=== PATIENT | female | born 1975 | race Caucasian/White ===

== ENCOUNTER 2017-07-17 22:32 | Emergency (ER) | payer OTHER ==
[~2017-07-17] VITALS: Ht 170.2 cm; Wt 127.0 kg
[~2017-07-17 22:32] MED LIST: ADVIL200 M1 PO; TYLENOL EXTRA500 MG PO
[2017-07-17] MEDS ORDERED: CYCLOBENZAPRINE10 MG PO (23:31)
[2017-07-17] MEDS ORDERED: DICLOFENAC SODI75 MG PO (23:31)
== END 2017-07-17 23:52 | disposition home or self-care (01) ==
LOC: ED 22:32
DX: S46.011A Strain of muscle(s) and tendon(s) of the rotator cuff of right shoulder, initial encounter (principal); F17.200 Nicotine dependence, unspecified, uncomplicated; Z91.041 Radiographic dye allergy status; Z88.0 Allergy status to penicillin; Z88.1 Allergy status to other antibiotic agents; Z88.6 Allergy status to analgesic agent; Z91.018 Allergy to other foods; X50.9XXA Other and unspecified overexertion or strenuous movements or postures, initial encounter
CPT/HCPCS: 73030; 99283

== ENCOUNTER 2017-08-10 18:05 | Inpatient (IN) | payer OTHER ==
[~2017-08-10] VITALS: Ht 170.2 cm; Wt 153.8 kg
--- OUTSIDE RECORDS SUMMARY | ~2017-08-10 | XMS | Clinical Summary ---
Demographics + + + | Address | [address] | | | [place] [address] | + + + | Home Phone | | + + + | Preferred Language | Unknown | + + + | Marital Status | Single | + + + | Adventism Affiliation | Unknown | + + + | Race | White | + + + | Ethnic Group | Not or | + + + Author + + + | Author | [facility] | + + + | Organization | [facility] | + + + | Address | Unknown | + + + | Phone | Unavailable | + + + Support + + +---------+ + | Name | Relationship | Address | Phone | + + +---------+ + | JAYDEN PULIDO | ECON | Unknown | | + + +---------+ + Care Team Providers + +------+ + | Care Environmental Test Technician Name | Role | Phone | + +------+ + PP | Unavailable | + +------+ + Source Comments KEHINDE is fully live on both [facility] Ambulatory and [facility] InPatient.[facility] Allergies Not on File Current Medications Not on file Active Problems Not on file Social History + +-------+ +--------+------+ | Tobacco [...] on file | | + + + Plan of Treatment + + + + + | Health Maintenance | Due Date | Last Done | Comments | + + + + + | INFLUENZA VACCINE | | | | | (FLU SHOT) | 7 | | | + + + + + Results Not on filefrom Last 3 Months"
--- OUTSIDE RECORDS SUMMARY | ~2017-08-10 | XMS | Clinical Summary ---
Demographics + + + | Address | [address] | | | [place] [address] | + + + | Home Phone | | + + + | Preferred Language | Unknown | + + + | Marital Status | Single | + + + | Zoroastrian Affiliation | Unknown | + + + | Race | White | + + + | Ethnic Group | Not or | + + + Author + + + | Author | [facility] | + + + | Organization | [facility] | + + + | Address | Unknown | + + + | Phone | Unavailable | + + + Support + + +---------+ + | Name | Relationship | Address | Phone | + + +---------+ + | JAYDEN PULIDO | ECON | Unknown | | + + +---------+ + Care Team Providers + +------+ + | Care Repairer Kiln Car Name | Role | Phone | + +------+ + PP | Unavailable | + +------+ + Source Comments KEHINDE is fully live on both [facility] Amb[facility] and [facility] InPatient.[facility] Allergies Not on File Current Medications [...]
--- OUTSIDE RECORDS SUMMARY | ~2017-08-10 | XMS | Clinical Summary ---
Demographics + + + | Address | [address] | | | [place] [address] | + + + | Home Phone | | + + + | Preferred Language | Unknown | + + + | Marital Status | Single | + + + | Voodoo Affiliation | Unknown | + + + | Race | White | + + + | Ethnic Group | Not or | + + + Author + + + | Author | [facility] | + + + | Organization | [facility] | + + + | Address | Unknown | + + + | Phone | Unavailable | + + + Support + + +---------+ + | Name | Relationship | Address | Phone | + + +---------+ + | JAYDEN PULIDO | ECON | Unknown | | + + +---------+ + Care Team Providers + +------+ + | Care Hotel Custodian Name | Role | Phone | + +------+ + PP | Unavailable | + +------+ + Source Comments KEHINDE is fully live on both [facility] Amb[facility] and [facility] InPatient.[facility] Allergies Not on File Current Medications [...]
[~2017-08-10 18:05] MED LIST changes: +CYCLOBENZAPRINE10 MG PO; +DICLOFENAC SODI75 MG PO
[2017-08-15] MEDS ORDERED: DOXYCYCLINE HY100 MG PO (10:10)
[2017-08-15] MEDS ORDERED: NICORETTE4 M2 BUCCAL (10:14)
[2017-08-15] MEDS ORDERED: METFORMIN HCL500 MG PO (10:15)
[2017-08-15] MEDS ORDERED: CALCIUM CARBON600 MG PO (10:15)
[2017-08-15] MEDS ORDERED: VITAMIN D1000 UNI1 PO (10:16)
[2017-08-15] MEDS ORDERED: GLUCOTROL XL5 MG PO (10:16)
[2017-08-15] MEDS ORDERED: CEFPODOXIME PR200 MG PO (10:20)
[2017-08-15] MEDS ORDERED: PROMETHAZINE12.5 M1 PO (14:23)
== END 2017-08-15 12:05 | disposition home or self-care (01) | DRG 872 ==
LOC: ED 18:05 → CCU 21:48 → MS 08-12 15:10
PROVIDERS: ADMIT Internal Medicine
DX: A40.0 Sepsis due to streptococcus, group A (principal); L03.115 Cellulitis of right lower limb; Z68.41 Body mass index [BMI] 40.0-44.9, adult; E66.2 Morbid (severe) obesity with alveolar hypoventilation; R65.20 Severe sepsis without septic shock; E11.65 Type 2 diabetes mellitus with hyperglycemia; G89.4 Chronic pain syndrome; M06.9 Rheumatoid arthritis, unspecified; L30.9 Dermatitis, unspecified; Z79.84 Long term (current) use of oral hypoglycemic drugs; L93.0 Discoid lupus erythematosus; B19.20 Unspecified viral hepatitis C without hepatic coma; E55.9 Vitamin D deficiency, unspecified; F17.200 Nicotine dependence, unspecified, uncomplicated; Z88.0 Allergy status to penicillin
CPT/HCPCS: 36415; 51702; 80048; 80053; 81001; 82306; 83036; 83605; 85025; 86060; 87040; 96374; 96375; 97162; 99285; 99407; J0696; J1170; J1650; J2405; J3243; J3490; J7030; J7120; Q0177

== ENCOUNTER 2020-03-20 22:16 | Emergency (ER) | payer OTHER ==
[~2020-03-20] VITALS: Ht 170.2 cm; Wt 136.1 kg
--- OUTSIDE RECORDS SUMMARY | ~2020-03-20 | XMS | Encounter Summary ---
Demographics + + + | Address | [address] | | | [place] [address] | + + + | Home Phone | | + + + | Preferred Language | Unknown | + + + | Marital Status | Single | + + + | Moravian Affiliation | Unknown | + + + | Race | White | + + + | Ethnic Group | Not or | + + + Author + + + | Author | [facility] | + + + | Organization | [facility] | + + + | Address | Unknown | + + + | Phone | Unavailable | + + + Support + + +---------+ + | Name | Relationship | Address | Phone | + + +---------+ + | Daron Bhatt | ECON | Unknown | | + + +---------+ + Care Team Providers + +------+ + | Care Air Plant Engineer Name | Role | Phone | + +------+ + | Kyree Mcintyre MD | PCP | Unavailable | + +------+ + Encounter Details +--------+ + + + + | Date | Type | Department | Care Team | Description | +--------+ + + + + | 05/18/ | Results | [facility] | Fawad Fox | | | 2008 | Only | Department | MD [facility] | | | | | | [facility] [address] | | | | | | [address] [facility], | | | | | | [place] [address] | | | | | | [phone] | | | | | | | | +--------+ + + + + Social History + +-------+ +--------+------+ | Tobacco Use | Types | Packs/Day | Years | Date | | | | | Used | | + +-------+ +--------+------+ | Never Assessed | | | | | + +-------+ +--------+------+ + + + | Sex Assigned at | Date Recorded | | | | + + + | Not on file | | + + + documented as of this encounter Plan of Treatment Not on filedocumented as of this encounter Procedures + +--------+ + + + | Procedure Name | Priori | Date/Time | Associated Diagnosis | Comments | | | ty | | | | + +--------+ + + + | DERMATOPATHOLOGY(CON | Routin | 05/18/2009 | | Results for this | | SULT) | e | | | procedure are in the | | | | | | results section. | + +--------+ + + + documented in this encounter Results DERMATOPATHOLOGY(CONSULT) (05/18/2009) + + + + + + | Component | Value | Ref Range | Performed | Pathologist | | | | | At | Signature | + + + + + + | DERMATOPATH | SOURCE OF SPECIMEN:A | | [facility] | | | (CONSULT) | FIRST TISSUE LEVEL IV | | DERMATOPATH | | | | [address] CLINICAL | | OLOGY | | | | DESCRIPTION:4mm punch, | | | | | | Lt. leg; vasculitis vs | | | | | | other.1 outside slide | | | | | | ([id number]) received. | | | | | | Ashley Celestin: | | | | | | In Makenzie Stack | | | | | | Baudilio's left leg | | | | | | biopsy, as you | | | | | | indicated, there is | | | | | | adense, superficial and | | | | | | mid, perivascular and | | | | | | interstitial mixed | | | | | | infiltrateconsisting | | | | | | predominantly of | | | | | | neutrophils, many of | | | | | | them with | | | | | | fragmentednuclei. | | | | | | there are numerous | | | | | | extravasated red cells | | | | | | as well as collectionsof | | | | | | neutrophils within | | | | | | dermal papillae. | | | | | | DIAGNOSIS:LEUKOCYTOCLAST | | | | | | IC VASCULITIS. 1 | | | | | | slide ([id number]) | | | | | | returned to | | | | | | Ruddy. | | | | | | CRW:mm05/29/09 My | | | | | | electronic signature | | | | | | indicates that I have | | | | | | personally reviewed | | | | | | alldiagnostic slides, | | | | | | the gross and/or | | | | | | microscopic portion of | | | | | | thisreport and | | | | | | formulated the final | | | | | | diagnosis. | | | | | | Rendering Diagnostician: | | | | | | Bossman Sims Jr., | | | | | | | | | | | | SengPathologistMarioi | | | | | | rodrigue Signed 05/29/2009 | | | | + + + + + + + + | Specimen | + + | Other | + + + + + + + | Performing | Address | City/State/Zipcode | Phone Number | | Organization | | | | + + + + + | [facility] | [address] | [place] [address] | | | DERMATOPATHOLOGY | [address] | | | + + + + + | [facility] | [address] | [place] [address] | | | DERMATOPATHOLOGY | [address] | | | + + + + + documented in this encounter Visit Diagnoses Not on filedocumented in this encounter"
--- OUTSIDE RECORDS SUMMARY | ~2020-03-20 | XMS | Encounter Summary ---
Demographics + + + | Address | [address] | | | [place] [address] | + + + | Home Phone | | + + + | Preferred Language | Unknown | + + + | Marital Status | Legally | + + + | Protestant Affiliation | 1077 | + + + | Race | White | + + + | Ethnic Group | Not or | + + + Author + + + | Author | [facility] | | | and [place] | + + + | Organization | [facility] | | | and [place] | + + + | Address | Unknown | + + + | Phone | Unavailable | + + + Support + + +---------+ + | Name | Relationship | Address | Phone | + + +---------+ + | Daron Bhatt | ECON | Unknown | | + + +---------+ + Care Team Providers + +------+ + | Care Smoking Pipe Repairer Name | Role | Phone | + +------+ + | No, Physician | PCP | Unavailable | + +------+ + Encounter Details +--------+ + + + + | Date | Type | Department | Care Team | Description | +--------+ + + + + | 08/21/ | Orders Only | [facility] | Omega Bello MD | | | 2018 | | [facility] [address] | [address] | | | | | [address] | [place] [address] | | | | | [place], [place] | [phone] | | | | | [address] | | | | | | [phone] | | | +--------+ + + + + Social History + +-------+ +--------+------+ | Tobacco Use | Types | Packs/Day | Years | Date | | | | | Used | | + +-------+ +--------+------+ | Current Every Day | | | | | | Smoker | | | | | + +-------+ +--------+------+ + + + | Sex Assigned at | Date Recorded | | | | + + + | Not on file | | + + + documented as of this encounter Plan of Treatment +--------+---------+ + + + | Date | Type | Specialty | Care Team | Description | +--------+---------+ + + + | 04/10/ | Office | Rheumatology | Nir Mcmahon | | 2019 | Visit | | MD Shanna [address] | | | | | [address] | | | | | | [place] [address] | | | | | | [phone] | | | | | | | | +--------+---------+ + + + documented as of this encounter Visit Diagnoses Not on filedocumented in this encounter Additional Health Concerns + + + + + | Infection | Onset Date | Last Indicated | Resolved Time | + + + + + | Rule out COVID-19 | 12/24/2019 | 12/24/2019 | 12/24/2019 12:54 PM | | | | | PDT | + + + + + documented as of this encounter"
--- OUTSIDE RECORDS SUMMARY | ~2020-03-20 | XMS | Encounter Summary ---
Demographics + + + | Address | [address] | | | [place] [address] | + + + | Home Phone | | + + + | Preferred Language | Unknown | + + + | Marital Status | Legally | + + + | Oriental Orthodox Affiliation | 1077 | + + + | Race | White | + + + | Ethnic Group | Not or | + + + Author + + + | Author | [facility] | | | and [place] | + + + | Organization | [facility] | | | and [...] Team Providers + +------+ + | Care Creel Operator Name | Role | Phone | + +------+ + | No, Physician | PCP | Unavailable | + +------+ + Reason for Visit + + + | Reason | Comments | + + + | Cellulitis | bilateral leg | + + + | Nausea | | + + + | Emesis | | + + + | Fever (9 Weeks To 74 | | | Years) | | + + + Auth/Cert +--------+--------+ + + + + | Status | Reason | Specialty | Diagnoses / | Referred By | Referred To | | | | | Procedures | Contact | Contact | +--------+--------+ + + + + | | | | Diagnoses | | | | | | | Cellulitis | | | | | | | of right | | | | | | | lower | | | | | | | extremity | | | | | | | Septic shock | | | | | | | ([facility]) | | | | | | | Fever, | | | | | | | unspecified | | | | | | | fever cause | | | | | | | | | | +--------+--------+ + + + + Encounter Details +--------+ + + + + | Date | Type | Department | Care Team | Description | +--------+ + + + + | 12/23/ | Hospital | [facility] | Ramone Partida, | Cellulitis of right | | 2019 - | Encounter | [facility] | MD [address] | lower extremity | | | | CARE FLOOR [address] | [place] [address] | (Primary Dx); Septic | | 12/28/ | | [address] | [phone] | shock (HCC); Fever, | | 2019 | | [place], [place] | | unspecified fever | | | | [phone] | Bryant Matthew MD | cause; | | | | [phone] | [address] | Non-intractable | | | | | [place] [address] | vomiting with | | | | | [phone] | nausea, unspecified | | | | | | vomiting type | | | | | Lisa Gutierrez MD | | | | | | [address] | | | | | | [address] [place], | | | | | | [place] [address] | | | | | | [phone] | | | | | | | | | | | | Chelle Fernandez S, | | | | | | [address] | | | | | | [place] [address] | | | | | | [phone] | | | | | | | [...] + + documented as of this encounter Last Filed Vital Signs + + + + + | Vital Sign | Reading | Time Taken | Comments | + + + + + | Blood Pressure | 126/68 | 12/29/2019 11:10 AM | | | | | PDT | | + + + + + | Pulse | 84 | 12/29/2019 11:10 AM | | | | | PDT | | + + + + + | Temperature | 36.8 C (98.3 F) | 12/29/2019 11:10 AM | | | | | PDT | | + + + + + | Respiratory Rate | 20 | 12/29/2019 11:10 AM | | | | | PDT | | + + + + + | Oxygen Saturation | 94% | 12/29/2019 11:10 AM | | | | | PDT | | + + + + + | Inhaled Oxygen | - | - | | | Concentration | | | | + + + + + | Weight | 151.4 kg (333 lb | 12/29/2019 4:20 AM | | | | 12.4 oz) | PDT | | + + + + + | Height | 170.2 cm (5' 7") | 12/24/2019 5:01 PM | | | | | PDT | | + + + + + | Body Mass Index | 52.28 | 12/24/2019 5:01 PM | | | | | PDT | | + + + + + documented in this encounter Discharge Summaries Chelle Fernandez MD - 12/29/2019 10:43 AM PDT Patient: Abhishek Astudillo : 1975 Date of Admission: 12/24/2019 Date of Discharge: 12/29/2019 Treatment Team: Chance Valentin DO Discharging Provider: Chelle Fernandez MD Discharge Diagnoses: Principal Problem: Severe sepsis Active Problems: Cellulitis of right lower extremity Type 2 diabetes mellitus RA (rheumatoid arthritis) Morbidly obese Epigastric pain Nausea & vomiting Resolved Problems: * No resolved hospital problems. * Procedures Performed: Chief Complaint: Cellulitis (bilateral leg); Nausea; Emesis; and Fever (9 Weeks To 74 Years) Hospital Course: The patient is a 44 y.o. female with significant past medical history of rheumatoid arthrit is, lupus, diabetes mellitus type 2, history of ulcerative colitis not on any medication exc ept ibuprofen and Tylenol, morbidly obese who came to the emergency department complaining o f high-grade fever, chills, right leg erythema as well as right leg pain and epigastric pain , she also complained of generalized body. Patient found to have Fever of 38.7, tachycardic with heart rate of 124, white count of 28, 000, sodium 132, glucose 456, procalcitonin 16, CPK 118, lactic acid 4.1. She was treated for evere sepsis due to Cellulitis of right lower extremity, improving, she received IV hydrtion and hypotension improved, she received Clindamycin and Ancef, that was changed to oral for 9 more days after discharge per ID recommendations Dr. Valentin, she will f ollow in 1 week. Left side abdominal pain, CT abdomen showed hepatomegaly and hepatic cirrhosis, inguinal ad enopathy, likely reactive due to cellulitis, possible abdominal pain due to gastritis on PPI . Gastroparesis is also in differential, continue Reglan. Type 2 diabetes mellitus, she received Insulin sliding scale while in the hospital. She use s Metformin at home, intermittently uses Glimiperide as she said she had hypoglycemia at [facility], diabetic education, patient will follow her blood sugar closely she said it goes high whe n she has infection, she doesn't have PCP at this time, she lives in [place] and will search to make appointment with one, she has glucometer and advised low calorie diet. She was prescribed Glimeperide and Metformin, she checks her blood sugar regularly at home. Morbidly obese, counseling for life style modifications. Outstanding Issues: Discharge Exam and Data: Vital Signs: BP 122/68 | Pulse 78 | Temp 36.9 C (98.4 F) (Oral) | Resp 20 | Ht 1.702 m (5' 7") | Wt (!) 151.4 kg (333 lb 12.4 oz) | SpO2 94% | No | BMI 52.28 kg/m Physical Exam Constitutional: Alert and awake, no acute distress HEENT: Neck supple, no JVD, non icteric sclera. Cardiovascular: Normal rate normal heart sounds with S1 and S2, Pulmonary/Chest: Effort normal and breath sounds normal. No stridor. No respiratory distres s. no wheezes. no rales. Abdominal: Soft. Bowel sounds are normal. There is no tenderness. There is no rebound and n o guarding. Extremeties/Musculoskeletal: Normal range of motion.exhibits bilateral lymphedema. Recent Labs Recent Labs Lab 12/29/19 0631 WBC 8.31 HGB 10.7* HCT 32.8* PLT 270 Recent Labs Lab 12/29/19 0631 NA 139 K 3.5 CL 105 CO2 26 BUN 10 CALCIUM 8.2* No results for input(s): INR in the last 168 hours. Recent Radiology Results No results found. Discharge Information: Follow up: Current active diet order is: Diet Diet consistent carb; Effective Now Chance Homero, DO [address] [facility] [id number] Schedule an appointment as soon as possible for a visit in 1 week Discharge Medications New Medications Details cephalexin 500 mg capsule Take 1 capsule by mouth 4 times daily for 9 days. Indications: Non-Purulent Skin and Soft Tissue Infection aka: KEFLEX clindamycin 300 MG capsule Take 1 capsule by mouth every 6 hours for 9 days. Indications: Non-Purulent Skin and Soft Tissue Infection aka: CLEOCIN glimepiride 2 MG tablet Take 1 tablet by mouth Daily. aka: AMARYL Changed Medications Details HYDROcodone-acetaminophen 5-325 mg per tablet Take 1-2 tablets by mouth every 6 hours as needed for Pain. What changed: What Changed: Instructions aka: NORCO Unchanged Medications Details metFORMIN 1000 MG tablet Take 1 tablet by mouth 2 (two) times daily with meals. aka: GLUCOPHAGE . Disposition: home Condition: Stable Code Status: Full Code Discharge took 35 minutes, to include final examination, discussion of admission, and prepa ration of prescriptions, instructions for on-going care, follow-up and documentation of disc harge summary. Chelle Fernandez MD 10:43 AM PDT 12/29/2019 documented in thi s encounter Discharge Instructions Instructions Mario Padgett RN - 12/29/2019What is Coronavirus? The Novel Coronavirus 2019 (COVID-19) is a new virus strain that is spread mainly from pers lt-fi-ldpfyx through respiratory droplets when an infected person coughs or sneezes. Symptom s may appear 2-14 days after exposure. Reported illnesses have ranged from mild symptoms to severe illness and for confirmed cases. Some people testing positive for COVID-19 have no symptoms at all (asymptomatic). The most common symptoms include: ? Cough ? Shortness of breath or difficulty breathing ? Fever ? Chills ? Muscle pain ? Sore throat ? New loss of taste or smell COVID-19 is most commonly spread from an infected person to others through: ? Between people who are in close contact with one another (within about 6 feet). ? Respiratory droplets produced by coughing and sneezing. These droplets can land in the mo uths or nose of people who are nearby or possibly be inhaled into the lungs. ? Touching a surface with the virus on it and then touching your mouth, nose, or eyes befor e washing your hands. How to protect yourself ? Avoid touching your eyes, nose and mouth with unwashed hands. ? Wash your hands often with soap and water for at least 20 seconds. This is especially imp ortant after blowing your nose, coughing, or sneezing; going to the bathroom; and before eat ing or preparing food. ? If soap and water are not available, use an alcohol-based hand vibrating screed operator with at least 60 % alcohol covering all surfaces of your hands and rubbing them together until they feel dry. ? Cover your cough or sneeze with a tissue, then throw the tissue in the trash. (Putting a tissue on a table contaminates the surface of the table with germs.) ? Routinely disinfect frequently touched objects and surfaces, using a cleaning spray or wi pe. ? Avoid travel to high-risk countries. Non-essential travel to or through any of the countr ies for which the CDC has issued a level 2 or 3 travel health notice is discouraged. https://www.cdc.gov/coronavirus/2019-ncov/travelers/index.html ? Stay at least 6 feet away from others when in public places, do not gather in groups, sta y out of crowded places, and avoid mass gatherings to slow the spread of the virus. ? Use of a simple cloth face covering to slow the spread of the virus in public settings wh ere it's hard to stay away from others, such as in grocery stores, pharmacies, and other are as where the virus might easily spread. Cloth masks do not protect the wearer but instead h old in droplets from sneezing or coughing to prevent spreading to other people and surfaces. Cloth face coverings fashioned from household items or made at home from common materials a t low cost can be used. It is not recommended to use surgical masks or N-95 respirators. A few definitions that you should be familiar with regarding COVID-19: Quarantine is used to keep someone who might have been exposed to COVID-19 away from others . Isolation is used to separate people infected with the virus (those who are sick from COVID -19 and those with no symptoms) from people who are not infected. Both quarantine and isolation are similar that they: ? involve separation of people to protect the public ? help limit further spread of COVID-19 ? can be done voluntarily or be required by health authorities What to do if you are sick? ? If you have a fever and cough, you may have COVID-19. Notify your medical provider. ? Stay home except to get medical care (see for Home Isolation) ? Monitor your symptoms When you should seek medical evaluation and advice? ? Call 911 if you have a medical emergency such as trouble breathing, persistent pain or pr essure in the chest, and/or bluish lips or face. If you have a medical emergency and need to call 911, notify the moulder operator that you have or think you might have, COVID-19. If possible, put on a facemask before medical help arrives. ? If you are 65 and older, or have underlying conditions such as , heart disease, diabetes, lung disease and weakened immune system, work with your doctor to develop a plan t o determine your health risks to COVID-19 and how to manage symptoms. If you do have symptom s, contact your doctor immediately. ? For worsening symptoms or difficulty breathing, please contact your primary care provider or consider a virtual visit. ? If you do not have a high-risk condition and your symptoms are mild, you do not need to b e evaluated in person and do not need to be tested for COVID-19. (Please see Home Quarantin e and Isolation Instructions below) ? We ask that you please avoid coming to the emergency department, unless you have a health emergency and/or you have been advised by a provider to do so. This helps prevent the risk of spreading this disease and further exposure in our community and allows us to dedicate cr itical and limited emergency resources to those who are very sick. Who should be tested? A common question right now is, Why can't I get tested? The answer: Not everyone need s to be tested. Given the short supply of testing supplies and protective equipment for our health care workers, the CDC recommends that people who are hospitalized, healthcare worker who have COVID-19 symptoms, residents in nursing facilities or half-way communities or home health, or those who are high risk (older adults, chronic diseases, immunosuppressed) s hould be prioritized for testing. These recommendations may evolve to include more people ov er time, as this situation is evolving rapidly. It is not recommended to test individuals wh o do not have COVID-19 symptoms. What to do if you think you have been exposed to COVID-19? If you feel healthy but recently had close contact with a person known to have COVID-19, yo u need to self-quarantine. Follow the self-quarantine instructions listed below: ? Check your temperature twice a day ? Stay home for 14 days from the time of exposure and self-monitor for fever, cough, and sh ortness of breath. ? Contact your medical provider if your temperature is greater than 100.4 and you develop c ough or shortness of breath. ? If possible, stay away from people who are high-risk for getting very sick from COVID-19. Does this mean my family or other people I live with need to self-quarantine? Other members of the household are not required to self-quarantine, unless they have been t old by a medical professional to do so. If you develop symptoms and are suspected to have CO VID-19, members of the household will be classified as close contacts and will then need to be in self-quarantine. Please speak to your health care provider and/or health department fo r further instructions. What are the guidelines for home quarantine and home isolation? ? Restrict activities outside your home, except for seeking medical care. ? Do not go to work, another person's home, school or public areas. ? Do not use public transportation. ? Cover coughs and sneezes. ? Avoid close contact with household members. When this is not possible, stay at least 6 fe et from other people and wear a cloth face covering. During the COVD-19 pandemic, medical-gr tacos masks are reserved for healthcare workers. ? Use separate sleeping and bathroom/bathing facilities, if feasible. ? Wash your hands often with soap and water for at least 20 seconds. This is especially imp ortant after blowing your nose, coughing, or sneezing; going to the bathroom; and before eat ing or preparing your food. ? Use hand vibrating screed operator if soap and water are not available. Use an alcohol-based hand sanitiz er with at least 60% alcohol, covering all surfaces of your hands and rubbing them together until they feel dry ? Cover your mouth and nose with a tissue when you cough or sneeze. Throw away used tissues in a lined trash can. Wash your hands afterwards. ? Clean and disinfect high-touch surfaces in your sick room and bathroom with a house hold disinfectant. High-touch surfaces include phones, remote controls, counters, doorknobs, tabletops, bathroom fixtures, toilets, keyboards, and bedside tables. Let someone else tracey n and disinfect surfaces in common areas, but not your bedroom and bathroom. ? Avoid sharing personal household items (dishes, drinking glasses, cups, eating utensils, towels, or bedding) with other people or pets in your home. After using these items, they sh ould be washed thoroughly with soap and water or in the sheriff's sergeant/washer. ? Call ahead before visiting your doctor. This will help the healthcare provider's office t heaven steps to keep other people from getting infected or exposed. ? If you have been tested for COVID-19, stay home until your healthcare provider contacts y ou about your test results. When should I discontinue self-quarantine? If you have tested positive for COVID-19, you can leave home after these three things have happened: ? At least 3 days (72 hours) have passed since resolution of fever (temperature less than 1 00.0F or 37.8C) without the use of fever-reducing medications (e.g. Tylenol, Ibuprofen) AND ? At least 3 days of improvement in respiratory symptoms (e.g. cough, shortness of breath) AND ? At least 10 days have passed since symptoms first appeared If you have tested positive for COVID-19 and are retested, you can leave home after these t hree things have happened: ? Resolution of fever (temperature less than 100.0F or 37.8C) without the use of fever-redu cing medications (e.g. Tylenol, Ibuprofen) AND ? Improvement in respiratory symptoms (e.g. cough, shortness of breath) AND ? Negative test results of COVID-19 from at least two consecutive samples collected 24 hrs or more apart If you are waiting for COVID-19 test results or you are symptomatic but did not require kathy ting, you can leave home after the following things have happened: ? At least 3 days (72 hours) have passed since resolution of fever (temperature less than 1 00.0F or 37.8C) without the use of fever-reducing medications (e.g. Tylenol, Ibuprofen) and at least 3 days of improvement in respiratory symptoms (e.g., cough, shortness of breath), a nd at least 10 days have passed since symptoms first appeared. OR ? Two negative test results received and at least 24 hours have passed since resolution of fever (temperature less than 100.0F or 37.8C) without the use of fever-reducing medications (e.g. Tylenol, Ibuprofen). How is COVID-19 treated? Most people with COVID-19 will recover on their own. There is no specific antiviral treatm ent recommended for COVID-19 at this time. People with COVID-19 should receive supportive ca re to help relieve symptoms. For severe cases, treatment should include care to support heavenly l organ functions. Additional Information For up-to-date information about coronavirus and the community public health response, visi t your local public health website. CDC: COVID-19: https://www.cdc.gov/coronavirus/2019-ncov/index.html [place] Coronavirus Advisory: https://www.[place].org/jdknacxd-tfa-bzxiambj/coron tamekarus-advisory Virtual Visits Available [email or web address]/ AttachmentsThe following attachments cannot be sent through Care Everywhere.Sepsis, Underst anding ([place]ian)Sepsis ([place]ian)Cephalexin tablets or capsules ([place]ian)Clindamycin capsules ([place]ian)documented in this encounter Medications at Time of Discharge + + + +---------+ + + | Medication | Sig | Dispensed | Refills | Start | End Date | | | | | | Date | | + + + +---------+ + + | glimepiride | Take 1 tablet by | 30 | 0 | /30/20 | | | (AMARYL) 2 MG tablet | mouth Daily. | tablet | | 20 | | + + + +---------+ + + | | Take 1-2 tablets by | 30 | 0 | 07/30/20 | | | HYDROcodone-acetamin | mouth every 6 hours | tablet | | 20 | | | ophen (NORCO) 5-325 | as needed for Pain. | | | | | | mg per tablet | | | | | | + + + +---------+ + + | metFORMIN | Take 1 tablet by | 60 | 5 | 08/22/19 | | | (GLUCOPHAGE) 1000 MG | mouth 2 (two) times | tablet | | 18 | | | tablet | daily with meals. | | | | | + + + +---------+ + + | cephalexin | Take 1 capsule by | 36 | 0 | 12/29/19 | | | (KEFLEX) 500 mg | mouth 4 times daily | capsule | | 20 | 0 | | capsuleIndications: | for 9 days. | | | | | | NON-PURULENT SKIN | Indications: | | | | | | AND SOFT TISSUE | Non-Purulent Skin | | | | | | INFECTION | and Soft Tissue | | | | | | | Infection | | | | | + + + +---------+ + + | clindamycin | Take 1 capsule by | 36 | 0 | 12/29/19 | | | (CLEOCIN) 300 MG | mouth every 6 hours | capsule | | 20 | 0 | | capsuleIndications: | for 9 days. | | | | | | NON-PURULENT SKIN | Indications: | | | | | | AND SOFT TISSUE | Non-Purulent Skin | | | | | | INFECTION | and Soft Tissue | | | | | | | Infection | | | | | + + + +---------+ + + documented as of this encounter Progress Notes Chance Valentin DO - 12/29/2019 10:08 AM PDTFormatting of this note might be different from ajith rizo. [facility] Service: Infectious Diseases Progress note Hospital Day: LOS 5 Post-op Day: * No surgery found * Subjective Patient Summary: 44 y.o. female with significant past medical history of type 2 diabetes m ellitus, lupus, rheumatoid arthritis, ulcerative colitis, hepatitis C, endometrial cancer wh o presented on 12/24/2019 with severe pain in the right leg associated with fever and hypoten vikram. Exam was consistent with cellulitis, and the patient was given Rocephin in the emerge ncy department. The patient was ordered for cefepime, Zyvox and clindamycin at the time of admission for management of right leg cellulitis and severe sepsis, although the patient did not require admission to the ICU. I have been asked to consult regarding further antibioti c recommendations. Presenting symptoms were typical of group A strep cellulitis, and she jarquin d a prior history of group A strep exposure in the workplace, therefore antibiotics were sim plified to Ancef and clindamycin. CC: Right leg cellulitis Chart reviewed: No new events. Subjective The patient reports that her sweats and chills have resolved. She has still been having zurdo e headaches. These have been well controlled with [place], no longer needing Dilaudid. She s till has pain in the right leg especially when she first starts standing or walking. The sk in remains very sensitive. No nausea, vomiting or diarrhea. ROS No vomiting or diarrhea. No rashes or pruritis. No oral pain. cephalexin 500 mg Oral 4x Daily clindamycin 300 mg Oral Q6H enoxaparin 40 mg Subcutaneous Q12H famotidine 20 mg Oral BID insulin glargine 20 Units Subcutaneous QAM insulin lispro 0-12 Units Subcutaneous 4x Daily WC and HS PRN Medications: acetaminophen, calcium carbonate, Hypoglycemia Management AND POCT Glucose AND dext mayito AND dextrose 10%, diphenhydrAMINE, HYDROcodone-acetaminophen, metoclopramide, ondan setron Current Facilty-Administered PRN Medications Ordered in Epic Medication Dose Route Frequency Provider Last Rate Last Dose acetaminophen (TYLENOL) tablet 650 mg 650 mg Oral Q4H PRN Bryant Matthew MD 650 mg a t 12/28/19 2208 calcium carbonate (TUMS) chewable tablet 1,000 mg 1,000 mg Oral Q4H PRN Bryant Matthew MD dextrose 50% injection 12.5-25 g 12.5-25 g Intravenous PRN Bryant Matthew MD And dextrose 10% (D10W) infusion Intravenous Continuous PRN Bryant Matthew MD diphenhydrAMINE (BENADRYL) capsule 25 mg 25 mg Oral Q8H PRN Kathia Gutierrez MD 25 mg at 12/28/19 1321 HYDROcodone-acetaminophen (NORCO) 5-325 mg per tablet 1-2 tablet 1-2 tablet Oral Q6H P RN Bryant Matthew MD 1 tablet at 12/29/19 0410 metoclopramide (REGLAN) 5 mg/mL injection 10 mg 10 mg Intravenous Q6H PRN Bryant Casarez i, MD ondansetron (ZOFRAN) injection 4 mg 4 mg Intravenous Q6H PRN Bryant Matthew MD 4 mg at 12/28/19 0705 Objective: Vital Signs: BP 122/68 | Pulse 78 | Temp 36.9 C (98.4 F) (Oral) | Resp 20 | Ht 1.702 m (5' 7") | Wt (!) 151.4 kg (333 lb 12.4 oz) | SpO2 94% | No | BMI 52.28 kg/m Temp: [36.6 C (97.8 F)-36.9 C (98.4 F)] 36.9 C (98.4 F) Pulse: [69-79] 78 Resp: [17-20] 20 BP: (105-169)/(57-79) 122/68 Exam: Const: Vitals reviewed. No acute distress Skin: No rashes, no edema ENT: No thrush. Lungs: CTAB, no rales or wheezes Heart: RRR, no murmur Abd: soft, NT, + bowel sounds Right lower extremity erythema has faded and receded from marked borders, there is still bl anching hyperemia but no induration, much less tensely swollen. The hyperemic area does rem ain tender to palpation Data: Recent Results (from the past 24 hour(s)) POC Glucose Result Value Ref Range Glucose, POC 135 (H) 65 - 99 mg/dL Hemoglobin A1C Result Value Ref Range Hemoglobin A1c 10.8 (H) 4.8 - 5.6 % POC Glucose Result Value Ref Range Glucose, POC 169 (H) 65 - 99 mg/dL POC Glucose Result Value Ref Range Glucose, POC 153 (H) 65 - 99 mg/dL CK Total Result Value Ref Range CK TOTAL 32 30 - 240 U/L CBC with Differential Result Value Ref Range WBC 8.31 3.80 - 11.00 K/uL Red Blood Cells 3.72 3.70 - 5.10 M/uL Hemoglobin 10.7 (L) 11.3 - 15.5 g/dL Hematocrit 32.8 (L) 34.0 - 46.0 % MCV 88.2 80.0 - 100.0 fl MCH 28.8 27.0 - 34.0 pg MCHC 32.6 32.0 - 35.5 g/dL RDW-SD 40.6 37 - 53 fl Platelet Count 270 150 - 400 K/uL MPV 9.7 fl Diff Type AUTOMATED % nRBC 0.0 0 /100WBC % Neutrophils 71.10 % IMMATURE GRANULOCYTE 1.30 % % Lymphocytes 14.70 % Monocyte % 10.50 % Eosinophils % 2.00 % Basophils % 0.40 % Neutrophils, Absolute 5.91 1.90 - 7.40 K/uL IMMATURE GRANS AB 0.11 (H) 0.00 - 0.07 K/uL Absolute Lymphocytes 1.22 1.00 - 3.90 K/uL Absolute Monocytes 0.87 (H) 0.00 - 0.80 K/uL Eosinophils, Absolute 0.17 0.00 - 0.50 K/uL Basophils, Absolute 0.03 0.00 - 0.10 K/uL Magnesium Result Value Ref Range Magnesium 1.8 1.7 - 2.4 mg/dL Phosphorus Result Value Ref Range Phosphorus 2.5 2.3 - 4.8 mg/dL Basic Metabolic Panel Result Value Ref Range Na 139 135 - 145 mmol/L K 3.5 3.5 - 4.9 mmol/L Cl 105 99 - 109 mmol/L CO2 26 23 - 32 mmol/L Anion Gap 12 5 - 20 mmol/L Glucose 178 (H) 65 - 99 mg/dL BUN 10 8 - 25 mg/dL Creatinine 0.49 (L) 0.50 - 1.00 mg/dL BUN/Creatinine Ratio 20 Calcium 8.2 (L) 8.5 - 10.5 mg/dL Estimated GFR >60 >60 mL/min/1.73m2 POC Glucose Result Value Ref Range Glucose, POC 188 (H) 65 - 99 mg/dL Problem List: Principal Problem: Severe sepsis Active Problems: Cellulitis of right lower extremity Type 2 diabetes mellitus RA (rheumatoid arthritis) Morbidly obese Epigastric pain Nausea & vomiting Assessment / Recommendations: Severe sepsis This is most likely toxic shock syndrome secondary to a streptococcal infection, especially in light of negative blood cultures. Further discussed below. Cellulitis of right lower extremity Presentation strongly suggestive of streptococcal cellulitis with toxin production. She jarquin s had rapid improvement in fever and leukocytosis, with exam findings also improving at this point. She has tolerated oral clindamycin and cephalexin. Overall treatment day #6. Incl uding today she needs 9 more days of treatment. Left lower quadrant abdominal pain Resolved spontaneously, no explanation seen on CT scan. Will monitor. Headaches Likely still due to toxins from streptococcal infection, but should be rapidly improving at this point. Disposition: Ready for discharge from infectious diseases standpoint. She will need a pres cription for 9 more days of cephalexin and clindamycin. Follow-up in the ID clinic [facility] Code Status: Full Code Chance Valentin DO 12/29/19 Chelle Wheat MD - 12/28/2019 2:26 PM PDT [facility] Service: Hospitalist Progress Note Pt: Abhishek Astudillo AGE/SEX: 44 y.o. female ROOM: 7112/7112-01 : 1975 PCP: No Physician on file ADMIT DATE: 12/24/2019 TODAY'S DATE: 12/28/2019 Hospital Day/Hospital Course: LOS: 4 days SUBJECTIVE: Patient seen and examine. Complaint of right leg redness and swelling, continue to improve but patient still complains of pain. Scheduled Medications: cephalexin 500 mg Oral 4x Daily clindamycin 300 mg Oral Q6H enoxaparin 40 mg Subcutaneous Q12H famotidine 20 mg Oral BID insulin glargine 20 Units Subcutaneous QAM insulin lispro 0-12 Units Subcutaneous 4x Daily WC and HS Continuous Infusions dextrose 10% PRN Medications acetaminophen, calcium carbonate, Hypoglycemia Management AND POCT Glucose AND dext mayito AND dextrose 10%, diphenhydrAMINE, HYDROcodone-acetaminophen, metoclopramide, ondan setron Allergy: Allergies Allergen Reactions Iodine Contrast Dye [Iodinated Diagnostic Agents] Anaphylaxis Daptomycin Other (See Comments) vasculitis Naproxen Other (See Comments) From Anaprox, "really sick" Penicillins Rash Rash, Tolerates cephalosporins Vancomycin Other (See Comments) vasculitis Iodine Solution [Povidone Iodine] Itching "Pt states feeling light head and itching" Latex Itching OBJECTIVE: Vitals: Temp: [36.7 C (98 F)-37.1 C (98.8 F)] 36.7 C (98 F) Pulse: [70-83] 79 Resp: [16-20] 17 BP: (118-137)/(57-84) 122/57 I&O Detailed Table: No intake or output data in the 24 hours ending 12/28/19 1426 Patient Vitals for the past 96 hrs: Weight 12/28/19 0437 (!) 156.3 kg (344 lb 9.3 oz) 12/24/19 1701 (!) 145.6 kg (320 lb 14.4 oz) Physical Examination: Constitutional: Alert and oriented to person, place, and time. Morbidly obese HEENT: Neck supple, no JVD, non icteric sclera. Cardiovascular: Normal rate, regular rhythm, normal heart sounds with S1 and S2, and intact distal pulses. Exam reveals no gallop and no friction rub. No murmur heard. Pulmonary/Chest: Effort normal and breath sounds normal. No stridor. No respiratory distres s. no wheezes. no rales. exhibits no tenderness. Abdominal: Soft. Bowel sounds are normal. exhibits no distension and no mass. There is no t enderness. There is no rebound and no guarding. Extremeties/Musculoskeletal: Normal range of motion.exhibits no tenderness. exhibits bilat eral lymphedema. Right leg redness improving. Neurological: Alert and oriented to person, place, and time. No cranial nerve deficit. E xhibits normal muscle tone. No gross motor deficits. Skin: Skin is warm. No pallor. Patient has normal capillary refill, no mottling. Psychiatric: Has a normal mood and affect. Behavior is normal. Judgment normal. LABS: Recent Labs 12/28/19 0504 12/27/19 0456 WBC 7.62 7.00 HGB 11.1* 11.2* HCT 33.9* 34.0 PLT 228 179 MCV 87.4 87.9 Recent Labs Lab 12/28/19 0504 12/27/19 0456 12/26/19 0510 12/25/19 0554 12/24/19 1125 NA 138 138 136 -- 134* 132* K 3.8 3.5 3.4* -- 4.0 4.3 CL 104 106 106 -- 103 99 CO2 26 24 21* -- 24 20* ANIONGAP 12 12 12 -- 11 17 BUN 8 11 11 -- 16 12 CREA 0.50 0.60 0.60 -- 0.90 0.85 CALCIUM 7.4* 6.9* 7.0* -- 7.7* 8.8 ALBUMIN -- -- -- -- 2.6* 3.7 ALKPHOS -- -- -- -- 66 83 ALT -- -- -- -- 24 19 AST -- -- -- -- 27 19 MG 1.7 1.8 1.4* < > -- -- PHOS 2.0* 2.1* 1.9* -- -- -- < > = values in this interval not displayed. Recent Labs 12/28/19 0504 12/27/19 0456 12/26/19 0510 GLU 127* 153* 129* No results for input(s): TROPONIN, BNP in the last 72 hours. No results for input(s): PROTIME, INR, PTT in the last 168 hours. No results for input(s): IRON, TIBC, PCTSAT, FERRITIN, TSH, SOILYHPB08, FOLATE in the last 168 hours. Recent Labs Lab 12/28/19 0504 12/27/19 0456 12/26/19 0510 12/25/19 2056 12/25/19 0554 12/24/19 1717 12/24/19 1125 LACTATE -- -- -- 0.8 1.5 2.3* < > -- PROCALCITONI -- -- -- -- -- -- -- 16.68* CRP 12.8* 16.7* 24.0* -- -- -- -- -- < > = values in this interval not displayed. No results for input(s): AMYLASE, LIPASE in the last 168 hours. No results for input(s): TRIG, CHOL, HDL, LDL in the last 168 hours. No results for input(s): AMMONIA in the last [address] Abdomen Pelvis Wo Contrast Result Date: 12/26/2019 CT ABDOMEN AND PELVIS WITHOUT CONTRAST CLINICAL INFORMATION: Left lower quadrant pain and n ausea. COMPARISON: CT ABDOMEN PELVIS WO CONTRAST (12/24/2019); PROCEDURE: Axial images throug h the abdomen and pelvis. Multiplanar reconstructions. At least one of the following CT dose optimization techniques were used: Automated exposure control; Adjustment of mA and/or kV a ccording to patient size; Use of iterative reconstruction technique. FINDINGS: LUNG BASES: N o significant pulmonary abnormality. Symmetric bibasilar compressive atelectasis. No pneum othorax or significant pleural effusion. No pleural effusion or pneumothorax. ABDOMEN Solid organ evaluation suboptimal without contrast. Liver and Biliary: No calcified gallstones or dilated bile ducts. The liver appears enlarged. Cirrhotic liver morphology with enlargeme nt of the caudate lobe and left lobe. No focal liver lesions seen on noncontrast exam. Panc reas, Spleen and Adrenals: The noncontrast appearance of the pancreas, spleen, and adrenal g lands is normal. Kidneys: No hydronephrosis, calculi or contour deforming renal lesion. ABDO MEN AND PELVIS Bowel: No focal gastric abnormality. No small bowel or colonic dilation or a djacent inflammation. No appendiceal dilation or inflammation. Vessels: The abdominal aorta and inferior vena cava are normal caliber. Retroaortic left renal vein, a normal variant. Ly mph Nodes: Multiple enlarged nodes seen in the inguinal regions, right worse than left. The largest node in the right inguinal region is incompletely imaged, with length of at least 6 .7 cm, and short axis diameter of 2.2 cm (coronal image 51 and axial image 185 series 3). Mu ltiple enlarged lymph nodes are seen in the external iliac and common iliac chain, with larg est node in the right external iliac chain measuring 3.8 cm long axis by 2.2 cm short axis. 1.5 cm short axis nodes seen in the right common femoral chain. Small subcentimeter short axis nodes are seen in the aortocaval and upper abdominal periaortic region. Portacaval nod e measures 1.8 cm short axis. A 13 mm short axis node is seen in the peripancreatic/subacut e hepatic space. There are multiple enlarged lymph nodes seen in the retrocrural space, adj acent to the descending thoracic aorta, several with long axis of 2.3 cm, and short axis of 9-10 mm. Peritoneum and Retroperitoneum: No free intraperitoneal air. No ascites fluid. PEL VIS Genitourinary: Urinary bladder moderately distended without focal abnormality. Vaginal cuff intact. The uterus appears surgically absent. No pelvic mass. BODY WALL Soft Tissues: No bowel or inflamed fat containing hernia, mass or hemorrhage. Bones: No acute fracture or vertebral end plate destruction. No lytic or blastic lesion. 1. Hepatomegaly. Relative enlargement of the caudate lobe and left lobe suggests hepatic c irrhosis. 2. Adenopathy. Bulky adenopathy is seen in both inguinal regions, right worse del n left. The largest right inguinal node is incompletely imaged, with long axis of at least 6.7 cm, and short axis of 2.2 cm. Enlarged nodes are also seen along the right external and common iliac chain regions, largest right external iliac node with long axis of 3.8 cm and s hort axis of 2.2 cm. Multiple enlarged nodes are seen in the retrocrural and adjacent to th e descending thoracic aorta and esophagus. Mildly enlarged nodes seen in the peripancreatic /periportal and portacaval regions. 3. No evidence of acute diverticulitis. Normal retrocec al appendix. No evidence of urinary tract stone or hydronephrosis. Final Report Signed by: Silvino link M.D., Brian Sign Date/Time: 12/26/2019 6:[address] Abdomen Pelvis Wo Contrast Result Date: 12/24/2019 CT ABDOMEN AND PELVIS WITHOUT CONTRAST CLINICAL INFORMATION: Abdominal pain, acute, nonloca lized. COMPARISON: None PROCEDURE: Axial images through the abdomen and pelvis. Multiplanar reconstructions. At least one of the following CT dose optimization techniques were used: Au tomated exposure control; Adjustment of mA and/or kV according to patient size; Use of itera tive reconstruction technique. FINDINGS: LUNG BASES: Mild posterior dependent atelectasis of the lung bases. ABDOMEN Solid organ evaluation suboptimal without contrast. Liver and Bilia ry: No visible abnormality in the liver or gallbladder. Pancreas, Spleen and Adrenals: Vera l pancreas morphology. No splenomegaly. No significant adrenal abnormality. Kidneys: No hydr onephrosis, calculi or contour deforming renal lesion. ABDOMEN AND PELVIS Bowel: No small edvin wel or colonic dilation or adjacent inflammation. No appendiceal dilation or inflammation. V essels: No abdominal aortic aneurysm. Lymph Nodes: Right inguinal adenopathy. Right inguina l large node (3/163) measuring 2 cm x 1.8 cm. Right inguinal node (3/159) measuring 1.3 cm in short axis dimension. Large right external iliac lymph node measuring 2 cm x 3.4 cm (3/1 25). Large right common iliac node (3/106) measuring 1.3 cm. There are prominent nodes of t he left inguinal region, the largest measuring 1 cm by 3.2 cm (3/161). Nonspecific large por mehul caval node (3/56) measuring 1.6 x 2.9 cm. Peritoneum and Retroperitoneum: No ascites or free air. No significant retroperitoneal abnormality. PELVIS Genitourinary: Distal ureters a nd bladder appear normal. No pelvic masses. Hysterectomy BODY WALL Soft Tissues: No bowel or inflamed fat containing hernia, mass or hemorrhage. Bones: Mild degeneration of the sacro iliac joints. Mild degeneration at the L5-S1 level with vacuum disc phenomenon. Mild degen eration at the T11-T12 disc space. 1. Right inguinal, right external iliac and right common iliac lymphadenopathy. Given the history, likely reactive from lower extremity infection. Alternative considerations include metastasis or lymphoma. 2. Appendix is normal. Gallbladder is normal. Pancreas is normal. 3. No hydronephrosis or hydroureter. No nephroureterolithiasis. 4. No acute bowel abnormal ity. Final Report Signed by: Seng Graham, Darren Sign Date/Time: 12/24/2019 2:09 PM Xr Chest Ap Portable Result Date: 12/24/2019 CHEST PORTABLE ONE VIEW CLINICAL INFORMATION: Fever. COMPARISON: None FINDINGS: Heart, lung s and vessels normal. No pneumothorax, pleural effusion or adenopathy. No significant bone a bnormality. No acute cardiopulmonary abnormality. Final Report Signed by: Seng Graham, Darren Sign Date/ Time: 12/24/2019 1:07 PM <NWCOMORBIDITIES> PROBLEM LIST Principal Problem: Severe sepsis Active Problems: Cellulitis of right lower extremity Type 2 diabetes mellitus RA (rheumatoid arthritis) Morbidly obese Epigastric pain Nausea & vomiting ASSESSMENT & PLAN 1. Severe sepsis due to Cellulitis of right lower extremity, improving, she received IV h ydrtion and hypotension improved, she is now on Clindamycin and Ancef orally, if she continu e to improve she can be discharged tomorrow, per ID recommendations Dr. Valentin. 2. Left side abdominal pain, CT abdomen showed hepatomegaly and hepatic cirrhosis, inguinal adenopathy, likely reactive due to cellulitis, possible abdominal pain due to gastritis on PPI. Gastroparesis is also in differential, continue Reglan. 2. Type 2 diabetes mellitus, continue Insulin sliding scale. She uses Metformin at home, i ntermittently uses Glimiperide as she said she had hypoglycemia at home. 3. RA (rheumatoid arthritis), not on medications. 4. Morbidly obese, counseling for life style modifications. 5. DVT prophylaxis. Lovenox. Chelle Fernandez MD 12/28/2019 2:26 PM PDT Chance Gregory DO - 12/28/2019 10:07 AM PDT [facility] Service: Infectious Diseases Progress note Hospital Day: LOS 4 Post-op Day: * No surgery found * Subjective Patient Summary: 44 y.o. female with significant past medical history of type 2 diabetes m ellitus, lupus, rheumatoid arthritis, ulcerative colitis, hepatitis C, endometrial cancer wh o presented on 12/24/2019 with severe pain in the right leg associated with fever and hypoten vikram. Exam was consistent with cellulitis, and the patient was given Rocephin in the emerge ncy department. The patient was ordered for cefepime, Zyvox and clindamycin at the time of admission for management of right leg cellulitis and severe sepsis, although the patient did not require admission to the ICU. I have been asked to consult regarding further antibioti c recommendations. Presenting symptoms were typical of group A strep cellulitis, and she jarquin d a prior history of group A strep exposure in the workplace, therefore antibiotics were sim plified to Ancef and clindamycin. CC: Right leg cellulitis Chart reviewed: No new events. Subjective The patient reports that her sweats and chills have resolved but she continues to have epis odes of severe headaches, which are associated with nausea. She does not have nausea at any other times. Her right leg is still very sensitive to touch. ROS No vomiting or diarrhea. No rashes or pruritis. No oral pain. ceFAZolin 2 g Intravenous Q8H clindamycin 300 mg Oral Q6H enoxaparin 40 mg Subcutaneous Q12H famotidine 20 mg Oral BID insulin glargine 20 Units Subcutaneous QAM insulin lispro 0-12 Units Subcutaneous 4x Daily WC and HS PRN Medications: acetaminophen, calcium carbonate, Hypoglycemia Management AND POCT Glucose AND dext mayito AND dextrose 10%, diphenhydrAMINE, HYDROcodone-acetaminophen, HYDROmorphone, metocl opramide, ondansetron Current Facilty-Administered PRN Medications Ordered in [facility] Medication Dose Route Frequency Provider Last Rate Last Dose acetaminophen (TYLENOL) tablet 650 mg 650 mg Oral Q4H PRN Bryant Matthew MD 650 mg a t 12/27/19 0424 calcium carbonate (TUMS) chewable tablet 1,000 mg 1,000 mg Oral Q4H PRN Bryant Matthew MD dextrose 50% injection 12.5-25 g 12.5-25 g Intravenous PRN Bryant Matthew MD And dextrose 10% (D10W) infusion Intravenous Continuous PRN Bryant Matthew MD diphenhydrAMINE (BENADRYL) capsule 25 mg 25 mg Oral Q8H PRN Kathia Gutierrez MD 25 mg at 12/27/19 0003 HYDROcodone-acetaminophen (NORCO) 5-325 mg per tablet 1-2 tablet 1-2 tablet Oral Q6H P RN Bryant Matthew MD 1 tablet at 12/28/19 0706 HYDROmorphone (DILAUDID) injection 0.25-1 mg 0.25-1 mg Intravenous Q2H PRN Bryant cooper MD 1 mg at 12/28/19 0747 metoclopramide (REGLAN) 5 mg/mL injection 10 mg 10 mg Intravenous Q6H PRN Bryant Casarez i, MD ondansetron (ZOFRAN) injection 4 mg 4 mg Intravenous Q6H PRN Bryant Matthew MD 4 mg at 12/28/19 0705 Objective: Vital Signs: BP 124/64 | Pulse 83 | Temp 37.1 C (98.8 F) (Oral) | Resp 16 | Ht 1.702 m (5' 7") | Wt (!) 156.3 kg (344 lb 9.3 oz) | SpO2 92% | No | BMI 53.97 kg/m Temp: [36.7 C (98 F)-37.1 C (98.8 F)] 37.1 C (98.8 F) Pulse: [70-83] 83 Resp: [16-22] 16 BP: (118-137)/(64-84) 124/64 Exam: Const: Vitals reviewed. No acute distress Skin: No rashes, no edema ENT: No thrush. Lungs: CTAB, no rales or wheezes Heart: RRR, no murmur Abd: soft, NT, + bowel sounds Right lower extremity erythema has faded and receded from marked borders, there is still bl anching hyperemia but no induration, much less tensely swollen. The hyperemic area does rem ain tender to palpation Data: Recent Results (from the past 24 hour(s)) POC Glucose Result Value Ref Range Glucose, POC 195 (H) 65 - 99 mg/dL POC Glucose Result Value Ref Range Glucose, POC 136 (H) 65 - 99 mg/dL POC Glucose Result Value Ref Range Glucose, POC 127 (H) 65 - 99 mg/dL CK Total Result Value Ref Range CK TOTAL 44 30 - 240 U/L CBC with Differential Result Value Ref Range WBC 7.62 3.80 - 11.00 K/uL Red Blood Cells 3.88 3.70 - 5.10 M/uL Hemoglobin 11.1 (L) 11.3 - 15.5 g/dL Hematocrit 33.9 (L) 34.0 - 46.0 % MCV 87.4 80.0 - 100.0 fl MCH 28.6 27.0 - 34.0 pg MCHC 32.7 32.0 - 35.5 g/dL RDW-SD 40.9 37 - 53 fl Platelet Count 228 150 - 400 K/uL MPV 10.4 fl Diff Type AUTOMATED % nRBC 0.0 0 /100WBC % Neutrophils 68.50 % IMMATURE GRANULOCYTE 1.00 % % Lymphocytes 16.10 % Monocyte % 11.90 % Eosinophils % 2.20 % Basophils % 0.30 % Neutrophils, Absolute 5.21 1.90 - 7.40 K/uL IMMATURE GRANS AB 0.08 (H) 0.00 - 0.07 K/uL Absolute Lymphocytes 1.23 1.00 - 3.90 K/uL Absolute Monocytes 0.91 (H) 0.00 - 0.80 K/uL Eosinophils, Absolute 0.17 0.00 - 0.50 K/uL Basophils, Absolute 0.02 0.00 - 0.10 K/uL Magnesium Result Value Ref Range Magnesium 1.7 1.7 - 2.4 mg/dL Phosphorus Result Value Ref Range Phosphorus 2.0 (L) 2.3 - 4.8 mg/dL Basic Metabolic Panel Result Value Ref Range Na 138 135 - 145 mmol/L K 3.8 3.5 - 4.9 mmol/L Cl 104 99 - 109 mmol/L CO2 26 23 - 32 mmol/L Anion Gap 12 5 - 20 mmol/L Glucose 127 (H) 65 - 99 mg/dL BUN 8 8 - 25 mg/dL Creatinine 0.50 0.50 - 1.00 mg/dL BUN/Creatinine Ratio 16 Calcium 7.4 (L) 8.5 - 10.5 mg/dL Estimated GFR >60 >60 mL/min/1.73m2 C-Reactive Protein Result Value Ref Range CRP 12.8 (H) <0.5 mg/dL POC Glucose Result Value Ref Range Glucose, POC 186 (H) 65 - 99 mg/dL Problem List: Principal Problem: Severe sepsis Active Problems: Cellulitis of right lower extremity Type 2 diabetes mellitus RA (rheumatoid arthritis) Morbidly obese Epigastric pain Nausea & vomiting Assessment / Recommendations: Severe sepsis This is most likely toxic shock syndrome secondary to a streptococcal infection, especially in light of negative blood cultures. Further discussed below. Cellulitis of right lower extremity Presentation strongly suggestive of streptococcal cellulitis with toxin production. She jarquin s had rapid improvement in fever and leukocytosis, with exam findings also improving at this point. She has tolerated oral clindamycin for the past 24 hours. We can transition from A ncef to oral cephalexin today. Anticipate discharge tomorrow if she is doing well. Left lower quadrant abdominal pain Resolved spontaneously, no explanation seen on CT scan. Will monitor. Headaches Likely still due to toxins from streptococcal infection, but should be rapidly improving at this point. Disposition: Possible discharge tomorrow. Code Status: Full Code Chance Valentin DO 12/28/19 Uzma Goff RN - 12/27/2019 7:18 PM PDT12/27/2019 Sepsis team signing off at this time. Please contact us with any questions or concerns. [phone] Chance Gregory DO - 12/27/2019 10:58 AM PDT [facility] Service: Infectious Diseases Progress note Hospital Day: LOS 3 Post-op Day: * No surgery found * Subjective Patient Summary: 44 y.o. female with significant past medical history of type 2 diabetes m ellitus, lupus, rheumatoid arthritis, ulcerative colitis, hepatitis C, endometrial cancer wh o presented on 12/24/2019 with severe pain in the right leg associated with fever and hypoten vikram. Exam was consistent with cellulitis, and the patient was given Rocephin in the emerge ncy department. The patient was ordered for cefepime, Zyvox and clindamycin at the time of admission for management of right leg cellulitis and severe sepsis, although the patient did not require admission to the ICU. I have been asked to consult regarding further antibioti c recommendations. Presenting symptoms were typical of group A strep cellulitis, and she jarquin d a prior history of group A strep exposure in the workplace, therefore antibiotics were sim plified to Ancef and clindamycin. CC: Right leg cellulitis Chart reviewed: No new events. Subjective The patient reports that she continues to have episodes of sweats at night followed by chil ls, and is feeling very cold this morning. Right leg skin is still very sensitive. ROS No nausea, vomiting or diarrhea. No rashes or pruritis. No oral pain. ceFAZolin 2 g Intravenous Q8H clindamycin 900 mg Intravenous Q8H enoxaparin 40 mg Subcutaneous Q12H famotidine 20 mg Oral BID insulin glargine 20 Units Subcutaneous QAM insulin lispro 0-18 Units Subcutaneous 4x Daily WC and HS PRN Medications: acetaminophen, calcium carbonate, Hypoglycemia Management AND POCT Glucose AND dext mayito AND dextrose 10%, diphenhydrAMINE, HYDROcodone-acetaminophen, HYDROmorphone, metocl opramide, ondansetron Current Facilty-Administered PRN Medications Ordered in [facility] Medication Dose Route Frequency Provider Last Rate Last Dose acetaminophen (TYLENOL) tablet 650 mg 650 mg Oral Q4H PRN Bryant Matthew MD 650 mg a t 12/27/19 0427 calcium carbonate (TUMS) chewable tablet 1,000 mg 1,000 mg Oral Q4H PRN Bryant Matthew MD dextrose 50% injection 12.5-25 g 12.5-25 g Intravenous PRN Bryant Matthew MD And dextrose 10% (D10W) infusion Intravenous Continuous PRN Bryant Matthew MD diphenhydrAMINE (BENADRYL) capsule 25 mg 25 mg Oral Q8H PRN Kathia Gutierrez MD 25 mg at 12/27/19 0003 HYDROcodone-acetaminophen (NORCO) 5-325 mg per tablet 1-2 tablet 1-2 tablet Oral Q6H P RN Bryant Matthew MD 1 tablet at 12/26/192050 HYDROmorphone (DILAUDID) injection 0.25-1 mg 0.25-1 mg Intravenous Q2H PRN Bryant cooper MD 0.5 mg at 12/27/19 05 metoclopramide (REGLAN) 5 mg/mL injection 10 mg 10 mg Intravenous Q6H PRN Bryant Casarez i, MD ondansetron (ZOFRAN) injection 4 mg 4 mg Intravenous Q6H PRN Bryant Matthew MD 4 mg at 12/27/19 0530 Objective: Vital Signs: BP 111/63 | Pulse 66 | Temp 36.7 C (98.1 F) (Oral) | Resp 20 | Ht 1.702 m (5' 7") | Wt (!) 145.6 kg (320 lb 14.4 oz) | SpO2 97% | No | BMI 50.26 kg/m Temp: [36.7 C (98 F)-37.2 C (99 F)] 36.7 C (98.1 F) Pulse: [66-83] 66 Resp: [20] 20 BP: (109-133)/(57-71) 111/63 Exam: Const: Vitals reviewed. No acute distress Skin: No rashes, no edema ENT: No thrush. Lungs: CTAB, no rales or wheezes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 insulin sliding scale Epigastric pain likely secondary to gastritis from chronic NSAID use Plan start the patient on famotidine and minimize use of NSAIDs Nausea and vomiting which could be secondary to uncontrolled diabetes Plan start the patient on Reglan and Zofran PRN Tobacco abuse disorder patient counseled against smoking Morbidly obese patient was to lose weight by diet and exercise DVT prophylaxis on Lovenox Disposition: *floor Code Status: Full Code Primary Care Physician: No Physician on file Bryant Matthew MD 12/24/2019 *Portions of this report have been prepared using Intelligent Apps (mytaxi) voice recognition software. The re port was reviewed for accuracy, however, sound-alike word errors, additions and/or deletions may occur. Please use the clinical context for clarification. If there is any question abou t this report, please contact me. 6 :02 PM PDTdocumented in this encounter Consult Notes Sylvie Hammer, RD - 12/28/2019 12:55 PM PDTAssociated Order(s): IP CONSULT TO DIABETES SPECI ALISTReports she was diagnosed with hypoglycemia at age 16 and that she still suffers from h ypoglycemia. The only time her blood sugars are high is "when I'm sick". Reports she's bee n "sick a lot since 1993" because of cellulitis. States she has been prescribed metformin and glimepiride and has both those medications at home. She states after her last admit she was told to check her blood sugar in the morning and if it was >160 to take a glimepiride - however, her blood sugar has never been more t reina 160, so in 2 years she has not taken any glimepiride. Also reports that she can not afford to check her blood sugar more than 2x a week and usual ly her machine tells her to "call 911" because it's too low to register on her glucometer. She states she is "not stupid", that she counts grams of carbohydrates, she follows a diet and she has lost weight. She reports being very active at work. She does not have a pcp to follow up with as she cannot afford insurance. "I just moved in to a garage" because of the high cost of rent, stating she can't afford insurance on top of her other monthly expenses. HbA1c was 9.6 - 2 years ago on her admit here. HbA1c has been ordered today. Will await current HbA1c value. Blood sugars here fairly well controlled on current regime nNeelam Hammer, MPH, RD, CDE Diabetes Education 12/28/2019 1:16 PM PDT hance Valentin DO - 2019 1:01 PM PDT [facility] Service: Infectious Diseases Initial Consult Note Date of Admission: 12/24/2019 Reason for Consultation: Severe right leg cellulitis, sepsis Requesting Physician: Tawanda Gutierrez History Obtained From: Patient and Chart review CHIEF COMPLAINT: Right leg pain HISTORY OF PRESENT ILLNESS The patient is a 44 y.o. female with significant past medical history of type 2 diabetes me llitus, lupus, rheumatoid arthritis, ulcerative colitis, hepatitis C, endometrial cancer who presented on 12/24/2019 with severe pain in the right leg associated with fever and hypotens ion. Exam was consistent with cellulitis, and the patient was given Rocephin in the emergen cy department. The patient was ordered for cefepime, Zyvox and clindamycin at the time of a dmission for management of right leg cellulitis and severe sepsis, although the patient did not require admission to the ICU. I have been asked to consult this morning regarding [facility] antibiotic recommendations. The patient reports that she has had recurrent episodes of cellulitis in her right lower ex tremity in the past in the setting of lymphedema. She usually wears a compression stocking on the right leg 24 hours a day in order to limit the amount of lymphedema. The only injury the patient recalls is that she was struck on her left leg by a piece of broken glass when a bottle was dropped at work 2 days before she came to the hospital. There was a small cut that bled briefly, but otherwise never became a problem. She then started having fevers, ch ills and malaise, which was associated with pain in the right leg as well as in the right gr oin, but did not have any redness on the right leg until about 12 hours later. She continue s to have significant redness and pain in the right leg today. The patient reports that her boss who she sees on a regular basis when working recently told her that she was suffering from streptococcal pharyngitis. REVIEW OF SYSTEMS Complete review of the constitutional, ENT, cardiovascular, respiratory, gastrointestinal, genitourinary, integumentary, musculoskeletal, psychiatric, neurologic, heme/lymphatic syste ms is entirely negative except as described above in the history of the present illness. Past Medical History: Diagnosis Date Cellulitis Endometrial cancer (HCC) Hepatitis C Lupus Rheumatoid arteritis Type 2 diabetes mellitus (HCC) Ulcerative colitis (HCC) Vasculitis (HCC) Past Surgical History: Procedure Laterality Date DILATION AND CURETTAGE OF UTERUS HYSTERECTOMY Allergies Allergen Reactions Iodine Contrast Dye [Iodinated Diagnostic Agents] Anaphylaxis Daptomycin Other (See Comments) vasculitis Naproxen Other (See Comments) From Anaprox, "really sick" Penicillins Rash Rash, Tolerates cephalosporins Vancomycin Other (See Comments) vasculitis Iodine Other (See Comments) Pt states it makes her feel like "her head isn't attached to her body and she has no chan nce" Latex Itching Medications Prior to Admission Medication Sig Dispense Refill HYDROcodone-acetaminophen (NORCO) 5-325 mg per tablet TAKE 1 TO 2 TABLETS BY MOUTH 4 TI MES DAILY NEEDED FOR PAIN metFORMIN (GLUCOPHAGE) 1000 MG tablet Take 1 tablet by mouth 2 (two) times daily with alvino jackson. (Patient not taking: Reported on 12/24/2019.) 60 tablet 5 Scheduled Medications calcium carbonate 500 mg Oral TID cefepime 2 g Intravenous Q8H clindamycin 900 mg Intravenous Q8H enoxaparin 40 mg Subcutaneous Q12H famotidine 20 mg Oral BID insulin glargine 20 Units Subcutaneous QAM insulin lispro 0-18 Units Subcutaneous 4x Daily WC and HS linezolid 600 mg Intravenous Q12H Continuous Infusions dextrose 10% sodium chloride 0.9% sodium chloride 0.9% 200 mL/hr at 12/24/19 2243 PRN Medications acetaminophen, calcium carbonate, Hypoglycemia Management AND POCT Glucose AND dext mayito AND dextrose 10%, diphenhydrAMINE, HYDROcodone-acetaminophen, HYDROmorphone, metocl opramide, ondansetron Family History Adopted: Yes Social History Socioeconomic History Marital status: Legally Spouse name: Not on file Number of children: Not on file Years of education: Not on file Highest education level: Not on file Tobacco Use Smoking status: Current Every Day Smoker PHYSICAL EXAM Vital Signs: BP 96/52 | Pulse 90 | Temp 37.3 C (99.1 F) (Oral) | Resp 18 | Ht 1.702 m (5' 7") | Wt (!) 145.6 kg (320 lb 14.4 oz) | SpO2 96% | No | BMI 50.26 kg/m Temp: [37.3 C (99.1 F)-39.5 C (103.1 F)] 37.3 C (99.1 F) Pulse: [89-124] 90 Resp: [18-24] 18 BP: (93-131)/(52-80) 96/52 Constitutional: The patient is in no acute distress and appears stated age. Vital signs wer e reviewed as above Head: Normocephalic and atraumatic ENT: Mucous membranes are moist. There is no evidence of thrush. No pharyngeal exudates. Neck: Supple without thyromegaly or meningismus. Heart: Regular rate and rhythm without murmurs gallops or rubs Lungs: Clear to auscultation bilaterally without wheezes rales or rhonchi. Abdomen: Soft and nontender, bowel sounds are present, there is no organomegaly or mass Musculoskeletal: There is no gross deformity or active arthritis. Neuro: There are no gross deficits of motor or sensory function Skin: There are no rashes of clinical significance. Small punctate wound on the left leg f rom glass appears to be healing well and has no associated erythema or induration. Right le g has significant lymphedema with circumferential erythema from the knee to the ankle. Ther e is also tenderness on the medial aspect of the thigh and profound tenderness in the left g roin region. The patient has a large body habitus, which limited my examination such that I was unable to detect any overt lymphadenopathy. Extremities: There is no clubbing, cyanosis, or peripheral edema. Psychiatric: The patient attends the examiner without difficulty and affect is appropriate. DATA CBC: Lab Results Component Value Date WBC 18.38 (H) 12/25/2019 RBC 4.51 12/25/2019 HGB 13.1 12/25/2019 HCT 40.2 12/25/2019 MCV 89.1 12/25/2019 MCH 29.0 12/25/2019 MCHC 32.6 12/25/2019 PLT 236 12/25/2019 MPV 9.8 12/25/2019 DIFFTYPE MANUAL 12/24/2019 CMP: Lab Results Component Value Date NA 134 (L) 12/25/2019 K 4.0 12/25/2019 CL 103 12/25/2019 CO2 24 12/25/2019 ANIONGAP 11 12/25/2019 GLUF 150 (H) 08/20/2017 BUN 16 12/25/2019 GLOB 5.3 (H) 08/20/2017 AGRATIO 0.6 (L) 12/25/2019 BILITOT 0.3 08/20/2017 AST 27 12/25/2019 ALT 24 12/25/2019 EGFR >60 12/25/2019 Microbiology: MRSA screen is pending. Blood cultures negative x2 so far. Nucleic acid amplification kathy t negative for SARS-CoV-2. Imaging: Chest x-ray performed on admission was viewed in PACS and did not show any evidenc e of focal consolidation, infiltrates or pleural effusions. Radiology reports as follows: Ct Abdomen Pelvis Wo Contrast1. Right inguinal, right external iliac and right common iliac lymphadenopathy. Given the history, likely reactive from lower extremity infection. Alter [place] considerations include metastasis or lymphoma. 2. Appendix is normal. Gallbladder is normal. Pancreas is normal. 3. No hydronephrosis or hydroureter. No nephroureterolithiasi s. 4. No acute bowel abnormality. Final Report Signed by: Seng Graham, Darren Sign Date/Time: 12/24/2019 2:09 PM Xr Chest Ap Portable No acute cardiopulmonary abnormality. Final Report Signed by: Seng Graham, Darren Sign Date/ Time: 12/24/2019 1:07 PM Medical record review: I have reviewed the patient's admission history and physical as well as progress notes from the current hospital stay. Emergency department notes have also been reviewed. Much of this information is summarized above in history of present illness. PROBLEM LIST Principal Problem: Severe sepsis Active Problems: Cellulitis of right lower extremity Type 2 diabetes mellitus RA (rheumatoid arthritis) Morbidly obese Epigastric pain Nausea & vomiting Resolved Problems: * No resolved hospital problems. * ASSESSMENT & PLAN Principal Problem: Severe sepsis This is most likely toxic shock syndrome secondary to a streptococcal infection. Await blo od cultures. Further discussed below. Cellulitis of right lower extremity The patient describes the onset of fever and chills before the overt redness appeared on th e right lower extremity, which is strongly suggestive of toxigenic group A strep cellulitis. She also reports a recent known sick contact of a person with streptococcal pharyngitis. I am going to simplify her antibiotics to a combination of Ancef and clindamycin and will mo nitor for improvement. I do not see a need for continued gram-negative coverage. We may co nsider continuing MRSA coverage if MRSA screen is positive. Nausea & vomiting Likely secondary to above, improving, will monitor. Code Status: Full Code Primary Care Physician: No Physician on file Thank you for allowing me to participate in the care of this patient. I will continue to follow with you. Chance Valentin DO 12/25/2019 documented in th is encounter ED Notes Uziel Ma RN - 12/24/2019 4:44 PM PDTReport given to RN. Pt transported to 7th floor at this time. ohsen Partida MD - 12/24/2019 12:49 PM PDTFormatting of this note might be different from the [facility] Department of Emergency Medicine History of Present Illness Patient Identification Abhishek Astudillo is a 44 y.o. female. Patient presented to the Emergency Department by: Car Chief Complaint Chief Complaint Patient presents with Cellulitis bilateral leg Nausea Emesis Fever (9 Weeks To 74 Years) 44 y.o. female presenting with a chief complaint of Fever. Location: General Onset/Duration: this morning Quality: febrile Severity: moderate Associated Symptoms: vomiting Context: 44-year-old female presenting to the emergency department today with vomiting, abd ominal discomfort, and concern for cellulitis to her lower extremities. She has a history o f recurrent cellulitis. Yesterday she was struck by a piece of glass in her left leg. She thinks that is what caused the fever which started this morning. PCP: No Physician on file Past Medical History: Diagnosis Date Cellulitis Endometrial cancer (HCC) Hepatitis C Lupus Rheumatoid arteritis Type 2 diabetes mellitus (HCC) Ulcerative colitis (HCC) Vasculitis (HCC) Past Surgical History: Procedure Laterality Date DILATION AND CURETTAGE OF UTERUS HYSTERECTOMY Prior to Admission medications Medication Sig Start Date End Date Taking? Authorizing Provider metFORMIN (GLUCOPHAGE) 1000 MG tablet Take 1 tablet by mouth 2 (two) times daily with meals . 08/21/17 Omega Bello MD Allergies Allergen Reactions Iodine Contrast Dye [Iodinated Diagnostic Agents] Anaphylaxis Daptomycin Other (See Comments) vasculitis Naproxen Other (See Comments) From Anaprox, "really sick" Penicillins Rash Rash, Tolerates cephalosporins Vancomycin Other (See Comments) vasculitis Social History Socioeconomic History Marital status: Legally Spouse name: Not on file Number of children: Not on file Years of education: Not on file Highest education level: Not on file Occupational History Not on file Social Needs Financial resource strain: Not on file Food insecurity Worry: Not on file Inability: Not on file Transportation needs Medical: Not on file Non-medical: Not on file Tobacco Use Smoking status: Current Every Day Smoker Substance and Sexual Activity Alcohol use: Not on file Drug use: Not on file Comment: Drug use: No Sexual activity: Not on file Lifestyle Physical activity Days per week: Not on file Minutes per session: Not on file Stress: Not on file Relationships Social connections Talks on phone: Not on file Gets together: Not on file Attends oriental orthodox service: Not on file Active member of club or organization: Not on file Attends meetings of clubs or organizations: Not on file Relationship status: Not on file Intimate partner violence Fear of current or ex partner: Not on file Emotionally abused: Not on file Physically abused: Not on file Forced sexual activity: Not on file Other Topics Concern Not on file Social History Narrative Not on file Family History Adopted: Yes Review of Systems Constitutional: Positive for fever Eyes: Negative for vision changes ENT: Negative for earache CV Negative for chest pain, Resp: Negative for [id number], cough GI: Positive for abdominal pain, positive for vomiting : Negative for urinary problems Musculoskeletal: Negative for back pain, joint pain Skin: Negative for rash Neuro/Psych: Negative for headache Physical Exam Temp: 37.7 C (99.8 F) Pulse: 111 Resp: 25 BP: 132/59 SpO2: 100 % Vital signs interpretation: Tachycardic General: Alert, in no apparent distress Eyes: Normal inspection, pupils equal and round, non-icteric ENT: MMM, NCAT Neck: Normal inspection, Supple CV: Rate and rhythm normal, no murmurs Respiratory: Lungs clear to auscultation bilaterally, Normal WOB Abdomen: Soft, mild diffuse abdominal tenderness, non-distended, No rebound or guarding Ext: Swelling of bilateral lower extremities with dry skin noted bilaterally. Subtle eryt armida of RLE. No crepitance. Skin: Warm and dry, subtle erythema of RLE. Neuro: Normal facial symmetry, Moving extremities spontaneously Medical Decision Making and Emergency Department Course ED Department Course Patient presents to ED with complaints of Fever. The patient meet SIRS criteria. There is concern for underlying Sepsis of unclear etiology. Blood cultures were ordered and well and UA and other basic labs. A Chest x-ray will be performed to evaluate for pneumonia. Labs/EKG/Imaging: Lactic acid was 4.1. Procalcitonin significantly elevated. 30 cc/kg bolus of IV fluids given based off ideal body weight of 62kg. IV Rocephin ordered . WBC was 28. CT of the abdomen pelvis was performed as patient had mild tenderness on exam and complaini ng of abdominal discomfort with vomiting. CT was unremarkable. I do not feel the patient symptoms are indicative of a necrotizing infection. She does hav e some tenderness of lower extremities but not pain out of proportion. Glucose significantly elevated. 20 units of subcu insulin given. Glucose came down from 4 50s to 320s. We will continue to monitor. Lactic acid downtrending to 3.1. A 3rd liter of NS ordered. Dr. Matthew, hospitalist, agrees to admission. Critical Care Note Performed by: Ramone Partida MD Authorized by: Ramone Partida MD Critical care provider statement: Critical care time (minutes): 40 Critical care time was exclusive of: Separately billable procedures and treating other pat ients Critical care was necessary to treat or prevent imminent or life-threatening deterioration of the following conditions: Septic Shock Critical care was time spent personally by me on the following activities: Obtaining histo ry from patient or surrogate, examination of patient, evaluation of patient's response to tr eatment, discussions with consultants, development of treatment plan with patient or surroga te, review of old charts, re-evaluation of patient's condition, pulse oximetry, ordering and review of radiographic studies, ordering and review of laboratory studies and ordering and performing treatments and interventions I assumed direction of critical care for this patient from another provider in my specialty : no Vitals: 12/24/19 1300 12/24/19 1403 12/24/19 1430 12/24/19 1500 BP: 123/76 121/64 116/67 125/67 Pulse: 120 124 108 107 Resp: 20 Temp: (!) 38.7 C (101.6 F) TempSrc: Oral SpO2: 95% 96% 93% 91% Weight: Medications sodium chloride 0.9% (NS) infusion (has no administration in time range) clindamycin in dextrose (CLEOCIN) IVPB 900 mg (900 mg Intravenous New Bag 12/24/19 1512) sodium chloride 0.9% (NS) bolus 1,000 mL (has no administration in time range) ondansetron (ZOFRAN) injection 4 mg (4 mg Intravenous Given 12/24/19 1130) LORazepam (ATIVAN) injection 1 mg (1 mg Intravenous Given 12/24/19 1138) cefTRIAXone (ROCEPHIN) IVPB 1 g (0 g Intravenous Stopped 12/24/19 1345) sodium chloride 0.9% (NS) bolus 2,000 mL (2,000 mLs Intravenous New Bag 12/24/19 1309) acetaminophen (TYLENOL) tablet 650 mg (650 mg Oral Given 12/24/19 1323) insulin regular (humuLIN R, novoLIN R) injection (vial) 20 Units (20 Units Subcutaneous Giv en 12/24/19 1421) Records Reviewed Old Medical Records Laboratory Evaluation Results Procedure Component Value Ref Range Date/Time Lactic Acid [[id number]] (Abnormal) Collected: 12/24/19 1451 Order Status: Completed Specimen: Blood Updated: 12/24/19 1525 Lactate, Serum 3.1 0.4 - 2.0 mmol/L POC Glucose [[id number]] (Abnormal) Collected: 12/24/19 1514 Order Status: Completed Updated: 12/24/19 1518 Glucose, POC 325 65 - 99 mg/dL Culture, Blood [[id number]] Collected: 12/24/19 1451 Order Status: Sent Specimen: Peripheral Blood Updated: 12/24/19 1503 Culture, Blood [[id number]] Collected: 12/24/19 1446 Order Status: Sent Specimen: Peripheral Blood Updated: 12/24/19 1502 Urinalysis With Microscopic [[id number]] (Abnormal) Collected: 12/24/19 1327 Order Status: Completed Specimen: Urine, Clean Catch Updated: 12/24/19 1340 Color, UA YELLOW Clarity, Urine CLEAR Specific Treadwell, Urine 1.029 1.002 - 1.030 Leukocyte esterase, UA NEGATIVE NEG Nitrite, UA NEGATIVE NEG Urobilinogen, Ur NORMAL <1.6 mg/dL Protein, Urine (mg/dL) NEGATIVE NEG mg/dL pH, Urine 5.0 5.0 - 8.0 Blood, UA NEGATIVE NEG Ketones, UA NEGATIVE NEG mg/dL Bilirubin, UA NEGATIVE NEG Glucose, Ur >500 NEG mg/dL WBC UA 0-2 0 - 5 /hpf Red Blood Cells, Urine 3-5 0 - 5 /hpf Squamous Epithelial Cells, Urine 26-49 /lpf Bacteria, Urine 1+ NONE Mucus, Urine 1+ Coronavirus (COVID-19) NAAT [[id number]] Collected: 12/24/19 1124 Order Status: Completed Specimen: Tissue from Nasopharynx Updated: 12/24/19 1254 SARS-CoV-2, NAAT (COVID-19) NEGATIVE NEG Procalcitonin [[id number]] (Abnormal) Collected: 12/24/19 1125 Order Status: Completed Specimen: Blood Updated: 12/24/19 1243 PROCALCITONIN 16.68 <0.5 ng/mL Lactic Acid [[id number]] (Abnormal) Resulted: 12/24/19 1221 Order Status: Completed Specimen: Blood Updated: 12/24/19 1223 Lactate, Serum 4.1 0.4 - 2.0 mmol/L CBC with Differential [[id number]] (Abnormal) Collected: 12/24/191124 Order Status: Completed Specimen: Blood Updated: 12/24/19 1221 WBC 28.17 3.80 - 11.00 K/uL Red Blood Cells 4.90 3.70 - 5.10 M/uL Hemoglobin 14.4 11.3 - 15.5 g/dL Hematocrit 42.3 34.0 - 46.0 % MCV 86.3 80.0 - 100.0 fl MCH 29.4 27.0 - 34.0 pg MCHC 34.0 32.0 - 35.5 g/dL RDW-SD 38.9 37 - 53 fl Platelet Count 271 150 - 400 K/uL MPV 9.8 fl Diff Type MANUAL % Segmented Neutrophils 92 % % Bands 7 % % Lymphocytes 1 % Neutrophils, Absolute 25.92 1.90 - 7.40 K/uL Absolute Band Neutrophils 1.97 0.00 - 0.20 K/uL Absolute Lymphocytes 0.28 1.00 - 3.90 K/uL Platelet Estimate ADEQUATE RBC Morphology RBC AND PLT MORPHOLOGY APPEAR NORMAL Comprehensive Metabolic Panel [[id number]] (Abnormal) Collected: 12/24/191124 Order Status: Completed Specimen: Blood Updated: 12/24/19 1218 Na 132 135 - 145 mmol/L K 4.3 3.5 - 4.9 mmol/L Cl 99 99 - 109 mmol/L CO2 20 23 - 32 mmol/L Anion Gap 17 5 - 20 mmol/L Glucose 456 65 - 99 mg/dL BUN 12 8 - 25 mg/dL Creatinine 0.85 0.50 - 1.00 mg/dL BUN/Creatinine Ratio 14 Calcium 8.8 8.5 - 10.5 mg/dL Protein, Total 6.4 6.3 - 8.2 g/dL Albumin 3.7 3.6 - 5.0 g/dL Globulin 2.7 1.3 - 4.9 g/dL A/G Ratio 1.4 1.0 - 2.4 BILIRUBIN, TOTAL 0.7 0.1 - 1.5 mg/dL ALK PHOS 83 35 - 115 U/L AST 19 10 - 45 U/L ALT 19 10 - 65 U/L Estimated GFR >60 >60 mL/min/1.73m2 I personally reviewed the lab results and they have been posted to the chart. Pertinent po sitive and negative findings have been addressed appropriately. Radiology Evaluation Imaging Results CT Abdomen Pelvis wo Contrast (Final result) Result time 12/24/19 14:09:04 Final result by Darren Graham MD (12/24/19 14:09:04) Impression: 1. Right inguinal, right external iliac and right common iliac lymphadenopathy. Given the history, likely reactive from lower extremity infection. Alternative considerations include metastasis or lymphoma. 2. Appendix is normal. Gallbladder is normal. Pancreas is normal. 3. No hydronephrosis or hydroureter. No nephroureterolithiasis. 4. No acute bowel abnormality. Final Report Signed by: Seng Graham, Darren Sign Date/Time: 12/24/2019 2:09 PM Narrative: CT ABDOMEN AND PELVIS WITHOUT CONTRAST CLINICAL INFORMATION: Abdominal pain, acute, nonlocalized. COMPARISON: None PROCEDURE: Axial images through the abdomen and pelvis. Multiplanar reconstructions. At least one of the following CT dose optimization techniques were used: Automated exposure control; Adjustment of mA and/or kV according to patient size; Use of iterative reconstruction technique. FINDINGS: LUNG BASES: Mild posterior dependent atelectasis of the lung bases. ABDOMEN Solid organ evaluation suboptimal without contrast. Liver and Biliary: No visible abnormality in the liver or gallbladder. Pancreas, Spleen and Adrenals: Normal pancreas morphology. No splenomegaly. No significant adrenal abnormality. Kidneys: No hydronephrosis, calculi or contour deforming renal lesion. ABDOMEN AND PELVIS Bowel: No small bowel or colonic dilation or adjacent inflammation. No appendiceal dilation or inflammation. Vessels: No abdominal aortic aneurysm. Lymph Nodes: Right inguinal adenopathy. Right inguinal large node (3/163) measuring 2 cm x 1.8 cm. Right inguinal node (3/159) measuring 1.3 cm in short axis dimension. Large right external iliac lymph node measuring 2 cm x 3.4 cm (3/125). Large right common iliac node (3/106) measuring 1.3 cm. There are prominent nodes of the left inguinal region, the largest measuring 1 cm by 3.2 cm (3/161). Nonspecific large portal caval node (3/56) measuring 1.6 x 2.9 cm. Peritoneum and Retroperitoneum: No ascites or free air. No significant retroperitoneal abnormality. PELVIS Genitourinary: Distal ureters and bladder appear normal. No pelvic masses. Hysterectomy BODY WALL Soft Tissues: No bowel or inflamed fat containing hernia, mass or hemorrhage. Bones: Mild degeneration of the sacroiliac joints. Mild degeneration at the L5-S1 level with vacuum disc phenomenon. Mild degeneration at the T11-T12 disc space. XR Chest AP Portable (Final result) Result time 12/24/19 13:07:42 Final result by Darren Graham MD (12/24/19 13:07:42) Impression: No acute cardiopulmonary abnormality. Final Report Signed by: Seng Graham, Darren Sign Date/Time: 12/24/2019 1:07 PM Narrative: CHEST PORTABLE ONE VIEW CLINICAL INFORMATION: Fever. COMPARISON: None FINDINGS: Heart, lungs and vessels normal. No pneumothorax, pleural effusion or adenopathy. No significant bone abnormality. Discharge Diagnosis: 1. Cellulitis of right lower extremity 2. Septic shock (HCC) 3. Fever, unspecified fever cause Disposition: ED Disposition Admit Discharge Medications: Dictation software, Intelligent Apps (mytaxi), used which may contain error for similar sounding words even af ter review. Personal communication requested for any clarification. MD Ramone Davila MD 12/24/[address] Hilton RN - 0 12/24/2019 11:22 AM PDTx2 attempt at IV placement unsuccessful documented in this encounter Miscellaneous Notes Plan of Mario Silver RN - 12/29/2019 1:37 PM PDTPatient being discharged home. Brandee huynh instructions given to patient and patient verbalizes understanding of teaching. Medi cations delivered at bedside from Rx pharmacy. VSS at time of discharge. All questions and c oncerns addressed. IV removed. Patient transported by family via personal vehicle and juan ng the unit by wheelchair. MARIO PADGETT RN lan of Mario Silver RN - 12/29/2019 11:43 AM PDTDC orders acknowledged. Family has been contacted for tra nsport. Per pt they are to arrive around 1400. Medications to be delivered at bedside from R x pharmacy. Will continue to monitor. MARIO PADGETT RN lan of Mario Silver RN - 12/29/2019 11:43 AM PDT Problem: Adult Inpatient Plan of Care Goal: Plan of Care Review Outcome: Met Goal: Patient-Specific Goal Outcome: Met Goal: Absence of Hospital-Acquired Illness or Injury Outcome: Met Goal: Optimal Comfort and Wellbeing Outcome: Met Goal: Readiness for Transition of Care Outcome: Met Goal: Rounds/Family Conference Outcome: Met Problem: Infection Goal: Infection Symptom Resolution Outcome: Met Problem: Fall Injury Risk Goal: Absence of Fall and Fall-Related Injury Outcome: Met Problem: Skin Injury Risk Increased Goal: Skin Health and Integrity Outcome: Met MAIRO PADGETT RN lan of Fanny Huggins RN - 12/29/2019 1:57 AM PDTPt AOx4. VSS. Afebrile. Breathing non-labored. Currently on room air. Continuous to have Headaches and RLE pain, Chester given with good rel ief. Appears comfortable resting in bed. Warm blanket provided. Pt calls PRN. Will continue to monitor. No acute changes from initial shift assessment. Will pass all cares to day shift RN. Chart review complete. Fanny Houser RN Problem: Infection Goal: Infection Symptom Resolution Outcome: Ongoing, progressing Note: Afebrile. Contact precautions in place. Aseptic technique in place. Single pt room pr ovided. Problem: Fall Injury Risk Goal: Absence of Fall and Fall-Related Injury Outcome: Ongoing, progressing Note: Patient remains free from falls this shift. Fall prevention measures in place. Visu alized regularly. Problem: Skin Injury Risk Increased Goal: Skin Health and Integrity Outcome: Ongoing, progressing Note: Full skin assessment completed. Skin kept clean and dry. Pt repositions self. lan of Fanny Clemente RN - 12/28/2019 11:57 PM PDTReceived report from Shanika FLETCHER @23 15. This RN agrees with previous assessment. lan of Eulogio Beaulieu RN - 12/28/2019 4:24 PM PDT Problem: Adult Inpatient Plan of Care Goal: Absence of Hospital-Acquired Illness or Injury Outcome: Ongoing, progressing Abhishek continuously complaining of headaches and RLE pain. IV dilaudid given x2 and PO N orco x2. Benadryl given once for RLE itching. VSS, afebrile and resting in bed. Chart check reviewed and completed. Will continue to monitor. Eulogio Clark RN, 12/28/2019 lan of Dakotah Miranda RN - 12/28/2019 12:40 PM PDT12:40 PM PDT Rounded with Dr. Fernandez and the primary RN. Abhishek is not medically ready for disch arge. Plan is to return home. Patient is uninsured and will need indigent meds prior to DC . lan of Dione Elizabeth RN - 12/28/2019 12:08 AM PDT Problem: Adult Inpatient Plan of Care Goal: Plan of Care Review Outcome: Ongoing, progressing Problem: Adult Inpatient Plan of Care Goal: Patient-Specific Goal Outcome: Ongoing, progressing Problem: Infection Goal: Infection Symptom Resolution Outcome: Ongoing, progressing Problem: Fall Injury Risk Goal: Absence of Fall and Fall-Related Injury Outcome: Ongoing, progressing Problem: Skin Injury Risk Increased Goal: Skin Health and Integrity Outcome: Ongoing, progressing BLE elevated on 2 pillows. Patient reports 6-7/10 pain in legs/head, down from 10/10 pain ( per pt. Report). Zofran administered x1 for nausea. Chester x1 for pain. Patient requesting sh ower, towel and soaps provided. Dione June RN Plan of Eulogio Beaulieu RN - 12/27/2019 6:16 PM PDT Problem: Adult Inpatient Plan of Care Goal: Absence of Hospital-Acquired Illness or Injury Outcome: Ongoing, progressing Billiejo afebrile during this shift, complaining of headache and was given IV dilaudid and Chester. No other changes at this time. Pt calling appropriately. Will continue to monitor. C davis check reviewed and completed. Eulogio Clark RN, 12/27/2019 lan of Iraida pemberton, Zenaida Tovar RN - 12/27/2019 3:33 PM PDTDischarge Planning: pt resides in [place], pt lik james to d/c home with PO abx. Pt resides alone with friend able to assist pt as needed. Pt do es not have PCP, d/t no ins. 3: 35 PM PDTPlan of Naun Caba RN - 12/27/2019 6:24 AM PDT Problem: Adult Inpatient Plan of Care Goal: Optimal Comfort and Wellbeing Outcome: Ongoing, progressing Pt afebrile throughout night. Pt medicated for c/o headache. Pt visibly more comfortable t reina nights prior. Problem: Skin Injury Risk Increased Goal: Skin Health and Integrity Outcome: Ongoing, progressing Pt gown and bedding was changed. Pt VSS. Pt aox4. Pt verbalizes understanding of plan of care. Pt on contact precautions. Ho urly rounding performed to anticipate pt needs. Bed In lowest position. Patient's mother upd ated on pt status via phone call. Will continue to monitor. Naun Kim RN lan of Eulogio De León RN - 12/26/2019 4:39 PM PDT Problem: Adult Inpatient Plan of Care Goal: Optimal Comfort and Wellbeing Outcome: Ongoing, progressing No concerns or changes during this shift. Pts VSS and afebrile, pt complaining of headache s, Chester given x1. Pts chart check reviewed and completed. Will continue to monitor. Eulogio Clark RN, 12/26/2019 lan of Naun Caba RN - 12/26/2019 4:32 AM PDT Problem: Adult Inpatient Plan of Care Goal: Plan of Care Review Outcome: Ongoing, progressing Plan of care reviewed and discussed with patient. All questions and concerns adressed Problem: Infection Goal: Infection Symptom Resolution Outcome: Ongoing, progressing WBC count down to 18 from 28. Problem: Fall Injury Risk Goal: Absence of Fall and Fall-Related Injury Outcome: Ongoing, progressing Bed in lowest position. Call light in reach. Hourly rounding performed to anticipate needs . Non-slip footwear in place. Pt had TMAX of 102.2. ice packs, cooling cloth, tylenol given. Pt complain of LLQ, abd and pelvis CT without contrast Ordered per Dr. Ponce verbal orders, pending results. Pt blood p ressures varying, lowest is 109/68. Pt given dilaudid x1 for pain. Repeat lactic of 0.8. Hernan l continue to monitor. Naun Kim RN lan of Sangeetha Chance MD - 12/26/2019 4:28 AM PDTReported by RN patient complaining of acute pain i n the left side of the abdomen more in the left lower quadrant in the past 30 minutes. Evaluated patient at the bedside. Reports pain is more localized in the left lower quadrant. Could get up to 10 out of 10 in tensity. not passing flatus. Last bowel movement was 2 3 days ago. Admitted with sepsis an d cellulitis of the right leg. On exam Limited due to body habitus Left side abdominal tenderness present bowel sounds are hyperactive voluntary guarding. Assessment and plan Acute left-sided abdominal pain rule out acute diverticulitis perforation. Ordered CT scan of the abdomen and pelvis without contrast. lan of Zenaida Gottlieb RN - 12/25/2019 2:2 3 PM PDTCare Management Initial Assessment Readmission Risk: Medium Status Prior to Admission or Illness Arrival From: home or self-care Lives With: alone Living Arrangements: other (see comments)(pt states she resides in a remodeled garage) Caregiver For: no one Patient s Caregiver: No one Functional Status: Pt independent with ADL's and ambulation, emp FT Caregiving Concerns: Pt does not have health ins Home Accessibility: no concerns Transportation Available: none Able to return to prior living: TBD pending clinical course Care Management Concerns Readmission Within Last 30 Days: no previous admission in last 30 days PCP: No Physician on file pt does not have health ins, declines assist with health clinics near [place] as pt choose to come to [facility] for health needs Contact Information Family Contact Information: Name: pt mother Daron [place] Needs Assessment Current Outpt/Agency/Support Groups: none Anticipated Changes Related to Illness: none Concerns to be Addressed: no discharge needs identified Services Anticipated at Discharge: none Equipment Used at Home: none Pharmacy/Medication Needs: CM to follow for medication needs, abx rt Transportation Needs: Family or friend to provide Initial Plan Anticipated Discharge Disposition: home Expected DC Date: 2-3 days Steps Taken Toward Discharge: Initial assessment Next Steps: CM to cont to follow for d/c medication needs, pt does not have health ins Notes: CM spoke with patient, pt resides alone in a remodeled garage apt. Pt is independent with ADL's and ambulation, emp FT. Pt Mom Daron [phone] resides 40 miles from pt, is a ble to assist pt as needed. Pt employer is [employer] [phone] and pt friend is Brendan Wood [phone] both able to assist pt as needed. Pt declines work excuse. Pt does not use anticoagulation, no home 02, pt with bilateral cellulitis to LE. Pt is w/o health ins. CM to cont to follow for d/c planning and abx rt. Electronically signed: Zenaida Gastelum RN 12/25/2019 2:23 PM PDT lan of Care - Apolonia Arrington RN - 12/25/2019 7:53 AM PDTMother Daron, called and updated per pt request. MEWS 5 this morning. notified. Vitals checks completed per protocol. BP remained soft th is shift. Pt asymptomatic. TMAX 101.4- tylenol given and ice packs applied. Recheck temp trending down. ID consult placed per MD. No other acute changes for shift. End of shift chart check complete. Apolonia Khan RN Problem: Infection Goal: Infection Symptom Resolution Outcome: Ongoing, progressing Note: T max 101.4 Problem: Fall Injury Risk Goal: Absence of Fall and Fall-Related Injury Outcome: Ongoing, progressing Note: Call light in reach. Bed locked in lowest position. lan of Care - Naun Kim RN - 12/25/2019 6:30 AM PDT Problem: Adult Inpatient Plan of Care Goal: Plan of Care Review Outcome: Ongoing, progressing Problem: Fall Injury Risk Goal: Absence of Fall and Fall-Related Injury Outcome: Ongoing, progressing Problem: Skin Injury Risk Increased Goal: Skin Health and Integrity Outcome: Ongoing, progressing Pt aox4. Pt verbalizes understanding of plan of care. Pt calls appropriately. Hourly roundi ng performed to anticipate pt needs. Pt call light in reach. Fall precautions in place. Pt h ad a TMAX of 103.1 f. Pt given tylenol, ice packs provided, and bear hugger used with ice to cool down patient. Most recent temperature is 99.6 f. Pt expresses lots of pain from groin area where she states she always feels pain when she is septic. Pt given pain medication thr oughout night to keep comfortable. Will continue to monitor. Naun Kim RN lan of Iraida - Viridiana Valdze RN - 12/24/2019 6:38 PM PDT Problem: Adult Inpatient Plan of Care Goal: Plan of Care Review Outcome: Ongoing, progressing Goal: Optimal Comfort and Wellbeing Outcome: Ongoing, progressing Goal: Rounds/Family Conference Outcome: Ongoing, progressing Pt complaining of headache and chills, given PRN medications. HR low 100's, fever improved from ED. Sepsis RN following, will continue to monitor. END OF SHIFT AUDIT COMPLETE. Laureen Soler RN Electronically signed by Viridiana Soler RN at 6:40 PM PDTdocumented in this encounter Plan of Treatment +--------+---------+ + + + | Date | Type | Specialty | Care Team | Description | +--------+---------+ + + + | 04/10/ | Office | Rheumatology | Nir Mcmahon | | | 2019 | Visit | | MD Shanna [address] | | | | | | [place] | | | | | | [place] [id number] | | | | | | [phone] | | | | | | | | +--------+---------+ + + + + +------+--------+ + + | Name | Type | Priori | Associated Diagnoses | Date/Time | | | | ty | | | + +------+--------+ + + | ED INFORMATION | NIKUNJ | Routin | | 12/24/2019 11:36 AM | | EXCHANGE | | e | | PDT | + +------+--------+ + + documented as of this encounter Procedures + +--------+ + + + | Procedure Name | Priori | Date/Time | Associated Diagnosis | Comments | | | ty | | | | + +--------+ + + + | POC GLUCOSE (NON | Routin | 12/29/2019 | | Results for this | | ORD) | e | 11:12 AM | | procedure are in the | | | | PDT | | results section. | + +--------+ + + + | POC GLUCOSE (NON | Routin | 12/29/2019 | | Results for this | | ORD) | e | 7:28 AM | | procedure are in the | | | | PDT | | results section. | + +--------+ + + + | CBC WITH | Routin | 12/29/2019 | | Results for this | | DIFFERENTIAL | e | 6:31 AM | | procedure are in the | | | | PDT | | results section. | + +--------+ + + + | PHOSPHORUS | Routin | 12/29/2019 | | Results for this | | | e | 6:31 AM | | procedure are in the | | | | PDT | | results section. | + +--------+ + + + | MAGNESIUM | Routin | 12/29/2019 | | Results for this | | | e | 6:31 AM | | procedure are in the | | | | PDT | | results section. | + +--------+ + + + | CK TOTAL | Routin | 12/29/2019 | | Results for this | | | e | 6:31 AM | | procedure are in the | | | | PDT | | results section. | + +--------+ + + + | BASIC METABOLIC | Routin | 12/29/2019 | | Results for this | | PANEL | e | 6:31 AM | | procedure are in the | | | | PDT | | results section. | + +--------+ + + + | POC GLUCOSE (NON | Routin | 12/28/2019 | | Results for this | | ORD) | e | 8:18 PM | | procedure are in the | | | | PDT | | results section. | + +--------+ + + + | POC GLUCOSE (NON | Routin | 12/28/2019 | | Results for this | | ORD) | e | 4:35 PM | | procedure are in the | | | | PDT | | results section. | + +--------+ + + + | HEMOGLOBIN A1C | Timed | 12/28/2019 | | Results for this | | | | 11:43 AM | | procedure are in the | | | | PDT | | results section. | + +--------+ + + + | POC GLUCOSE (NON | Routin | 12/28/2019 | | Results for this | | ORD) | e | 11:27 AM | | procedure are in the | | | | PDT | | results section. | + +--------+ + + + | POC GLUCOSE (NON | Routin | 12/28/2019 | | Results for this | | ORD) | e | 7:35 AM | | procedure are in the | | | | PDT | | results section. | + +--------+ + + + | CBC WITH | Routin | 12/28/2019 | | Results for this | | DIFFERENTIAL | e | 5:04 AM | | procedure are in the | | | | PDT | | results section. | + +--------+ + + + | C-REACTIVE PROTEIN | Routin | 12/28/2019 | | Results for this | | | e | 5:04 AM | | procedure are in the | | | | PDT | | results section. | + +--------+ + + + | PHOSPHORUS | Routin | 12/28/2019 | | Results for this | | | e | 5:04 AM | | procedure are in the | | | | PDT | | results section. | + +--------+ + + + | MAGNESIUM | Routin | 12/28/2019 | | Results for this | | | e | 5:04 AM | | procedure are in the | | | | PDT | | results section. | + +--------+ + + + | CK TOTAL | Routin | 12/28/2019 | | Results for this | | | e | 5:04 AM | | procedure are in the | | | | PDT | | results section. | + +--------+ + + + | BASIC METABOLIC | Routin | 12/28/2019 | | Results for this | | PANEL | e | 5:04 AM | | procedure are in the | | | | PDT | | results section. | + +--------+ + + + | POC GLUCOSE (NON | Routin | 12/27/2019 | | Results for this | | ORD) | e | 8:10 PM | | procedure are in the | | | | PDT | | results section. | + +--------+ + + + | POC GLUCOSE (NON | Routin | 12/27/2019 | | Results for this | | ORD) | e | 4:52 PM | | procedure are in the | | | | PDT | | results section. | + +--------+ + + + | POC GLUCOSE (NON | Routin | 12/27/2019 | | Results for this | | ORD) | e | 11:52 AM | | procedure are in the | | | | PDT | | results section. | + +--------+ + + + | POC GLUCOSE (NON | Routin | 12/27/2019 | | Results for this | | ORD) | e | 7:50 AM | | procedure are in the | | | | PDT | | results section. | + +--------+ + + + | CBC WITH | Routin | 12/27/2019 | | Results for this | | DIFFERENTIAL | e | 4:56 AM | | procedure are in the | | | | PDT | | results section. | + +--------+ + + + | C-REACTIVE PROTEIN | Routin | 12/27/2019 | | Results for this | | | e | 4:56 AM | | procedure are in the | | | | PDT | | results section. | + +--------+ + + + | PHOSPHORUS | Routin | 12/27/2019 | | Results for this | | | e | 4:56 AM | | procedure are in the | | | | PDT | | results section. | + +--------+ + + + | MAGNESIUM | Routin | 12/27/2019 | | Results for this | | | e | 4:56 AM | | procedure are in the | | | | PDT | | results section. | + +--------+ + + + | CK TOTAL | Routin | 12/27/2019 | | Results for this | | | e | 4:56 AM | | procedure are in the | | | | PDT | | results section. | + +--------+ + + + | BASIC METABOLIC | Routin | 12/27/2019 | | Results for this | | PANEL | e | 4:56 AM | | procedure are in the | | | | PDT | | results section. | + +--------+ + + + | POC GLUCOSE (NON | Routin | 12/26/2019 | | Results for this | | ORD) | e | 8:43 PM | | procedure are in the | | | | PDT | | results section. | + +--------+ + + + | HEPATITIS PANEL, | Routin | 12/26/2019 | | Results for this | | ACUTE | e | 7:07 PM | | procedure are in the | | | | PDT | | results section. | + +--------+ + + + | POC GLUCOSE (NON | Routin | 12/26/2019 | | Results for this | | ORD) | e | 4:51 PM | | procedure are in the | | | | PDT | | results section. | + +--------+ + + + | POC GLUCOSE (NON | Routin | 12/26/2019 | | Results for this | | ORD) | e | 11:43 AM | | procedure are in the | | | | PDT | | results section. | + +--------+ + + + | POC GLUCOSE (NON | Routin | 12/26/2019 | | Results for this | | ORD) | e | 7:44 AM | | procedure are in the | | | | PDT | | results section. | + +--------+ + + + | CT ABDOMEN PELVIS WO | STAT | 12/26/2019 | | Results for this | | CONTRAST | | 6:13 AM | | procedure are in the | | | | PDT | | results section. | + +--------+ + + + | ANTISTREPTOLYSIN O, | Routin | 12/26/2019 | | Results for this | | QUANT | e | 5:10 AM | | procedure are in the | | | | PDT | | results section. | + +--------+ + + + | CBC WITH | Routin | 12/26/2019 | | Results for this | | DIFFERENTIAL | e | 5:10 AM | | procedure are in the | | | | PDT | | results section. | + +--------+ + + + | STREPTOCOCCAL AB | Routin | 12/26/2019 | | Results for this | | PROFILE | e | 5:10 AM | | procedure are in the | | | | PDT | | results section. | + +--------+ + + + | C-REACTIVE PROTEIN | Routin | 12/26/2019 | | Results for this | | | e | 5:10 AM | | procedure are in the | | | | PDT | | results section. | + +--------+ + + + | PHOSPHORUS | Routin | 12/26/2019 | | Results for this | | | e | 5:10 AM | | procedure are in the | | | | PDT | | results section. | + +--------+ + + + | MAGNESIUM | Routin | 12/26/2019 | | Results for this | | | e | 5:10 AM | | procedure are in the | | | | PDT | | results section. | + +--------+ + + + | CK TOTAL | Routin | 12/26/2019 | | Results for this | | | e | 5:10 AM | | procedure are in the | | | | PDT | | results section. | + +--------+ + + + | BASIC METABOLIC | Routin | 12/26/2019 | | Results for this | | PANEL | e | 5:10 AM | | procedure are in the | | | | PDT | | results section. | + +--------+ + + + | LACTIC ACID | Routin | 12/25/2019 | | Results for this | | | e | 8:56 PM | | procedure are in the | | | | PDT | | results section. | + +--------+ + + + | POC GLUCOSE (NON | Routin | 12/25/2019 | | Results for this | | ORD) | e | 8:44 PM | | procedure are in the | | | | PDT | | results section. | + +--------+ + + + | POC GLUCOSE (NON | Routin | 12/25/2019 | | Results for this | | ORD) | e | 4:12 PM | | procedure are in the | | | | PDT | | results section. | + +--------+ + + + | POC GLUCOSE (NON | Routin | 12/25/2019 | | Results for this | | ORD) | e | 11:31 AM | | procedure are in the | | | | PDT | | results section. | + +--------+ + + + | ECHO COMPLETE | Routin | 12/25/2019 | | Results for this | | | e | 11:30 AM | | procedure are in the | | | | PDT | | results section. | + +--------+ + + + | B TYPE NATRIURETIC | Routin | 12/25/2019 | | Results for this | | PEPTIDE | e | 8:49 AM | | procedure are in the | | | | PDT | | results section. | + +--------+ + + + | POC GLUCOSE (NON | Routin | 12/25/2019 | | Results for this | | ORD) | e | 7:32 AM | | procedure are in the | | | | PDT | | results section. | + +--------+ + + + | CBC NO DIFFERENTIAL | Routin | 12/25/2019 | | Results for this | | | e | 5:54 AM | | procedure are in the | | | | PDT | | results section. | + +--------+ + + + | LACTIC ACID | Routin | 12/25/2019 | | Results for this | | | e | 5:54 AM | | procedure are in the | | | | PDT | | results section. | + +--------+ + + + | CK TOTAL | Routin | 12/25/2019 | | Results for this | | | e | 5:54 AM | | procedure are in the | | | | PDT | | results section. | + +--------+ + + + | COMPREHENSIVE | Routin | 12/25/2019 | | Results for this | | METABOLIC PANEL | e | 5:54 AM | | procedure are in the | | | | PDT | | results section. | + +--------+ + + + | CULTURE, MRSA | Routin | 12/24/2019 | | Results for this | | | e | 8:39 PM | | procedure are in the | | | | PDT | | results section. | + +--------+ + + + | POC GLUCOSE (NON | Routin | 12/24/2019 | | Results for this | | ORD) | e | 8:03 PM | | procedure are in the | | | | PDT | | results section. | + +--------+ + + + | LACTIC ACID | Routin | 12/24/2019 | | Results for this | | | e | 5:17 PM | | procedure are in the | | | | PDT | | results section. | + +--------+ + + + | POC GLUCOSE (NON | Routin | 12/24/2019 | | Results for this | | ORD) | e | 5:03 PM | | procedure are in the | | | | PDT | | results section. | + +--------+ + + + | POC GLUCOSE (NON | Routin | 12/24/2019 | | Results for this | | ORD) | e | 3:14 PM | | procedure are in the | | | | PDT | | results section. | + +--------+ + + + | CULTURE, BLOOD | STAT | 12/24/2019 | | Results for this | | | | 2:51 PM | | procedure are in the | | | | PDT | | results section. | + +--------+ + + + | LACTIC ACID | Routin | 12/24/2019 | | Results for this | | | e | 2:51 PM | | procedure are in the | | | | PDT | | results section. | + +--------+ + + + | CULTURE, BLOOD | STAT | 12/24/2019 | | Results for this | | | | 2:46 PM | | procedure are in the | | | | PDT | | results section. | + +--------+ + + + | CT ABDOMEN PELVIS WO | [facility] | 12/24/2019 | | Results for this | | CONTRAST | | 1:38 PM | | procedure are in the | | | | PDT | | results section. | + +--------+ + + + | URINALYSIS WITH | STAT | 12/24/2019 | | Results for this | | MICROSCOPIC | | 1:27 PM | | procedure are in the | | | | PDT | | results section. | + +--------+ + + + | XR CHEST AP PORTABLE | [facility] | 12/24/2019 | | Results for this | | | | 12:44 PM | | procedure are in the | | | | PDT | | results section. | + +--------+ + + + | LACTIC ACID | STAT | 12/24/2019 | | Results for this | | | | 12:21 PM | | procedure are in the | | | | PDT | | results section. | + +--------+ + + + | ED INFORMATION | Routin | 12/24/2019 | | | | EXCHANGE | e | 11:36 AM | | | | | | PDT | | | + +--------+ + + + +---+--------+ | | | | | Proced | | | ure | | | Note - | | | Jeb, | | | Lab In | | | | | | Hlseve | | | n - | | | 12/23/ | | | 2019 | | | 11:37 | | | AM PDT | | | | | | Format | | | ting | | | of | | | this | | | note | | | might | | | be | | | differ | | | ent | | | from | | | the | | | origin | | | al.COL | | | LECTIV | | | E?NOTI | | | FICATI | | | ON?/ | | | | | | 0 | | | 10:39? | | | CAMPBE | | | LL, | | | NONI | | | CATE?MRN | | | : | | | [id number] | | | [id number] | | | riteri | | | a Met | | | | | | COVID- | | | 19 | | | Pendin | | | g Lab | | | Result | | | sSecur | | | ity | | | and | | | Safety | | | No | | | recent | | | | | | Securi | | | ty | | | Events | | | | | | curren | | | tly on | | | | | | fileED | | | Care | | | Guidel | | | inesTh | | | ere | | | are | | | curren | | | tly no | | | ED | | | Care | | | Guidel | | | bruce | | | for | | | this | | | patien | | | t. | | | Please | | | check | | | your | | | facili | | | ty's | | | medica | | | l | | | record | | | s | | | system | | | .Flags | | | | | | Pendin | | | g | | | COVID- | | | 19 Lab | | | | | | Result | | | - | | | Provid | | | ence - | | | A | | | specim | | | en was | | | | | | collec | | | mejia | | | from | | | this | | | patien | | | t for | | | COVID- | | | 19, | | | result | | | s | | | pendin | | | g / | | | Attrib | | | uted | | | By: | | | Provid | | | ence_ | | | / | | | Attrib | | | uted | | | On: | | | 07/25/ | | | 2020 | | | Prescr | | | iption | | | Drug | | | Report | | | (12 | | | Mo.)PD | | | MP | | | query | | | found | | | no | | | report | | | .E.D. | | | Visit | | | Count | | | (12 | | | mo.)Fa | | | cility | | | | | | Visits | | | Low | | | Acuity | | | | | | [facility] | | | | | | [facility] | | | al | | | Medica | | | l | | | Center | | | 1 0 | | | Total | | | 1 0 | | | Note: | | | Visits | | | | | | indica | | | te | | | total | | | known | | | visits | | | . | | | Medica | | | id Low | | | | | | Acuity | | | Dx | | | are | | | the | | | number | | | of | | | primar | | | y | | | diagno | | | ses on | | | the | | | Medica | | | id's | | | Low | | | Acuity | | | dx | | | list. | | | | | | Recent | | | | | | Emerge | | | ncy | | | Depart | | | ment | | | Visit | | | [facility] | | | yDate | | | Facili | | | ty | | | City | | | State | | | Type | | | Diagno | | | ses or | | | Chief | | | | | | Compla | | | int | | | [place]abe | | | 25, | | | 2020 | | | [facility] | | | | | | [facility] | | | al | | | [facility] | | | [place] | | | [place] | | | Emerge | | | ncy | | | | | | Emesis | | | | | | Nausea | | | | | | Cellul | | | itis | | | | | | Fever | | | (9 | | | Weeks | | | To 74 | | | Years) | | | | | | Recent | | | | | | Inpati | | | ent | | | Visit | | | [facility] | | | yNo | | | record | | | ed | | | inpati | | | ent | | | visits | | | . Care | | | | | | TeamTh | | | ere is | | | not a | | | care | | | team | | | on | | | record | | | at | | | this | | | time. | | | [facility] | | | tive | | | Portal | | | This | | | patien | | | t has | | | regist | | | ered | | | at the | | | | | | [facility] | | | | | | [facility] | | | al | | | Medica | | | l | | | Center | | | | | | Emerge | | | ncy | | | Depart | | | ment | | | For | | | more | | | inform | | | ation | | | visit: | | | | | | https: | | | //secu | | | re.col | | | lectiv | | | emedic | | | al.com | | | /notif | | | [id number] | | | [id number] | | | [id number] | | | [id number] | | | [id number] | | | [id number] | | | ab | | | PLEASE | | | NOTE: | | | 1. | | | Any | | | care | | | recomm | | | endati | | | ons | | | and | | | other | | | clinic | | | al | | | inform | | | ation | | | are | | | provid | | | ed as | | | guidel | | | bruce | | | or for | | | | | | histor | | | ical | | | purpos | | | es | | | only, | | | and | | | provid | | | ers | | | should | | | | | | exerci | | | se | | | their | | | own | | | clinic | | | al | | | judgme | | | nt | | | when | | | provid | | | ing | | | care. | | | 2. | | | You | | | may | | | only | | | use | | | this | | | inform | | | ation | | | for | | | purpos | | | es of | | | treatm | | | ent, | | | paymen | | | t or | | | health | | | care | | | operat | | | ions | | | activi | | | ties, | | | and | | | subjec | | | t to | | | the | | | limita | | | tions | | | of | | | applic | | | able | | | [facility] | | | tive | | | Polici | | | es. | | | 3. | | | You | | | should | | | | | | consul | | | t | | | direct | | | ly | | | with | | | the | | | organi | | | zation | | | that | | | provid | | | ed a | | | care | | | guidel | | | ine or | | | other | | | | | | clinic | | | al | | | histor | | | y with | | | any | | | questi | | | ons | | | about | | | additi | | | onal | | | inform | | | ation | | | or | | | accura | | | cy or | | | comple | | | teness | | | of | | | inform | | | ation | | | provid | | | ed.? | | | 2020 | | | [facility] | | | tive | | | Medica | | | l | | | [employer] | | | logies | | | , Inc[employer] | | | - | | | [email or web address] | | | llecti | | | vemedi | | | [email or web address] | | | m | +---+--------+ + +--------+ +---+ + | PROCALCITONIN, SERUM | STAT | 12/24/2019 | | Results for this | | | | 11:25 AM | | procedure are in the | | | | PDT | | results section. | + +--------+ +---+ + | CBC WITH | STAT | 12/24/2019 | | Results for this | | DIFFERENTIAL | | 11:25 AM | | procedure are in the | | | | PDT | | results section. | + +--------+ +---+ + | CK TOTAL | Add-On | 12/24/2019 | | Results for this | | | | 11:25 AM | | procedure are in the | | | | PDT | | results section. | + +--------+ +---+ + | COMPREHENSIVE | STAT | 12/24/2019 | | Results for this | | METABOLIC PANEL | | 11:25 AM | | procedure are in the | | | | PDT | | results section. | + +--------+ +---+ + | CORONAVIRUS | Routin | 12/24/2019 | | Results for this | | (COVID-19) NAAT | e | 11:24 AM | | procedure are in the | | | | PDT | | results section. | + +--------+ +---+ + documented in this encounter Results POC Glucose (12/29/2019 11:12 AM PDT) + + + + + + | Component | Value | Ref Range | Performed | Pathologist | | | | | At | Signature | + + + + + + | Glucose, | 190 (H)Comment: Testing | 65 - 99 mg/dL | [facility] | | | POC | performed at [facility] [place] | | LABORATORY | | | | [address];[place] | | | | | | [address] | | | | + + + + + + + + | Specimen | + + | | + + + + + + + | Performing | Address | City/State/Zipcode | Phone Number | | Organization | | | | + + + + + | [facility] | [address] | [place] [address] | [phone] | + + + + + POC Glucose (12/29/2019 7:28 AM PDT) + + + + + + | Component | Value | Ref Range | Performed | Pathologist | | | | | At | Signature | + + + + + + | Glucose, | 188 (H)Comment: Testing | 65 - 99 mg/dL | [facility] | | | POC | performed at [facility] [place] | | LABORATORY | | | | [address];[place] | | | | | | [address] | | | | + + + + + + + + | Specimen | + + | | + + + + + + + | Performing | Address | City/State/Zipcode | Phone Number | | Organization | | | | + + + + + | [facility] | [address] | [place] [address] | [phone] | + + + + + Basic Metabolic Panel (12/29/2019 6:31 AM PDT) + + + + + + | Component | Value | Ref Range | Performed | Pathologist | | | | | At | Signature | + + + + + + | Na | 139 | 135 - 145 | [facility] | | | | | mmol/L | LABORATORY | | + + + + + + | K | 3.5 | 3.5 - 4.9 | [facility] | | | | | mmol/L | LABORATORY | | + + + + + + | Cl | 105 | 99 - 109 mmol/L | [facility] | | | | | | LABORATORY | | + + + + + + | CO2 | 26 | 23 - 32 mmol/L | [facility] | | | | | | LABORATORY | | + + + + + + | Anion Gap | 12 | 5 - 20 mmol/L | [facility] | | | | | | LABORATORY | | + + + + + + | Glucose | 178 (H) | 65 - 99 mg/dL | [facility] | | | | | | LABORATORY | | + + + + + + | BUN | 10 | 8 - 25 mg/dL | [facility] | | | | | | LABORATORY | | + + + + + + | Creatinine | 0.49 (L) | 0.50 - 1.00 | [facility] | | | | | mg/dL | LABORATORY | | + + + + + + | BUN/Creatin | 20 | | [facility] | | | ine Ratio | | | LABORATORY | | + + + + + + | Calcium | 8.2 (L) | 8.5 - 10.5 | [facility] | | | | | mg/dL | LABORATORY | | + + + + + + | Estimated | >60Comment: GFR <60: | >60 | [facility] | | | GFR | CHRONIC KIDNEY DISEASE, | mL/min/1.73m2 | LABORATORY | | | | IF FOUND OVER A 3 MONTH | | | | | | PERIOD.GFR <15: KIDNEY | | | | | | FAILURE.FOR | | | | | | AMERICANS, MULTIPLY THE | | | | | | CALCULATED GFR BY | | | | | | 1.210.This eGFR is | | | | | | calculated using the | | | | | | MDRD IDDC traceable | | | | | | equation.Testing | | | | | | performed at [facility] [place] [place] | | | | | | [facility];[place], [place] | | | | | | [address] | | | | + + + + + + + + | Specimen | + + | Blood | + + + + + + + | Performing | Address | City/State/Zipcode | Phone Number | | Organization | | | | + + + + + | [facility] | [address] | [place] [address] | [phone] | + + + + + Phosphorus (12/29/2019 6:31 AM PDT) + + + + + + | Component | Value | Ref Range | Performed | Pathologist | | | | | At | Signature | + + + + + + | Phosphorus | 2.5Comment: Testing | 2.3 - 4.8 mg/dL | [facility] | | | | performed at [facility] [place] [place];[address] | | LABORATORY | | | | [address];[place], [place] | | | | | | [address] | | | | + + + + + + + + | Specimen | + + | Blood | + + + + + + + | Performing | Address | City/State/Zipcode | Phone Number | | Organization | | | | + + + + + | [facility] | [address] | [place] [address] | [phone] | + + + + + Magnesium (12/29/2019 6:31 AM PDT) + + + + + + | Component | Value | Ref Range | Performed | Pathologist | | | | | At | Signature | + + + + + + | Magnesium | 1.8Comment: Testing | 1.7 - 2.4 mg/dL | [facility] | | | | performed at [facility] [place] [place] | | LABORATORY | | | | [address];[place], [place] | | | | | | [address] | | | | + + + + + + + + | Specimen | + + | Blood | + + + + + + + | Performing | Address | City/State/Zipcode | Phone Number | | Organization | | | | + + + + + | [facility] | [address] | [place] [address] | [phone] | + + + + + CBC with Differential (12/29/2019 6:31 AM PDT) + + + + + + | Component | Value | Ref Range | Performed | Pathologist | | | | | At | Signature | + + + + + + | WBC | 8.31 | 3.80 - 11.00 | [facility] | | | | | K/uL | LABORATORY | | + + + + + + | Red Blood | 3.72 | 3.70 - 5.10 | [facility] | | | Cells | | M/uL | LABORATORY | | + + + + + + | Hemoglobin | 10.7 (L) | 11.3 - 15.5 | [facility] | | | | | g/dL | LABORATORY | | + + + + + + | Hematocrit | 32.8 (L) | 34.0 - 46.0 % | [facility] | | | | | | LABORATORY | | + + + + + + | MCV | 88.2 | 80.0 - 100.0 fl | [facility] | | | | | | LABORATORY | | + + + + + + | MCH | 28.8 | 27.0 - 34.0 pg | [facility] | | | | | | LABORATORY | | + + + + + + | MCHC | 32.6 | 32.0 - 35.5 | [facility] | | | | | g/dL | LABORATORY | | + + + + + + | RDW-SD | 40.6 | 37 - 53 fl | [facility] | | | | | | LABORATORY | | + + + + + + | Platelet | 270 | 150 - 400 K/uL | [facility] | | | Count | | | LABORATORY | | + + + + + + | MPV | 9.7Comment: NO NORMAL | fl | [facility] | | | | RANGE ESTABLISHED | | LABORATORY | | + + + + + + | Diff Type | AUTOMATED | | [facility] | | | | | | LABORATORY | | + + + + + + | % nRBC | 0.0 | 0 /100WBC | [facility] | | | | | | LABORATORY | | + + + + + + | % | 71.10 | % | [facility] | | | Neutrophils | | | LABORATORY | | + + + + + + | IMMATURE | 1.30 | % | [facility] | | | GRANULOCYTE | | | LABORATORY | | + + + + + + | % | 14.70 | % | [facility] | | | Lymphocytes | | | LABORATORY | | + + + + + + | Monocyte % | 10.50 | % | [facility] | | | | | | LABORATORY | | + + + + + + | Eosinophils | 2.00 | % | [facility] | | | % | | | LABORATORY | | + + + + + + | Basophils % | 0.40 | % | [facility] | | | | | | LABORATORY | | + + + + + + | Neutrophils | 5.91 | 1.90 - 7.40 | [facility] | | | , Absolute | | K/uL | LABORATORY | | + + + + + + | IMMATURE | 0.11 (H)Comment: NOTE | 0.00 - 0.07 | [facility] | | | GRANS AB | NEW REFERENCE RANGE | K/uL | LABORATORY | | + + + + + + | Absolute | 1.22 | 1.00 - 3.90 | [facility] | | | Lymphocytes | | K/uL | LABORATORY | | + + + + + + | Absolute | 0.87 (H) | 0.00 - 0.80 | [facility] | | | Monocytes | | K/uL | LABORATORY | | + + + + + + | Eosinophils | 0.17 | 0.00 - 0.50 | [facility] | | | , Absolute | | K/uL | LABORATORY | | + + + + + + | Basophils, | 0.03Comment: Testing | 0.00 - 0.10 | [facility] | | | Absolute | performed at [facility] [place] | K/uL | LABORATORY | | | | [address];[place], [place] | | | | | | [address] | | | | + + + + + + + + | Specimen | + + | Blood | + + + + + + + | Performing | Address | City/State/Zipcode | Phone Number | | Organization | | | | + + + + + | [facility] | [address] | [place] [address] | [phone] | + + + + + CK Total (12/29/2019 6:31 AM PDT) + + + + + + | Component | Value | Ref Range | Performed | Pathologist | | | | | At | Signature | + + + + + + | CK TOTAL | 32Comment: Testing | 30 - 240 U/L | [facility] | | | | performed at [facility] [place] [place] | | LABORATORY | | | | [address];[place] | | | | | | [address] | | | | + + + + + + + + | Specimen | + + | Blood | + + + + + + + | Performing | Address | City/State/Zipcode | Phone Number | | Organization | | | | + + + + + | [facility] | [address] | [place] [address] | [phone] | + + + + + POC Glucose (12/28/2019 8:18 PM PDT) + + + + + + | Component | Value | Ref Range | Performed | Pathologist | | | | | At | Signature | + + + + + + | Glucose, | 153 (H)Comment: Testing | 65 - 99 mg/dL | [facility] | | | POC | performed at [facility] [place] | | LABORATORY | | | | [address];[place] | | | | | | [address] | | | | + + + + + + + + | Specimen | + + | | + + + + + + + | Performing | Address | City/State/Zipcode | Phone Number | | Organization | | | | + + + + + | [facility] | [address] | [place] [address] | [phone] | + + + + + POC Glucose (12/28/2019 4:35 PM PDT) + + + + + + | Component | Value | Ref Range | Performed | Pathologist | | | | | At | Signature | + + + + + + | Glucose, | 169 (H)Comment: Testing | 65 - 99 mg/dL | [facility] | | | POC | performed at [facility] [place] | | LABORATORY | | | | [address];[place], [place] | | | | | | [address] | | | | + + + + + + + + | Specimen | + + | | + + + + + + + | Performing | Address | City/State/Zipcode | Phone Number | | Organization | | | | + + + + + | [facility] | [address] | [place] [address] | [phone] | + + + + + Hemoglobin A1C (12/28/2019 11:43 AM PDT) + + + + + + | Component | Value | Ref Range | Performed | Pathologist | | | | | At | Signature | + + + + + + | Hemoglobin | 10.8 (H)Comment: | 4.8 - 5.6 % | [facility] | | | A1c | Prediabetes: 5.7 - | | LABORATORY | | | | 6.4 Diabetes: | | | | | | >6.4 | | | | | | Glycemic control for | | | | | | adults with diabetes: | | | | | | <7.0Testing performed at | | | | | | [facility], [address], | | | | | | [place] [address], [facility] | | | | | | [address] | | | | + + + + + + + + | Specimen | + + | Blood | + + + + + + + | Performing | Address | City/State/Zipcode | Phone Number | | Organization | | | | + + + + + | [facility] | [address] | [place] [address] | [phone] | + + + + + POC Glucose (12/28/2019 11:27 AM PDT) + + + + + + | Component | Value | Ref Range | Performed | Pathologist | | | | | At | Signature | + + + + + + | Glucose, | 135 (H)Comment: Testing | 65 - 99 mg/dL | [facility] | | | POC | performed at [facility] [place] [place] | | LABORATORY | | | | [address];[place] | | | | | | [address] | | | | + + + + + + + + | Specimen | + + | | + + + + + + + | Performing | Address | City/State/Zipcode | Phone Number | | Organization | | | | + + + + + | [facility] | [address] | [place] [address] | [phone] | + + + + + POC Glucose (12/28/2019 7:35 AM PDT) + + + + + + | Component | Value | Ref Range | Performed | Pathologist | | | | | At | Signature | + + + + + + | Glucose, | 186 (H)Comment: Testing | 65 - 99 mg/dL | [facility] | | | POC | performed at [facility] [place] [place] | | LABORATORY | | | | [address];[place] | | | | | | [address] | | | | + + + + + + + + | Specimen | + + | | + + + + + + + | Performing | Address | City/State/Zipcode | Phone Number | | Organization | | | | + + + + + | [facility] | [address] | [place] [address] | [phone] | + + + + + Basic Metabolic Panel (12/28/2019 5:04 AM PDT) + + + + + + | Component | Value | Ref Range | Performed | Pathologist | | | | | At | Signature | + + + + + + | Na | 138 | 135 - 145 | [facility] | | | | | mmol/L | LABORATORY | | + + + + + + | K | 3.8 | 3.5 - 4.9 | [facility] | | | | | mmol/L | LABORATORY | | + + + + + + | Cl | 104 | 99 - 109 mmol/L | [facility] | | | | | | LABORATORY | | + + + + + + | CO2 | 26 | 23 - 32 mmol/L | [facility] | | | | | | LABORATORY | | + + + + + + | Anion Gap | 12 | 5 - 20 mmol/L | [facility] | | | | | | LABORATORY | | + + + + + + | Glucose | 127 (H) | 65 - 99 mg/dL | [facility] | | | | | | LABORATORY | | + + + + + + | BUN | 8 | 8 - 25 mg/dL | [facility] | | | | | | LABORATORY | | + + + + + + | Creatinine | 0.50 | 0.50 - 1.00 | [facility] | | | | | mg/dL | LABORATORY | | + + + + + + | BUN/Creatin | 16 | | [facility] | | | ine Ratio | | | LABORATORY | | + + + + + + | Calcium | 7.4 (L) | 8.5 - 10.5 | [facility] | | | | | mg/dL | LABORATORY | | + + + + + + | Estimated | >60Comment: GFR <60: | >60 | [facility] | | | GFR | CHRONIC KIDNEY DISEASE, | mL/min/1.73m2 | LABORATORY | | | | IF FOUND OVER A 3 MONTH | | | | | | PERIOD.GFR <15: KIDNEY | | | | | | FAILURE.FOR | | | | | | AMERICANS, MULTIPLY THE | | | | | | CALCULATED GFR BY | | | | | | 1.210.This eGFR is | | | | | | calculated using the | | | | | | MDRD IDMS traceable | | | | | | equation.Testing | | | | | | performed at [facility], [address] | | | | | [address], | | | | | | [place] [address] | | | | + + + + + + + + | Specimen | + + | Blood | + + + + + + + | Performing | Address | City/State/Zipcode | Phone Number | | Organization | | | | + + + + + | [facility] | [address] | [place] [address] | [phone] | + + + + + Phosphorus (12/28/2019 5:04 AM PDT) + + + + + + | Component | Value | Ref Range | Performed | Pathologist | | | | | At | Signature | + + + + + + | Phosphorus | 2.0 (L)Comment: Testing | 2.3 - 4.8 mg/dL | [facility] | | | | performed at [facility] [place] | | LABORATORY | | | | [address];[place], [place] | | | | | | [address] | | | | + + + + + + + + | Specimen | + + | Blood | + + + + + + + | Performing | Address | City/State/Zipcode | Phone Number | | Organization | | | | + + + + + | [facility] | [address] | [place] [address] | [phone] | + + + + + Magnesium (12/28/2019 5:04 AM PDT) + + + + + + | Component | Value | Ref Range | Performed | Pathologist | | | | | At | Signature | + + + + + + | Magnesium | 1.7Comment: Testing | 1.7 - 2.4 mg/dL | [facility] | | | | performed at [facility] [place];[address] | | LABORATORY | | | | [address];[place] | | | | | | [address] | | | | + + + + + + + + | Specimen | + + | Blood | + + + + + + + | Performing | Address | City/State/Zipcode | Phone Number | | Organization | | | | + + + + + | [facility] | [address] | [place] [address] | [phone] | + + + + + CBC with Differential (12/28/2019 5:04 AM PDT) + + + + + + | Component | Value | Ref Range | Performed | Pathologist | | | | | At | Signature | + + + + + + | WBC | 7.62 | 3.80 - 11.00 | [facility] | | | | | K/uL | LABORATORY | | + + + + + + | Red Blood | 3.88 | 3.70 - 5.10 | [facility] | | | Cells | | M/uL | LABORATORY | | + + + + + + | Hemoglobin | 11.1 (L) | 11.3 - 15.5 | [facility] | | | | | g/dL | LABORATORY | | + + + + + + | Hematocrit | 33.9 (L) | 34.0 - 46.0 % | [facility] | | | | | | LABORATORY | | + + + + + + | MCV | 87.4 | 80.0 - 100.0 fl | [facility] | | | | | | LABORATORY | | + + + + + + | MCH | 28.6 | 27.0 - 34.0 pg | [facility] | | | | | | LABORATORY | | + + + + + + | MCHC | 32.7 | 32.0 - 35.5 | [facility] | | | | | g/dL | LABORATORY | | + + + + + + | RDW-SD | 40.9 | 37 - 53 fl | [facility] | | | | | | LABORATORY | | + + + + + + | Platelet | 228 | 150 - 400 K/uL | [facility] | | | Count | | | LABORATORY | | + + + + + + | MPV | 10.4Comment: NO NORMAL | fl | [facility] | | | | RANGE ESTABLISHED | | LABORATORY | | + + + + + + | Diff Type | AUTOMATED | | [facility] | | | | | | LABORATORY | | + + + + + + | % nRBC | 0.0 | 0 /100WBC | [facility] | | | | | | LABORATORY | | + + + + + + | % | 68.50 | % | [facility] | | | Neutrophils | | | LABORATORY | | + + + + + + | IMMATURE | 1.00 | % | [facility] | | | GRANULOCYTE | | | LABORATORY | | + + + + + + | % | 16.10 | % | [facility] | | | Lymphocytes | | | LABORATORY | | + + + + + + | Monocyte % | 11.90 | % | [facility] | | | | | | LABORATORY | | + + + + + + | Eosinophils | 2.20 | % | [facility] | | | % | | | LABORATORY | | + + + + + + | Basophils % | 0.30 | % | [facility] | | | | | | LABORATORY | | + + + + + + | Neutrophils | 5.21 | 1.90 - 7.40 | [facility] | | | , Absolute | | K/uL | LABORATORY | | + + + + + + | IMMATURE | 0.08 (H)Comment: NOTE | 0.00 - 0.07 | [facility] | | | GRANS AB | NEW REFERENCE RANGE | K/uL | LABORATORY | | + + + + + + | Absolute | 1.23 | 1.00 - 3.90 | [facility] | | | Lymphocytes | | K/uL | LABORATORY | | + + + + + + | Absolute | 0.91 (H) | 0.00 - 0.80 | [facility] | | | Monocytes | | K/uL | LABORATORY | | + + + + + + | Eosinophils | 0.17 | 0.00 - 0.50 | [facility] | | | , Absolute | | K/uL | LABORATORY | | + + + + + + | Basophils, | 0.02Comment: Testing | 0.00 - 0.10 | [facility] | | | Absolute | performed at [facility], [address] | K/uL | LABORATORY | | | | [address], | | | | | | [place] [address] | | | | + + + + + + + + | Specimen | + + | Blood | + + + + + + + | Performing | Address | City/State/Zipcode | Phone Number | | Organization | | | | + + + + + | [facility] | [address] | [place] [address] | [phone] | + + + + + CK Total (12/28/2019 5:04 AM PDT) + + + + + + | Component | Value | Ref Range | Performed | Pathologist | | | | | At | Signature | + + + + + + | CK TOTAL | 44Comment: Testing | 30 - 240 U/L | [place] | | | | performed at [facility] [place] | LABORATORY | | | [address];[place] | | | | | | [id number] | | | | + + + + + + + + | Specimen | + + | Blood | + + + + + + + | Performing | Address | City/State/Zipcode | Phone Number | | Organization | | | | + + + + + | [facility] | [address] | [place] [address] | [phone] | + + + + + C-Reactive Protein (12/28/2019 5:04 AM PDT) + + + + + + | Component | Value | Ref Range | Performed | Pathologist | | | | | At | Signature | + + + + + + | CRP | 12.8 (H)Comment: Testing | <0.5 mg/dL | [facility] | | | | performed at [facility], [address] | | LABORATORY | | | | [address], | | | | | | [place] [address] | | | | + + + + + + + + | Specimen | + + | Blood | + + + + + + + | Performing | Address | City/State/Zipcode | Phone Number | | Organization | | | | + + + + + | [facility] | [address] | [place] [address] | [phone] | + + + + + POC Glucose (12/27/2019 8:10 PM PDT) + + + + + + | Component | Value | Ref Range | Performed | Pathologist | | | | | At | Signature | + + + + + + | Glucose, | 127 (H)Comment: Testing | 65 - 99 mg/dL | [facility] | | | POC | performed at [facility] [place] | | LABORATORY | | | | [address];[place], [place] | | | | | | [address] | | | | + + + + + + + + | Specimen | + + | | + + + + + + + | Performing | Address | City/State/Zipcode | Phone Number | | Organization | | | | + + + + + | [facility] | [address] | [place] [address] | [phone] | + + + + + POC Glucose (12/27/2019 4:52 PM PDT) + + + + + + | Component | Value | Ref Range | Performed | Pathologist | | | | | At | Signature | + + + + + + | Glucose, | 136 (H)Comment: Testing | 65 - 99 mg/dL | [facility] | | | POC | performed at [facility] [place] | | LABORATORY | | | | [address];[place], [place] | | | | | | [address] | | | | + + + + + + + + | Specimen | + + | | + + + + + + + | Performing | Address | City/State/Zipcode | Phone Number | | Organization | | | | + + + + + | [facility] | [address] | [place] [address] | [phone] | + + + + + POC Glucose (12/27/2019 11:52 AM PDT) + + + + + + | Component | Value | Ref Range | Performed | Pathologist | | | | | At | Signature | + + + + + + | Glucose, | 195 (H)Comment: Testing | 65 - 99 mg/dL | [facility] | | | POC | performed at [facility] [place] | | LABORATORY | | | | [address];[place], [place] | | | | | | [address] | | | | + + + + + + + + | Specimen | + + | | + + + + + + + | Performing | Address | City/State/Zipcode | Phone Number | | Organization | | | | + + + + + | [facility] | [address] | [place] [address] | [phone] | + + + + + POC Glucose (12/27/2019 7:50 AM PDT) + + + + + + | Component | Value | Ref Range | Performed | Pathologist | | | | | At | Signature | + + + + + + | Glucose, | 167 (H)Comment: Testing | 65 - 99 mg/dL | [facility] | | | POC | performed at [facility] [place];[address] | | LABORATORY | | | | [address];[place] | | | | | | [address] | | | | + + + + + + + + | Specimen | + + | | + + + + + + + | Performing | Address | City/State/Zipcode | Phone Number | | Organization | | | | + + + + + | [facility] | [address] | [place] [address] | [phone] | + + + + + Basic Metabolic Panel (12/27/2019 4:56 AM PDT) + + + + + + | Component | Value | Ref Range | Performed | Pathologist | | | | | At | Signature | + + + + + + | Na | 138 | 135 - 145 | [facility] | | | | | mmol/L | LABORATORY | | + + + + + + | K | 3.5 | 3.5 - 4.9 | [facility] | | | | | mmol/L | LABORATORY | | + + + + + + | Cl | 106 | 99 - 109 mmol/L | [facility] | | | | | | LABORATORY | | + + + + + + | CO2 | 24 | 23 - 32 mmol/L | [facility] | | | | | | LABORATORY | | + + + + + + | Anion Gap | 12 | 5 - 20 mmol/L | [facility] | | | | | | LABORATORY | | + + + + + + | Glucose | 153 (H) | 65 - 99 mg/dL | [facility] | | | | | | LABORATORY | | + + + + + + | BUN | 11 | 8 - 25 mg/dL | [facility] | | | | | | LABORATORY | | + + + + + + | Creatinine | 0.60 | 0.50 - 1.00 | [facility] | | | | | mg/dL | LABORATORY | | + + + + + + | BUN/Creatin | 18 | | [facility] | | | ine Ratio | | | LABORATORY | | + + + + + + | Calcium | 6.9 (L) | 8.5 - 10.5 | [facility] | | | | | mg/dL | LABORATORY | | + + + + + + | Estimated | >60Comment: GFR <60: | >60 | [facility] | | | GFR | CHRONIC KIDNEY DISEASE, | mL/min/1.73m2 | LABORATORY | | | | IF FOUND OVER A 3 MONTH | | | | | | PERIOD.GFR <15: KIDNEY | | | | | | FAILURE.FOR | | | | | | AMERICANS, MULTIPLY THE | | | | | | CALCULATED GFR BY | | | | | | 1.210.This eGFR is | | | | | | calculated using the | | | | | | MDRD IDDC traceable | | | | | | equation.Testing | | | | | | performed at [facility], [address] | | | | | | [facility], | | | | | | [place] [address] | | | | + + + + + + + + | Specimen | + + | Blood | + + + + + + + | Performing | Address | City/State/Zipcode | Phone Number | | Organization | | | | + + + + + | [facility] | [address] | [place] [address] | [phone] | + + + + + Phosphorus (12/27/2019 4:56 AM PDT) + + + + + + | Component | Value | Ref Range | Performed | Pathologist | | | | | At | Signature | + + + + + + | Phosphorus | 2.1 (L)Comment: Testing | 2.3 - 4.8 mg/dL | [facility] | | | | performed at [facility] [place] [place] | | LABORATORY | | | | [address];[place], [place] | | | | | | [address] | | | | + + + + + + + + | Specimen | + + | Blood | + + + + + + + | Performing | Address | City/State/Zipcode | Phone Number | | Organization | | | | + + + + + | [facility] | [address] | [place] [address] | [phone] | + + + + + Magnesium (12/27/2019 4:56 AM PDT) + + + + + + | Component | Value | Ref Range | Performed | Pathologist | | | | | At | Signature | + + + + + + | Magnesium | 1.8Comment: Testing | 1.7 - 2.4 mg/dL | [facility] | | | | performed at [facility] [place] | | LABORATORY | | | | [address];[place], [place] | | | | | | [address] | | | | + + + + + + + + | Specimen | + + | Blood | + + + + + + + | Performing | Address | City/State/Zipcode | Phone Number | | Organization | | | | + + + + + | [facility] | [address] | [place] [address] | [phone] | + + + + + CBC with Differential (12/27/2019 4:56 AM PDT) + + + + + + | Component | Value | Ref Range | Performed | Pathologist | | | | | At | Signature | + + + + + + | WBC | 7.00 | 3.80 - 11.00 | [facility] | | | | | K/uL | LABORATORY | | + + + + + + | Red Blood | 3.87 | 3.70 - 5.10 | [facility] | | | Cells | | M/uL | LABORATORY | | + + + + + + | Hemoglobin | 11.2 (L) | 11.3 - 15.5 | [facility] | | | | | g/dL | LABORATORY | | + + + + + + | Hematocrit | 34.0 | 34.0 - 46.0 % | [facility] | | | | | | LABORATORY | | + + + + + + | MCV | 87.9 | 80.0 - 100.0 fl | [facility] | | | | | | LABORATORY | | + + + + + + | MCH | 28.9 | 27.0 - 34.0 pg | [facility] | | | | | | LABORATORY | | + + + + + + | MCHC | 32.9 | 32.0 - 35.5 | [facility] | | | | | g/dL | LABORATORY | | + + + + + + | RDW-SD | 40.6 | 37 - 53 fl | [facility] | | | | | | LABORATORY | | + + + + + + | Platelet | 179 | 150 - 400 K/uL | [facility] | | | Count | | | LABORATORY | | + + + + + + | MPV | 10.1Comment: NO NORMAL | fl | [facility] | | | | RANGE ESTABLISHED | | LABORATORY | | + + + + + + | Diff Type | AUTOMATED | | [facility] | | | | | | LABORATORY | | + + + + + + | % nRBC | 0.0 | 0 /100WBC | [facility] | | | | | | LABORATORY | | + + + + + + | % | 70.60 | % | [facility] | | | Neutrophils | | | LABORATORY | | + + + + + + | IMMATURE | 1.00 | % | [facility] | | | GRANULOCYTE | | | LABORATORY | | + + + + + + | % | 16.00 | % | [facility] | | | Lymphocytes | | | LABORATORY | | + + + + + + | Monocyte % | 9.60 | % | [facility] | | | | | | LABORATORY | | + + + + + + | Eosinophils | 2.40 | % | [facility] | | | % | | | LABORATORY | | + + + + + + | Basophils % | 0.40 | % | [facility] | | | | | | LABORATORY | | + + + + + + | Neutrophils | 4.94 | 1.90 - 7.40 | [facility] | | | , Absolute | | K/uL | LABORATORY | | + + + + + + | IMMATURE | 0.07Comment: NOTE NEW | 0.00 - 0.07 | [facility] | | | GRANS AB | REFERENCE RANGE | K/uL | LABORATORY | | + + + + + + | Absolute | 1.12 | 1.00 - 3.90 | [facility] | | | Lymphocytes | | K/uL | LABORATORY | | + + + + + + | Absolute | 0.67 | 0.00 - 0.80 | [facility] | | | Monocytes | | K/uL | LABORATORY | | + + + + + + | Eosinophils | 0.17 | 0.00 - 0.50 | [facility] | | | , Absolute | | K/uL | LABORATORY | | + + + + + + | Basophils, | 0.03Comment: Testing | 0.00 - 0.10 | [facility] | | | Absolute | performed at [facility], [address] | K/uL | LABORATORY | | | | [address], | | | | | | [place] [address] | | | | + + + + + + + + | Specimen | + + | Blood | + + + + + + + | Performing | Address | City/State/Zipcode | Phone Number | | Organization | | | | + + + + + | [facility] | [address] [facility] | [place] [address] | [phone] | + + + + + CK Total (12/27/2019 4:56 AM PDT) + + + + + + | Component | Value | Ref Range | Performed | Pathologist | | | | | At | Signature | + + + + + + | CK TOTAL | 65Comment: Testing | 30 - 240 U/L | [facility] | | | | performed at [facility] [place] | | LABORATORY | | | | [address];[place] | | | | | | [address] | | | | + + + + + + + + | Specimen | + + | Blood | + + + + + + + | Performing | Address | City/State/Zipcode | Phone Number | | Organization | | | | + + + + + | [facility] | [address] | [place] [address] | [phone] | + + + + + C-Reactive Protein (12/27/2019 4:56 AM PDT) + + + + + + | Component | Value | Ref Range | Performed | Pathologist | | | | | At | Signature | + + + + + + | CRP | 16.7 (H)Comment: Testing | <0.5 mg/dL | [facility] | | | | performed at [facility], [address] | | LABORATORY | | | | [address], | | | | | | [place] [address] | | | | + + + + + + + + | Specimen | + + | Blood | + + + + + + + | Performing | Address | City/State/Zipcode | Phone Number | | Organization | | | | + + + + + | [facility] | [address] | [place] [address] | [phone] | + + + + + POC Glucose (12/26/2019 8:43 PM PDT) + + + + + + | Component | Value | Ref Range | Performed | Pathologist | | | | | At | Signature | + + + + + + | Glucose, | 156 (H)Comment: Testing | 65 - 99 mg/dL | [facility] | | | POC | performed at [facility] [place] | | LABORATORY | | | | [address];[place] | | | | | | [address] | | | | + + + + + + + + | Specimen | + + | | + + + + + + + | Performing | Address | City/State/Zipcode | Phone Number | | Organization | | | | + + + + + | [facility] | [address] | [place] [address] | [phone] | + + + + + Hepatitis Panel, Acute (12/26/2019 7:07 PM PDT) + + + + + + | Component | Value | Ref Range | Performed | Pathologist | | | | | At | Signature | + + + + + + | HAV AB IGM | Negative | Negative | [facility] | | | | | | LABORATORY | | + + + + + + | Hepatitis B | Negative | Negative | [facility] | | | Surface Ag | | | LABORATORY | | + + + + + + | HEP B CORE | Negative | Negative | [facility] | | | IgM | | | LABORATORY | | + + + + + + | HCV Ab | 0.5Comment: | 0.0 - 0.9 s/co | [facility] | | | | | ratio | LABORATORY | | | | Negative: | | | | | | < 0.8 | | | | | | | | | | | | Indeterminate: 0.8 | | | | | | - 0.9 | | | | | | | | | | | | Positive: > | | | | | | 0.9The [facility] recommends | | | | | | that a positive HCV | | | | | | antibody resultbe | | | | | | followed up with a HCV | | | | | | Nucleic Acid | | | | | | Amplificationtest | | | | | | ([id number]).Testing | | | | | | performed at [facility], | | | | | | [address], [facility] [address], | | | | | | [facility] [address] | | | | + + + + + + + + | Specimen | + + | Blood | + + + + + + + | Performing | Address | City/State/Zipcode | Phone Number | | Organization | | | | + + + + + | [facility] | [address] | [place] [address] | [phone] | + + + + + POC Glucose (12/26/2019 4:51 PM PDT) + + + + + + | Component | Value | Ref Range | Performed | Pathologist | | | | | At | Signature | + + + + + + | Glucose, | 195 (H)Comment: Testing | 65 - 99 mg/dL | [facility] | | | POC | performed at [facility] [place] [place] | | LABORATORY | | | | [address];[place] | | | | | | [address] | | | | + + + + + + + + | Specimen | + + | | + + + + + + + | Performing | Address | City/State/Zipcode | Phone Number | | Organization | | | | + + + + + | [facility] | [address] | [place] [address] | [phone] | + + + + + POC Glucose (12/26/2019 11:43 AM PDT) + + + + + + | Component | Value | Ref Range | Performed | Pathologist | | | | | At | Signature | + + + + + + | Glucose, | 150 (H)Comment: Testing | 65 - 99 mg/dL | [facility] | | | POC | performed at [facility] [place] | | LABORATORY | | | | [address];[place] | | | | | | [address] | | | | + + + + + + + + | Specimen | + + | | + + + + + + + | Performing | Address | City/State/Zipcode | Phone Number | | Organization | | | | + + + + + | [facility] | [address] | [place] [address] | [phone] | + + + + + POC Glucose (12/26/2019 7:44 AM PDT) + + + + + + | Component | Value | Ref Range | Performed | Pathologist | | | | | At | Signature | + + + + + + | Glucose, | 168 (H)Comment: Testing | 65 - 99 mg/dL | [facility] | | | POC | performed at [facility] [place];[address] | | LABORATORY | | | | [address];[place], [place] | | | | | | [address] | | | | + + + + + + + + | Specimen | + + | | + + + + + + + | Performing | Address | City/State/Zipcode | Phone Number | | Organization | | | | + + + + + | [facility] | [address] | [place] [address] | [phone] | + + + + + CT Abdomen Pelvis wo Contrast (12/26/2019 6:13 AM PDT) + + | Specimen | + + | | + + + + + | Impressions | Performed At | + + + | 1. Hepatomegaly. Relative enlargement of the caudate lobe and left | [facility] | | lobe suggests hepatic cirrhosis. 2. Adenopathy. Bulky adenopathy | | | is seen in both inguinal regions, right worse than left. The | | | largest right inguinal node is incompletely imaged, with long axis of | | | at least 6.7 cm, and short axis of 2.2 cm. Enlarged nodes are also | | | seen along the right external and common iliac chain regions, largest | | | right external iliac node with long axis of 3.8 cm and short axis of | | | 2.2 cm. Multiple enlarged nodes are seen in the retrocrural and | | | adjacent to the descending thoracic aorta and esophagus. Mildly | | | enlarged nodes seen in the peripancreatic/periportal and portacaval | | | regions. 3. No evidence of acute diverticulitis. Normal retrocecal | | | appendix. No evidence of urinary tract stone or hydronephrosis. | | | Final Report Signed by: Seng Gonzalez Brian Sign Date/Time: | | | 12/26/2019 6:56 AM | | + + + + + + | Narrative | Performed At | + + + | CT ABDOMEN AND PELVIS WITHOUT CONTRAST CLINICAL INFORMATION: | [facility] | | Left lower quadrant pain and nausea. COMPARISON: CT ABDOMEN | | | PELVIS WO CONTRAST (12/24/2019); PROCEDURE: Axial images through | | | the abdomen and pelvis. Multiplanar reconstructions. At least one | | | of the following CT dose optimization techniques were used: | | | Automated exposure control; Adjustment of mA and/or kV according to | | | patient size; Use of iterative reconstruction technique. FINDINGS: | | | LUNG BASES: No significant pulmonary abnormality. Symmetric | | | bibasilar compressive atelectasis. No pneumothorax or significant | | | pleural effusion. No pleural effusion or pneumothorax. ABDOMEN | | | Solid organ evaluation suboptimal without contrast. Liver and | | | Biliary: No calcified gallstones or dilated bile ducts. The liver | | | appears enlarged. Cirrhotic liver morphology with enlargement of | | | the caudate lobe and left lobe. No focal liver lesions seen on | | | noncontrast exam. Pancreas, Spleen and Adrenals: The noncontrast | | | appearance of the pancreas, spleen, and adrenal glands is normal. | | | Kidneys: No hydronephrosis, calculi or contour deforming renal lesion. | | | ABDOMEN AND PELVIS Bowel: No focal gastric abnormality. No | | | small bowel or colonic dilation or adjacent inflammation. No | | | appendiceal dilation or inflammation. Vessels: The abdominal aorta | | | and inferior vena cava are normal caliber. Retroaortic left renal | | | vein, a normal variant. Lymph Nodes: Multiple enlarged nodes seen in | | | the inguinal regions, right worse than left. The largest node in | | | the right inguinal region is incompletely imaged, with length of at | | | least 6.7 cm, and short axis diameter of 2.2 cm (coronal image 51 and | | | axial image 185 series 3). Multiple enlarged lymph nodes are seen in | | | the external iliac and common iliac chain, with largest node in the | | | right external iliac chain measuring 3.8 cm long axis by 2.2 cm short | | | axis. 1.5 cm short axis nodes seen in the right common femoral | | | chain. Small subcentimeter short axis nodes are seen in the | | | aortocaval and upper abdominal periaortic region. Portacaval node | | | measures 1.8 cm short axis. A 13 mm short axis node is seen in the | | | peripancreatic/subacute hepatic space. There are multiple enlarged | | | lymph nodes seen in the retrocrural space, adjacent to the descending | | | thoracic aorta, several with long axis of 2.3 cm, and short axis of | | | 9-10 mm. Peritoneum and Retroperitoneum: No free intraperitoneal air. | | | No ascites fluid. PELVIS Genitourinary: Urinary bladder | | | moderately distended without focal abnormality. Vaginal cuff | | | intact. The uterus appears surgically absent. No pelvic mass. | | | BODY WALL Soft Tissues: No bowel or inflamed fat containing hernia, | | | mass or hemorrhage. Bones: No acute fracture or vertebral end plate | | | destruction. No lytic or blastic lesion. | | + + + + + | Procedure Note | + + | Jeb, [id number] - 12/26/2019 7:00 AM PDT | | CT ABDOMEN AND PELVIS WITHOUT CONTRAST | | | | CLINICAL INFORMATION: | | Left lower quadrant pain and nausea. | | | | COMPARISON: | | CT ABDOMEN PELVIS WO CONTRAST (12/24/2019); | | | | PROCEDURE: | | Axial images through the abdomen and pelvis. Multiplanar | | reconstructions. | | | | At least one of the following CT dose optimization techniques were | | used: Automated exposure control; Adjustment of mA and/or kV according | | to patient size; Use of iterative reconstruction technique. | | | | FINDINGS: | | LUNG BASES: No significant pulmonary abnormality. Symmetric bibasilar | | compressive atelectasis. No pneumothorax or significant pleural | | effusion. No pleural effusion or pneumothorax. | | | | ABDOMEN | | Solid organ evaluation suboptimal without contrast. | | Liver and Biliary: No calcified gallstones or dilated bile ducts. The | | liver appears enlarged. Cirrhotic liver morphology with enlargement of | | the caudate lobe and left lobe. No focal liver lesions seen on | | noncontrast exam. | | Pancreas, Spleen and Adrenals: The noncontrast appearance of the | | pancreas, spleen, and adrenal glands is normal. | | Kidneys: No hydronephrosis, calculi or contour deforming renal lesion. | | | | ABDOMEN AND PELVIS | | Bowel: No focal gastric abnormality. No small bowel or colonic | | dilation or adjacent inflammation. No appendiceal dilation or | | inflammation. | | Vessels: The abdominal aorta and inferior vena cava are normal caliber. | | Retroaortic left renal vein, a normal variant. | | Lymph Nodes: Multiple enlarged nodes seen in the inguinal regions, | | right worse than left. The largest node in the right inguinal region | | is incompletely imaged, with length of at least 6.7 cm, and short axis | | diameter of 2.2 cm (coronal image 51 and axial image 185 series 3). | | Multiple enlarged lymph nodes are seen in the external iliac and common | | iliac chain, with largest node in the right external iliac chain | | measuring 3.8 cm long axis by 2.2 cm short axis. 1.5 cm short axis | | nodes seen in the right common femoral chain. Small subcentimeter | | short axis nodes are seen in the aortocaval and upper abdominal | | periaortic region. Portacaval node measures 1.8 cm short axis. A 13 | | mm short axis node is seen in the peripancreatic/subacute hepatic | | space. There are multiple enlarged lymph nodes seen in the retrocrural | | space, adjacent to the descending thoracic aorta, several with long | | axis of 2.3 cm, and short axis of 9-10 mm. | | Peritoneum and Retroperitoneum: No free intraperitoneal air. No | | ascites fluid. | | | | PELVIS | | Genitourinary: Urinary bladder moderately distended without focal | | abnormality. Vaginal cuff intact. The uterus appears surgically | | absent. No pelvic mass. | | | | BODY WALL | | Soft Tissues: No bowel or inflamed fat containing hernia, mass or | | hemorrhage. | | Bones: No acute fracture or vertebral end plate destruction. No lytic | | or blastic lesion. | | | | IMPRESSION: | | 1. Hepatomegaly. Relative enlargement of the caudate lobe and left | | lobe suggests hepatic cirrhosis. | | 2. Adenopathy. Bulky adenopathy is seen in both inguinal regions, | | right worse than left. The largest right inguinal node is incompletely | | imaged, with long axis of at least 6.7 cm, and short axis of 2.2 cm. | | Enlarged nodes are also seen along the right external and common iliac | | chain regions, largest right external iliac node with long axis of 3.8 | | cm and short axis of 2.2 cm. Multiple enlarged nodes are seen in the | | retrocrural and adjacent to the descending thoracic aorta and | | esophagus. Mildly enlarged nodes seen in the peripancreatic/periportal | | and portacaval regions. | | 3. No evidence of acute diverticulitis. Normal retrocecal appendix. | | No evidence of urinary tract stone or hydronephrosis. | | | | | | | | Final Report Signed by: Seng Gonzalez Brian | | Sign Date/Time: 12/26/2019 6:56 AM | + + + +---------+ + + | Performing | Address | City/State/Zipcode | Phone Number | | Organization | | | | + +---------+ + + | [facility] | | | | + +---------+ + + Basic Metabolic Panel (12/26/2019 5:10 AM PDT) + + + + + + | Component | Value | Ref Range | Performed | Pathologist | | | | | At | Signature | + + + + + + | Na | 136 | 135 - 145 | [facility] | | | | | mmol/L | LABORATORY | | + + + + + + | K | 3.4 (L) | 3.5 - 4.9 | [facility] | | | | | mmol/L | LABORATORY | | + + + + + + | Cl | 106 | 99 - 109 mmol/L | [facility] | | | | | | LABORATORY | | + + + + + + | CO2 | 21 (L) | 23 - 32 mmol/L | [facility] | | | | | | LABORATORY | | + + + + + + | Anion Gap | 12 | 5 - 20 mmol/L | [facility] | | | | | | LABORATORY | | + + + + + + | Glucose | 129 (H) | 65 - 99 mg/dL | [facility] | | | | | | LABORATORY | | + + + + + + | BUN | 11 | 8 - 25 mg/dL | [facility] | | | | | | LABORATORY | | + + + + + + | Creatinine | 0.60 | 0.50 - 1.00 | [facility] | | | | | mg/dL | LABORATORY | | + + + + + + | BUN/Creatin | 18 | | [facility] | | | ine Ratio | | | LABORATORY | | + + + + + + | Calcium | 7.0 (L) | 8.5 - 10.5 | [facility] | | | | | mg/dL | LABORATORY | | + + + + + + | Estimated | >60Comment: GFR <60: | >60 | [facility] | | | GFR | CHRONIC KIDNEY DISEASE, | mL/min/1.73m2 | LABORATORY | | | | IF FOUND OVER A 3 MONTH | | | | | | PERIOD.GFR <15: KIDNEY | | | | | | FAILURE.FOR | | | | | | AMERICANS, MULTIPLY THE | | | | | | CALCULATED GFR BY | | | | | | 1.210.This eGFR is | | | | | | calculated using the | | | | | | MDRD IDDC traceable | | | | | | equation.Testing | | | | | | performed at [facility], [address] | | | | | [facility], | | | | | | [place] [address] | | | | + + + + + + + + | Specimen | + + | Blood | + + + + + + + | Performing | Address | City/State/Zipcode | Phone Number | | Organization | | | | + + + + + | [facility] | [address] | [place] [address] | [phone] | + + + + + Phosphorus (12/26/2019 5:10 AM PDT) + + + + + + | Component | Value | Ref Range | Performed | Pathologist | | | | | At | Signature | + + + + + + | Phosphorus | 1.9 (L)Comment: Testing | 2.3 - 4.8 mg/dL | [facility] | | | | [place] [facility] [place] | | [place] | | | | [facility] [facility];[place], [place] | | | | | | [address] | | | | + + + + + + + + | Specimen | + + | Blood | + + + + + + + | Performing | Address | City/State/Zipcode | Phone Number | | Organization | | | | + + + + + | [facility] | [address] | [place] [address] | [phone] | + + + + + Magnesium (12/26/2019 5:10 AM PDT) + + + + + + | Component | Value | Ref Range | Performed | Pathologist | | | | | At | Signature | + + + + + + | Magnesium | 1.4 (L)Comment: Testing | 1.7 - 2.4 mg/dL | [facility] | | | | performed at [facility] [place] | | LABORATORY | | | | [address];[place] | | | | | | [address] | | | | + + + + + + + + | Specimen | + + | Blood | + + + + + + + | Performing | Address | City/State/Zipcode | Phone Number | | Organization | | | | + + + + + | [facility] | [address] | [place] [address] | [phone] | + + + + + CBC with Differential (12/26/2019 5:10 AM PDT) + + + + + + | Component | Value | Ref Range | Performed | Pathologist | | | | | At | Signature | + + + + + + | WBC | 11.91 (H) | 3.80 - 11.00 | [facility] | | | | | K/uL | LABORATORY | | + + + + + + | Red Blood | 3.85 | 3.70 - 5.10 | [facility] | | | Cells | | M/uL | LABORATORY | | + + + + + + | Hemoglobin | 11.2 (L) | 11.3 - 15.5 | [facility] | | | | | g/dL | LABORATORY | | + + + + + + | Hematocrit | 34.4 | 34.0 - 46.0 % | [facility] | | | | | | LABORATORY | | + + + + + + | MCV | 89.4 | 80.0 - 100.0 fl | [facility] | | | | | | LABORATORY | | + + + + + + | MCH | 29.1 | 27.0 - 34.0 pg | [facility] | | | | | | LABORATORY | | + + + + + + | MCHC | 32.6 | 32.0 - 35.5 | [facility] | | | | | g/dL | LABORATORY | | + + + + + + | RDW-SD | 41.9 | 37 - 53 fl | [facility] | | | | | | LABORATORY | | + + + + + + | Platelet | 200 | 150 - 400 K/uL | [facility] | | | Count | | | LABORATORY | | + + + + + + | MPV | 9.8Comment: NO NORMAL | fl | [facility] | | | | RANGE ESTABLISHED | | LABORATORY | | + + + + + + | Diff Type | AUTOMATED | | [facility] | | | | | | LABORATORY | | + + + + + + | % nRBC | 0.0 | 0 /100WBC | [facility] | | | | | | LABORATORY | | + + + + + + | % | 82.00 | % | [facility] | | | Neutrophils | | | LABORATORY | | + + + + + + | IMMATURE | 0.80 | % | [facility] | | | GRANULOCYTE | | | LABORATORY | | + + + + + + | % | 9.20 | % | [facility] | | | Lymphocytes | | | LABORATORY | | + + + + + + | Monocyte % | 7.30 | % | [facility] | | | | | | LABORATORY | | + + + + + + | Eosinophils | 0.50 | % | [facility] | | | % | | | LABORATORY | | + + + + + + | Basophils % | 0.20 | % | [facility] | | | | | | LABORATORY | | + + + + + + | Neutrophils | 9.77 (H) | 1.90 - 7.40 | [facility] | | | , Absolute | | K/uL | LABORATORY | | + + + + + + | IMMATURE | 0.09 (H)Comment: NOTE | 0.00 - 0.07 | [facility] | | | GRANS AB | NEW REFERENCE RANGE | K/uL | LABORATORY | | + + + + + + | Absolute | 1.10 | 1.00 - 3.90 | [facility] | | | Lymphocytes | | K/uL | LABORATORY | | + + + + + + | Absolute | 0.87 (H) | 0.00 - 0.80 | [facility] | | | Monocytes | | K/uL | LABORATORY | | + + + + + + | Eosinophils | 0.06 | 0.00 - 0.50 | [facility] | | | , Absolute | | K/uL | LABORATORY | | + + + + + + | Basophils, | 0.02Comment: Testing | 0.00 - 0.10 | [facility] | | | Absolute | performed at [facility], [address] | K/uL | LABORATORY | | | | [address], | | | | | | [place] [address] | | | | + + + + + + + + | Specimen | + + | Blood | + + + + + + + | Performing | Address | City/State/Zipcode | Phone Number | | Organization | | | | + + + + + | [facility] | [address] | [place] [address] | [phone] | + + + + + CK Total (12/26/2019 5:10 AM PDT) + + + + + + | Component | Value | Ref Range | Performed | Pathologist | | | | | At | Signature | + + + + + + | CK TOTAL | 84Comment: Testing | 30 - 240 U/L | [facility] | | | | performed at [facility] [place] | | LABORATORY | | | | [address];[place], [place] | | | | | | [address] | | | | + + + + + + + + | Specimen | + + | Blood | + + + + + + + | Performing | Address | City/State/Zipcode | Phone Number | | Organization | | | | + + + + + | [facility] | [address] | [place] [address] | [phone] | + + + + + Streptococcal Ab Profile (12/26/2019 5:10 AM PDT) + + + + + + | Component | Value | Ref Range | Performed | Pathologist | | | | | At | Signature | + + + + + + | Streptococc | <78Comment: Results | 0 - 120 U/mL | [facility] | | | al DNAse B | verified by repeat | | LABORATORY | | | | testingLimit of assay | | | | | | detection is <78Testing | | | | | | performed by [facility], | | | | | | [address] | | | | | | [place] [address] | | | | + + + + + + + + | Specimen | + + | Blood | + + + + + + + | Performing | Address | City/State/Zipcode | Phone Number | | Organization | | | | + + + + + | [facility] | [address] | [place] [address] | [phone] | + + + + + Antistreptolysin O, Quant (12/26/2019 5:10 AM PDT) + + + + + + | Component | Value | Ref Range | Performed | Pathologist | | | | | At | Signature | + + + + + + | Streptolysi | 702.0 (H)Comment: | 0.0 - 200.0 | [facility] | | | n O Ab | Testing performed at Lab | IU/mL | LABORATORY | | | | [facility], [address] | | | | | | [address], [facility] [address] | | | | + + + + + + + + | Specimen | + + | Blood | + + + + + + + | Performing | Address | City/State/Zipcode | Phone Number | | Organization | | | | + + + + + | [facility] | [address] | [place] [address] | [phone] | + + + + + C-Reactive Protein (12/26/2019 5:10 AM PDT) + + + + + + | Component | Value | Ref Range | Performed | Pathologist | | | | | At | Signature | + + + + + + | CRP | 24.0 (H)Comment: Testing | <0.5 mg/dL | [facility] | | | | performed at [facility], [address] | | LABORATORY | | | | [address], | | | | | | [place] [address] | | | | + + + + + + + + | Specimen | + + | Blood | + + + + + + + | Performing | Address | City/State/Zipcode | Phone Number | | Organization | | | | + + + + + | [facility] | [address] | [place] [address] | [phone] | + + + + + Lactic Acid (12/25/2019 8:56 PM PDT) + + + + + + | Component | Value | Ref Range | Performed | Pathologist | | | | | At | Signature | + + + + + + | Lactate, | 0.8Comment: Testing | 0.4 - 2.0 | [facility] | | | Serum | performed at [facility] [place] | mmol/L | LABORATORY | | | | [address];[place], [place] | | | | | | [address] | | | | + + + + + + + + | Specimen | + + | Blood | + + + + + + + | Performing | Address | City/State/Zipcode | Phone Number | | Organization | | | | + + + + + | [facility] | [address] | [place] [address] | [phone] | + + + + + POC Glucose (12/25/2019 8:44 PM PDT) + + + + + + | Component | Value | Ref Range | Performed | Pathologist | | | | | At | Signature | + + + + + + | Glucose, | 147 (H)Comment: Testing | 65 - 99 mg/dL | [facility] | | | POC | performed at [facility] [place] | | LABORATORY | | | | [address];[place] | | | | | | [address] | | | | + + + + + + + + | Specimen | + + | | + + + + + + + | Performing | Address | City/State/Zipcode | Phone Number | | Organization | | | | + + + + + | [facility] | [address] | [place] [address] | [phone] | + + + + + POC Glucose (12/25/2019 4:12 PM PDT) + + + + + + | Component | Value | Ref Range | Performed | Pathologist | | | | | At | Signature | + + + + + + | Glucose, | 171 (H)Comment: Testing | 65 - 99 mg/dL | [facility] | | | POC | performed at [facility] [place] | | LABORATORY | | | | [address];[place] | | | | | | [address] | | | | + + + + + + + + | Specimen | + + | | + + + + + + + | Performing | Address | City/State/Zipcode | Phone Number | | Organization | | | | + + + + + | [facility] | [address] | [place] [address] | [phone] | + + + + + POC Glucose (12/25/2019 11:31 AM PDT) + + + + + + | Component | Value | Ref Range | Performed | Pathologist | | | | | At | Signature | + + + + + + | Glucose, | 225 (H)Comment: Testing | 65 - 99 mg/dL | [facility] | | | POC | performed at [facility] [place] [place];[address] | | LABORATORY | | | | [address];[place], [place] | | | | | | [address] | | | | + + + + + + + + | Specimen | + + | | + + + + + + + | Performing | Address | City/State/Zipcode | Phone Number | | Organization | | | | + + + + + | [facility] | [address] | [place] [address] | [phone] | + + + + + ECHO Complete (12/25/2019 11:30 AM PDT) + +--------+ + + + | Component | Value | Ref Range | Performed | Pathologist | | | | | At | Signature | + +--------+ + + + | LVEF-TTE | 60 | % | [facility] | | | TRANSTHORAC | | | | | | IC ECHO | | | | | + +--------+ + + + | Inferior | 3.07 | cm | [facility] | | | Vena Cava | | | | | | Diameter at | | | | | | Expiration | | | | | + +--------+ + + + | RA PRESSURE | 15 | mmHg | [facility] | | + +--------+ + + + | LVIDd | 4.4 | cm | [facility] | | + +--------+ + + + | FS | 46 | % | [facility] | | + +--------+ + + + | LA volume | 48.01 | mL | [facility] | | + +--------+ + + + | Ascending | 2.95 | cm | [facility] | | | aorta | | | | | + +--------+ + + + | AV mean | 4.9 | mmHg | [facility] | | | gradient | | | | | + +--------+ + + + | Aortic | 3.34 | cm2 | [facility] | | | Valve Area | | | | | | by | | | | | | Continuity | | | | | | VTI | | | | | + +--------+ + + + | PV peak | 3.19 | mmHg | [facility] | | | gradient | | | | | + +--------+ + + + | LVOT | 2.15 | cm | [facility] | | | diameter | | | | | + +--------+ + + + | LVOT peak | 113.71 | cm/s | [facility] | | | yazmin | | | | | + +--------+ + + + | LVOT peak | 22.6 | cm | [facility] | | | VTI | | | | | + +--------+ + + + | AV peak yazmin | 149.3 | cm/s | [facility] | | + +--------+ + + + | AV VTI | 24.53 | cm | [facility] | | + +--------+ + + + | AV peak | 8.92 | mmHg | [facility] | | | gradient | | | | | + +--------+ + + + | PV mean | 2.09 | mmHg | [facility] | | | gradient | | | | | + +--------+ + + + | LA Volume | 19 | mL/m2 | [facility] | | | Index | | | | | + +--------+ + + + | AV LVOT | 5.17 | mmHg | [facility] | | | Peak | | | | | | Gradient | | | | | + +--------+ + + + | AV LVOT | 3.01 | mmHg | [facility] | | | Mean | | | | | | Gradient | | | | | + +--------+ + + + | PI Peak | 89.36 | cm/s | [facility] | | | Velocity | | | | | + +--------+ + + + | LV | 8.39 | cm | [facility] | | | Diastolic | | | | | | Length 4C | | | | | + +--------+ + + + | RV | 3.71 | cm | [facility] | | | Diastolic | | | | | | Basal | | | | | | Diameter | | | | | + +--------+ + + + | LV | 65 | % | [facility] | | | Hammond's | | | | | | Biplane EF | | | | | + +--------+ + + + | LV ED | 104.12 | ml | [facility] | | | Volume | | | | | | (Hammond's) | | | | | + +--------+ + + + | LV ED | 42 | ml/m2 | [facility] | | | Volume | | | | | | Index | | | | | + +--------+ + + + | LV ES | 36.8 | ml | [facility] | | | Volume | | | | | + +--------+ + + + | LVOT Mean | 82.48 | cm/s | [facility] | | | Velocity | | | | | + +--------+ + + + | MV | 200.51 | msec | [facility] | | | Deceleratio | | | | | | n Time | | | | | + +--------+ + + + | MV E/A | 1.81 | | [facility] | | | Ratio | | | | | + +--------+ + + + | MV Peak | 56.99 | cm/s | [facility] | | | A-Wave | | | | | + +--------+ + + + | MV Peak | 102.87 | cm/s | [facility] | | | E-Wave | | | | | + +--------+ + + + | PV Mean | 69.74 | cm/s | [facility] | | | Velocity | | | | | + +--------+ + + + | AV Mean | 104.81 | cm/s | [facility] | | | Velocity | | | | | + +--------+ + + + | LA Area | 21.35 | cm2 | [facility] | | + +--------+ + + + | LA Major | 0.2453 | cm | [facility] | | + +--------+ + + + | LV ES | 15 | ml/m2 | [facility] | | | Volume | | | | | | Index | | | | | + +--------+ + + + | Vitals | 88 | | [facility] | | | Heart Rate | | | | | | Rest | | | | | + +--------+ + + + | Vitals | 170.0 | | [facility] | | | Height | | | | | + +--------+ + + + | Vitals | 146.00 | | [facility] | | | Weight | | | | | + +--------+ + + + | IVS | 0.95 | cm | [facility] | | | Diastolic | | | | | | Thickness | | | | | | MM | | | | | + +--------+ + + + | LVPW | 1.04 | cm | [facility] | | | Diastolic | | | | | | Thickness | | | | | | MM | | | | | + +--------+ + + + | IVS | 1.38 | cm | [facility] | | | Systolic | | | | | | Thickness | | | | | | MM | | | | | + +--------+ + + + | LV Systolic | 2.38 | cm | [facility] | | | Diameter | | | | | | MM | | | | | + +--------+ + + + | LVPW | 1.97 | cm | [facility] | | | Systolic | | | | | | Thickness | | | | | | MM | | | | | + +--------+ + + + | TAPSE | 2.45 | cm | [facility] | | + +--------+ + + + + + | Specimen | + + | | + + + + + | Narrative | Performed At | + + + | Unremarkble | [facility] | | echo | | + + + + +---------+ + + | Performing | Address | City/State/Zipcode | Phone Number | | Organization | | | | + +---------+ + + | [facility] | | | | + +---------+ + + B Type Natriuretic Peptide (12/25/2019 8:49 AM PDT) + + + + + + | Component | Value | Ref Range | Performed | Pathologist | | | | | At | Signature | + + + + + + | BNP | 78.06Comment: Testing | 0 - 100 pg/mL | [facility] | | | | performed at [facility] [place] | | LABORATORY | | | | [address] [facility];[place], [place] | | | | | | [address] | | | | + + + + + + + + | Specimen | + + | Blood | + + + + + + + | Performing | Address | City/State/Zipcode | Phone Number | | Organization | | | | + + + + + | [facility] | [address] | [place] [address] | [phone] | + + + + + POC Glucose (12/25/2019 7:32 AM PDT) + + + + + + | Component | Value | Ref Range | Performed | Pathologist | | | | | At | Signature | + + + + + + | Glucose, | 201 (H)Comment: Testing | 65 - 99 mg/dL | [facility] | | | POC | performed at [facility] [place];[address] | | LABORATORY | | | | [address];[place] | | | | | | [address] | | | | + + + + + + + + | Specimen | + + | | + + + + + + + | Performing | Address | City/State/Zipcode | Phone Number | | Organization | | | | + + + + + | [facility] | [address] | [place] [address] | [phone] | + + + + + CK Total (12/25/2019 5:54 AM PDT) + + + + + + | Component | Value | Ref Range | Performed | Pathologist | | | | | At | Signature | + + + + + + | CK TOTAL | 107Comment: Testing | 30 - 240 U/L | [facility] | | | | performed at [facility] [place];[address] | | LABORATORY | | | | [address];[place] | | | | | | [address] | | | | + + + + + + + + | Specimen | + + | Blood | + + + + + + + | Performing | Address | City/State/Zipcode | Phone Number | | Organization | | | | + + + + + | [facility] | [address] | [place] [address] | [phone] | + + + + + Lactic Acid (12/25/2019 5:54 AM PDT) + + + + + + | Component | Value | Ref Range | Performed | Pathologist | | | | | At | Signature | + + + + + + | Lactate, | 1.5Comment: Testing | 0.4 - 2.0 | [facility] | | | Serum | performed at [facility] [place] | mmol/L | LABORATORY | | | | [address];[place], [place] | | | | | | [address] | | | | + + + + + + + + | Specimen | + + | Blood | + + + + + + + | Performing | Address | City/State/Zipcode | Phone Number | | Organization | | | | + + + + + | [facility] | [address] | [place] [address] | [phone] | + + + + + Comprehensive Metabolic Panel (12/25/2019 5:54 AM PDT) + + + + + + | Component | Value | Ref Range | Performed | Pathologist | | | | | At | Signature | + + + + + + | Na | 134 (L) | 135 - 145 | [facility] | | | | | mmol/L | LABORATORY | | + + + + + + | K | 4.0 | 3.5 - 4.9 | [facility] | | | | | mmol/L | LABORATORY | | + + + + + + | Cl | 103 | 99 - 109 mmol/L | [facility] | | | | | | LABORATORY | | + + + + + + | CO2 | 24 | 23 - 32 mmol/L | [facility] | | | | | | LABORATORY | | + + + + + + | Anion Gap | 11 | 5 - 20 mmol/L | [facility] | | | | | | LABORATORY | | + + + + + + | Glucose | 156 (H) | 65 - 99 mg/dL | [facility] | | | | | | LABORATORY | | + + + + + + | BUN | 16 | 8 - 25 mg/dL | [facility] | | | | | | LABORATORY | | + + + + + + | Creatinine | 0.90 | 0.50 - 1.00 | [facility] | | | | | mg/dL | LABORATORY | | + + + + + + | BUN/Creatin | 18 | | [facility] | | | ine Ratio | | | LABORATORY | | + + + + + + | Calcium | 7.7 (L) | 8.5 - 10.5 | [facility] | | | | | mg/dL | LABORATORY | | + + + + + + | Protein, | 6.9 | 6.3 - 8.2 g/dL | [facility] | | | Total | | | LABORATORY | | + + + + + + | Albumin | 2.6 (L) | 3.6 - 5.0 g/dL | [facility] | | | | | | LABORATORY | | + + + + + + | Globulin | 4.3 | 1.3 - 4.9 g/dL | [facility] | | | | | | LABORATORY | | + + + + + + | A/G Ratio | 0.6 (L) | 1.0 - 2.4 | [facility] | | | | | | LABORATORY | | + + + + + + | BILIRUBIN, | 0.5 | 0.1 - 1.5 mg/dL | [facility] | | | TOTAL | | | LABORATORY | | + + + + + + | ALK PHOS | 66 | 35 - 115 U/L | [facility] | | | | | | LABORATORY | | + + + + + + | AST | 27 | 10 - 45 U/L | [facility] | | | | | | LABORATORY | | + + + + + + | ALT | 24 | 10 - 65 U/L | [facility] | | | | | | LABORATORY | | + + + + + + | Estimated | >60Comment: GFR <60: | >60 | [facility] | | | GFR | CHRONIC KIDNEY DISEASE, | mL/min/1.73m2 | LABORATORY | | | | IF FOUND OVER A 3 MONTH | | | | | | PERIOD.GFR <15: KIDNEY | | | | | | FAILURE.FOR | | | | | | AMERICANS, MULTIPLY THE | | | | | | CALCULATED GFR BY | | | | | | 1.210.This eGFR is | | | | | | calculated using the | | | | | | MDRD IDMS traceable | | | | | | equation.Testing | | | | | | performed at [facility], [address] | | | | | [facility], | | | | | | [place] [address] | | | | + + + + + + + + | Specimen | + + | Blood | + + + + + + + | Performing | Address | City/State/Zipcode | Phone Number | | Organization | | | | + + + + + | [facility] | [address] | [place] [address] | [phone] | + + + + + CBC no Differential (12/25/2019 5:54 AM PDT) + + + + + + | Component | Value | Ref Range | Performed | Pathologist | | | | | At | Signature | + + + + + + | WBC | 18.38 (H) | 3.80 - 11.00 | [facility] | | | | | K/uL | LABORATORY | | + + + + + + | Red Blood | 4.51 | 3.70 - 5.10 | [facility] | | | Cells | | M/uL | LABORATORY | | + + + + + + | Hemoglobin | 13.1 | 11.3 - 15.5 | [facility] | | | | | g/dL | LABORATORY | | + + + + + + | Hematocrit | 40.2 | 34.0 - 46.0 % | [facility] | | | | | | LABORATORY | | + + + + + + | MCV | 89.1 | 80.0 - 100.0 fl | [facility] | | | | | | LABORATORY | | + + + + + + | MCH | 29.0 | 27.0 - 34.0 pg | [facility] | | | | | | LABORATORY | | + + + + + + | MCHC | 32.6 | 32.0 - 35.5 | [facility] | | | | | g/dL | LABORATORY | | + + + + + + | RDW-SD | 42.1 | 37 - 53 fl | [facility] | | | | | | LABORATORY | | + + + + + + | Platelet | 236 | 150 - 400 K/uL | [facility] | | | Count | | | LABORATORY | | + + + + + + | MPV | 9.8Comment: NO NORMAL | fl | [facility] | | | | RANGE ESTABLISHEDTesting | | LABORATORY | | | | performed at [facility], [address] | | | | | [address], | | | | | | [place] [address] | | | | + + + + + + + + | Specimen | + + | Blood | + + + + + + + | Performing | Address | City/State/Zipcode | Phone Number | | Organization | | | | + + + + + | [facility] | [address] | [place] [address] | [phone] | + + + + + Culture, MRSA (12/24/2019 8:39 PM PDT) + + + + + + | Component | Value | Ref Range | Performed | Pathologist | | | | | At | Signature | + + + + + + | RESULT | NO METHICILLIN RESISTANT | | [facility] | | | | STAPH AUREUS ISOLATED. | | LABORATORY | | + + + + + + | RESULT | Testing performed at | | [facility] | | | | [facility], [address] | | LABORATORY | | | | [address] [place] | | | | | | [id number]: Testing | | | | | | performed at [facility], [address] | | | | | | [facility] [address], | | | | | | [place] [address] | | | | + + + + + + + + | Specimen | + + | Tissue - Both | | anterior nares (body | | structure) | + + + + + + + | Performing | Address | City/State/Zipcode | Phone Number | | Organization | | | | + + + + + | [facility] | [address] | [place] [address] | [phone] | + + + + + POC Glucose (12/24/2019 8:03 PM PDT) + + + + + + | Component | Value | Ref Range | Performed | Pathologist | | | | | At | Signature | + + + + + + | Glucose, | 185 (H)Comment: Testing | 65 - 99 mg/dL | [facility] | | | POC | performed at [facility] [place] | | LABORATORY | | | | [address];[place] | | | | | | [address] | | | | + + + + + + + + | Specimen | + + | | + + + + + + + | Performing | Address | City/State/Zipcode | Phone Number | | Organization | | | | + + + + + | [facility] | [address] | [place] [address] | [phone] | + + + + + Lactic Acid (12/24/2019 5:17 PM PDT) + + + + + + | Component | Value | Ref Range | Performed | Pathologist | | | | | At | Signature | + + + + + + | Lactate, | 2.3 (H)Comment: RESULT | 0.4 - 2.0 | [facility] | | | Serum | READ BACK BY:CHANCE HERNANDEZ | mmol/L | LABORATORY | | | | ON AT 1801 BY | | | | | | JFTesting performed at | | | | | | [facility] [place] | | [address];[place] [address] | | | | + + + + + + + + | Specimen | + + | Blood | + + + + + + + | Performing | Address | City/State/Zipcode | Phone Number | | Organization | | | | + + + + + | [facility] | [address] | [place] [address] | [phone] | + + + + + POC Glucose (12/24/2019 5:03 PM PDT) + + + + + + | Component | Value | Ref Range | Performed | Pathologist | | | | | At | Signature | + + + + + + | Glucose, | 255 (H)Comment: Testing | 65 - 99 mg/dL | [facility] | | | POC | performed at [facility] [place] | | LABORATORY | | | | [address];[place] | | | | | | [address] | | | | + + + + + + + + | Specimen | + + | | + + + + + + + | Performing | Address | City/State/Zipcode | Phone Number | | Organization | | | | + + + + + | [facility] | [address] | [place] [address] | [phone] | + + + + + POC Glucose (12/24/2019 3:14 PM PDT) + + + + + + | Component | Value | Ref Range | Performed | Pathologist | | | | | At | Signature | + + + + + + | Glucose, | 325 (H)Comment: Testing | 65 - 99 mg/dL | [facility] | | | POC | performed at [facility] [place] | | LABORATORY | | | | [address];[place] | | | | | | [address] | | | | + + + + + + + + | Specimen | + + | | + + + + + + + | Performing | Address | City/State/Zipcode | Phone Number | | Organization | | | | + + + + + | [facility] | [address] | [place] [address] | [phone] | + + + + + Lactic Acid (12/24/2019 2:51 PM PDT) + + + + + + | Component | Value | Ref Range | Performed | Pathologist | | | | | At | Signature | + + + + + + | Lactate, | 3.1 (H)Comment: CALLED | 0.4 - 2.0 | [facility] | | | Serum | TO JERRY Brennan AT 1524 BY | mmol/L | LABORATORY | | | | TRREAD BACK RESULTS | | | | | | VERIFIEDTesting | | | | | | performed at [facility] [place] | | | | | | [address];[place], [place] | | | | | | [address] | | | | + + + + + + + + | Specimen | + + | Blood | + + + + + + + | Performing | Address | City/State/Zipcode | Phone Number | | Organization | | | | + + + + + | [facility] | [address] | [place] [address] | [phone] | + + + + + Culture, Blood (12/24/2019 2:51 PM PDT) + + + + + + | Component | Value | Ref Range | Performed | Pathologist | | | | | At | Signature | + + + + + + | Special | L HAND | | [facility] | | | Requests | | | LABORATORY | | + + + + + + | Special | Testing performed at | | [facility] | | | Requests | [address] | | LABORATORY | | | | [address];[place] [address] | | | | + + + + + + | RESULT | NO GROWTH 6 DAYS | | [facility] | | | | | | LABORATORY | | + + + + + + | RESULT | Testing performed at | | [facility] | | | | TCL, [address] [facility] | | LABORATORY | | | | [address], [place], [place] | | | | | | [id number]: Testing | | | | | | performed at [facility], [address] | [address] | [address], [place], [place] | | | | | | [address] | | | | + + + + + + + + | Specimen | + + | Blood - Peripheral | | blood specimen | | (specimen) | + + + + + + + | Performing | Address | City/State/Zipcode | Phone Number | | Organization | | | | + + + + + | [facility] | [address] | [place] [address] | [phone] | + + + + + Culture, Blood (12/24/2019 2:46 PM PDT) + + + + + + | Component | Value | Ref Range | Performed | Pathologist | | | | | At | Signature | + + + + + + | Special | LAC | | [facility] | | | Requests | | | LABORATORY | | + + + + + + | Special | Testing performed at | | [facility] | | | Requests | [facility] | | LABORATORY | | | | [place] [address] | | | | + + + + + + | RESULT | NO GROWTH 6 DAYS | | [facility] | | | | | | LABORATORY | | + + + + + + | RESULT | Testing performed at | | [facility] | | | | TCL, [address] [facility] | | LABORATORY | | | | [place] | | | | | | [id number]: Testing | | | | | | performed at [facility], [address] | | | | | | [address], [place] | | | | | | [address] | | | | + + + + + + + + | Specimen | + + | Blood - Peripheral | | blood specimen | | (specimen) | + + + + + + + | Performing | Address | City/State/Zipcode | Phone Number | | Organization | | | | + + + + + | [facility] | [address] | [place] [address] | [phone] | + + + + + CT Abdomen Pelvis wo Contrast (12/24/2019 1:38 PM PDT) + + | Specimen | + + | | + + + + + | Impressions | Performed At | + + + | 1. Right inguinal, right external iliac and right common iliac | [facility] | | lymphadenopathy. Given the history, likely reactive from lower | | | extremity infection. Alternative considerations include metastasis | | | or lymphoma. 2. Appendix is normal. Gallbladder is normal. | | | Pancreas is normal. 3. No hydronephrosis or hydroureter. No | | | nephroureterolithiasis. 4. No acute bowel abnormality. | | | Final Report Signed by: Seng Graham, Darren Sign Date/Time: 12/24/2019 | | | 2:09 PM | | + + + + + + | Narrative | Performed At | + + + | CT ABDOMEN AND PELVIS WITHOUT CONTRAST CLINICAL INFORMATION: | [facility] | | Abdominal pain, acute, nonlocalized. COMPARISON: None | | | PROCEDURE: Axial images through the abdomen and pelvis. Multiplanar | | | reconstructions. At least one of the following CT dose | | | optimization techniques were used: Automated exposure control; | | | Adjustment of mA and/or kV according to patient size; Use of | | | iterative reconstruction technique. FINDINGS: LUNG BASES: Mild | | | posterior dependent atelectasis of the lung bases. ABDOMEN Solid | | | organ evaluation suboptimal without contrast. Liver and Biliary: No | | | visible abnormality in the liver or gallbladder. Pancreas, Spleen and | | | Adrenals: Normal pancreas morphology. No splenomegaly. No | | | significant adrenal abnormality. Kidneys: No hydronephrosis, calculi | | | or contour deforming renal lesion. ABDOMEN AND PELVIS Bowel: No | | | small bowel or colonic dilation or adjacent inflammation. No | | | appendiceal dilation or inflammation. Vessels: No abdominal aortic | | | aneurysm. Lymph Nodes: Right inguinal adenopathy. Right inguinal | | | large node (3/163) measuring 2 cm x 1.8 cm. Right inguinal node | | | (3/159) measuring 1.3 cm in short axis dimension. Large right | | | external iliac lymph node measuring 2 cm x 3.4 cm (3/125). Large | | | right common iliac node (3/106) measuring 1.3 cm. There are | | | prominent nodes of the left inguinal region, the largest measuring 1 | | | cm by 3.2 cm (3/161). Nonspecific large portal caval node (3/56) | | | measuring 1.6 x 2.9 cm. Peritoneum and Retroperitoneum: No ascites | | | or free air. No significant retroperitoneal abnormality. PELVIS | | | Genitourinary: Distal ureters and bladder appear normal. No pelvic | | | masses. Hysterectomy BODY WALL Soft Tissues: No bowel or | | | inflamed fat containing hernia, mass or hemorrhage. Bones: Mild | | | degeneration of the sacroiliac joints. Mild degeneration at the | | | L5-S1 level with vacuum disc phenomenon. Mild degeneration at the | | | T11-T12 disc space. | | + + + + + | Procedure Note | + + | Jeb, [id number] - 12/24/2019 3:33 PM PDT | | CT ABDOMEN AND PELVIS WITHOUT CONTRAST | | | | CLINICAL INFORMATION: | | Abdominal pain, acute, nonlocalized. | | | | COMPARISON: | | None | | | | PROCEDURE: | | Axial images through the abdomen and pelvis. Multiplanar | | reconstructions. | | | | At least one of the following CT dose optimization techniques were | | used: Automated exposure control; Adjustment of mA and/or kV according | | to patient size; Use of iterative reconstruction technique. | | | | FINDINGS: | | LUNG BASES: Mild posterior dependent atelectasis of the lung bases. | | | | ABDOMEN | | Solid organ evaluation suboptimal without contrast. | | Liver and Biliary: No visible abnormality in the liver or gallbladder. | | Pancreas, Spleen and Adrenals: Normal pancreas morphology. No | | splenomegaly. No significant adrenal abnormality. | | Kidneys: No hydronephrosis, calculi or contour deforming renal lesion. | | | | ABDOMEN AND PELVIS | | Bowel: No small bowel or colonic dilation or adjacent inflammation. No | | appendiceal dilation or inflammation. | | Vessels: No abdominal aortic aneurysm. | | Lymph Nodes: Right inguinal adenopathy. Right inguinal large node | | (3/163) measuring 2 cm x 1.8 cm. Right inguinal node (3/159) measuring | | 1.3 cm in short axis dimension. Large right external iliac lymph node | | measuring 2 cm x 3.4 cm (3/125). Large right common iliac node (3/106) | | measuring 1.3 cm. | | | | There are prominent nodes of the left inguinal region, the largest | | measuring 1 cm by 3.2 cm (3/161). | | | | Nonspecific large portal caval node (3/56) measuring 1.6 x 2.9 cm. | | | | Peritoneum and Retroperitoneum: No ascites or free air. No significant | | retroperitoneal abnormality. | | | | PELVIS | | Genitourinary: Distal ureters and bladder appear normal. No pelvic | | masses. Hysterectomy | | | | BODY WALL | | Soft Tissues: No bowel or inflamed fat containing hernia, mass or | | hemorrhage. | | Bones: Mild degeneration of the sacroiliac joints. Mild degeneration | | at the L5-S1 level with vacuum disc phenomenon. Mild degeneration at | | the T11-T12 disc space. | | | | IMPRESSION: | | 1. Right inguinal, right external iliac and right common iliac | | lymphadenopathy. Given the history, likely reactive from lower | | extremity infection. Alternative considerations include metastasis or | | lymphoma. | | 2. Appendix is normal. Gallbladder is normal. Pancreas is normal. | | 3. No hydronephrosis or hydroureter. No nephroureterolithiasis. | | 4. No acute bowel abnormality. | | | | | | | | Final Report Signed by: Seng Graham, Darren | | Sign Date/Time: 12/24/2019 2:09 PM | + + + +---------+ + + | Performing | Address | City/State/Zipcode | Phone Number | | Organization | | | | + +---------+ + + | [facility] | | | | + +---------+ + + Urinalysis With Microscopic (12/24/2019 1:27 PM PDT) + + + + + + | Component | Value | Ref Range | Performed | Pathologist | | | | | At | Signature | + + + + + + | Color, UA | YELLOW | | [facility] | | | | | | LABORATORY | | + + + + + + | Clarity, | CLEAR | | [facility] | | | Urine | | | LABORATORY | | + + + + + + | Specific | 1.029 | 1.002 - 1.030 | [facility] | | | [place], | | | LABORATORY | | | Urine | | | | | + + + + + + | Leukocyte | NEGATIVE | NEG | [facility] | | | esterase, | | | LABORATORY | | | UA | | | | | + + + + + + | Nitrite, UA | NEGATIVE | NEG | [facility] | | | | | | LABORATORY | | + + + + + + | Urobilinoge | NORMAL | <1.6 mg/dL | [facility] | | | n, Ur | | | LABORATORY | | + + + + + + | Protein, | NEGATIVE | NEG mg/dL | [facility] | | | Urine | | | LABORATORY | | | (mg/dL) | | | | | + + + + + + | pH, Urine | 5.0 | 5.0 - 8.0 | [facility] | | | | | | LABORATORY | | + + + + + + | Blood, UA | NEGATIVE | NEG | [facility] | | | | | | LABORATORY | | + + + + + + | Ketones, UA | NEGATIVE | NEG mg/dL | [facility] | | | | | | LABORATORY | | + + + + + + | Bilirubin, | NEGATIVE | NEG | [facility] | | | UA | | | LABORATORY | | + + + + + + | Glucose, Ur | >500 (A) | NEG mg/dL | [facility] | | | | | | LABORATORY | | + + + + + + | WBC UA | 0-2 | 0 - 5 /hpf | [facility] | | | | | | LABORATORY | | + + + + + + | Red Blood | 3-5 | 0 - 5 /hpf | [facility] | | | Cells, | | | LABORATORY | | | Urine | | | | | + + + + + + | Squamous | 26-49 | /lpf | [facility] | | | Epithelial | | | LABORATORY | | | Cells, | | | | | | Urine | | | | | + + + + + + | Bacteria, | 1+ (A) | NONE | [facility] | | | Urine | | | LABORATORY | | + + + + + + | Mucus, | 1+Comment: Testing | | [facility] | | | Urine | performed at [facility] | | LABORATORY | | | | [address];[place] | | | | | | [address] | | | | + + + + + + + + | Specimen | + + | Urine - Urine | | specimen obtained by | | clean catch | | procedure (specimen) | + + + + + + + | Performing | Address | City/State/Zipcode | Phone Number | | Organization | | | | + + + + + | [facility] | [address] | [place] [address] | [phone] | + + + + + XR Chest AP Portable (12/24/2019 12:44 PM PDT) + + | Specimen | + + | | + + + + + | Impressions | Performed At | + + + | No acute cardiopulmonary abnormality. Final Report Signed | [facility] | | by: Seng Graham, Darren Sign Date/Time: 12/24/2019 1:07 PM | | + + + + + + | Narrative | Performed At | + + + | CHEST PORTABLE ONE VIEW CLINICAL INFORMATION: Fever. | [facility] | | COMPARISON: None FINDINGS: Heart, lungs and vessels normal. No | | | pneumothorax, pleural effusion or adenopathy. No significant bone | | | abnormality. | | + + + + + | Procedure Note | + + | Jeb, [id number] - 12/24/2019 1:11 PM PDT | | CHEST PORTABLE ONE VIEW | | | | CLINICAL INFORMATION: | | Fever. | | | | COMPARISON: | | None | | | | FINDINGS: | | Heart, lungs and vessels normal. No pneumothorax, pleural effusion or | | adenopathy. No significant bone abnormality. | | | | IMPRESSION: | | No acute cardiopulmonary abnormality. | | | | | | | | Final Report Signed by: Seng Graham Isaac | | Sign Date/Time: 12/24/2019 1:07 PM | + + + +---------+ + + | Performing | Address | City/State/Zipcode | Phone Number | | Organization | | | | + +---------+ + + | [facility] | | | | + +---------+ + + Lactic Acid (12/24/2019 12:21 PM PDT) + + + + + + | Component | Value | Ref Range | Performed | Pathologist | | | | | At | Signature | + + + + + + | Lactate, | 4.1 (H)Comment: CALLED | 0.4 - 2.0 | [facility] | | | Serum | TO JERRY Brennan AT 1223 BY | mmol/L | LABORATORY | | | | TRREAD BACK RESULTS | | | | | | VERIFIEDTesting | | | | | | performed at [facility] [place] | | | | | [address];[place] | | | | | | [address] | | | | + + + + + + + + | Specimen | + + | Blood | + + + + + + + | Performing | Address | City/State/Zipcode | Phone Number | | Organization | | | | + + + + + | [facility] | [address] | [place] [address] | [phone] | + + + + + CK Total (12/24/2019 11:25 AM PDT) + + + + + + | Component | Value | Ref Range | Performed | Pathologist | | | | | At | Signature | + + + + + + | CK TOTAL | 118Comment: Testing | 30 - 240 U/L | [facility] | | | | performed at [facility];[address] | | LABORATORY | | | | [address];[place] | | | | | | [address] | | | | + + + + + + + + | Specimen | + + | Blood | + + + + + + + | Performing | Address | City/State/Zipcode | Phone Number | | Organization | | | | + + + + + | [facility] | [address] | [place] [address] | [phone] | + + + + + Procalcitonin (12/24/2019 11:25 AM PDT) + + + + + + | Component | Value | Ref Range | Performed | Pathologist | | | | | At | Signature | + + + + + + | PROCALCITON | 16.68 (H)Comment: | <0.5 ng/mL | [facility] | | | IN | INTERPRETIVE | | LABORATORY | | | | INFORMATION: | | | | | | PROCALCITONIN PCT <= | | | | | | 0.5 ng/mL: Low risk | | | | | | for progression to | | | | | | severe systemic | | | | | | bacterial infection | | | | | | (severe sepsis/septic | | | | | | shock). Does not | | | | | | exclude an infection, | | | | | | because localized | | | | | | infections may be | | | | | | associated with such low | | | | | | levels. If PCT is | | | | | | measured very early | | | | | | after bacterial | | | | | | challenge (usually <6 | | | | | | hours), results may | | | | | | still be low and | | | | | | should re-assess PCT | | | | | | 6-24 hours later. PCT | | | | | | >0.5 and <= 2 ng/mL: | | | | | | Moderate risk for | | | | | | progression to severe | | | | | | systemic infection | | | | | | (severe sepsis/septic | | | | | | shock). Other | | | | | | conditions are known | | | | | | to elevate PCT, patient | | | | | | should be closely | | | | | | monitored both | | | | | | clinically and by | | | | | | re-assessing PCT | | | | | | within 6-24 hours. PCT > | | | | | | 2 ng/mL: High | | | | | | likelihood for | | | | | | progression to severe | | | | | | systemic bacterial | | | | | | infection (severe | | | | | | sepsis/septic shock). | | | | | | PCT >= 10 ng/mL: | | | | | | High likelihood of | | | | | | severe sepsis or septic | | | | | | shock.Testing performed | | | | | | at [facility];[address] [place] [address] | | | | | | Blvd;[place] [address] | | | | + + + + + + + + | Specimen | + + | Blood | + + + + + + + | Performing | Address | City/State/Zipcode | Phone Number | | Organization | | | | + + + + + | [facility] | [address] | [place] [address] | [phone] | + + + + + Comprehensive Metabolic Panel (12/24/2019 11:25 AM PDT) + + + + + + | Component | Value | Ref Range | Performed | Pathologist | | | | | At | Signature | + + + + + + | Na | 132 (L) | 135 - 145 | [facility] | | | | | mmol/L | LABORATORY | | + + + + + + | K | 4.3 | 3.5 - 4.9 | [facility] | | | | | mmol/L | LABORATORY | | + + + + + + | Cl | 99 | 99 - 109 mmol/L | [facility] | | | | | | LABORATORY | | + + + + + + | CO2 | 20 (L) | 23 - 32 mmol/L | [facility] | | | | | | LABORATORY | | + + + + + + | Anion Gap | 17 | 5 - 20 mmol/L | [facility] | | | | | | LABORATORY | | + + + + + + | Glucose | 456 (H) | 65 - 99 mg/dL | [facility] | | | | | | LABORATORY | | + + + + + + | BUN | 12 | 8 - 25 mg/dL | [facility] | | | | | | LABORATORY | | + + + + + + | Creatinine | 0.85 | 0.50 - 1.00 | [facility] | | | | | mg/dL | LABORATORY | | + + + + + + | BUN/Creatin | 14 | | [facility] | | | ine Ratio | | | LABORATORY | | + + + + + + | Calcium | 8.8 | 8.5 - 10.5 | [facility] | | | | | mg/dL | LABORATORY | | + + + + + + | Protein, | 6.4 | 6.3 - 8.2 g/dL | [facility] | | | Total | | | LABORATORY | | + + + + + + | Albumin | 3.7 | 3.6 - 5.0 g/dL | [facility] | | | | | | LABORATORY | | + + + + + + | Globulin | 2.7 | 1.3 - 4.9 g/dL | [facility] | | | | | | LABORATORY | | + + + + + + | A/G Ratio | 1.4 | 1.0 - 2.4 | [facility] | | | | | | LABORATORY | | + + + + + + | BILIRUBIN, | 0.7 | 0.1 - 1.5 mg/dL | [facility] | | | TOTAL | | | LABORATORY | | + + + + + + | ALK PHOS | 83 | 35 - 115 U/L | [facility] | | | | | | LABORATORY | | + + + + + + | AST | 19 | 10 - 45 U/L | [facility] | | | | | | LABORATORY | | + + + + + + | ALT | 19 | 10 - 65 U/L | [facility] | | | | | LABORATORY | | + + + + + + | Estimated | >60Comment: GFR <60: | >60 | [facility] | | | GFR | CHRONIC KIDNEY DISEASE, | mL/min/1.73m2 | LABORATORY | | | | IF FOUND OVER A 3 MONTH | | | | | | PERIOD.GFR <15: KIDNEY | | | | | | FAILURE.FOR | | | | | | AMERICANS, MULTIPLY THE | | | | | | CALCULATED GFR BY | | | | | | 1.210.This eGFR is | | | | | | calculated using the | | | | | | MDRD IDMS traceable | | | | | | equation.Testing | | | | | | performed at [facility] | | | | | | [facility];[place], [place] | | | | | | [address] | | | | + + + + + + + + | Specimen | + + | Blood | + + + + + + + | Performing | Address | City/State/Zipcode | Phone Number | | Organization | | | | + + + + + | [facility] | [address] | [place] [address] | [phone] | + + + + + CBC with Differential (12/24/2019 11:25 AM PDT) + + + + + + | Component | Value | Ref Range | Performed | Pathologist | | | | | At | Signature | + + + + + + | WBC | 28.17 (H) | 3.80 - 11.00 | [facility] | | | | | K/uL | LABORATORY | | + + + + + + | Red Blood | 4.90 | 3.70 - 5.10 | [facility] | | | Cells | | M/uL | LABORATORY | | + + + + + + | Hemoglobin | 14.4 | 11.3 - 15.5 | [facility] | | | | | g/dL | LABORATORY | | + + + + + + | Hematocrit | 42.3 | 34.0 - 46.0 % | [facility] | | | | | | LABORATORY | | + + + + + + | MCV | 86.3 | 80.0 - 100.0 fl | [facility] | | | | | | LABORATORY | | + + + + + + | MCH | 29.4 | 27.0 - 34.0 pg | [facility] | | | | | | LABORATORY | | + + + + + + | MCHC | 34.0 | 32.0 - 35.5 | [facility] | | | | | g/dL | LABORATORY | | + + + + + + | RDW-SD | 38.9 | 37 - 53 fl | [facility] | | | | | | LABORATORY | | + + + + + + | Platelet | 271 | 150 - 400 K/uL | [facility] | | | Count | | | LABORATORY | | + + + + + + | MPV | 9.8Comment: NO NORMAL | fl | [facility] | | | | RANGE ESTABLISHED | | LABORATORY | | + + + + + + | Diff Type | MANUAL | | [facility] | | | | | | LABORATORY | | + + + + + + | % Segmented | 92 | % | [facility] | | | | | | LABORATORY | | | Neutrophils | | | | | + + + + + + | % Bands | 7 | % | [facility] | | | | | | LABORATORY | | + + + + + + | % | 1 | % | [facility] | | | Lymphocytes | | | LABORATORY | | + + + + + + | Neutrophils | 25.92 (H) | 1.90 - 7.40 | [facility] | | | , Absolute | | K/uL | LABORATORY | | + + + + + + | Absolute | 1.97 (H) | 0.00 - 0.20 | [facility] | | | Band | | K/uL | LABORATORY | | | Neutrophils | | | | | + + + + + + | Absolute | 0.28 (L) | 1.00 - 3.90 | [facility] | | | Lymphocytes | | K/uL | LABORATORY | | + + + + + + | Platelet | ADEQUATE | | [facility] | | | Estimate | | | LABORATORY | | + + + + + + | RBC | RBC AND PLT MORPHOLOGY | | [facility] | | | Morphology | APPEAR NORMALComment: | | LABORATORY | | | | Testing performed at | | | | | | [facility];[address] | | | | | | [address];[place] [address] | | | | + + + + + + + + | Specimen | + + | Blood | + + + + + + + | Performing | Address | City/State/Zipcode | Phone Number | | Organization | | | | + + + + + | [facility] | [address] | [place] [address] | [phone] | + + + + + Coronavirus (COVID-19) NAAT (12/24/2019 11:24 AM PDT) + + + + + + | Component | Value | Ref Range | Performed | Pathologist | | | | | At | Signature | + + + + + + | SARS-CoV-2, | NEGATIVEComment: This | NEG | [facility] | | | NAAT | test was developed and | | LABORATORY | | | (COVID-19) | its performance | | | | | | characteristics | | | | | | determined by[employer]. It | | | | | | has not been cleared or | | | | | | approved by the [place] FDA. | | | | | | This test has | | | | | | beenauthorized by FDA | | | | | | under an Emergency Use | | | | | | Authorization (EUA). | | | | | | Clinicians shouldbe | | | | | | advised to consider a | | | | | | patients signs, | | | | | | symptoms, history, and | | | | | | results ofother | | | | | | diagnostic tests when | | | | | | interpreting | | | | | | results.Testing | | | | | | performed at [facility] | | | | | | [facility];[place], [place] | | | | | | [address] | | | | + + + + + + + + | Specimen | + + | Tissue - Entire | | nasopharynx (body | | structure) | + + + + + + + | Performing | Address | City/State/Zipcode | Phone Number | | Organization | | | | + + + + + | [facility] | [address] | [place] [address] | [phone] | + + + + + documented in this encounter Visit Diagnoses + + | Diagnosis | + + | Severe sepsis (HCC) - Primary | + + | Cellulitis of right lower extremity Cellulitis and abscess of leg, except foot | + + | Septic shock (HCC) | + + | Fever, unspecified fever cause | + + | Non-intractable vomiting with nausea, unspecified vomiting type | + + | Type 2 diabetes mellitus (HCC) Type II or unspecified type diabetes mellitus without | | mention of complication, not stated as uncontrolled | + + | RA (rheumatoid arthritis) ([facility]) Rheumatoid arthritis | + + | Morbidly obese ([facility]) Morbid obesity | + + | Epigastric pain Abdominal pain, epigastric | + + documented in this encounter Administered Medications + +--------+ +--------+------+------+ | Medication Order | MAR | Action | Dose | Rate | Site | | | Action | Date | | | | + +--------+ +--------+------+------+ | acetaminophen (TYLENOL) tablet | Given | 12/24/19 | 650 mg | | | | 650 mg 650 mg, Oral, ONCE, Sat | | 20 1:23 | | | | | 12/24/19 at 1310, For 1 dose | | PM PDT | | | | + +--------+ +--------+------+------+ +---+---+ | | | +---+---+ + +-------+ +--------+---+---+ | acetaminophen (TYLENOL) tablet | Given | 12/28/19 | 650 mg | | | | 650 mg 650 mg, Oral, EVERY 4 | | 20 10:08 | | | | | HOURS PRN, Pain, or fever >= 38.6 | | PM PDT | | | | | C (101.5 F), Starting Sat | | | | | | | 12/24/19 at 1700 | | | | | | + +-------+ +--------+---+---+ +-------+ +--------+---+---+ | Given | 12/28/19 | 650 mg | | | | | 20 1:21 | | | | | | PM PDT | | | | +-------+ +--------+---+---+ | Given | 12/27/19 | 650 mg | | | | | 20 4:27 | | | | | | AM PDT | | | | +-------+ +--------+---+---+ +---+---+ | | | +---+---+ + +-------+ +--------+---+---+ | calcium carbonate (TUMS) | Given | 12/26/19 | 500 mg | | | | chewable tablet 500 mg 500 mg, | | 20 2:07 | | | | | Oral, 3 TIMES DAILY, First dose | | PM PDT | | | | | on 12/24/19 at 2100, For 6 | | | | | | | doses | | | | | | + +-------+ +--------+---+---+ +-------+ +--------+---+---+ | Given | 12/26/19 | 500 mg | | | | | 20 8:58 | | | | | | AM PDT | | | | +-------+ +--------+---+---+ | Given | 12/25/19 | 500 mg | | | | | 20 7:34 | | | | | | PM PDT | | | | +-------+ +--------+---+---+ +---+---+ | | | +---+---+ + +---------+ +-----+-------+---+ | ceFAZolin in dextrose (ANCEF) | New Bag | 12/28/19 | 2 g | 200 | | | IVPB 2 g 2 g, Intravenous, | | 20 6:43 | | mL/hr | | | Administer over 30 Minutes, EVERY | | AM PDT | | | | | 8 HOURS INTERVAL, First dose on | | | | | | | 12/25/19 at 1500, Keep in | | | | | | | refrigerator., Indications: | | | | | | | NON-PURULENT SKIN AND SOFT TISSUE | | | | | | | INFECTION | | | | | | + +---------+ +-----+-------+---+ +---------+ +-----+-------+---+ | New Bag | 12/27/19 | 2 g | 200 | | | | 20 10:16 | | mL/hr | | | | PM PDT | | | | +---------+ +-----+-------+---+ | New Bag | 12/27/19 | 2 g | 200 | | | | 20 3:58 | | mL/hr | | | | PM PDT | | | | +---------+ +-----+-------+---+ +---+---+ | | | +---+---+ + +---------+ +-----+-------+---+ | cefepime (MAXIPIME) 2 g in | New Bag | 12/25/19 | 2 g | 100 | | | sodium chloride 0.9% 50 mL IVPB | | 20 9:35 | | mL/hr | | | 2 g, Intravenous, Administer over | | AM PDT | | | | | 30 Minutes, EVERY 8 HOURS | | | | | | | INTERVAL, First dose on Sat | | | | | | | 12/24/19 at 1800, Activate system | | | | | | | and mix before use., Indications: | | | | | | | NON-PURULENT SKIN AND SOFT | | | | | | | TISSUE INFECTION | | | | | | + +---------+ +-----+-------+---+ +---------+ +-----+-------+---+ | New Bag | 12/25/19 | 2 g | 100 | | | | 20 2:55 | | mL/hr | | | | AM PDT | | | | +---------+ +-----+-------+---+ | New Bag | 12/24/19 | 2 g | 100 | | | | 20 8:27 | | mL/hr | | | | PM PDT | | | | +---------+ +-----+-------+---+ +---+---+ | | | +---+---+ + +---------+ +-----+-------+---+ | cefTRIAXone (ROCEPHIN) IVPB 1 g | New Bag | 12/24/19 | 1 g | 100 | | | 1 g, Intravenous, Administer | | 20 1:10 | | mL/hr | | | over 30 Minutes, ONCE, Sat | | PM PDT | | | | | 12/24/19 at 1230, For 1 dose, Keep | | | | | | | in refrigerator., Indications: | | | | | | | SEPSIS OF UNKNOWN ETIOLOGY | | | | | | + +---------+ +-----+-------+---+ +---+---+ | | | +---+---+ + +-------+ +--------+---+---+ | cephalexin (KEFLEX) capsule 500 | Given | 12/29/19 | 500 mg | | | | mg 500 mg, Oral, 4 TIMES DAILY, | | 20 12:20 | | | | | First dose on Thu12/28/19 at | | PM PDT | | | | | 1300, Indications: NON-PURULENT | | | | | | | SKIN AND SOFT TISSUE INFECTION | | | | | | + +-------+ +--------+---+---+ +-------+ +--------+---+---+ | Given | 12/29/19 | 500 mg | | | | | 20 7:59 | | | | | | AM PDT | | | | +-------+ +--------+---+---+ | Given | 12/28/19 | 500 mg | | | | | 20 10:02 | | | | | | PM PDT | | | | +-------+ +--------+---+---+ +---+---+ | | | +---+---+ + +-------+ +--------+---+---+ | clindamycin (CLEOCIN) capsule | Given | 12/29/19 | 300 mg | | | | 300 mg 300 mg, Oral, EVERY 6 | | 20 11:36 | | | | | HOURS, First dose on Thu12/27/19 | | AM PDT | | | | | at 1200, Indications: | | | | | | | NON-PURULENT SKIN AND SOFT TISSUE | | | | | | | INFECTION | | | | | | + +-------+ +--------+---+---+ +-------+ +--------+---+---+ | Given | 12/29/19 | 300 mg | | | | | 20 5:22 | | | | | | AM PDT | | | | +-------+ +--------+---+---+ | Given | 12/28/19 | 300 mg | | | | | 20 11:22 | | | | | | PM PDT | | | | +-------+ +--------+---+---+ +---+---+ | | | +---+---+ + +---------+ +--------+-------+---+ | clindamycin in dextrose | New Bag | 12/24/19 | 900 mg | 100 | | | (CLEOCIN) IVPB 900 mg 900 mg, | | 20 3:12 | | mL/hr | | | Intravenous, Administer over 30 | | PM PDT | | | | | Minutes, ONCE, 12/24/19 at | | | | | | | 1500, For 1 dose, Indications: | | | | | | | NON-PURULENT SKIN AND SOFT TISSUE | | | | | | | INFECTION | | | | | | + +---------+ +--------+-------+---+ +---+---+ | | | +---+---+ + +---------+ +--------+-------+---+ | clindamycin in dextrose | New Bag | 12/27/19 | 900 mg | 100 | | | (CLEOCIN) IVPB 900 mg 900 mg, | | 20 6:26 | | mL/hr | | | Intravenous, Administer over 30 | | AM PDT | | | | | Minutes, EVERY 8 HOURS INTERVAL, | | | | | | | First dose on 12/24/19 at | | | | | | | 2300, Indications: NON-PURULENT | | | | | | | SKIN AND SOFT TISSUE INFECTION | | | | | | + +---------+ +--------+-------+---+ +---------+ +--------+-------+---+ | New Bag | 12/26/19 | 900 mg | 100 | | | | 20 11:28 | | mL/hr | | | | PM PDT | | | | +---------+ +--------+-------+---+ | New Bag | 12/26/19 | 900 mg | 100 | | | | 20 5:19 | | mL/hr | | | | PM PDT | | | | +---------+ +--------+-------+---+ + +---+ | | | + +---+ | dextrose 10% (D10W) infusion | | | at 50 mL/hr, Intravenous, | | | CONTINUOUS PRN, hypoglycemia, | | | Starting 12/24/19 at 1700, | | | Start infusion if unable to | | | maintain blood glucose greater | | | than 70 mg/dL after two rounds of | | | hypoglycemia treatment. Recheck | | | blood glucose 30 minutes after | | | starting D10W then at least | | | hourly and PRN until it is | | | discontinued. Call provider to | | | discuss parameters for D10W | | | discontinuation., | | + +---+ | | | + +---+ | dextrose 50% injection 12.5-25 | | | g 12.5-25 g, Intravenous, PRN, | | | Low Blood Sugar, Starting Sat | | | 12/24/19 at 1700, For blood | | | glucose 50-69 mg/dl - give 12.5 g | | | For blood glucose less than 50 | | | mg/dl - give 25 g, | | + +---+ | | | + +---+ + +-------+ +-------+---+---+ | diphenhydrAMINE (BENADRYL) | Given | 12/28/19 | 25 mg | | | | capsule 25 mg 25 mg, Oral, EVERY | | 20 1:21 | | | | | 8 HOURS PRN, Itching, Starting | | PM PDT | | | | | 12/25/19 at 1152 | | | | | | + +-------+ +-------+---+---+ +-------+ +-------+---+---+ | Given | 07/28/20 | 25 mg | | | | | 20 12:03 | | | | | | AM PDT | | | | +-------+ +-------+---+---+ | Given | 12/26/19 | 25 mg | | | | | 20 3:21 | | | | | | AM PDT | | | | +-------+ +-------+---+---+ +---+---+ | | | +---+---+ + +-------+ +-------+---+ + | enoxaparin (LOVENOX) 40 mg/0.4 | Given | 12/25/19 | 40 mg | | Abdomen- | | mL injection 40 mg 40 mg, | | 20 7:47 | | | LLQ | | Subcutaneous, EVERY 12 HOURS, | | AM PDT | | | | | First dose (after last reorder) | | | | | | | on 12/24/19 at 2100 | | | | | | + +-------+ +-------+---+ + +-------+ +-------+---+ + | Given | 12/24/19 | 40 mg | | Abdomen- | | | 20 8:26 | | | RLQ | | | PM PDT | | | | +-------+ +-------+---+ + +---+---+ | | | +---+---+ + +-------+ +-------+---+ + | enoxaparin (LOVENOX) 40 mg/0.4 | Given | 12/29/19 | 40 mg | | Abdomen- | | mL injection 40 mg 40 mg, | | 20 7:58 | | | RLQ | | Subcutaneous, EVERY 12 HOURS, | | AM PDT | | | | | First dose (after last | | | | | | | modification) on 12/25/19 at | | | | | | | 2100 | | | | | | + +-------+ +-------+---+ + +-------+ +-------+---+ + | Given | 12/28/19 | 40 mg | | Abdomen- | | | 20 8:21 | | | LLQ | | | PM PDT | | | | +-------+ +-------+---+ + | Given | 12/28/19 | 40 mg | | Abdomen- | | | 20 7:39 | | | RLQ | | | AM PDT | | | | +-------+ +-------+---+ + +---+---+ | | | +---+---+ + +-------+ +-------+---+---+ | famotidine (PEPCID) tablet 20 | Given | 12/29/19 | 20 mg | | | | mg 20 mg, Oral, 2 TIMES DAILY, | | 20 7:59 | | | | | First dose on 12/24/19 at 2100 | | AM PDT | | | | + +-------+ +-------+---+---+ +-------+ +-------+---+---+ | Given | 12/28/19 | 20 mg | | | | | 20 8:20 | | | | | | PM PDT | | | | +-------+ +-------+---+---+ | Given | 12/28/19 | 20 mg | | | | | 20 7:39 | | | | | | AM PDT | | | | +-------+ +-------+---+---+ +---+---+ | | | +---+---+ + +-------+ +---------+---+---+ | HYDROcodone-acetaminophen | Given | 12/29/19 | 2 | | | | (NORCO) 5-325 mg per tablet 1-2 | | 20 11:37 | tablets | | | | tablet 1-2 tablet, Oral, EVERY 6 | | AM PDT | | | | | HOURS PRN, Pain, Starting Sat | | | | | | | 12/24/19 at 1700 | | | | | | + +-------+ +---------+---+---+ +-------+ + +---+---+ | Given | 12/29/19 | 1 tablet | | | | | 20 4:10 | | | | | | AM PDT | | | | +-------+ + +---+---+ | Given | 12/29/19 | 1 tablet | | | | | 20 4:03 | | | | | | AM PDT | | | | +-------+ + +---+---+ +---+---+ | | | +---+---+ + +-------+ +------+---+---+ | HYDROmorphone (DILAUDID) | Given | 12/28/19 | 1 mg | | | | injection 0.25-1 mg 0.25-1 mg, | | 20 12:11 | | | | | Intravenous, EVERY 2 HOURS PRN, | | PM PDT | | | | | Pain, Starting 12/24/19 at | | | | | | | 1700, Use IV morphine first if | | | | | | | ordered. Slow IV push, not faster | | | | | | | than 0.25 mg/minute. If | | | | | | | ineffective or not tolerated and | | | | | | | unable to take oral opioid - | | | | | | | contact MD., | | | | | | + +-------+ +------+---+---+ +-------+ +------+---+---+ | Given | 12/28/19 | 1 mg | | | | | 20 7:47 | | | | | | AM PDT | | | | +-------+ +------+---+---+ | Given | 12/27/19 | 1 mg | | | | | 20 7:25 | | | | | | PM PDT | | | | +-------+ +------+---+---+ +---+---+ | | | +---+---+ + +-------+ + +---+ + | insulin glargine (LANTUS | Given | 12/29/19 | 20 Units | | Abdomen- | | SOLOSTAR) injection (pen) 20 | | 20 7:58 | | | RLQ | | Units 20 Units, Subcutaneous, | | AM PDT | | | | | EVERY MORNING, First dose (after | | | | | | | last reorder) on 12/24/19 at | | | | | | | 1800, For subcutaneous use only. | | | | | | | Basal (long acting) insulin., If | | | | | | | NPO: Decrease dose, by: 50% | | | | | | + +-------+ + +---+ + +-------+ + +---+ + | Given | 12/28/19 | 20 Units | | Arm-Righ | | | 20 7:45 | | | t Upper | | | AM PDT | | | | +-------+ + +---+ + | Given | 12/27/19 | 20 Units | | Arm-Righ | | | 20 8:44 | | | t Upper | | | AM PDT | | | | +-------+ + +---+ + +---+---+ | | | +---+---+ + +-------+ +---------+---+ + | insulin lispro (humaLOG) | Given | 12/29/19 | 2 Units | | Arm-Righ | | injection (vial) 0-12 Units 0-12 | | 20 11:36 | | | t Upper | | Units, Subcutaneous, 4 TIMES | | AM PDT | | | | | DAILY WITH MEALS & NIGHTLY, First | | | | | | | dose on Thu12/28/19 at 1200, | | | | | | | CORRECTION SCALE: Blood Glucose | | | | | | | (BG) < 150: None | | | | | | | BG 150-200: DAY: 2 units. | | | | | | | NIGHT: 0 units BG 201-250: DAY: | | | | | | | 4 units. NIGHT: 2 units BG | | | | | | | 251-300: DAY: 6 units. NIGHT: | | | | | | | 4 units BG 301-350: DAY: 8 | | | | | | | units. NIGHT: 6 units BG | | | | | | | 351-400: DAY: 10 units. NIGHT: 8 | | | | | | | units BG > 400 : DAY: 12 | | | | | | | units. NIGHT: 10 units | | | | | | | AND CALL PROVIDER | | | | | | | , Use DAY DOSE for doses | | | | | | | scheduled: AC, NPO, Daytime | | | | | | | [phone] Use NIGHT DOSE for | | | | | | | doses scheduled: HS, | | | | | | | Nighttime [phone] If the BG is | | | | | | | not checked before the patient | | | | | | | starts eating, do not give | | | | | | | correction insulin. Only for use | | | | | | | with U-100 insulin syringe., | | | | | | + +-------+ +---------+---+ + +-------+ +---------+---+ + | Given | 12/29/19 | 2 Units | | Arm-Righ | | | 20 7:57 | | | t Upper | | | AM PDT | | | | +-------+ +---------+---+ + | Given | 12/28/19 | 2 Units | | Abdomen- | | | 20 6:16 | | | LLQ | | | PM PDT | | | | +-------+ +---------+---+ + +---+---+ | | | +---+---+ + +-------+ +---------+---+ + | insulin lispro (humaLOG) | Given | 12/28/19 | 3 Units | | Arm-Righ | | injection (vial) 0-18 Units 0-18 | | 20 7:40 | | | t Upper | | Units, Subcutaneous, 4 TIMES | | AM PDT | | | | | DAILY WITH MEALS & NIGHTLY, First | | | | | | | dose on 12/24/19 at 1800, | | | | | | | CORRECTION SCALE: Blood Glucose | | | | | | | (BG) < 150: None | | | | | | | BG 150-200: DAY: 3 units. | | | | | | | NIGHT: 0 units BG 201-250: DAY: | | | | | | | 6 units. NIGHT: 3 units BG | | | | | | | 251-300: DAY: 9 units. NIGHT: | | | | | | | 6 units BG 301-350: DAY: 12 | | | | | | | units. NIGHT: 9 units BG | | | | | | | 351-400: DAY: 15 units. NIGHT: | | | | | | | 12 units BG > 400 : DAY: 18 | | | | | | | units. NIGHT: 15 units | | | | | | | AND CALL PROVIDER | | | | | | | Use DAY DOSE for doses | | | | | | | scheduled: AC, NPO, Daytime | | | | | | | [phone] Use NIGHT DOSE for | | | | | | | doses scheduled: HS, | | | | | | | Nighttime [phone] If the BG is | | | | | | | not checked before the patient | | | | | | | starts eating, do not give | | | | | | | correction insulin. Only for use | | | | | | | with U-100 insulin syringe., | | | | | | + +-------+ +---------+---+ + +-------+ +---------+---+ + | Given | 12/27/19 | 3 Units | | Abdomen- | | | 20 11:52 | | | LLQ | | | AM PDT | | | | +-------+ +---------+---+ + | Given | 12/27/19 | 3 Units | | Arm-Righ | | | 20 8:44 | | | t Upper | | | AM PDT | | | | +-------+ +---------+---+ + +---+---+ | | | +---+---+ + +-------+ + +---+ + | insulin regular (humuLIN R, | Given | 12/24/19 | 20 Units | | Arm-Righ | | novoLIN R) injection (vial) 20 | | 20 2:21 | | | t Upper | | Units 20 Units, Subcutaneous, | | PM PDT | | | | | ONCE, 12/24/19 at 1410, For 1 | | | | | | | dose, Only for use with U-100 | | | | | | | insulin syringe., | | | | | | + +-------+ + +---+ + +---+---+ | | | +---+---+ + +---------+ +--------+-------+---+ | linezolid (ZYVOX) IVPB 600 mg | New Bag | 12/25/19 | 600 mg | 300 | | | 600 mg, Intravenous, Administer | | 20 8:34 | | mL/hr | | | over 60 Minutes, EVERY 12 HOURS, | | AM PDT | | | | | First dose on 12/24/19 at | | | | | | | 2100, Indications: SEPSIS OF | | | | | | | UNKNOWN ETIOLOGY | | | | | | + +---------+ +--------+-------+---+ +---------+ +--------+-------+---+ | New Bag | 12/24/19 | 600 mg | 300 | | | | 20 9:13 | | mL/hr | | | | PM PDT | | | | +---------+ +--------+-------+---+ +---+---+ | | | +---+---+ + +-------+ +------+---+---+ | LORazepam (ATIVAN) injection 1 | Given | 12/24/19 | 1 mg | | | | mg 1 mg, Intravenous, ONCE, Sat | | 20 11:38 | | | | | 12/24/19 at 1135, For 1 dose | | AM PDT | | | | + +-------+ +------+---+---+ +---+---+ | | | +---+---+ + +---------+ +-----+ +---+ | magnesium sulfate 2 g/50 mL | New Bag | 12/26/19 | 2 g | 25 mL/hr | | | IVPB 2 g 2 g, Intravenous, | | 20 8:57 | | | | | Administer over 120 Minutes, | | AM PDT | | | | | ONCE, 12/26/19 at 0915, For 1 | | | | | | | dose, Maximum recommended | | | | | | | infusion rate = 1 gram/hour., | | | | | | + +---------+ +-----+ +---+ + +---+ | | | + +---+ | metoclopramide (REGLAN) 5 mg/mL | | | injection 10 mg 10 mg, | | | Intravenous, EVERY 6 HOURS PRN, | | | Nausea, Vomiting, Starting Sat | | | 12/24/19 at 1802, Second line | | | agent Protect from light., | | + +---+ | | | + +---+ + +-------+ +------+---+---+ | ondansetron (ZOFRAN ODT) | Given | 12/29/19 | 4 mg | | | | disintegrating tablet 4 mg 4 mg, | | 20 12:20 | | | | | Oral, ONCE, Karina 12/29/19 at 1230, | | PM PDT | | | | | For 1 dose | | | | | | + +-------+ +------+---+---+ +---+---+ | | | +---+---+ + +-------+ +------+---+---+ | ondansetron (ZOFRAN) injection | Given | 12/24/19 | 4 mg | | | | 4 mg 4 mg, Intravenous, ONCE, | | 20 11:30 | | | | | 12/24/19 at 1130, For 1 dose | | AM PDT | | | | + +-------+ +------+---+---+ +---+---+ | | | +---+---+ + +-------+ +------+---+---+ | ondansetron (ZOFRAN) injection | Given | 12/28/19 | 4 mg | | | | 4 mg 4 mg, Intravenous, EVERY 6 | | 20 7:05 | | | | | HOURS PRN, Nausea, Vomiting, | | AM PDT | | | | | Starting 12/24/19 at 1700, | | | | | | | First line agent, | | | | | | + +-------+ +------+---+---+ +-------+ +------+---+---+ | Given | 12/27/19 | 4 mg | | | | | 20 11:34 | | | | | | PM PDT | | | | +-------+ +------+---+---+ | Given | 12/27/19 | 4 mg | | | | | 20 5:30 | | | | | | AM PDT | | | | +-------+ +------+---+---+ +---+---+ | | | +---+---+ + +---------+ +---------+-------+---+ | potassium phosphate 30 mmol in | New Bag | 12/26/19 | 30 mmol | 63.8 | | | dextrose 5% 500 mL IVPB 30 mmol, | | 20 9:35 | | mL/hr | | | Intravenous, Administer over 8 | | AM PDT | | | | | Hours, ONCE, 12/26/19 at 0930, | | | | | | | For 1 dose, Peripheral Line | | | | | | | Concentration. Infusion rate 7 | | | | | | | mmol/hr (10mEq K+) each 10 mmol | | | | | | | contains approx 15 mEq of | | | | | | | Potassium, | | | | | | + +---------+ +---------+-------+---+ +---+---+ | | | +---+---+ + +---------+ +--------+-------+---+ | sodium chloride 0.9% (NS) bolus | New Bag | 12/24/19 | 1,000 | 2000 | | | 1,000 mL 1,000 mL, Intravenous, | | 20 4:04 | mLs | mL/hr | | | Administer over 30 Minutes, | | PM PDT | | | | | ONCE, 12/24/19 at 1530, For 1 | | | | | | | dose | | | | | | + +---------+ +--------+-------+---+ +---+---+ | | | +---+---+ + +---------+ +--------+-------+---+ | sodium chloride 0.9% (NS) bolus | New Bag | 12/24/19 | 2,000 | 4000 | | | 2,000 mL 2,000 mL, Intravenous, | | 20 1:09 | mLs | mL/hr | | | Administer over 30 Minutes, | | PM PDT | | | | | ONCE, 12/24/19 at 1255, For 1 | | | | | | | dose | | | | | | + +---------+ +--------+-------+---+ +---+---+ | | | +---+---+ + +---------+ +---+-------+---+ | sodium chloride 0.9% (NS) | New Bag | 12/27/19 | | 200 | | | infusion at 200 mL/hr, | | 20 11:48 | | mL/hr | | | Intravenous, CONTINUOUS, Starting | | AM PDT | | | | | 12/24/19 at 1705 | | | | | | + +---------+ +---+-------+---+ +---------+ +---+-------+---+ | New Bag | 12/27/19 | | 200 | | | | 20 4:27 | | mL/hr | | | | AM PDT | | | | +---------+ +---+-------+---+ | New Bag | 12/26/19 | | 200 | | | | 20 5:19 | | mL/hr | | | | PM PDT | | | | +---------+ +---+-------+---+ +---+---+ | | | +---+---+ documented in this encounter Additional Health Concerns + [...]
--- OUTSIDE RECORDS SUMMARY | ~2020-03-20 | XMS | Encounter Summary ---
Demographics + + + | Address | [address] | | | [place] [address] | + + + | Home Phone | | + + + | Preferred Language | Unknown | + + + | Marital Status | Legally | + + + | Advent Affiliation | 1077 | + + + | Race | White | + + + | Ethnic Group | Not or | + + + Author + + + | Author | [facility] | | | and [place] | + + + | Organization | [facility] | | | and [...] Team Providers + +------+ + | Care Coil Winder Hand Name | Role | Phone | + +------+ + PCP | Unavailable | + +------+ + Encounter Details +--------+ + + + + | Date | Type | Department | Care Team | Description | +--------+ + + + + | 08/17/ | Hospital | [facility] | Rah Soliman DO | | | 2018 - | Encounter | [facility] | [address] | | | | | CARE FLOOR [address] | [place] [address] | | | 08/21/ | | [address] | [phone] | | | 2018 | | [place], [place] | | | | | | [address] | | | | | | [phone] | | | +--------+ + + + [...] + + + | Blood Pressure | 147/66 | 08/21/2017 4:21 PM | | | | | PDT | | + + + + + | Pulse | 92 | 08/21/2017 4:21 PM | | | | | PDT | | + + + + + | Temperature | 37.4 C (99.3 F) | 08/21/2017 4:21 PM | | | | | PDT | | + + + + + | Respiratory Rate | 18 | 08/21/2017 4:21 PM | | | | | PDT | | + + + + + | Oxygen Saturation | - | - | | + + + + + | Inhaled Oxygen | - | - | | | Concentration | | | | + + + + + | Weight | 154.1 kg (339 lb | 08/21/2017 4:21 PM | | | | 12.8 oz) | PDT | | + + + + + | Height | 167.6 cm (5' 6") | 08/21/2017 4:21 PM | | | | | PDT | | + + + + + | Body Mass Index | 54.85 | 08/21/2017 4:21 PM | | | | | PDT | | + + + + + documented in this encounter Discharge Summaries Omega Bello MD - 08/21/2017 1:00 PM PDTFormatting of this note might be differ ent from the original. Discharge Summaries by Omega Bello MD at 08/21/17 1300 Author: Omega Bello MD Service: Hospitalist Author Type: Physician Filed: 08/21/17 193 Date of Service: 08/21/17 1300 Status: Addendum Screw Machine Set Up Operator Tool: Omega Bello MD (Physician) Related Notes: Original Note by Omega Bello MD (Physician) filed at 08/21/17 1528 [facility] Service: Hospitalist Discharge Summary Date of Admission: 08/17/2017 Date of Discharge: 08/21/2017 Discharge Provider: Omega Bello MD Treatment Team: Consulting Physician: Hardik Mejia DO Admitting Provider: Rah Soliman DO Discharge Diagnoses: Principal Problem: Cellulitis of right lower extremity Active Problems: Type 2 diabetes mellitus (HCC) RA (rheumatoid arthritis) (HCC) Vasculitis (HCC) Ulcerative colitis (HCC) Resolved Problems: * No resolved hospital problems. * BRIEF HISTORY OF PRESENTATION: Abhishek Astudillo is a 41 y.o. female who history of morbid obesity, recently diagnose d type 2 diabetes, RA, ulcerative colitis, presented to the ED with right lower extremity ce llulitis. The patient was started on Ancef and after 96 hours of IV antibiotics her cellulit is has improved. The patient was slow to respond to therapy. The patient's blood sugars have improved, and she will be discharged home on metformin and Amaryl. She will continue 2 week s of Keflex as outpatient. She will see Dr. Mejia as outpatient. She was found to have nocturnal hypoxia, most likely secondary to sleep apnea. Advised to g o to a sleep clinic. Regarding morbid obesity, encouraged weight loss. Elevate platelets are stress response Anticipate improvement after the antibiotics are comp leted No prescriptions prior to admission. DISCHARGE EXAM Vital Signs: BP 162/83 (BP Location: Left forearm) | Pulse 77 | Temp 99 F (37.2 C) (Oral) | Resp 18 | Ht 1.676 m (5' 6") | Wt 154.1 kg (339 lb 12.8 oz) | SpO2 93% | ? No | BMI 54.85 kg/m Physical Exam General Appearance: well developed, well nourished Eyes: No gross abnormalities. Neck: neck- supple, no mass, non-tender Abdomen: Soft, non-tender, normal bowel sounds. No bruits, organomegaly or masses. Extremities: Extremities warm to touch, pink, with no edema. DATA Recent Labs Lab 08/21/17 0519 08/20/17 0612 08/19/17 0558 08/18/17 0617 WBC 12.62* 12.00* 11.99* 12.49* HGB 11.7 10.6* 10.7* 10.8* HCT 33.7* 31.0* 32.2* 31.5* PLT 885* 476* 458* 400 NEUTOPHILPCT -- 68.56 70.31 68.44 MONOPCT -- 9.98 11.43 13.58 Recent Labs Lab 08/20/17 0612 08/19/17 0558 08/18/17 0617 NA 136 136 134* K 4.0 3.9 3.8 CL 99 98* 97* CO2 29 29 28 BUN 10 12 8 CREATININE 0.6 0.5 0.5 PROT 7.3 7.2 6.8 BILITOT 0.3 0.3 0.5 ALT 17 21 27 AST 13 13 15 Phosphorus: Lab Results Component Value Date PHOS 3.5 08/18/2017 Invalid input(s): LABALBU Recent Labs Lab 08/18/17 0617 MG 2.0 No results for input(s): AMYLASE in the last 168 hours. No results for input(s): PHART, PO2ART, IMN3PPG, B5GBCKNE, BEART in the last 168 hours. No results for input(s): APTT, INR, PTT in the last 168 hours. No results for input(s): TSH, T3FREE, FREET4 in the last 168 hours. No results for input(s): CKTOTAL, TROPONINI, TROPONINT, CKMBINDEX in the last 168 hours. Radiology Us Lower Extremity Venous Right Result Date: 08/20/2017 1. No evidence of lower extremity deep vein thrombosis. 2. Lobulated avascular structure in the right groin measuring 5.5 bilateral 1.9 cm. This is nonspecific may represent enlarge d or adjacent lymph nodes. Soft tissue mass, lipoma, or even fat-containing hernia could als o be considerations. Disposition: Home Condition: Fair Code Status: Full Code No discharge procedures on file. Follow up: [facility] [address] [facility] [address] In 1 week Hardik Mejia DO [address] [facility] [address] In 2 weeks Medication List START taking these medications cephALEXin 500 MG capsule QTY: 56 capsule Refills: 0 Commonly known as: KEFLEX Take 1 capsule by mouth 4 (four) times daily for 14 days. fluconazole 200 MG tablet QTY: 1 tablet Refills: 0 Commonly known as: DIFLUCAN Take 1 tablet by mouth daily for 1 day. Start taking on: 08/24/2017 glimepiride 2 MG tablet QTY: 30 tablet Refills: 0 Commonly known as: AMARYL Take 0.5 tablets by mouth every morning before breakfast. miconazole 2 % cream QTY: 28.35 g Refills: 1 Commonly known as: MICOTIN Apply to both feet, especially between toes, twice daily oxycodone 10 MG tablet QTY: 30 tablet Refills: 0 Take 1 tablet by mouth every 4 (four) hours as needed (6 to 7) for up to 10 days. CHANGE how you take these medications metFORMIN 1000 MG tablet QTY: 60 tablet Refills: 5 Commonly known as: GLUCOPHAGE Take 1 tablet by mouth 2 (two) times daily with meals. What changed: medication strength how much to take STOP taking these medications acetaminophen 325 MG tablet Commonly known as: TYLENOL Where to Get Your Medications You can get these medications from any pharmacy Bring a paper prescription for each of these medications cephALEXin 500 MG capsule fluconazole 200 MG tablet glimepiride 2 MG tablet metFORMIN 1000 MG tablet miconazole 2 % cream oxycodone 10 MG tablet Discharge took 35 minutes, to include final examination, discussion of admission, and prepa ration of prescriptions, instructions for on-going care, follow-up and documentation of disc harge summary. Omega Bello MD 08/21/2017 1:00 PM documented in this encounter Medications at Time of [...] +---------+ + + | glimepiride | Take 0.5 tablets by | 30 | 0 | 08/22/19 | | | (AMARYL) 2 MG tablet | mouth every morning | tablet | | 18 | 9 | | | before breakfast. | | | | | + + + +---------+ + + documented as of this encounter Progress Notes Conversion Transaction, Provider Unknown - 08/21/2017 12:15 PM PDTFormatting of this note m ight be different from the original. Case Management by Shaw Almaraz RN at 08/21/17 1215 Author: Shaw Almaraz RN Service: (none) Author Type: Registered Nurse Filed: 08/21/17 1434 Date of Service: 08/21/17 1215 Status: Addendum Screw Machine Set Up Operator Tool: Shaw Almaraz RN (Registered Nurse) Related Notes: Original Note by Shaw Almaraz RN (Registered Nurse) filed at 08/21/17 1220 08/21/17 1200 Discharge Planning Evaluation Admitting Diagnosis Cellulitus of right lower extremity Anticipated Disposition Facility Type Home Medicare Important Message (MATT) Not applicable Pt agrees with discharge home. Pt received indigent medications at bedside. Pt will leave v md private vehicle. Called Dr. Mejia's office to setup follow-up from discharge. Left message for office to call Pt to setup. 1430 - Pt having difficulty with increased pain and has refused to discharge because she wa s placed on oral ABX and feels she is not going to do well on orals. onver vikram Transaction, Provider Unknown - 08/21/2017 7:36 AM PDT Nurse Progress Note by Citlali Edwards RN at 08/21/17 07 Author: Citalli Edwards RN Service: (none) Author Type: Registered Nurse Filed: 08/21/1736 Date of Service: 08/21/17735 Status: Signed Screw Machine Set Up Operator Tool: Citlali Edwards RN (Registered Nurse) VSS and pt afebrile. Edema in RLE slightly decreased in AM. Reporting pain in RLE, medicate d per JUL. LE US completed, see results. No acute changes from previous assessment. Citlali Edwards RN Hardik Gregory DO - 08/21/2017 6:36 AM PDTFormatting of this note might be different from the hardeep mica. Progress Notes by Hardik Mejia DO at 08/21/17635 Author: Hardik Mejia DO Service: Infectious Disease Author Type: Physician Filed: 08/21/17804 Date of Service: 08/21/17635 Status: Addendum Screw Machine Set Up Operator Tool: Hardik Mejia DO (Physician) Related Notes: Original Note by Hardik Mejia DO (Physician) filed at 08/21/17802 [facility] Service: Infectious Disease Progress Note Hospital Day: LOS: 4 days Post-Op Day: * No surgery found * SUBJECTIVE Patient Summary: 41 y.o. female with significant past medical history of hepatitis C , rheumatoid arthritis, type II diabetes mellitus, endometrial cancer, vasculitis who presen ts with right leg cellulitis that has failed oral antibiotics. The patient reports that she developed a fever and chills about 8 days ago, and later that day noticed that her right leg was looking more red. It subsequently became increasingly painful. She has not noticed any pain and redness or increased swelling compared to her usual baseline in the right leg prior to the onset of fever. The patient was admitted at [facility] and was treated w ith IV antibiotics initially, and then transition to oral cefpodoxime and doxycycline prior to discharge. She continued taking those medications at home but had worsening redness and p ain in the right leg again. When she returned to the hospital, she insisted on transfer here . At the time of transfer she was placed on Zyvox due to her multiple antibiotic allergies. She was switched to Ancef at the time of ID consult due to her tolerance of cephalosporins a nd presentation strongly suggestive of streptococcal cellulitis. CC: Right leg cellulitis Chart reviewed: No new events. Subjective The patient reports that her right leg pain is improving. Nursing indicates that an attempt was made to place a compression stocking yesterday, but was stopped due to pain. The patien t notes that her original compression dressing was. She denies any fevers or chills. She has been eating well. ROS No fever, chills sweats. No nausea, vomiting or diarrhea. No rashes or pruritis. No oral pa in. Scheduled Medications ceFAZolin 2 g Intravenous Q8H enoxaparin 40 mg Subcutaneous Q12H fluconazole 200 mg Oral Daily glimepiride 2 mg Oral Daily with breakfast influenza vaccine quadrivalent 0.5 mL Intramuscular Once Immunization insulin lispro (human) 0-10 Units Subcutaneous TID AC insulin lispro (human) 0-5 Units Subcutaneous Nightly metFORMIN 500 mg Oral BID WC miconazole Topical BID oxyCODONE-acetaminophen 2 tablet Oral TID sodium chloride (PF) 10 mL Intravenous Q8H Continuous Infusions dextrose PRN Medications acetaminophen OR acetaminophen, dextrose, dextrose, dextrose, glucagon, glucagon, HYDRO morphone, magnesium sulfate OR magnesium sulfate OR magnesium sulfate, ondansetron * *OR ondansetron, [DISCONTINUED] oxyCODONE OR oxyCODONE OR oxyCODONE, polyethylene glycol, potassium OR potassium OR potassium OR potassium chloride OR potassi um chloride OR potassium chloride, zolpidem OBJECTIVE Vital Signs: BP 138/69 (BP Location: Left forearm) | Pulse 63 | Temp 97.8 F (36.6 C) (Oral) | Res p 18 | Ht 1.676 m (5' 6") | Wt 154.1 kg (339 lb 12.8 oz) | SpO2 94% | ? No | BMI 54.85 kg/m Temp (24hrs), Av.3 F (36.8 C), Min:97.8 F (36.6 C), Max:99.1 F (37.3 C) Exam: Const: Vitals reviewed. No acute distress Skin: No rashes. Trace left lower extremity edema. Right leg remains edematous. Erythema jarquin s faded to brown. Swelling has decreased. Tenderness gradually improving. ENT: No thrush. Lungs: CTAB, no rales or wheezes Heart: RRR, no murmur Abd: soft, NT, + bowel sounds DATA CBC: Lab Results Component Value Date WBC 12.62 (H) 08/21/2017 RBC 3.98 08/21/2017 HGB 11.7 08/21/2017 HCT 33.7 (L) 08/21/2017 MCV 84.6 08/21/2017 MCH 29.4 08/21/2017 MCHC 34.7 08/21/2017 RDW 40.3 08/21/2017 PLT 885 (HH) 08/21/2017 MPV 8.2 08/21/2017 DIFFTYPE MANUAL 08/21/2017 CMP: Lab Results Component Value Date NA 136 08/20/2017 K 4.0 08/20/2017 CL 99 08/20/2017 CO2 29 08/20/2017 ANIONGAP 12 08/20/2017 GLUF 150 (H) 08/20/2017 BUN 10 08/20/2017 CREATININE 0.6 08/20/2017 BCR 17 08/20/2017 CA 8.6 08/20/2017 PROT 7.3 08/20/2017 ALB 2.0 (L) 08/20/2017 GLOB 5.3 (H) 08/20/2017 BILITOT 0.3 08/20/2017 ALP 87 08/20/2017 AST 13 08/20/2017 ALT 17 08/20/2017 EGFR >60 08/20/2017 Microbiology: Blood cultures negative 2 so far. Medical imaging: Us Lower Extremity Venous Right Result Date: 08/20/2017 1. No evidence of lower extremity deep vein thrombosis. 2. Lobulated avascular structure in the right groin measuring 5.5 bilateral 1.9 cm. This is nonspecific may represent enlarge d or adjacent lymph nodes. Soft tissue mass, lipoma, or even fat-containing hernia could als o be considerations. LEM LIST Principal Problem: Cellulitis of right lower extremity Active Problems: Type 2 diabetes mellitus (HCC) RA (rheumatoid arthritis) ([facility]) Vasculitis (HCC) Ulcerative colitis ([facility]) ASSESSMENT & PLAN Cellulitis of right lower extremity (08/17/2017) Most likely streptococcal cellulitis. Ultrasound shows lymph node in the right groin, no evidence of deep vein thrombosis. I have asked nursing to placing compression stocking. We c an switch to oral cephalexin 500 mg 4 times daily. Athlete's foot I have ordered miconazole cream to be applied twice daily. RA (rheumatoid arthritis) / Ulcerative colitis (HCC) (08/17/2017) The patient is on chronic immunosuppressive therapy but does not have evidence of opportu nistic infection at this time. Antibiotics as discussed above. The patient can remain on her current antirheumatic regimen. Disposition: Ready for discharge from infectious diseases standpoint. I am hoping that a re placement compression stocking can be placed prior to discharge. She will need a prescriptio n for 14 more days of cephalexin, and topical miconazole cream for athlete's foot. Follow-up with me in 2 weeks. Code Status: Full Code HARDIK MEJIA DO 08/21/2017 Omega Graham MD - 08/20/2017 12:03 PM PDT Progress Notes by Omega Bello MD at 08/20/17 1203 Author: Omega Bello MD Service: Hospitalist Author Type: Physician Filed: 08/20/171932 Date of Service: 08/20/171202 Status: Addendum Screw Machine Set Up Operator Tool: Omega Bello MD (Physician) Related Notes: Original Note by Omega Bello MD (Physician) filed at 08/20/17 1205 [facility] Service: Hospitalist Progress Note Hospital Day: LOS: 3 days SUBJECTIVE Patient Summary: Events Overnight: Pain is slightly better No other complaints. No CP or SOA Scheduled Medications ceFAZolin 2 g Intravenous Q8H enoxaparin 40 mg Subcutaneous Q12H fluconazole 200 mg Oral Daily influenza vaccine quadrivalent 0.5 mL Intramuscular Once Immunization insulin detemir 15 Units Subcutaneous BID insulin lispro (human) 0-10 Units Subcutaneous TID AC insulin lispro (human) 0-5 Units Subcutaneous Nightly miconazole Topical BID sodium chloride (PF) 10 mL Intravenous Q8H Continuous Infusions dextrose OBJECTIVE Vital Signs: BP 144/82 (BP Location: Right forearm) | Pulse 86 | Temp 99.1 F (37.3 C) (Oral) | Re sp 18 | Ht 1.676 m (5' 6") | Wt 155.1 kg (342 lb) | SpO2 94% | BMI 55.20 kg/m Physical Exam General Appearance: awake, alert, oriented, in no acute distress Eyes: No gross abnormalities. Neck: neck- supple, no mass, non-tender Lungs: Normal expansion. Clear to auscultation. No rales, rhonchi, or wheezing. Abdomen: Soft, non-tender, normal bowel sounds. No bruits, organomegaly or masses. Extremities: RLE swelling and redness. DATA Recent Labs Lab 08/20/17 0608/19/17 0558 08/18/17 0617 WBC 12.00* 11.99* 12.49* HGB 10.6* 10.7* 10.8* HCT 31.0* 32.2* 31.5* PLT 476* 458* 400 NEUTOPHILPCT 68.56 70.31 68.44 MONOPCT 9.98 11.43 13.58 Recent Labs Lab 08/20/17 0612 08/19/17 0558 08/18/17 0617 NA 136 136 134* K 4.0 3.9 3.8 CL 99 98* 97* CO2 29 29 28 BUN 10 12 8 CREATININE 0.6 0.5 0.5 PROT 7.3 7.2 6.8 BILITOT 0.3 0.3 0.5 ALT 17 21 27 AST 13 13 15 Phosphorus: Lab Results Component Value Date PHOS 3.5 08/18/2017 Invalid input(s): LABALBU Recent Labs Lab 08/18/17 0617 MG 2.0 No results for input(s): AMYLASE in the last 168 hours. No results for input(s): PHART, PO2ART, XJE0HHG, O7TOKUGH, BEART in the last 168 hours. No results for input(s): APTT, INR, PTT in the last 168 hours. No results for input(s): TSH, T3FREE, FREET4 in the last 168 hours. No results for input(s): CKTOTAL, TROPONINI, TROPONINT, CKMBINDEX in the last 168 hours. Radiology No results found. PROBLEM LIST Principal Problem: Cellulitis of right lower extremity Active Problems: Type 2 diabetes mellitus (HCC) RA (rheumatoid arthritis) (HCC) Vasculitis (HCC) Ulcerative colitis (HCC) Resolved Problems: * No resolved hospital problems. * ASSESSMENT & PLAN 1. Cellulitis of the right lower extremity suspicious of strep. Continue IV Ancef. Keep leg s elevated. 2. Diabetes.A1c is elevated Blood sugar is reasonably well controlled. Continue Levemir and Humalog.Will need assistance with medications 3. Deep venous thrombosis prophylaxis. Lovenox. 4. Morbid obesity. Encourage weight loss. 5. Nocturnal hypoxia most likely related to underlying untreated sleep apnea. Strongly advi sed to follow up with sleep clinic. 6 Vaginal candidiosis Diflucan X 3 days Code Status: Full Code Omega Bello MD 08/20/2017 12:03 PM ardik Mejia DO - 08/20/2017 6:38 AM PDT Progress Notes by Hardik Mejia DO at 08/20/17637 Author: Hardik Mejia DO Service: Infectious Disease Author Type: Physician Filed: 08/20/17 0759 Date of Service: 08/20/17637 Status: Signed Screw Machine Set Up Operator Tool: Hardik Mejia DO (Physician) [facility] Service: Infectious Disease Progress Note Hospital Day: LOS: 3 days Post-Op Day: * No surgery found * SUBJECTIVE Patient Summary: 41 y.o. female with significant past medical history of hepatitis C , rheumatoid arthritis, type II diabetes mellitus, endometrial cancer, vasculitis who presen ts with right leg cellulitis that has failed oral antibiotics. The patient reports that she developed a fever and chills about 8 days ago, and later that day noticed that her right leg was looking more red. It subsequently became increasingly painful. She has not noticed any pain and redness or increased swelling compared to her usual baseline in the right leg prior to the onset of fever. The patient was admitted at [facility] and was treated w ith IV antibiotics initially, and then transition to oral cefpodoxime and doxycycline prior to discharge. She continued taking those medications at home but had worsening redness and p ain in the right leg again. When she returned to the hospital, she insisted on transfer here . At the time of transfer she was placed on Zyvox due to her multiple antibiotic allergies. She was switched to Ancef at the time of ID consult due to her tolerance of cephalosporins a nd presentation strongly suggestive of streptococcal cellulitis. CC: Right leg cellulitis Chart reviewed: No new events. Subjective The patient reports that she is starting the day feeling better today. She has still had so me sweats overnight. Pain in the right leg is improving. She is hoping that she can have her compression stocking placed today. ROS No fever, chills sweats. No nausea, vomiting or diarrhea. No rashes or pruritis. No oral pa in. Scheduled Medications ceFAZolin 2 g Intravenous Q8H enoxaparin 40 mg Subcutaneous Q12H influenza vaccine quadrivalent 0.5 mL Intramuscular Once Immunization insulin detemir 15 Units Subcutaneous BID insulin lispro (human) 0-10 Units Subcutaneous TID AC insulin lispro (human) 0-5 Units Subcutaneous Nightly miconazole Topical BID sodium chloride (PF) 10 mL Intravenous Q8H Continuous Infusions dextrose PRN Medications acetaminophen OR acetaminophen, dextrose, dextrose, dextrose, glucagon, glucagon, HYDRO morphone, magnesium sulfate OR magnesium sulfate OR magnesium sulfate, morphine OR morphine OR morphine, ondansetron OR ondansetron, polyethylene glycol, potassium OR potassium OR potassium OR potassium chloride OR potassium chloride OR potassium chloride, zolpidem OBJECTIVE Vital Signs: BP 154/77 (BP Location: Right forearm) | Pulse 84 | Temp 99.8 F (37.7 C) (Oral) | Re sp 18 | Ht 1.676 m (5' 6") | Wt 155.1 kg (342 lb) | SpO2 93% | BMI 55.20 kg/m Temp (24hrs), Av.5 F (36.9 C), Min:97.5 F (36.4 C), Max:99.8 F (37.7 C) Exam: Const: Vitals reviewed. No acute distress Skin: No rashes. Trace left lower extremity edema. Right leg remains edematous. Erythema jarquin s faded to brown. Swelling has decreased. Tenderness gradually improving. ENT: No thrush. Lungs: CTAB, no rales or wheezes Heart: RRR, no murmur Abd: soft, NT, + bowel sounds DATA CBC: Lab Results Component Value Date WBC 12.00 (H) 08/20/2017 RBC 3.69 (L) 08/20/2017 HGB 10.6 (L) 08/20/2017 HCT 31.0 (L) 08/20/2017 MCV 84.0 08/20/2017 MCH 28.6 08/20/2017 MCHC 34.1 08/20/2017 RDW 40.7 08/20/2017 PLT 476 (H) 08/20/2017 MPV 7.6 08/20/2017 DIFFTYPE AUTOMATED 08/20/2017 CMP: Lab Results Component Value Date NA 136 08/20/2017 K 4.0 08/20/2017 CL 99 08/20/2017 CO2 29 08/20/2017 ANIONGAP 12 08/20/2017 GLUF 150 (H) 08/20/2017 BUN 10 08/20/2017 CREATININE 0.6 08/20/2017 BCR 17 08/20/2017 CA 8.6 08/20/2017 PROT 7.3 08/20/2017 ALB 2.0 (L) 08/20/2017 GLOB 5.3 (H) 08/20/2017 BILITOT 0.3 08/20/2017 ALP 87 08/20/2017 AST 13 08/20/2017 ALT 17 08/20/2017 EGFR >60 08/20/2017 Microbiology: Blood cultures negative 2 so far. PROBLEM LIST Principal Problem: Cellulitis of right lower extremity Active Problems: Type 2 diabetes mellitus (HCC) RA (rheumatoid arthritis) (HCC) Vasculitis (HCC) Ulcerative colitis (HCC) ASSESSMENT & PLAN Cellulitis of right lower extremity (08/17/2017) most likely streptococcal cellulitis. Improving with Ancef, well tolerated so far. We wi ll continue to monitor. The patient's compression stocking can be placed today. Athlete's foot I have ordered miconazole cream to be applied twice daily. RA (rheumatoid arthritis) / Ulcerative colitis (HCC) (08/17/2017) The patient is on chronic immunosuppressive therapy but does not have evidence of opportu nistic infection at this time. Antibiotics as discussed above. The patient can remain on her current antirheumatic regimen. Code Status: Full Code HARDIK MEJIA DO 08/20/2017 onversion Transaction , Provider Unknown - 08/20/2017 6:32 AM PDT Nurse Progress Note by Rob Kruse RN at 08/20/17 0632 Author: Rob Kruse RN Service: (none) Author Type: Registered Nurse Filed: 08/20/17 0635 Date of Service: 08/20/17 0632 Status: Signed Screw Machine Set Up Operator Tool: Rob Kruse RN (Registered Nurse) Pt afebrile, VSS. Pt voiding quantity sufficient since d/c of Curiel, Pt has some c/o pain w ith urination. Pt medicated for c/o pain in RLE per PRN regimen. Pt has been resting in bed, no acute changes from initial assessment. ROB KRUSE RN onver vikram Transaction, Provider Unknown - 08/19/2017 7:19 PM PDT Nurse Progress Note by Sylvie Bautista RN at 08/19/171918 Author: Sylvie Bautista RN Service: (none) Author Type: Registered Nurse Filed: 08/19/171919 Date of Service: 08/19/171918 Status: Signed Screw Machine Set Up Operator Tool: Sylvie Bautista RN (Registered Nurse) VSS, afebrile, no acute changes from previous assessment. Sylvie Bautista RN onver vikram Transaction, Provider Unknown - 08/19/2017 2:26 PM PDT Case Management by Zenaida Gastelum RN at 08/19/171425 Author: Zenaida Gastelum RN Service: (none) Author Type: Registered Nurse Filed: 08/19/171428 Date of Service: 08/19/171425 Status: Signed Screw Machine Set Up Operator Tool: Zenaida Gastelum RN (Registered Nurse) Discharge Planning: CM attended Hospitalist rounding with medical staff, pt from [facility], CM to follow for abx rt, may know rt 08/20. [facility] following for abx , If pt d/c with IV abx pt will need out pt labs and PICC line dressing changes at [facility] d/t no [place] PCP and no ins. mega Mao i, MD - 08/19/2017 12:38 PM PDTFormatting of this note might be different fro m the original. Progress Notes by Omega Bello MD at 08/19/178 Author: Omega Bello MD Service: Hospitalist Author Type: Physician Filed: 08/19/171237 Date of Service: 08/19/171237 Status: Signed Screw Machine Set Up Operator Tool: Omega Bello MD (Physician) [facility] Service: Hospitalist Progress Note Hospital Day: LOS: 2 days SUBJECTIVE Patient Summary: Events Overnight: Reports pain is severe in RLE No other complaints. No CP or SOA Scheduled Medications ceFAZolin 2 g Intravenous Q8H enoxaparin 40 mg Subcutaneous Q12H influenza vaccine quadrivalent 0.5 mL Intramuscular Once Immunization insulin detemir 15 Units Subcutaneous BID insulin lispro (human) 0-10 Units Subcutaneous TID AC insulin lispro (human) 0-5 Units Subcutaneous Nightly miconazole Topical BID sodium chloride (PF) 10 mL Intravenous Q8H Continuous Infusions dextrose OBJECTIVE Vital Signs: BP 134/69 (BP Location: Right forearm) | Pulse 90 | Temp 98.8 F (37.1 C) (Oral) | Re sp 20 | Ht 1.676 m (5' 6") | Wt 156.5 kg (345 lb) | SpO2 94% | BMI 55.68 kg/m Physical Exam General Appearance: awake, alert, oriented, in no acute distress Eyes: No gross abnormalities. Neck: neck- supple, no mass, non-tender Lungs: Normal expansion. Clear to auscultation. No rales, rhonchi, or wheezing. Abdomen: Soft, non-tender, normal bowel sounds. No bruits, organomegaly or masses. Extremities: RLE swelling and redness. DATA Recent Labs Lab 08/19/17 0558 08/18/17 0617 08/17/172006 WBC 11.99* 12.49* 12.29* HGB 10.7* 10.8* 11.2* HCT 32.2* 31.5* 34.4 PLT 458* 400 354 NEUTOPHILPCT 70.31 68.44 67.51 MONOPCT 11.43 13.58 12.31 Recent Labs Lab 08/19/17 0558 08/18/17 0617 08/17/172006 NA 136 134* 136 K 3.9 3.8 3.8 CL 98* 97* 100 CO2 29 28 26 BUN 12 8 9 CREATININE 0.5 0.5 0.60 PROT 7.2 6.8 7.2 BILITOT 0.3 0.5 0.4 ALT 21 27 33 AST 13 15 21 Phosphorus: Lab Results Component Value Date PHOS 3.5 08/18/2017 Invalid input(s): LABALBU Recent Labs Lab 08/18/17 0617 MG 2.0 No results for input(s): AMYLASE in the last 168 hours. No results for input(s): PHART, PO2ART, HUR8ULN, S4TAUTVM, BEART in the last 168 hours. No results for input(s): APTT, INR, PTT in the last 168 hours. No results for input(s): TSH, T3FREE, FREET4 in the last 168 hours. No results for input(s): CKTOTAL, TROPONINI, TROPONINT, CKMBINDEX in the last 168 hours. Radiology No results found. PROBLEM LIST Principal Problem: Cellulitis of right lower extremity Active Problems: Type 2 diabetes mellitus (HCC) RA (rheumatoid arthritis) (HCC) Vasculitis (HCC) Ulcerative colitis (HCC) Resolved Problems: * No resolved hospital problems. * ASSESSMENT & PLAN 1. Cellulitis of the right lower extremity suspicious of strep. Continue IV Ancef. Keep leg s elevated. 2. Diabetes. Blood sugar is reasonably well controlled. Continue Levemir and Humalog. 3. Deep venous thrombosis prophylaxis. Lovenox. 4. Morbid obesity. Encourage weight loss. 5. Nocturnal hypoxia most likely related to underlying untreated sleep apnea. Strongly advi sed to follow up with sleep clinic. Code Status: Full Code Omega Bello MD 08/19/2017 12:38 PM Hardik Gregory DO - 08/19/2017 6:43 AM PDT Progress Notes by Hardik Mejia DO at 08/19/1743 Author: Hadrik Mejia DO Service: Infectious Disease Author Type: Physician Filed: 08/19/17 08 Date of Service: 08/19/17642 Status: Signed Screw Machine Set Up Operator Tool: Hardik Mejia DO (Physician) [facility] Service: Infectious Disease Progress Note Hospital Day: LOS: 2 days Post-Op Day: * No surgery found * SUBJECTIVE Patient Summary: 41 y.o. female with significant past medical history of hepatitis C , rheumatoid arthritis, type II diabetes mellitus, endometrial cancer, vasculitis who presen ts with right leg cellulitis that has failed oral antibiotics. The patient reports that she developed a fever and chills about 8 days ago, and later that day noticed that her right leg was looking more red. It subsequently became increasingly painful. She has not noticed any pain and redness or increased swelling compared to her usual baseline in the right leg prior to the onset of fever. The patient was admitted at [facility] and was treated w ith IV antibiotics initially, and then transition to oral cefpodoxime and doxycycline prior to discharge. She continued taking those medications at home but had worsening redness and p ain in the right leg again. When she returned to the hospital, she insisted on transfer here . At the time of transfer she was placed on Zyvox due to her multiple antibiotic allergies. She was switched to Ancef at the time of ID consult due to her tolerance of cephalosporins a nd presentation strongly suggestive of streptococcal cellulitis. CC: Right leg cellulitis Chart reviewed: No new events. Subjective The patient reports that she had sweats overnight. Right leg pain still severe but seems sl ightly better compared to yesterday. She denies any diarrhea, abdominal pain, rashes or itch ing. She has had some mild nausea. ROS No fever, chills sweats. No nausea, vomiting or diarrhea. No rashes or pruritis. No oral pa in. Scheduled Medications ceFAZolin 2 g Intravenous Q8H enoxaparin 40 mg Subcutaneous Q12H influenza vaccine quadrivalent 0.5 mL Intramuscular Once Immunization insulin detemir 15 Units Subcutaneous BID insulin lispro (human) 0-10 Units Subcutaneous TID AC insulin lispro (human) 0-5 Units Subcutaneous Nightly miconazole Topical BID sodium chloride (PF) 10 mL Intravenous Q8H Continuous Infusions dextrose PRN Medications acetaminophen OR acetaminophen, dextrose, dextrose, dextrose, glucagon, glucagon, HYDRO morphone, magnesium sulfate OR magnesium sulfate OR magnesium sulfate, morphine OR morphine OR morphine, ondansetron OR ondansetron, polyethylene glycol, potassium OR potassium OR potassium OR potassium chloride OR potassium chloride OR potassium chloride, zolpidem OBJECTIVE Vital Signs: BP 135/75 (BP Location: Right forearm) | Pulse 94 | Temp 99.4 F (37.4 C) (Oral) | Re sp 20 | Ht 1.676 m (5' 6") | Wt 156.5 kg (345 lb) | SpO2 95% | BMI 55.68 kg/m Temp (24hrs), Av.7 F (37.1 C), Min:98.4 F (36.9 C), Max:99.4 F (37.4 C) Exam: Const: Vitals reviewed. No acute distress Skin: No rashes. Trace left lower extremity edema. Right leg remains edematous. Erythema jarquin s faded to brown. There is a patch on the anterolateral hodges which is indurated, remains ten rosibel, but blanches today. ENT: No thrush. Lungs: CTAB, no rales or wheezes Heart: RRR, no murmur Abd: soft, NT, + bowel sounds DATA CBC: Lab Results Component Value Date WBC 11.99 (H) 08/19/2017 RBC 3.83 08/19/2017 HGB 10.7 (L) 08/19/2017 HCT 32.2 (L) 08/19/2017 MCV 84.2 08/19/2017 MCH 28.0 08/19/2017 MCHC 33.3 08/19/2017 RDW 40.7 08/19/2017 PLT 458 (H) 08/19/2017 MPV 7.7 08/19/2017 DIFFTYPE AUTOMATED 08/19/2017 CMP: Lab Results Component Value Date NA 136 08/19/2017 K 3.9 08/19/2017 CL 98 (L) 08/19/2017 CO2 29 08/19/2017 ANIONGAP 13 08/19/2017 GLUF 165 (H) 08/19/2017 BUN 12 08/19/2017 CREATININE 0.5 08/19/2017 BCR 24 08/19/2017 CA 8.4 (L) 08/19/2017 PROT 7.2 08/19/2017 ALB 2.0 (L) 08/19/2017 GLOB 5.2 (H) 08/19/2017 BILITOT 0.3 08/19/2017 ALP 101 08/19/2017 AST 13 08/19/2017 ALT 21 08/19/2017 EGFR >60 08/19/2017 Microbiology: Blood cultures negative 2 so far. PROBLEM LIST Principal Problem: Cellulitis of right lower extremity Active Problems: Type 2 diabetes mellitus (HCC) RA (rheumatoid arthritis) ([facility]) Vasculitis (HCC) Ulcerative colitis (HCC) ASSESSMENT & PLAN Cellulitis of right lower extremity (08/17/2017) The patient had the onset of fever and chills several hours prior to the onset of visible redness, swelling and pain in the right lower extremity. This strongly suggestive of strept ococcal cellulitis, which also has an association with athlete's foot. MRSA coverage is not necessary. Improving with Ancef, well tolerated so far. We will continue to monitor. Athlete's foot I have ordered miconazole cream to be applied twice daily. RA (rheumatoid arthritis) / Ulcerative colitis (HCC) (08/17/2017) The patient is on chronic immunosuppressive therapy but does not have evidence of opportu nistic infection at this time. Antibiotics as discussed above. The patient can remain on her current antirheumatic regimen. Code Status: Full Code HARDIK MEJIA DO 08/19/2017 onversion Transaction , Provider Unknown - 08/18/2017 7:16 PM PDT Nurse Progress Note by Sylvie Bautista RN at 08/18/171915 Author: Sylvie Bautista RN Service: (none) Author Type: Registered Nurse Filed: 08/18/171917 Date of Service: 08/18/171915 Status: Signed Screw Machine Set Up Operator Tool: Sylvie Bautista RN (Registered Nurse) Curiel catheter removed and pt able to void afterwards. Pt medicated for pain PRN, with good relief noted. RLE elevated throughout shift. Otherwise, no acute changes from previous as sessment. Sylvie Bautista RN onver vikram Transaction, Provider Unknown - 08/18/2017 2:27 PM PDT Case Management by Shaw Almaraz RN at 08/18/17 4531 Author: Shaw Almaraz RN Service: (none) Author Type: Registered Nurse Filed: 08/18/17 6042 Date of Service: 08/18/171426 Status: Signed Screw Machine Set Up Operator Tool: Shaw Almaraz RN (Registered Nurse) 08/18/17 6008 Discharge Planning Evaluation Admitting Diagnosis Cellulitis of right lower extremity Readmission No Living Arrangements Alone Support Systems Family members Type of Residence Private residence House type House 2 story Independent with ADL's Yes Independent with Mobility Yes Home Care Services No Caregiver after Discharge No Mental Status Oriented Prior functional status Independent Power of Engineer Specialist No Anticipated Discharge Plan Post Acute Care Needs Other (comment) (OP wound care) Plan communicated to patient/family Yes Resources Financial concerns Yes (No Insurance) Transportation issues No Patient/Family concerns Yes (No Insurance, No PCP) Prescription Plan No Previous home health equipment No Vascular access device No Ostomy/Drains/Appliances No Anticipated Disposition Facility Type Home Met with Abhishek and discussed discharge planning, Pt is a 41 y.o., female admitted with c ellulitis of right lower extremity. Pt A/Ox4, lives alone in a 2 story house. Pt independent with ADLs and Mobility. Pt has a job as a gas pumper and makes too much for [employer]. Pt agreed to talk with our financial and GPS. I sent email to Tonia. Pt curr ently on IV ABX and Pt chose [place] for IV infusions if she leaves on IV ABX. Referral given to Fe to follow. Anticipated Discharge: Home. Patient's PCP is:Per Pt none Patient's insurance:None Coverage concerns: Yes Medication coverage/concerns: No/Yes Rx Bedside Delivery: Yes for oral ABX Community resources utilized / needed: none/yes [facility]. Assistance in transportation: Mother Identification of any specific education / training: elevating legs Barriers to Discharge / Alternative housing needed: none Anticipated DCP: Home with OP wound care Shaw Almaraz Omega Rosales i, MD - 08/18/2017 11:24 AM PDTFormatting of this note might be different fro m the original. Progress Notes by Omega Bello MD at 08/18/17 1124 Author: Omega Bello MD Service: Hospitalist Author Type: Physician Filed: 08/19/17 1228 Date of Service: 08/18/171123 Status: Signed Screw Machine Set Up Operator Tool: Omega Bello MD (Physician) Related Notes: Original Note by Omega Bello MD (Physician) filed at 08/18/17 1126 [facility] Service: Hospitalist Progress Note Hospital Day: LOS: 1 day SUBJECTIVE Patient Summary: Events Overnight: Reports pain is severe in RLE No other complaints. No CP or SOA Scheduled Medications ceFAZolin 2 g Intravenous Q8H enoxaparin 40 mg Subcutaneous Q12H [START ON 08/19/2017] influenza vaccine quadrivalent 0.5 mL Intramuscular Once Immuniza tion insulin detemir 15 Units Subcutaneous BID insulin lispro (human) 0-10 Units Subcutaneous TID AC insulin lispro (human) 0-5 Units Subcutaneous Nightly miconazole Topical BID sodium chloride (PF) 10 mL Intravenous Q8H Continuous Infusions dextrose OBJECTIVE Vital Signs: BP 155/76 (BP Location: Right forearm) | Pulse 88 | Temp 98.4 F (36.9 C) (Oral) | Re sp 20 | Ht 1.676 m (5' 6") | Wt 156.6 kg (345 lb 3.2 oz) | SpO2 95% | BMI 55.72 kg/m Physical Exam General Appearance: awake, alert, oriented, in no acute distress Eyes: No gross abnormalities. Neck: neck- supple, no mass, non-tender Lungs: Normal expansion. Clear to auscultation. No rales, rhonchi, or wheezing. Abdomen: Soft, non-tender, normal bowel sounds. No bruits, organomegaly or masses. Extremities: RLE swelling and redness. DATA Recent Labs Lab 08/18/1717 08/17/172006 WBC 12.49* 12.29* HGB 10.8* 11.2* HCT 31.5* 34.4 PLT 400 354 NEUTOPHILPCT 68.44 67.51 MONOPCT 13.58 12.31 Recent Labs Lab 08/18/1717 08/17/172006 NA 134* 136 K 3.8 3.8 CL 97* 100 CO2 28 26 BUN 8 9 CREATININE 0.5 0.60 PROT 6.8 7.2 BILITOT 0.5 0.4 ALT 27 33 AST 15 21 Phosphorus: Lab Results Component Value Date PHOS 3.5 08/18/2017 Invalid input(s): LABALBU Recent Labs Lab 08/18/17 0617 MG 2.0 No results for input(s): AMYLASE in the last 168 hours. No results for input(s): PHART, PO2ART, MKP5ACY, Y8FDVYXF, BEART in the last 168 hours. No results for input(s): APTT, INR, PTT in the last 168 hours. No results for input(s): TSH, T3FREE, FREET4 in the last 168 hours. No results for input(s): CKTOTAL, TROPONINI, TROPONINT, CKMBINDEX in the last 168 hours. Radiology No results found. PROBLEM LIST Principal Problem: Cellulitis of right lower extremity Active Problems: Type 2 diabetes mellitus (HCC) RA (rheumatoid arthritis) (HCC) Vasculitis (HCC) Ulcerative colitis (HCC) Resolved Problems: * No resolved hospital problems. * ASSESSMENT & PLAN 1. Cellulitis of the right lower extremity suspicious of cellulitis. Continue IV Ancef. Reid p legs elevated. 2. Diabetes. Blood sugar is reasonably well controlled. Continue Levemir and Humalog. 3. Deep venous thrombosis prophylaxis. Lovenox. 4. Morbid obesity. Encourage weight loss. 5. Nocturnal hypoxia most likely related to underlying untreated sleep apnea. Strongly advi sed to follow up with sleep clinic. Code Status: Full Code Omega Bello MD 08/18/2017 11:24 AM onversion Tr ansaction, Provider Unknown - 08/18/2017 9:31 AM PDTFormatting of this note might be differ ent from the original. Pharmacy Note by Kevin Downing RPH at 08/18/17930 Author: Kevin Downing RPH Service: Pharmacy Author Type: Pharmacist Filed: 08/18/17930 Date of Service: 08/18/17930 Status: Signed Screw Machine Set Up Operator Tool: Kevin Downing RPH (Pharmacist) Clinical Pharmacy Note: Renal Monitoring Estimated Creatinine Clearance: 229.5 mL/min (by C-G formula based on SCr of 0.5 mg/dL). Changing prophylaxis dose enoxaparin from 40mg daily to 40mg Q12h for weight >150kg. onver vikram Transaction, Provider Unknown - 08/18/2017 6:38 AM PDT Nurse Progress Note by Rob Kruse RN at 08/18/17637 Author: Rob Kruse RN Service: (none) Author Type: Registered Nurse Filed: 08/18/17644 Date of Service: 08/18/17637 Status: Signed Screw Machine Set Up Operator Tool: Rob Kruse RN (Registered Nurse) Pt admitted to the floor A/Ox4, max temp 100.3, max BP 174/91. Pt c/o pain in R leg from fo ot to groin. Pt also c/o headache and URQ abd pain. Pt given dilaudid x2. Curiel placed, urin e output 1600 mL this NOC shift. ROB KRUSE RN onver vikram Transaction, Provider Unknown - 08/17/2017 7:51 PM PDT Progress Notes by Maite Mcdermott RPH at 08/17/171950 Author: Maite Mcdermott RPH Service: Pharmacy Author Type: Pharmacist Filed: 08/17/171950 Date of Service: 08/17/171950 Status: Signed Screw Machine Set Up Operator Tool: Maite Mcdermott RPH (Pharmacist) Clinical Pharmacy Note: Renal Monitoring Abhishek Astudillo 41 y.o. female Ht Readings from Last 1 Encounters: 08/17/17 1.676 m (5' 6") Wt Readings from Last 1 Encounters: 08/17/17 157.5 kg (347 lb 3.2 oz) Creatinine clearance cannot be calculated (No order found.) Pharmacy dosing for renal function per Dr. Soliman. Currently, there are no labs. Pharmacy will adjust medications, if necessary, in AM when la bs are reported. Maite Mcdermott ShereeD 08/17/2017 7:51 PM docume nted in this encounter H&P Notes Rah Soliman DO - 08/17/2017 9:14 PM PDTFormatting of this note might be different from th e original. H&P by Rah Soliman DO at 08/17/172113 Author: Rah Soliman DO Service: Hospitalist Author Type: Physician Filed: 08/17/172148 Date of Service: 08/17/172113 Status: Signed Screw Machine Set Up Operator Tool: Rah Soliman DO (Physician) [facility] Service: Hospitalist Admission History & Physical Pt: Abhishek Astudillo AGE/SEX: 41 y.o. female ROOM: [facility]/8106-1 PCP: Ton Pt. None : 1975 TODAY'S DATE: 08/17/2017 Date of Admission: 08/17/2017 Chief Complaint: inflammation/redness of right lower ext. History of Present Illness: The patient is a 41 y.o. female with significant past medical history of morbid obesity, R A, Lupus, UC, cellulitis of the LE presented to the ED at [facility] for cellulitis of the right LE. Patient had been admitted to to [facility] last week for the same issue and was discharged on oral antibiotics. Patient reports t hat upon discharge her pain and erythema had improved, however worsened shortly after so she returned to the ED for further evaluation. Patient requested that she be transferred to [facility] for further evaluation and treatment from infectious disease. Dr. Mejia was contacted and agreed to follow patient so she was transferred to the hospitalist service. Upon evaluation the patient reports that her right leg was diffusely erythematous and painful all the way t o the groin. PMHx: Past Medical History Diagnosis Date Cellulitis Endometrial cancer (HCC) Hepatitis C Lupus Rheumatoid arteritis Type 2 diabetes mellitus (HCC) Ulcerative colitis (HCC) Vasculitis (HCC) PSHx: Past Surgical History Procedure Laterality Date DILATION AND CURETTAGE OF UTERUS HYSTERECTOMY Prior To admission Meds: Prior to Admission medications Not on File Medications scheduled: enoxaparin 40 mg Subcutaneous Q24H insulin detemir 15 Units Subcutaneous BID insulin lispro (human) 0-10 Units Subcutaneous TID AC insulin lispro (human) 0-5 Units Subcutaneous Nightly linezolid 600 mg Intravenous Q12H sodium chloride (PF) 10 mL Intravenous Q8H Allergies: Allergies Allergen Reactions Iodinated Diagnostic Agents Anaphylaxis Daptomycin Other (See Comments) vasculitis Naproxen Other (See Comments) From Anaprox, "really sick" Penicillins Rash Vancomycin Other (See Comments) vasculitis Family Hx: Family History Problem Relation Age of Onset Adopted: Yes Social Hx: Social History Substance Use Topics Smoking status: Current Every Day Smoker Smokeless tobacco: Never Used Alcohol use No Review of Symptoms: Constitutional: Patient reports chills HENT: Negative for hearing loss, ear pain, nosebleeds, congestion, facial swelling, rhinorr hea, neck pain, neck stiffness, dental problem, tinnitus and ear discharge. Eyes: Negative for photophobia, pain, discharge, redness, itching and visual disturbance. Respiratory: Negative for apnea, cough, chest tightness, shortness of breath and wheezing. Cardiovascular: Negative for chest pain, palpitations and leg swelling. Gastrointestinal: Negative for nausea, vomiting, abdominal pain, diarrhea, constipation, bl ood in stool, abdominal distention, anal bleeding and rectal pain. Genitourinary: Negative for dysuria, frequency, hematuria, flank pain, difficulty urinating and dyspareunia. Musculoskeletal: Negative for back pain, joint swelling, arthralgias and gait problem. _ Skin: Right lower extremity swelling and erythema. Neurological: Negative for dizziness, tremors, seizures, syncope, weakness, light-headednes s, numbness and headaches. Hematological: Negative for adenopathy. Does not bruise/bleed easily. Psychiatric/Behavioral: Negative for suicidal ideas, hallucinations, behavioral problems, c onfusion and agitation. Objective: Vital Signs: BP 164/88 (BP Location: Left upper arm) | Pulse 87 | Temp 100.3 F (37.9 C) (Oral) | Resp 22 | Ht 1.676 m (5' 6") | Wt 157.5 kg (347 lb 3.2 oz) | SpO2 99% | BMI 56.04 kg/m Physical Exam: Constitutional: Oriented to person, place, and time. appears well-developed and well-nouris hed. Morbid obesity. HEENT: Head: Normocephalic and atraumatic. Nose: Nose normal. Mouth/Throat: Oropharynx is clear and moist. Eyes: Conjunctivae and EOM are normal. Pupils are equal, round, and reactive to light. Righ t eye exhibits no discharge. Left eye exhibits no discharge. No scleral icterus. Neck: Normal range of motion. Neck supple. No JVD present. No tracheal deviation present. N o thyromegaly present. no cervical adenopathy. Cardiovascular: Normal rate, regular rhythm, normal heart [...] There is no rebound and no guarding. Extremities/Musculoskeletal: Normal range of motion.exhibits no tenderness. exhibits no ed pavel. Neurological: Alert and oriented to person, place, and time. Has normal reflexes. display s normal reflexes. No cranial nerve deficit. Exhibits normal muscle tone. Coordination norm al. Skin: Compression stocking in place from above the knee down to the toes. Patient refuses t o remove. Erythema and some mild induration noted up into the mid thigh with tenderness to p alpation. Psychiatric: Has a normal mood and affect. Behavior is normal. Judgment normal. Data: CBC: Lab Results Component Value Date WBC 12.29 (H) 08/17/2017 RBC 4.05 08/17/2017 HGB 11.2 (L) 08/17/2017 HCT 34.4 08/17/2017 MCV 84.9 08/17/2017 MCH 27.8 08/17/2017 MCHC 32.7 08/17/2017 RDW 42.0 08/17/2017 PLT 354 08/17/2017 MPV 7.7 08/17/2017 DIFFTYPE AUTOMATED 08/17/2017 CMP: Lab Results Component Value Date NA 136 08/17/2017 K 3.8 08/17/2017 CL 100 08/17/2017 CO2 26 08/17/2017 ANIONGAP 14 08/17/2017 GLUF 148 (H) 08/17/2017 BUN 9 08/17/2017 CREATININE 0.60 08/17/2017 BCR 15 08/17/2017 CA 8.1 (L) 08/17/2017 PROT 7.2 08/17/2017 ALB 2.1 (L) 08/17/2017 GLOB 5.1 (H) 08/17/2017 BILITOT 0.4 08/17/2017 ALP 126 (H) 08/17/2017 AST 21 08/17/2017 ALT 33 08/17/2017 EGFR >60 08/17/2017 IMAGING: No results found. Problem List: Principal Problem: Cellulitis of right lower extremity Active Problems: Type 2 diabetes mellitus (HCC) RA (rheumatoid arthritis) (HCC) Vasculitis (HCC) Ulcerative colitis (HCC) Assessment and Plan: Cellulitis of the right lower ext. - large area of erythema and induration, Compression sto cking in place, patient refusing to removed due to pain. Agreed to leave until morning when ID could evaluate it. - Multiple antibiotic allergies, Started linezolid - Dr. Mejia consulted, appreciate recommendations - Blood cultures - Dilaudid for pain Type II diabetes - Hold oral medications - Weight base calculation for levemir - Sliding scale insulin - Fingerstick Qachs - Hypoglycemia protocol. RA/Vasculitis/UC - Appear to be clinically stable at this time - Patient taking Ibuprofen/tylenol multiple times daily - Discussed the risks of kidney disease with taking large doses of NSAIDs daily, especially in the setting of diabetes and lupus. - Patient has poor follow up outpatient - recommend close follow up for kidney monitoring. DVT prophylaxis - Lovenox CODE: full Patient's old records and labs were reviewed in detail. Code Status: Full Code Primary Care Physician: Per Pt. None Rah Soliman DO 08/17/2017 9:42 PM documented in this encou nter Consult Notes Hardik Mejia DO - 08/18/2017 8:19 AM PDT Consult* by Hardik Mejia DO at 08/18/17818 Author: Hardik Mejia DO Service: Infectious Disease Author Type: Physician Filed: 08/18/1725 Date of Service: 08/18/17818 Status: Signed Screw Machine Set Up Operator Tool: Hardik Mejia DO (Physician) [facility] Service: Infectious Disease Initial Consult Note Date of Admission: 08/17/2017 Reason for Consultation: Right leg cellulitis, failed oral antibiotics Requesting Physician: Tawanda Soliman History Obtained From: patient, chart review CHIEF COMPLAINT: Right leg pain HISTORY OF PRESENT ILLNESS The patient is 41 y.o. female with significant past medical history of hepatitis C, rheumat oid arthritis, type II diabetes mellitus, endometrial cancer, vasculitis who presents with r ight leg cellulitis that has failed oral antibiotics. The patient reports that she developed a fever and chills about 8 days ago, and later that day noticed that her right leg was look ing more red. It subsequently became increasingly painful. She has not noticed any pain and redness or increased swelling compared to her usual baseline in the right leg prior to the o nset of fever. The patient was admitted at [facility] and was treated with IV an tibiotics initially, and then transition to oral cefpodoxime and doxycycline prior to discha rge. She continued taking those medications at home but had worsening redness and pain in th e right leg again. When she returned to the hospital, she insisted on transfer here. At the time of transfer she was placed on Zyvox due to her multiple antibiotic allergies. The patie nt does feels better today. The redness seems to be fading to a more brownish color. The pat adolfo reports that she has chronic swelling in the right lower extremity and has been wearing compression stockings on the right leg since 2011 when she had several episodes of cellulit is. The cellulitis never occurred again until this current episode. REVIEW OF SYSTEMS Review of Systems Complete review of the constitutional, ENT, cardiovascular, respiratory, gastrointestinal, genitourinary, integumentary, musculoskeletal, psychiatric, neurologic, heme/lymphatic syste ms is entirely negative except as described above in the history of the present illness. Past Medical History Diagnosis Date Cellulitis Endometrial cancer (HCC) Hepatitis C Lupus Rheumatoid arteritis Type 2 diabetes mellitus (HCC) Ulcerative colitis (HCC) Vasculitis (HCC) Past Surgical History Procedure Laterality Date DILATION AND CURETTAGE OF UTERUS HYSTERECTOMY Allergies Allergen Reactions Iodinated Diagnostic Agents Anaphylaxis Daptomycin Other (See Comments) vasculitis Naproxen Other (See Comments) From Anaprox, "really sick" Penicillins Rash Vancomycin Other (See Comments) vasculitis No prescriptions prior to admission. Scheduled Medications ceFAZolin 2 g Intravenous Q8H enoxaparin 40 mg Subcutaneous Q24H [START ON 08/19/2017] influenza vaccine quadrivalent 0.5 mL Intramuscular Once Immuniza tion insulin detemir 15 Units Subcutaneous BID insulin lispro (human) 0-10 Units Subcutaneous TID AC insulin lispro (human) 0-5 Units Subcutaneous Nightly miconazole Topical BID sodium chloride (PF) 10 mL Intravenous Q8H Continuous Infusions dextrose PRN Medications acetaminophen OR acetaminophen, dextrose, dextrose, dextrose, glucagon, glucagon, HYDRO morphone, magnesium sulfate OR magnesium sulfate OR magnesium sulfate, morphine OR morphine OR morphine, ondansetron OR ondansetron, polyethylene glycol, potassium OR potassium OR potassium OR potassium chloride OR potassium chloride OR potassium chloride, zolpidem Family History Problem Relation Age of Onset Adopted: Yes Social History Social History Marital status: Spouse name: N/A Number of children: N/A Years of education: N/A Occupational History Not on file. Social History Main Topics Smoking status: Current Every Day Smoker Smokeless tobacco: Never Used Alcohol use No Drug use: No Sexual activity: Not on file Other Topics Concern Not on file Social History Narrative No narrative on file PHYSICAL EXAM Vital Signs: BP 155/76 (BP Location: Right forearm) | Pulse 88 | Temp 98.4 F (36.9 C) (Oral) | Re sp 20 | Ht 1.676 m (5' 6") | Wt 156.6 kg (345 lb 3.2 oz) | SpO2 95% | BMI 55.72 kg/m Temp (24hrs), Av.3 F (37.4 C), Min:98.4 F (36.9 C), Max:100.3 F (37.9 C) Physical Exam Constitutional: The patient is in no acute [...] There are no rashes of clinical significance. There are no ulcerations or significant wounds. Left lower extremity has a distal venous stasis dermatitis. Right lower extremity h as 3-4+ pitting edema without any serous weeping or ulcerations. There is an area of circumf erential erythema on the distal half of the lower leg more prominent laterally which is vero rated. This has a reddish brown color and is markedly tender to palpation. The patient has e vidence of athlete's foot bilaterally. Extremities: There is no clubbing, cyanosis, or peripheral edema. Psychiatric: The patient attends the examiner without difficulty and affect is appropriate. DATA CBC: Lab Results Component Value Date WBC 12.49 (H) 08/18/2017 RBC 3.73 08/18/2017 HGB 10.8 (L) 08/18/2017 HCT 31.5 (L) 08/18/2017 MCV 84.5 08/18/2017 MCH 29.0 08/18/2017 MCHC 34.3 08/18/2017 RDW 42.0 08/18/2017 PLT 400 08/18/2017 MPV 7.9 08/18/2017 DIFFTYPE AUTOMATED 08/18/2017 CMP: Lab Results Component Value Date NA 134 (L) 08/18/2017 K 3.8 08/18/2017 CL 97 (L) 08/18/2017 CO2 28 08/18/2017 ANIONGAP 13 08/18/2017 GLUF 158 (H) 08/18/2017 BUN 8 08/18/2017 CREATININE 0.5 08/18/2017 BCR 16 08/18/2017 CA 8.1 (L) 08/18/2017 PROT 6.8 08/18/2017 ALB 2.0 (L) 08/18/2017 GLOB 4.8 08/18/2017 BILITOT 0.5 08/18/2017 ALP 107 08/18/2017 AST 15 08/18/2017 ALT 27 08/18/2017 EGFR >60 08/18/2017 Microbiology: Blood cultures negative 2 so far. Medical record review: I have reviewed the patient's admission history and physical as well as progress notes from the current hospital stay. Emergency department notes and recent dis charge summary from the outside hospital have also been reviewed. Much of this information i s summarized above in history of present illness. PROBLEM LIST Principal Problem: Cellulitis of right lower extremity Active Problems: Type 2 diabetes mellitus (HCC) RA (rheumatoid arthritis) (HCC) Vasculitis (HCC) Ulcerative colitis (HCC) ASSESSMENT & PLAN Patient Active Hospital Problem List: Cellulitis of right lower extremity (08/17/2017) The patient had the onset of fever and chills several hours prior to the onset of visible redness, swelling and pain in the right lower extremity. This strongly suggestive of strept ococcal cellulitis, which also has an association with athlete's foot. MRSA coverage is not necessary. The patient has recently tolerated cephalosporins without difficulty. I will swit ch to Ancef 2 g IV q8 hours and monitor for continued improvement. Athlete's foot I have ordered miconazole cream to be applied twice daily. RA (rheumatoid arthritis) / Ulcerative colitis ([facility]) (08/17/2017) The patient is on chronic immunosuppressive therapy but does not have evidence of opportu nistic infection at this time. Antibiotics as discussed above. The patient can remain on her current antirheumatic regimen. Code Status: Full Code Primary Care Physician: Per Pt. None Thank you for allowing me to participate in the care of this patient. I will continue to follow with you. HARDIK MEJIA DO 08/18/2017 documented in this enc ounter Miscellaneous Notes Plan of Care - Conversion Transaction, Provider Unknown - 08/21/2017 4:50 PM PDT Plan of Care by Makenzie Manriquez RN at 08/21/171649 Author: Makenzie Manriquez RN Service: (none) Author Type: Registered Nurse Filed: 08/21/171649 Date of Service: 08/21/171649 Status: Signed Screw Machine Set Up Operator Tool: Makenzie Manriquez RN (Registered Nurse) Problem: Daily Care Goal: Daily care needs are met Assess and monitor ability to perform self care and identify potential discharge needs. Outcome: Progressing All ADL needs met at this time. lan o f Care - Conversion Transaction, Provider Unknown - 08/21/2017 2:20 AM PDTFormatting of thi s note might be different from the original. Plan of Care by Citlali Edwards RN at 08/21/17219 Author: Citlali Edwards RN Service: (none) Author Type: Registered Nurse Filed: 08/21/17219 Date of Service: 08/21/17219 Status: Signed Screw Machine Set Up Operator Tool: Citlali Edwards RN (Registered Nurse) Problem: Pain Goal: Patient's pain/discomfort is manageable Assess and monitor patient's pain using appropriate pain scale. Collaborate with interdisci plinary team and initiate plan and interventions as ordered. Re-assess patient's pain level approximately 1-2 hours after pain management intervention. Premedicate as needed. Outcome: Progressing Patient medicated for pain per JUL. Pain re-assesed, relief noted. lan o f Care - Conversion Transaction, Provider Unknown - 08/20/2017 10:10 AM PDTFormatting of thi s note might be different from the original. Plan of Care by Leonie Conrad RN at 08/20/171009 Author: Leonie Conrad RN Service: (none) Author Type: Registered Nurse Filed: 08/20/171009 Date of Service: 08/20/171009 Status: Signed Screw Machine Set Up Operator Tool: Leonie Conrad RN (Registered Nurse) Problem: Pain Goal: Patient's pain/discomfort is manageable Assess and monitor patient's pain using appropriate pain scale. Collaborate with interdisci plinary team and initiate plan and interventions as ordered. Re-assess patient's pain level approximately 1-2 hours after pain management intervention. Premedicate as needed. Outcome: Progressing Pt pain is being assessed q 4 hours and prn. Pt is being adminstered pain medication as nee ded following orders. Problem: Safety Goal: Patient will be injury free during hospitalization Assess and monitor vitals signs, neurological status including level of consciousness and o rientation. Assess patient's risk for falls and implement fall prevention plan of care and i nterventions per hospital policy. Ensure arm band on, uncluttered walking paths in room, adequate room lighting, call light a nd overbed table within reach, bed in low position, wheels locked, side rails up per policy, and non-skid footwear provided. Outcome: Progressing Pt has had no injuries. Bed is in a locked and low position. Call light and all belongings are within reach. A safe environment is being maintained. lan o f Care - Conversion Transaction, Provider Unknown - 08/20/2017 2:17 AM PDTFormatting of thi s note might be different from the original. Plan of Care by Rob Kruse RN at 08/20/17216 Author: Rob Kruse RN Service: (none) Author Type: Registered Nurse Filed: 08/20/17217 Date of Service: 08/20/17216 Status: Signed Screw Machine Set Up Operator Tool: Rob Kruse RN (Registered Nurse) Problem: Pain Goal: Patient's pain/discomfort is manageable Assess and monitor patient's pain using appropriate pain scale. Collaborate with interdisci plinary team and initiate plan and interventions as ordered. Re-assess patient's pain level approximately 1-2 hours after pain management intervention. Premedicate as needed. Outcome: Progressing Pt's pain being adequately managed with current PRN regimen. Problem: Safety Goal: Patient will be injury free during hospitalization Assess and monitor vitals signs, neurological status including level of consciousness and o rientation. Assess patient's risk for falls and implement fall prevention plan of care and i nterventions per hospital policy. Ensure arm band on, uncluttered walking paths in room, adequate room lighting, call light a nd overbed table within reach, bed in low position, wheels locked, side rails up per policy, and non-skid footwear provided. Outcome: Progressing Pt using call light approprietly for standby assist when ambulating to BR. lan o f Care - Conversion Transaction, Provider Unknown - 08/19/2017 5:41 PM PDTFormatting of thi s note might be different from the original. Plan of Care by Sylvie Bautista RN at 08/19/17 6992 Author: Sylvie Bautista RN Service: (none) Author Type: Registered Nurse Filed: 08/19/171741 Date of Service: 08/19/171740 Status: Signed Screw Machine Set Up Operator Tool: Sylvie Bautista RN (Registered Nurse) Patient will be injury free during hospitalization Progressing Bed in lowest locked position, call light within reach, pt visualized hourly. Patient's pain/discomfort is manageable Progressing Pt medicated for pain PRN per MAR during shift, with good pain relief noted. lan o f Care - Conversion Transaction, Provider Unknown - 08/19/2017 1:58 AM PDTFormatting of thi s note might be different from the original. Plan of Care by Rob Kruse RN at 08/19/17157 Author: Rob Kruse RN Service: (none) Author Type: Registered Nurse Filed: 08/19/17157 Date of Service: 08/19/17157 Status: Signed Screw Machine Set Up Operator Tool: Rob Kruse RN (Registered Nurse) Problem: Pain Goal: Patient's pain/discomfort is manageable Assess and monitor patient's pain using appropriate pain scale. Collaborate with interdisci plinary team and initiate plan and interventions as ordered. Re-assess patient's pain level approximately 1-2 hours after pain management intervention. Premedicate as needed. Outcome: Progressing Pt's pain adequately managed with current PRN regimen. lan o f Care - Conversion Transaction, Provider Unknown - 08/18/2017 5:25 PM PDTFormatting of thi s note might be different from the original. Plan of Care by Sylvie Bautista RN at 08/18/171724 Author: Sylvie Bautista RN Service: (none) Author Type: Registered Nurse Filed: 08/18/171724 Date of Service: 08/18/171724 Status: Signed Screw Machine Set Up Operator Tool: Sylvie Bautista RN (Registered Nurse) Patient will be injury free during hospitalization Progressing Bed in lowest locked position, bed alarm on, call light within reach, pt visualized hourly. lan o f Care - Conversion Transaction, Provider Unknown - 08/18/2017 6:47 AM PDTFormatting of thi s note might be different from the original. Plan of Care by Rob Kruse RN at 08/18/17646 Author: Rob Kruse RN Service: (none) Author Type: Registered Nurse Filed: 08/18/17646 Date of Service: 08/18/17646 Status: Signed Screw Machine Set Up Operator Tool: Rob Kruse RN (Registered Nurse) Problem: Pain Goal: Patient's pain/discomfort is manageable Assess and monitor patient's pain using appropriate pain scale. Collaborate with interdisci plinary team and initiate plan and interventions as ordered. Re-assess patient's pain level approximately 1-2 hours after pain management intervention. Premedicate as needed. Outcome: Progressing Pt's pain being adequately managed with current PRN regimen. docume nted in this encounter Plan of Treatment +--------+---------+ + + + | Date | Type | Specialty | Care Team | Description | +--------+---------+ + + + | 04/10/ | Office | Rheumatology | Nir Mcmahon | | | 2019 | Visit | | MD Shanna [address] | | | | | [address] | | | | | | [place] [address] | | | | | | [phone] | | | | | | | | +--------+---------+ + + + documented as of this encounter Procedures + +--------+ + + + | Procedure Name | Priori | Date/Time | Associated Diagnosis | Comments | | | ty | | | | + +--------+ + + + | POC GLUCOSE | Routin | 08/21/2017 | | Results for this | | | e | 2:08 PM | | procedure are in the | | | | PDT | | results section. | + +--------+ + + + | POC GLUCOSE | Routin | 08/21/2017 | | Results for this | | | e | 11:41 AM | | procedure are in the | | | | PDT | | results section. | + +--------+ + + + | POC GLUCOSE | Routin | 08/21/2017 | | Results for this | | | e | 5:41 AM | | procedure are in the | | | | PDT | | results section. | + +--------+ + + + | EXTERNAL LAB: CBC | Routin | 08/21/2017 | | Results for this | | | e | 5:19 AM | | procedure are in the | | | | PDT | | results section. | + +--------+ + + + | C-REACTIVE PROTEIN | Routin | 08/21/2017 | | Results for this | | | e | 5:19 AM | | procedure are in the | | | | PDT | | results section. | + +--------+ + + + | VAS LOWER EXTREMITY | Routin | 08/20/2017 | | Results for this | | VENOUS RIGHT | e | 10:08 PM | | procedure are in the | | | | PDT | | results section. | + +--------+ + + + | POC GLUCOSE | Routin | 08/20/2017 | | Results for this | | | e | 9:43 PM | | procedure are in the | | | | PDT | | results section. | + +--------+ + + + | POC GLUCOSE | Routin | 08/20/2017 | | Results for this | | | e | 4:51 PM | | procedure are in the | | | | PDT | | results section. | + +--------+ + + + | POC GLUCOSE | Routin | 08/20/2017 | | Results for this | | | e | 11:44 AM | | procedure are in the | | | | PDT | | results section. | + +--------+ + + + | EXTERNAL LAB: CBC | Routin | 08/20/2017 | | Results for this | | | e | 6:12 AM | | procedure are in the | | | | PDT | | results section. | + +--------+ + + + | COMPREHENSIVE | Routin | 08/20/2017 | | Results for this | | METABOLIC PANEL | e | 6:12 AM | | procedure are in the | | | | PDT | | results section. | + +--------+ + + + | POC GLUCOSE | Routin | 08/20/2017 | | Results for this | | | e | 5:19 AM | | procedure are in the | | | | PDT | | results section. | + +--------+ + + + | POC GLUCOSE | Routin | 08/19/2017 | | Results for this | | | e | 8:57 PM | | procedure are in the | | | | PDT | | results section. | + +--------+ + + + | POC GLUCOSE | Routin | 08/19/2017 | | Results for this | | | e | 4:37 PM | | procedure are in the | | | | PDT | | results section. | + +--------+ + + + | POC GLUCOSE | Routin | 08/19/2017 | | Results for this | | | e | 12:50 PM | | procedure are in the | | | | PDT | | results section. | + +--------+ + + + | MICROALBUMIN/CREATIN | Routin | 08/19/2017 | | Results for this | | INE RATIO, URINE | e | 10:55 AM | | procedure are in the | | TEST | | PDT | | results section. | + +--------+ + + + | EXTERNAL LAB: CBC | Routin | 08/19/2017 | | Results for this | | | e | 5:58 AM | | procedure are in the | | | | PDT | | results section. | + +--------+ + + + | COMPREHENSIVE | Routin | 08/19/2017 | | Results for this | | METABOLIC PANEL | e | 5:58 AM | | procedure are in the | | | | PDT | | results section. | + +--------+ + + + | POC GLUCOSE | Routin | 08/19/2017 | | Results for this | | | e | 5:30 AM | | procedure are in the | | | | PDT | | results section. | + +--------+ + + + | POC GLUCOSE | Routin | 08/18/2017 | | Results for this | | | e | 9:34 PM | | procedure are in the | | | | PDT | | results section. | + +--------+ + + + | POC GLUCOSE | Routin | 08/18/2017 | | Results for this | | | e | 4:24 PM | | procedure are in the | | | | PDT | | results section. | + +--------+ + + + | POC GLUCOSE | Routin | 08/18/2017 | | Results for this | | | e | 11:26 AM | | procedure are in the | | | | PDT | | results section. | + +--------+ + + + | EXTERNAL LAB: CBC | Routin | 08/18/2017 | | Results for this | | | e | 6:17 AM | | procedure are in the | | | | PDT | | results section. | + +--------+ + + + | PHOSPHORUS | Routin | 08/18/2017 | | Results for this | | | e | 6:17 AM | | procedure are in the | | | | PDT | | results section. | + +--------+ + + + | MAGNESIUM | Routin | 08/18/2017 | | Results for this | | | e | 6:17 AM | | procedure are in the | | | | PDT | | results section. | + +--------+ + + + | HEMOGLOBIN A1C | Routin | 08/18/2017 | | Results for this | | | e | 6:17 AM | | procedure are in the | | | | PDT | | results section. | + +--------+ + + + | COMPREHENSIVE | Routin | 08/18/2017 | | Results for this | | METABOLIC PANEL | e | 6:17 AM | | procedure are in the | | | | PDT | | results section. | + +--------+ + + + | POC GLUCOSE | Routin | 08/18/2017 | | Results for this | | | e | 5:12 AM | | procedure are in the | | | | PDT | | results section. | + +--------+ + + + | C-REACTIVE PROTEIN | Routin | 08/17/2017 | | Results for this | | | e | 9:30 PM | | procedure are in the | | | | PDT | | results section. | + +--------+ + + + | POC GLUCOSE | Routin | 08/17/2017 | | Results for this | | | e | 9:16 PM | | procedure are in the | | | | PDT | | results section. | + +--------+ + + + | EXTERNAL LAB: CBC | Routin | 08/17/2017 | | Results for this | | | e | 8:07 PM | | procedure are in the | | | | PDT | | results section. | + +--------+ + + + | COMPREHENSIVE | Routin | 08/17/2017 | | Results for this | | METABOLIC PANEL | e | 8:07 PM | | procedure are in the | | | | PDT | | results section. | + +--------+ + + + | CULTURE, BLOOD, 2ND | Timed | 08/17/2017 | | Results for this | | SPECIMEN (NON-ORD) | | 8:02 PM | | procedure are in the | | | | PDT | | results section. | + +--------+ + + + | CULTURE, BLOOD | Timed | 08/17/2017 | | Results for this | | | | 8:01 PM | | procedure are in the | | | | PDT | | results section. | + +--------+ + + + documented in this encounter Results POC Glucose (08/21/2017 2:08 PM PDT) + + + + + + | Component | Value | Ref Range | Performed | Pathologist | | | | | At | Signature | + + + + + + | Glucose, | 150 (H)Comment: Testing | 65 - 99 mg/dL | EXTERNAL | | | Fingerstick | performed at [facility];[address] | [address] | | | [address];[place], [place] | | | | | | [address] | | | | + + + + + + + + | Specimen | + + | | + + + +---------+ + + | Performing | Address | City/State/Zipcode | Phone Number | | Organization | | | | + +---------+ + + | EXTERNAL LAB | | | | + +---------+ + + POC Glucose (08/21/2017 11:41 AM PDT) + + + + + + | Component | Value | Ref Range | Performed | Pathologist | | | | | At | Signature | + + + + + + | Glucose, | 187 (H)Comment: Testing | 65 - 99 mg/dL | EXTERNAL | | | Fingerstick | performed at [facility];[address] | | LAB | | | | [address];[place], [place] | | | | | | [address] | | | | + + + + + + + + | Specimen | + + | | + + + +---------+ + + | Performing | Address | City/State/Zipcode | Phone Number | | Organization | | | | + +---------+ + + | EXTERNAL LAB | | | | + +---------+ + + POC Glucose (08/21/2017 5:41 AM PDT) + + + + + + | Component | Value | Ref Range | Performed | Pathologist | | | | | At | Signature | + + + + + + | Glucose, | 132 (H)Comment: Testing | 65 - 99 mg/dL | EXTERNAL | | | Fingerstick | performed at [facility];[address] | | LAB | | | | [address];[place] | | | | | | [address] | | | | + + + + + + + + | Specimen | + + | | + + + +---------+ + + | Performing | Address | City/State/Zipcode | Phone Number | | Organization | | | | + +---------+ + + | EXTERNAL LAB | | | | + +---------+ + + External Lab: CBC (08/21/2017 5:19 AM PDT) + + + + + ----+ | Component | Value | Ref Range | Performed | Pathologi st | | | | | At | Signature | + + + + + ----+ | WBC | 12.62 (H) | 3.80 - 11.00 | EXTERNAL | | | | | K/uL | LAB | | + + + + + ----+ | Non- | 3.98 | 3.70 - 5.10 | EXTERNAL | | | Red Blood | | M/uL | LAB | | | Cells | | | | | | Counted | | | | | + + + + + ----+ | Hemoglobin | 11.7 | 11.3 - 15.5 | EXTERNAL | | | | | g/dL | LAB | | + + + + + ----+ | Hematocrit, | 33.7 (L) | 34.0 - 46.0 % | EXTERNAL | | | POC | | | LAB | | + + + + + ----+ | MCV | 84.6 | 80.0 - 100.0 fl | EXTERNAL | | | | | | LAB | | + + + + + ----+ | MCH | 29.4 | 27.0 - 34.0 pg | EXTERNAL | | | | | | LAB | | + + + + + ----+ | MCHC | 34.7 | 32.0 - 35.5 | EXTERNAL | | | | | g/dL | LAB | | + + + + + ----+ | RDW-CV | 40.3 | 37 - 53 fl | EXTERNAL | | | | | | LAB | | + + + + + ----+ | Platelet | 885 ()Comment: RESULT | 150 - 400 K/uL | EXTERNAL | | | Count | READ BACK BY: PATITO Griffin | | LAB | | | Plasma | 8RP AT 0655 08/21/17 [facility] | | | | | | PATITO Griffin 8RP AT 0655 08/21/17 [facility] | | | | | | | | | | + + + + + ----+ | MPV | 8.2 | fl | EXTERNAL | | | | | | LAB | | + + + + + ----+ | Differentia | MANUAL | | EXTERNAL | | | l Type | | | LAB | | + + + + + ----+ | Segmented | 78 | % | EXTERNAL | | | Neutrophils | | | LAB | | | Manual | | | | | + + + + + ----+ | Lymphocytes | 13 | % | EXTERNAL | | | Manual | | | LAB | | + + + + + ----+ | Monocytes | 9 | % | EXTERNAL | | | Manual | | | LAB | | + + + + + ----+ | Absolute | 9.84 (H) | 1.90 - 7.40 | EXTERNAL | | | Neutrophils | | K/uL | LAB | | + + + + + ----+ | Absolute | 1.64 | 1.00 - 3.90 | EXTERNAL | | | Lymphocytes | | K/uL | LAB | | + + + + + ----+ | Absolute | 1.14 (H) | 0.00 - 0.80 | EXTERNAL | | | Monocytes | | K/uL | LAB | | + + + + + ----+ | RBC | RBC AND PLT MORPHOLOGY | | EXTERNAL | | | Morphology | APPEAR NORMALComment: | | LAB | | | | Testing performed at | | | | | | [facility], [address] | | | | | | [place] | | | | | | [address] | | | | + + + + + ----+ + + | Specimen | + + | Blood specimen | | (specimen) | + + + +---------+ + + | Performing | Address | City/State/Zipcode | Phone Number | | Organization | | | | + +---------+ + + | EXTERNAL LAB | | | | + +---------+ + + C-Reactive Protein (08/21/2017 5:19 AM PDT) + + + + + + | Component | Value | Ref Range | Performed | Pathologist | | | | | At | Signature | + + + + + + | CRP | 14.4 (H)Comment: Testing | mg/dL | EXTERNAL | | | | performed at [facility], [address] | LAB | | | | [address], | | | | | | [place] [address] | | | | + + + + + + + + | Specimen | + + | Blood specimen | | (specimen) | + + + +---------+ + + | Performing | Address | City/State/Zipcode | Phone Number | | Organization | | | | + +---------+ + + | EXTERNAL LAB | | | | + +---------+ + + VAS Lower Extremity Venous Right (08/20/2017 10:08 PM PDT) + + | Specimen | + + | | + + + + + | Impressions | Performed At | + + + | 1. No evidence of lower extremity deep vein thrombosis. 2. | | | Lobulated avascular structure in the right groin measuring 5.5 | | | bilateral 1.9 cm. This is nonspecific may represent enlarged or | | | adjacent lymph nodes. Soft tissue mass, lipoma, or even fat-containing | | | hernia could also be considerations. | | + + + + + + | Narrative | Performed At | + + + | HISTORY: Right lower extremity pain and swelling. TECHNIQUE: | | | Sonographic evaluation of the right lower extremity venous system. | | | Grayscale, color-flow, and Doppler spectral analysis. FINDINGS: | | | Normal compressibility, augmentation of flow, and Doppler flow evident | | | within the deep venous system. No evidence of deep venous thrombosis. | | | Lobulated vascular structure in the right groin that is | | | nonspecific. | | + + + + + | Procedure Note | + + | Jeb, Rad Conversion - 01/12/2019 3:55 PM PDT HISTORY:Right lower extremity pain and | | swelling. TECHNIQUE:Sonographic evaluation of the right lower extremity venous system. | | Grayscale, color-flow, and Doppler spectral analysis. FINDINGS:Normal compressibility, | | augmentation of flow, and Doppler flow evident within the deep venous system. No | | evidence of deep venous thrombosis. Lobulated vascular structure in the right groin that | | is nonspecific. IMPRESSION: 1. No evidence of lower extremity deep vein thrombosis.2. | | Lobulated avascular structure in the right groin measuring 5.5 bilateral 1.9 cm. This | | is nonspecific may represent enlarged or adjacent lymph nodes. Soft tissue mass, lipoma, | | or even fat-containing hernia could also be considerations. | | | |IMPRESSION: | |1. No evidence of lower extremity deep vein thrombosis. | |2. Lobulated avascular structure in the right groin measuring 5.5 bilateral 1.9 cm. This i s nonspecific may represent enlarged or adjacent lymph nodes. Soft tissue mass, lipoma, or e ayden fat-containing hernia could also be considerations. | | | | | + + POC Glucose (08/20/2017 9:43 PM PDT) + + + + + + | Component | Value | Ref Range | Performed | Pathologist | | | | | At | Signature | + + + + + + | Glucose, | 248 (H)Comment: Testing | 65 - 99 mg/dL | EXTERNAL | | | Fingerstick | performed at [facility];[address] | | LAB | | | | [address];[place] | | | | | | [address] | | | | + + + + + + + + | Specimen | + + | | + + + +---------+ + + | Performing | Address | City/State/Zipcode | Phone Number | | Organization | | | | + +---------+ + + | EXTERNAL LAB | | | | + +---------+ + + POC Glucose (08/20/2017 4:51 PM PDT) + + + + + + | Component | Value | Ref Range | Performed | Pathologist | | | | | At | Signature | + + + + + + | Glucose, | 192 (H)Comment: Testing | 65 - 99 mg/dL | EXTERNAL | | | Fingerstick | performed at [facility];[address] | | LAB | | | | [address];[place] | | | | | | [address] | | | | + + + + + + + + | Specimen | + + | | + + + +---------+ + + | Performing | Address | City/State/Zipcode | Phone Number | | Organization | | | | + +---------+ + + | EXTERNAL LAB | | | | + +---------+ + + POC Glucose (08/20/2017 11:44 AM PDT) + + + + + + | Component | Value | Ref Range | Performed | Pathologist | | | | | At | Signature | + + + + + + | Glucose, | 208 (H)Comment: Testing | 65 - 99 mg/dL | EXTERNAL | | | Fingerstick | performed at [facility];[address] | | LAB | | | | [address];[place], [place] | | | | | | [address] | | | | + + + + + + + + | Specimen | + + | | + + + +---------+ + + | Performing | Address | City/State/Zipcode | Phone Number | | Organization | | | | + +---------+ + + | EXTERNAL LAB | | | | + +---------+ + + External Lab: CBC (08/20/2017 6:12 AM PDT) + + + + + + | Component | Value | Ref Range | Performed | Pathologist | | | | | At | Signature | + + + + + + | WBC | 12.00 (H) | 3.80 - 11.00 | EXTERNAL | | | | | K/uL | LAB | | + + + + + + | Non- | 3.69 (L) | 3.70 - 5.10 | EXTERNAL | | | Red Blood | | M/uL | LAB | | | Cells | | | | | | Counted | | | | | + + + + + + | Hemoglobin | 10.6 (L) | 11.3 - 15.5 | EXTERNAL | | | | | g/dL | LAB | | + + + + + + | Hematocrit, | 31.0 (L) | 34.0 - 46.0 % | EXTERNAL | | | POC | | | LAB | | + + + + + + | MCV | 84.0 | 80.0 - 100.0 fl | EXTERNAL | | | | | | LAB | | + + + + + + | MCH | 28.6 | 27.0 - 34.0 pg | EXTERNAL | | | | | | LAB | | + + + + + + | MCHC | 34.1 | 32.0 - 35.5 | EXTERNAL | | | | | g/dL | LAB | | + + + + + + | RDW-CV | 40.7 | 37 - 53 fl | EXTERNAL | | | | | | LAB | | + + + + + + | Platelet | 476 (H) | 150 - 400 K/uL | EXTERNAL | | | Count | | | LAB | | | Plasma | | | | | + + + + + + | MPV | 7.6 | fl | EXTERNAL | | | | | | LAB | | + + + + + + | Differentia | AUTOMATED | | EXTERNAL | | | l Type | | | LAB | | + + + + + + | % Segmented | 68.56 | % | EXTERNAL | | | | | | LAB | | | Neutrophils | | | | | + + + + + + | % | 16.61 | % | EXTERNAL | | | Lymphocytes | | | LAB | | + + + + + + | % Monocytes | 9.98 | % | EXTERNAL | | | | | | LAB | | + + + + + + | % | 4.21 | % | EXTERNAL | | | Eosinophils | | | LAB | | + + + + + + | % Basophils | 0.64 | % | EXTERNAL | | | | | | LAB | | + + + + + + | Absolute | 8.23 (H) | 1.90 - 7.40 | EXTERNAL | | | Segmented | | K/uL | LAB | | | Neutrophils | | | | | + + + + + + | Absolute | 1.99 | 1.00 - 3.90 | EXTERNAL | | | Lymphocytes | | K/uL | LAB | | + + + + + + | Absolute | 1.20 (H) | 0.00 - 0.80 | EXTERNAL | | | Monocytes | | K/uL | LAB | | + + + + + + | Absolute | 0.51 (H) | 0.00 - 0.50 | EXTERNAL | | | Eosinophils | | K/uL | LAB | | + + + + + + | Absolute | 0.08Comment: Testing | 0.00 - 0.10 | EXTERNAL | | | Basophils | performed at [facility], [address] | K/uL | LAB | | | | [address], | | | | | | [place] [address] | | | | + + + + + + + + | Specimen | + + | Blood specimen | | (specimen) | + + + +---------+ + + | Performing | Address | City/State/Zipcode | Phone Number | | Organization | | | | + +---------+ + + | EXTERNAL LAB | | | | + +---------+ + + Comprehensive Metabolic Panel (08/20/2017 6:12 AM PDT) + + + + + + | Component | Value | Ref Range | Performed | Pathologist | | | | | At | Signature | + + + + + + | Na | 136 | 135 - 145 | EXTERNAL | | | | | mmol/L | LAB | | + + + + + + | K | 4.0 | 3.5 - 4.9 | EXTERNAL | | | | | mmol/L | LAB | | + + + + + + | Cl | 99 | 99 - 109 mmol/L | EXTERNAL | | | | | | LAB | | + + + + + + | CO2 | 29 | 23 - 32 mmol/L | EXTERNAL | | | | | | LAB | | + + + + + + | Anion Gap | 12 | 5 - 20 mmol/L | EXTERNAL | | | | | | LAB | | + + + + + + | Glucose, | 150 (H) | 65 - 99 mg/dL | EXTERNAL | | | Fasting | | | LAB | | + + + + + + | BUN | 10 | 8 - 25 mg/dL | EXTERNAL | | | | | | LAB | | + + + + + + | Creatinine | 0.6 | 0.50 - 1.00 | EXTERNAL | | | | | mg/dL | LAB | | + + + + + + | BUN/Creatin | 17 | | EXTERNAL | | | ine Ratio | | | LAB | | + + + + + + | Calcium | 8.6 | 8.5 - 10.5 | EXTERNAL | | | | | mg/dL | LAB | | + + + + + + | Protein, | 7.3 | 6.3 - 8.2 g/dL | EXTERNAL | | | Total | | | LAB | | + + + + + + | Albumin | 2.0 (L) | 3.6 - 5.0 g/dL | EXTERNAL | | | | | | LAB | | + + + + + + | Globulin | 5.3 (H) | 1.3 - 4.9 g/dL | EXTERNAL | | | | | | LAB | | + + + + + + | A/G Ratio | 0.4 (L) | 1.0 - 2.4 | EXTERNAL | | | | | | LAB | | + + + + + + | Bilirubin | 0.3 | 0.1 - 1.5 mg/dL | EXTERNAL | | | Total | | | LAB | | + + + + + + | ALP, | 87 | 35 - 115 U/L | EXTERNAL | | | External | | | LAB | | + + + + + + | AST | 13 | 10 - 45 U/L | EXTERNAL | | | | | | LAB | | + + + + + + | ALT | 17 | 10 - 65 U/L | EXTERNAL | | | | | | LAB | | + + + + + + | Estimated | >60Comment: GFR <60: | mL/min/1.73m2 | EXTERNAL | | | GFR | CHRONIC KIDNEY DISEASE, | | LAB | | | | IF FOUND OVER A 3 MONTH | | | | | | PERIOD.GFR <15: KIDNEY | | | | | | FAILURE.FOR | | | | | | AMERICANS, MULTIPLY THE | | | | | | CALCULATED GFR BY | | | | | | 1.210.Testing performed | | | | | | at [facility], [address] | | | | | | [facility], | | | | | | [place] [address] | | | | + + + + + + + + | Specimen | + + | Blood specimen | | (specimen) | + + + +---------+ + + | Performing | Address | City/State/Zipcode | Phone Number | | Organization | | | | + +---------+ + + | EXTERNAL LAB | | | | + +---------+ + + POC Glucose (08/20/2017 5:19 AM PDT) + + + + + + | Component | Value | Ref Range | Performed | Pathologist | | | | | At | Signature | + + + + + + | Glucose, | 156 (H)Comment: Testing | 65 - 99 mg/dL | EXTERNAL | | | Fingerstick | performed at [facility];[address] | | LAB | | | | [address];[place] | | | | | | [address] | | | | + + + + + + + + | Specimen | + + | | + + + +---------+ + + | Performing | Address | City/State/Zipcode | Phone Number | | Organization | | | | + +---------+ + + | EXTERNAL LAB | | | | + +---------+ + + POC Glucose (08/19/2017 8:57 PM PDT) + + + + + + | Component | Value | Ref Range | Performed | Pathologist | | | | | At | Signature | + + + + + + | Glucose, | 189 (H)Comment: Testing | 65 - 99 mg/dL | EXTERNAL | | | Fingerstick | performed at [facility];[address] | | LAB | | | | [address];[place], [place] | | | | | | [address] | | | | + + + + + + + + | Specimen | + + | | + + + +---------+ + + | Performing | Address | City/State/Zipcode | Phone Number | | Organization | | | | + +---------+ + + | EXTERNAL LAB | | | | + +---------+ + + POC Glucose (08/19/2017 4:37 PM PDT) + + + + + + | Component | Value | Ref Range | Performed | Pathologist | | | | | At | Signature | + + + + + + | Glucose, | 213 (H)Comment: Testing | 65 - 99 mg/dL | EXTERNAL | | | Fingerstick | performed at [facility];[address] | | LAB | | | | [address];[place], [place] | | | | | | [address] | | | | + + + + + + + + | Specimen | + + | | + + + +---------+ + + | Performing | Address | City/State/Zipcode | Phone Number | | Organization | | | | + +---------+ + + | EXTERNAL LAB | | | | + +---------+ + + POC Glucose (08/19/2017 12:50 PM PDT) + + + + + + | Component | Value | Ref Range | Performed | Pathologist | | | | | At | Signature | + + + + + + | Glucose, | 184 (H)Comment: Testing | 65 - 99 mg/dL | EXTERNAL | | | Fingerstick | performed at [facility];[address] | | LAB | | | | [address];[place], [place] | | | | | | [address] | | | | + + + + + + + + | Specimen | + + | | + + + +---------+ + + | Performing | Address | City/State/Zipcode | Phone Number | | Organization | | | | + +---------+ + + | EXTERNAL LAB | | | | + +---------+ + + Microalbumin/Creatinine Ratio, Urine (08/19/2017 10:55 AM PDT) + + + + + + | Component | Value | Ref Range | Performed | Pathologist | | | | | At | Signature | + + + + + + | ALBUMIN/CRE | 44 (H)Comment: 30 to 300 | mg/g | EXTERNAL | | | ATININE | Increased risk for | | LAB | | | RATIO.URINE | diabetic nephropathy. | | | | | .ORD.MG/G | Two of three A/C | | | | | (BEAKER) | ratios in this range | | | | | | indicate | | | | | | microalbuminuria and | | | | | | diabetic | | | | | | nephropathy.Testing | | | | | | performed at [facility], [address] | | | | | | [address], | | | | | | [place] [address] | | | | + + + + + + + + | Specimen | + + | Urine specimen | | (specimen) | + + + +---------+ + + | Performing | Address | City/State/Zipcode | Phone Number | | Organization | | | | + +---------+ + + | EXTERNAL LAB | | | | + +---------+ + + External Lab: CBC (08/19/2017 5:58 AM PDT) + + + + + + | Component | Value | Ref Range | Performed | Pathologist | | | | | At | Signature | + + + + + + | WBC | 11.99 (H) | 3.80 - 11.00 | EXTERNAL | | | | | K/uL | LAB | | + + + + + + | Non- | 3.83 | 3.70 - 5.10 | EXTERNAL | | | Red Blood | | M/uL | LAB | | | Cells | | | | | | Counted | | | | | + + + + + + | Hemoglobin | 10.7 (L) | 11.3 - 15.5 | EXTERNAL | | | | | g/dL | LAB | | + + + + + + | Hematocrit, | 32.2 (L) | 34.0 - 46.0 % | EXTERNAL | | | POC | | | LAB | | + + + + + + | MCV | 84.2 | 80.0 - 100.0 fl | EXTERNAL | | | | | | LAB | | + + + + + + | MCH | 28.0 | 27.0 - 34.0 pg | EXTERNAL | | | | | | LAB | | + + + + + + | MCHC | 33.3 | 32.0 - 35.5 | EXTERNAL | | | | | g/dL | LAB | | + + + + + + | RDW-CV | 40.7 | 37 - 53 fl | EXTERNAL | | | | | | LAB | | + + + + + + | Platelet | 458 (H) | 150 - 400 K/uL | EXTERNAL | | | Count | | | LAB | | | Plasma | | | | | + + + + + + | MPV | 7.7 | fl | EXTERNAL | | | | | | LAB | | + + + + + + | Differentia | AUTOMATED | | EXTERNAL | | | l Type | | | LAB | | + + + + + + | % Segmented | 70.31 | % | EXTERNAL | | | | | | LAB | | | Neutrophils | | | | | + + + + + + | % | 14.37 | % | EXTERNAL | | | Lymphocytes | | | LAB | | + + + + + + | % Monocytes | 11.43 | % | EXTERNAL | | | | | | LAB | | + + + + + + | % | 3.44 | % | EXTERNAL | | | Eosinophils | | | LAB | | + + + + + + | % Basophils | 0.45 | % | EXTERNAL | | | | | | LAB | | + + + + + + | Absolute | 8.43 (H) | 1.90 - 7.40 | EXTERNAL | | | Segmented | | K/uL | LAB | | | Neutrophils | | | | | + + + + + + | Absolute | 1.72 | 1.00 - 3.90 | EXTERNAL | | | Lymphocytes | | K/uL | LAB | | + + + + + + | Absolute | 1.37 (H) | 0.00 - 0.80 | EXTERNAL | | | Monocytes | | K/uL | LAB | | + + + + + + | Absolute | 0.41 | 0.00 - 0.50 | EXTERNAL | | | Eosinophils | | K/uL | LAB | | + + + + + + | Absolute | 0.05Comment: Testing | 0.00 - 0.10 | EXTERNAL | | | Basophils | performed at [facility], [address] | K/uL | LAB | | | | [address], | | | | | | [place] [address] | | | | + + + + + + + + | Specimen | + + | Blood specimen | | (specimen) | + + + +---------+ + + | Performing | Address | City/State/Zipcode | Phone Number | | Organization | | | | + +---------+ + + | EXTERNAL LAB | | | | + +---------+ + + Comprehensive Metabolic Panel (08/19/2017 5:58 AM PDT) + + + + + + | Component | Value | Ref Range | Performed | Pathologist | | | | | At | Signature | + + + + + + | Na | 136 | 135 - 145 | EXTERNAL | | | | | mmol/L | LAB | | + + + + + + | K | 3.9 | 3.5 - 4.9 | EXTERNAL | | | | | mmol/L | LAB | | + + + + + + | Cl | 98 (L) | 99 - 109 mmol/L | EXTERNAL | | | | | | LAB | | + + + + + + | CO2 | 29 | 23 - 32 mmol/L | EXTERNAL | | | | | | LAB | | + + + + + + | Anion Gap | 13 | 5 - 20 mmol/L | EXTERNAL | | | | | | LAB | | + + + + + + | Glucose, | 165 (H) | 65 - 99 mg/dL | EXTERNAL | | | Fasting | | | LAB | | + + + + + + | BUN | 12 | 8 - 25 mg/dL | EXTERNAL | | | | | | LAB | | + + + + + + | Creatinine | 0.5 | 0.50 - 1.00 | EXTERNAL | | | | | mg/dL | LAB | | + + + + + + | BUN/Creatin | 24 | | EXTERNAL | | | ine Ratio | | | LAB | | + + + + + + | Calcium | 8.4 (L) | 8.5 - 10.5 | EXTERNAL | | | | | mg/dL | LAB | | + + + + + + | Protein, | 7.2 | 6.3 - 8.2 g/dL | EXTERNAL | | | Total | | | LAB | | + + + + + + | Albumin | 2.0 (L) | 3.6 - 5.0 g/dL | EXTERNAL | | | | | | LAB | | + + + + + + | Globulin | 5.2 (H) | 1.3 - 4.9 g/dL | EXTERNAL | | | | | | LAB | | + + + + + + | A/G Ratio | 0.4 (L) | 1.0 - 2.4 | EXTERNAL | | | | | | LAB | | + + + + + + | Bilirubin | 0.3 | 0.1 - 1.5 mg/dL | EXTERNAL | | | Total | | | LAB | | + + + + + + | ALP, | 101 | 35 - 115 U/L | EXTERNAL | | | External | | | LAB | | + + + + + + | AST | 13 | 10 - 45 U/L | EXTERNAL | | | | | | LAB | | + + + + + + | ALT | 21 | 10 - 65 U/L | EXTERNAL | | | | | | LAB | | + + + + + + | Estimated | >60Comment: GFR <60: | mL/min/1.73m2 | EXTERNAL | | | GFR | CHRONIC KIDNEY DISEASE, | | LAB | | | | IF FOUND OVER A 3 MONTH | | | | | | PERIOD.GFR <15: KIDNEY | | | | | | FAILURE.FOR | | | | | | AMERICANS, MULTIPLY THE | | | | | | CALCULATED GFR BY | | | | | | 1.210.Testing performed | | | | | | at [facility], [address] | | | | | | [facility], | | | | | | [place] [address] | | | | + + + + + + + + | Specimen | + + | Blood specimen | | (specimen) | + + + +---------+ + + | Performing | Address | City/State/Zipcode | Phone Number | | Organization | | | | + +---------+ + + | EXTERNAL LAB | | | | + +---------+ + + POC Glucose (08/19/2017 5:30 AM PDT) + + + + + + | Component | Value | Ref Range | Performed | Pathologist | | | | | At | Signature | + + + + + + | Glucose, | 195 (H)Comment: Testing | 65 - 99 mg/dL | EXTERNAL | | | Fingerstick | performed at [facility];[address] | | LAB | | | | [address];[place] | | | | | | [address] | | | | + + + + + + + + | Specimen | + + | | + + + +---------+ + + | Performing | Address | City/State/Zipcode | Phone Number | | Organization | | | | + +---------+ + + | EXTERNAL LAB | | | | + +---------+ + + POC Glucose (08/18/2017 9:34 PM PDT) + + + + + + | Component | Value | Ref Range | Performed | Pathologist | | | | | At | Signature | + + + + + + | Glucose, | 176 (H)Comment: Testing | 65 - 99 mg/dL | EXTERNAL | | | Fingerstick | performed at [facility];[address] | | LAB | | | | [address];[place] | | | | | | [address] | | | | + + + + + + + + | Specimen | + + | | + + + +---------+ + + | Performing | Address | City/State/Zipcode | Phone Number | | Organization | | | | + +---------+ + + | EXTERNAL LAB | | | | + +---------+ + + POC Glucose (08/18/2017 4:24 PM PDT) + + + + + + | Component | Value | Ref Range | Performed | Pathologist | | | | | At | Signature | + + + + + + | Glucose, | 194 (H)Comment: Testing | 65 - 99 mg/dL | EXTERNAL | | | Fingerstick | performed at [facility];[address] | | LAB | | | | [address];[place], [place] | | | | | | [address] | | | | + + + + + + + + | Specimen | + + | | + + + +---------+ + + | Performing | Address | City/State/Zipcode | Phone Number | | Organization | | | | + +---------+ + + | EXTERNAL LAB | | | | + +---------+ + + POC Glucose (08/18/2017 11:26 AM PDT) + + + + + + | Component | Value | Ref Range | Performed | Pathologist | | | | | At | Signature | + + + + + + | Glucose, | 173 (H)Comment: Testing | 65 - 99 mg/dL | EXTERNAL | | | Fingerstick | performed at [facility];[address] | | LAB | | | | [address];[place] | | | | | | [address] | | | | + + + + + + + + | Specimen | + + | | + + + +---------+ + + | Performing | Address | City/State/Zipcode | Phone Number | | Organization | | | | + +---------+ + + | EXTERNAL LAB | | | | + +---------+ + + External Lab: CBC (08/18/2017 6:17 AM PDT) + + + + + + | Component | Value | Ref Range | Performed | Pathologist | | | | | At | Signature | + + + + + + | WBC | 12.49 (H) | 3.80 - 11.00 | EXTERNAL | | | | | K/uL | LAB | | + + + + + + | Non- | 3.73 | 3.70 - 5.10 | EXTERNAL | | | Red Blood | | M/uL | LAB | | | Cells | | | | | | Counted | | | | | + + + + + + | Hemoglobin | 10.8 (L) | 11.3 - 15.5 | EXTERNAL | | | | | g/dL | LAB | | + + + + + + | Hematocrit, | 31.5 (L) | 34.0 - 46.0 % | EXTERNAL | | | POC | | | LAB | | + + + + + + | MCV | 84.5 | 80.0 - 100.0 fl | EXTERNAL | | | | | | LAB | | + + + + + + | MCH | 29.0 | 27.0 - 34.0 pg | EXTERNAL | | | | | | LAB | | + + + + + + | MCHC | 34.3 | 32.0 - 35.5 | EXTERNAL | | | | | g/dL | LAB | | + + + + + + | RDW-CV | 42.0 | 37 - 53 fl | EXTERNAL | | | | | | LAB | | + + + + + + | Platelet | 400 | 150 - 400 K/uL | EXTERNAL | | | Count | | | LAB | | | Plasma | | | | | + + + + + + | MPV | 7.9 | fl | EXTERNAL | | | | | | LAB | | + + + + + + | Differentia | AUTOMATED | | EXTERNAL | | | l Type | | | LAB | | + + + + + + | % Segmented | 68.44 | % | EXTERNAL | | | | | | LAB | | | Neutrophils | | | | | + + + + + + | % | 15.62 | % | EXTERNAL | | | Lymphocytes | | | LAB | | + + + + + + | % Monocytes | 13.58 | % | EXTERNAL | | | | | | LAB | | + + + + + + | % | 1.92 | % | EXTERNAL | | | Eosinophils | | | LAB | | + + + + + + | % Basophils | 0.44 | % | EXTERNAL | | | | | | LAB | | + + + + + + | Absolute | 8.55 (H) | 1.90 - 7.40 | EXTERNAL | | | Segmented | | K/uL | LAB | | | Neutrophils | | | | | + + + + + + | Absolute | 1.95 | 1.00 - 3.90 | EXTERNAL | | | Lymphocytes | | K/uL | LAB | | + + + + + + | Absolute | 1.70 (H) | 0.00 - 0.80 | EXTERNAL | | | Monocytes | | K/uL | LAB | | + + + + + + | Absolute | 0.24 | 0.00 - 0.50 | EXTERNAL | | | Eosinophils | | K/uL | LAB | | + + + + + + | Absolute | 0.05Comment: Testing | 0.00 - 0.10 | EXTERNAL | | | Basophils | performed at [facility], [address] | K/[address] | LAB | | | | [address], | | | | | | [place] [address] | | | | + + + + + + + + | Specimen | + + | Blood specimen | | (specimen) | + + + +---------+ + + | Performing | Address | City/State/Zipcode | Phone Number | | Organization | | | | + +---------+ + + | EXTERNAL LAB | | | | + +---------+ + + Phosphorus (08/18/2017 6:17 AM PDT) + + + + + + | Component | Value | Ref Range | Performed | Pathologist | | | | | At | Signature | + + + + + + | PHOSPHORUS | 3.5Comment: Testing | 2.3 - 4.8 mg/dL | EXTERNAL | | | | performed at [facility], [address] | | LAB | | | | [address], | | | | | | [place] [address] | | | | + + + + + + + + | Specimen | + + | Blood specimen | | (specimen) | + + + +---------+ + + | Performing | Address | City/State/Zipcode | Phone Number | | Organization | | | | + +---------+ + + | EXTERNAL LAB | | | | + +---------+ + + Magnesium (08/18/2017 6:17 AM PDT) + + + + + + | Component | Value | Ref Range | Performed | Pathologist | | | | | At | Signature | + + + + + + | Magnesium | 2.0Comment: Testing | 1.7 - 2.4 mg/dL | EXTERNAL | | | | performed at [facility], [address] | | LAB | | | | [address], | | | | | | [place] [address] | | | | + + + + + + + + | Specimen | + + | Blood specimen | | (specimen) | + + + +---------+ + + | Performing | Address | City/State/Zipcode | Phone Number | | Organization | | | | + +---------+ + + | EXTERNAL LAB | | | | + +---------+ + + Hemoglobin A1C (08/18/2017 6:17 AM PDT) + + + + + + | Component | Value | Ref Range | Performed | Pathologist | | | | | At | Signature | + + + + + + | Hemoglobin | 9.6 (H)Comment: The | 4.0 - 6.0 % | EXTERNAL | | | A1c | [facility] | | LAB | | | | Association considers a | | | | | | hemoglobin A1c result of | | | | | | <7.0% to be the goal of | | | | | | diabetic therapy. | | | | | | When results are | | | | | | consistently >8.0%, the | | | | | | ADA suggests | | | | | | reevaluation of the | | | | | | treatment regimen. The | | | | | | testing method used is | | | | | | certified traceable to | | | | | | the Diabetes Control and | | | | | | Complications Trial | | | | | | reference method. | | | | + + + + + + | Glycohemogl | 229Comment: The ADA | mg/dL | EXTERNAL | | | obin | considers an eAG result | | LAB | | | (GHb),Total | of LT 154 mg/dL to be | | | | | | the goal of diabetic | | | | | | therapy. Estimated | | | | | | Average Glucose | | | | | | calculated from | | | | | | hemoglobin A1c by use of | | | | | | the ADA recommended | | | | | | formula.Testing | | | | | | performed at [facility], [address] | | | | | | [address], | | | | | | [place] [address] | | | | + + + + + + + + | Specimen | + + | Blood specimen | | (specimen) | + + + +---------+ + + | Performing | Address | City/State/Zipcode | Phone Number | | Organization | | | | + +---------+ + + | EXTERNAL LAB | | | | + +---------+ + + Comprehensive Metabolic Panel (08/18/2017 6:17 AM PDT) + + + + + + | Component | Value | Ref Range | Performed | Pathologist | | | | | At | Signature | + + + + + + | Na | 134 (L) | 135 - 145 | EXTERNAL | | | | | mmol/L | LAB | | + + + + + + | K | 3.8 | 3.5 - 4.9 | EXTERNAL | | | | | mmol/L | LAB | | + + + + + + | Cl | 97 (L) | 99 - 109 mmol/L | EXTERNAL | | | | | | LAB | | + + + + + + | CO2 | 28 | 23 - 32 mmol/L | EXTERNAL | | | | | | LAB | | + + + + + + | Anion Gap | 13 | 5 - 20 mmol/L | EXTERNAL | | | | | | LAB | | + + + + + + | Glucose, | 158 (H) | 65 - 99 mg/dL | EXTERNAL | | | Fasting | | | LAB | | + + + + + + | BUN | 8 | 8 - 25 mg/dL | EXTERNAL | | | | | | LAB | | + + + + + + | Creatinine | 0.5 | 0.50 - 1.00 | EXTERNAL | | | | | mg/dL | LAB | | + + + + + + | BUN/Creatin | 16 | | EXTERNAL | | | ine Ratio | | | LAB | | + + + + + + | Calcium | 8.1 (L) | 8.5 - 10.5 | EXTERNAL | | | | | mg/dL | LAB | | + + + + + + | Protein, | 6.8 | 6.3 - 8.2 g/dL | EXTERNAL | | | Total | | | LAB | | + + + + + + | Albumin | 2.0 (L) | 3.6 - 5.0 g/dL | EXTERNAL | | | | | | LAB | | + + + + + + | Globulin | 4.8 | 1.3 - 4.9 g/dL | EXTERNAL | | | | | | LAB | | + + + + + + | A/G Ratio | 0.4 (L) | 1.0 - 2.4 | EXTERNAL | | | | | | LAB | | + + + + + + | Bilirubin | 0.5 | 0.1 - 1.5 mg/dL | EXTERNAL | | | Total | | | LAB | | + + + + + + | ALP, | 107 | 35 - 115 U/L | EXTERNAL | | | External | | | LAB | | + + + + + + | AST | 15 | 10 - 45 U/L | EXTERNAL | | | | | | LAB | | + + + + + + | ALT | 27 | 10 - 65 U/L | EXTERNAL | | | | | | LAB | | + + + + + + | Estimated | >60Comment: GFR <60: | mL/min/1.73m2 | EXTERNAL | | | GFR | CHRONIC KIDNEY DISEASE, | | LAB | | | | IF FOUND OVER A 3 MONTH | | | | | | PERIOD.GFR <15: KIDNEY | | | | | | FAILURE.FOR | | | | | | AMERICANS, MULTIPLY THE | | | | | | CALCULATED GFR BY | | | | | | 1.210.Testing performed | | | | | | at [facility], [address] | | | | | [address], | | | | | | [place] [address] | | | | + + + + + + + + | Specimen | + + | Blood specimen | | (specimen) | + + + +---------+ + + | Performing | Address | City/State/Zipcode | Phone Number | | Organization | | | | + +---------+ + + | EXTERNAL LAB | | | | + +---------+ + + POC Glucose (08/18/2017 5:12 AM PDT) + + + + + + | Component | Value | Ref Range | Performed | Pathologist | | | | | At | Signature | + + + + + + | Glucose, | 177 (H)Comment: Testing | 65 - 99 mg/dL | EXTERNAL | | | Fingerstick | performed at [facility];[address] | | LAB | | | | [address];[place] | | | | | | [address] | | | | + + + + + + + + | Specimen | + + | | + + + +---------+ + + | Performing | Address | City/State/Zipcode | Phone Number | | Organization | | | | + +---------+ + + | EXTERNAL LAB | | | | + +---------+ + + C-Reactive Protein (08/17/2017 9:30 PM PDT) + + + + + + | Component | Value | Ref Range | Performed | Pathologist | | | | | At | Signature | + + + + + + | CRP | 21.5 (H)Comment: Testing | mg/dL | EXTERNAL | | | | performed at [facility], [address] | | LAB | | | | [address], | | | | | | [place] [address] | | | | + + + + + + + + | Specimen | + + | Blood specimen | | (specimen) | + + + +---------+ + + | Performing | Address | City/State/Zipcode | Phone Number | | Organization | | | | + +---------+ + + | EXTERNAL LAB | | | | + +---------+ + + POC Glucose (08/17/2017 9:16 PM PDT) + + + + + + | Component | Value | Ref Range | Performed | Pathologist | | | | | At | Signature | + + + + + + | Glucose, | 156 (H)Comment: Testing | 65 - 99 mg/dL | EXTERNAL | | | Fingerstick | performed at [facility];[address] | | LAB | | | | [address];[place], [place] | | | | | | [address] | | | | + + + + + + + + | Specimen | + + | | + + + +---------+ + + | Performing | Address | City/State/Zipcode | Phone Number | | Organization | | | | + +---------+ + + | EXTERNAL LAB | | | | + +---------+ + + External Lab: CBC (08/17/2017 8:07 PM PDT) + + + + + + | Component | Value | Ref Range | Performed | Pathologist | | | | | At | Signature | + + + + + + | WBC | 12.29 (H) | 3.80 - 11.00 | EXTERNAL | | | | | K/uL | LAB | | + + + + + + | Non- | 4.05 | 3.70 - 5.10 | EXTERNAL | | | Red Blood | | M/uL | LAB | | | Cells | | | | | | Counted | | | | | + + + + + + | Hemoglobin | 11.2 (L) | 11.3 - 15.5 | EXTERNAL | | | | | g/dL | LAB | | + + + + + + | Hematocrit, | 34.4 | 34.0 - 46.0 % | EXTERNAL | | | POC | | | LAB | | + + + + + + | MCV | 84.9 | 80.0 - 100.0 fl | EXTERNAL | | | | | | LAB | | + + + + + + | MCH | 27.8 | 27.0 - 34.0 pg | EXTERNAL | | | | | | LAB | | + + + + + + | MCHC | 32.7 | 32.0 - 35.5 | EXTERNAL | | | | | g/dL | LAB | | + + + + + + | RDW-CV | 42.0 | 37 - 53 fl | EXTERNAL | | | | | | LAB | | + + + + + + | Platelet | 354 | 150 - 400 K/uL | EXTERNAL | | | Count | | | LAB | | | Plasma | | | | | + + + + + + | MPV | 7.7 | fl | EXTERNAL | | | | | | LAB | | + + + + + + | Differentia | AUTOMATED | | EXTERNAL | | | l Type | | | LAB | | + + + + + + | % Segmented | 67.51 | % | EXTERNAL | | | | | | LAB | | | Neutrophils | | | | | + + + + + + | % | 16.96 | % | EXTERNAL | | | Lymphocytes | | | LAB | | + + + + + + | % Monocytes | 12.31 | % | EXTERNAL | | | | | | LAB | | + + + + + + | % | 2.19 | % | EXTERNAL | | | Eosinophils | | | LAB | | + + + + + + | % Basophils | 1.03 | % | EXTERNAL | | | | | | LAB | | + + + + + + | Absolute | 8.30 (H) | 1.90 - 7.40 | EXTERNAL | | | Segmented | | K/uL | LAB | | | Neutrophils | | | | | + + + + + + | Absolute | 2.08 | 1.00 - 3.90 | EXTERNAL | | | Lymphocytes | | K/uL | LAB | | + + + + + + | Absolute | 1.51 (H) | 0.00 - 0.80 | EXTERNAL | | | Monocytes | | K/uL | LAB | | + + + + + + | Absolute | 0.27 | 0.00 - 0.50 | EXTERNAL | | | Eosinophils | | K/uL | LAB | | + + + + + + | Absolute | 0.13 (H)Comment: Testing | 0.00 - 0.10 | EXTERNAL | | | Basophils | performed at [facility];[address] | [address]L | LAB | | | | [address];[place], [place] | | | | | | [address] | | | | + + + + + + + + | Specimen | + + | Blood specimen | | (specimen) | + + + +---------+ + + | Performing | Address | City/State/Zipcode | Phone Number | | Organization | | | | + +---------+ + + | EXTERNAL LAB | | | | + +---------+ + + Comprehensive Metabolic Panel (08/17/2017 8:07 PM PDT) + + + + + + | Component | Value | Ref Range | Performed | Pathologist | | | | | At | Signature | + + + + + + | Na | 136 | 135 - 145 | EXTERNAL | | | | | mmol/L | LAB | | + + + + + + | K | 3.8Comment: SLT | 3.5 - 4.9 | EXTERNAL | | | | HEMOLYSIS | mmol/L | LAB | | + + + + + + | Cl | 100 | 99 - 109 mmol/L | EXTERNAL | | | | | | LAB | | + + + + + + | CO2 | 26 | 23 - 32 mmol/L | EXTERNAL | | | | | | LAB | | + + + + + + | Anion Gap | 14 | 5 - 20 mmol/L | EXTERNAL | | | | | | LAB | | + + + + + + | Glucose, | 148 (H) | 65 - 99 mg/dL | EXTERNAL | | | Fasting | | | LAB | | + + + + + + | BUN | 9 | 8 - 25 mg/dL | EXTERNAL | | | | | | LAB | | + + + + + + | Creatinine | 0.60 | 0.50 - 1.00 | EXTERNAL | | | | | mg/dL | LAB | | + + + + + + | BUN/Creatin | 15 | | EXTERNAL | | | ine Ratio | | | LAB | | + + + + + + | Calcium | 8.1 (L) | 8.5 - 10.5 | EXTERNAL | | | | | mg/dL | LAB | | + + + + + + | Protein, | 7.2 | 6.3 - 8.2 g/dL | EXTERNAL | | | Total | | | LAB | | + + + + + + | Albumin | 2.1 (L) | 3.6 - 5.0 g/dL | EXTERNAL | | | | | | LAB | | + + + + + + | Globulin | 5.1 (H) | 1.3 - 4.9 g/dL | EXTERNAL | | | | | | LAB | | + + + + + + | A/G Ratio | 0.4 (L) | 1.0 - 2.4 | EXTERNAL | | | | | | LAB | | + + + + + + | Bilirubin | 0.4 | 0.1 - 1.5 mg/dL | EXTERNAL | | | Total | | | LAB | | + + + + + + | ALP, | 126 (H) | 35 - 115 U/L | EXTERNAL | | | External | | | LAB | | + + + + + + | AST | 21Comment: SLT HEMOLYSIS | 10 - 45 U/L | EXTERNAL | | | | | | LAB | | + + + + + + | ALT | 33 | 10 - 65 U/L | EXTERNAL | | | | | | LAB | | + + + + + + | Estimated | >60Comment: GFR <60: | mL/min/1.73m2 | EXTERNAL | | | GFR | CHRONIC KIDNEY DISEASE, | | LAB | | | | IF FOUND OVER A 3 MONTH | | | | | | PERIOD.GFR <15: KIDNEY | | | | | | FAILURE.FOR | | | | | | AMERICANS, MULTIPLY THE | | | | | | CALCULATED GFR BY | | | | | | 1.210.Testing performed | | | | | | at [facility];[address] [place] [address] | | | | | | [facility];[place] [address] | | | | + + + + + + + + | Specimen | + + | Blood specimen | | (specimen) | + + + +---------+ + + | Performing | Address | City/State/Zipcode | Phone Number | | Organization | | | | + +---------+ + + | EXTERNAL LAB | | | | + +---------+ + + Culture, Blood, 2nd Specimen (08/17/2017 8:02 PM PDT) + + | Specimen | + + | Blood specimen | | (specimen) | + + + + + | Narrative | Performed At | + + + | Specimen Description BLOOD SPECIAL | EXTERNAL LAB | | REQUESTS LEFT FOREARM CULTURE | | | NO GROWTH 6 DAYS | | + + + + +---------+ + + | Performing | Address | City/State/Zipcode | Phone Number | | Organization | | | | + +---------+ + + | EXTERNAL LAB | | | | + +---------+ + + Culture, Blood (08/17/2017 8:01 PM PDT) + + | Specimen | + + | Blood specimen | | (specimen) | + + + + + | Narrative | Performed At | + + + | Specimen Description BLOOD SPECIAL | EXTERNAL LAB | | REQUESTS RIGHT FOREARM CULTURE | | | NO GROWTH 6 DAYS | | + + + + +---------+ + + | Performing | Address | City/State/Zipcode | Phone Number | | Organization | | | | + +---------+ + + | EXTERNAL LAB | | | | + +---------+ + + documented in this encounter Visit Diagnoses Not on filedocumented in this encounter
--- OUTSIDE RECORDS SUMMARY | ~2020-03-20 | XMS | Encounter Summary ---
Demographics + + + | Address | [address] | | | [place] [address] | + + + | Home Phone | | + + + | Preferred Language | Unknown | + + + | Marital Status | Legally | + + + | Synagogue Affiliation | 1077 | + + + | Race | White | + + + | Ethnic Group | Not or | + + + Author + + + | Author | [facility] | | | and [place] | + + + | Organization | [facility] | | | [...] Team Providers + +------+ + | Care Tamper Operator Name | Role | Phone | + +------+ + | No, Physician | PCP | Unavailable | + +------+ + Reason for Referral Evaluate & Treat (Routine) +--------+ + + + + + | Status | Reason | Specialty | Diagnoses / | Referred By | Referred To | | | | | Procedures | Contact | Contact | +--------+ + + + + + | Closed | Specialty | Rheumatology | Diagnoses | Khoi Valentin | | | Services | | Rheumatoid | DO Chance | Rheumatology | | | Required | | arthritis | [address] | [address] | | | | | involving | [address] | [address] | | | | | right | [place] | [place] | | | | | shoulder | [phone] | [address] | | | | | with | Phone: | Phone: | | | | | positive | [phone] | [phone] | | | | | rheumatoid | Fax: | Fax: | | | | | factor (HCC) | [phone] | [phone] | +--------+ + + + + + Reason for Visit + + + | Reason | Comments | + + + | Hospital Follow-up | RLE Cellulitis | + + + Encounter Details +--------+---------+ + + + | Date | Type | Department | Care Team | Description | +--------+---------+ + + + | 01/15/ | Office | [facility] | Chance Valentin DO | Cellulitis of right | | 2020 | Visit | INFECTIOUS DISEASE | [address] | lower extremity | | | | [address] | [place] [address] | (Primary Dx); | | | | [place], [place] | [phone] | Rheumatoid arthritis | | | | [phone] | | involving right | | | | [phone] | | shoulder with | | | | | | positive rheumatoid | | | | | | factor (HCC) | +--------+---------+ + + + Social History + +-------+ [...] + + + | Blood Pressure | 144/95 | 01/16/2020 2:26 PM | | | | | PDT | | + + + + + | Pulse | 108 | 01/16/2020 2:26 PM | | | | | PDT | | + + + + + | Temperature | 36.3 C (97.4 F) | 01/16/2020 2:26 PM | | | | | PDT | | + + + + + | Respiratory Rate | 16 | 01/16/2020 2:26 PM | | | | | PDT | | + + + + + | Oxygen Saturation | 96% | 01/16/2020 2:26 PM | | | | | PDT | | + + + + + | Inhaled Oxygen | - | - | | | Concentration | | | | + + + + + | Weight | 137.6 kg (303 lb 6.4 | 01/16/2020 2:26 PM | | | | oz) | PDT | | + + + + + | Height | - | - | | + + + + + | Body Mass Index | 47.52 | 12/24/2019 5:01 PM | | | | | PDT | | + + + + + documented in this encounter Patient Instructions Patient Instructions Chance Valentin DO - 01/16/2020 3:00 PM PDTCall if you have any fevers, or if you have any recurrent redness, pain or swelling in the right leg. You need to see primary care or rheumatology regarding your rheumatoid arthritis.Electronic ally signed by Chance Valentin DO at 01/16/2020 2:51 PM PDT documented in this encounter Progress Notes Chance Valentin DO - 01/16/2020 3:00 PM PDT Subjective Patient ID: Abhishek Astudillo is a 44 y.o. female. Chief complaint: Follow-up right leg cellulitis Inpatient summary: 44 y.o. female with significant past medical history of type 2 diabetes mellitus, lupus, rh eumatoid arthritis, ulcerative colitis, hepatitis C, endometrial cancer who presented on 11/30 with severe pain in the right leg associated with fever and hypotension. Exam was co nsistent with cellulitis, and the patient was given Rocephin in the emergency department. T he patient was ordered for cefepime, Zyvox and clindamycin at the time of admission for ya stout of right leg cellulitis and severe sepsis, although the patient did not require admis vikram to the ICU. I have been asked to consult regarding further antibiotic recommendations. Presenting symptoms were typical of group A strep cellulitis, and she had a prior history of group A strep exposure in the workplace, therefore antibiotics were simplified to Ancef a nd clindamycin, and she was discharged with a prescription for oral therapy to complete a to mehul of 14 days of treatment around 07 January. Interim history: The patient presents for follow-up today and reports that the right leg still has sensitivi ty in the skin, especially if she spends a lot of time on her feet. She is using compressio n hose on the right leg. She also notes that she is having pain in both of her hips, her jarquin nds and this has made it difficult for her to function. She notes that the pain in her hips is such that she has difficulty driving her car because it has a manual transmission. The patient reports that she has not seen anyone for her rheumatoid arthritis or for primary car e because she does not have insurance. She states that she usually manages her rheumatoid a rthritis with Tylenol and ibuprofen, and she has been taking them nearly daily recently. Wh ile taking her antibiotics she was having daily migraine headaches, and those have become le ss frequent but she still gets them at times and has to take Tylenol or ibuprofen. The following elements of the patient's history were reviewed and updated as appropriate. T hey are available elsewhere in the patient record. allergies, current medications, past med ical history, past social history and problem list Review of Systems Constitutional: Negative for chills and fever. Respiratory: Negative for cough and shortness of breath. Gastrointestinal: Negative for diarrhea and vomiting. Skin: Negative for rash. Objective There were no vitals taken for this visit. Physical Exam Vitals signs reviewed. Constitutional: Appearance: She is well-developed. Skin: General: Skin is warm and dry. Neurological: Mental Status: She is alert and oriented to person, place, and time. Assessment /Plan 1. Cellulitis of right lower extremity This appears to be completely resolved. There are no signs of ongoing infection in the rig ht leg, with mild redness that blanches and resolves with elevation. There is no palpable t марина lymphadenopathy in the groin. No further antibiotics should be needed for this proble m. 2. Rheumatoid arthritis involving multiple joints with positive rheumatoid factor (HCC) The patient describes pain all over her body, but also describes specifically pain in the s houlders, hips and hands. I suspect that she is having a flare of her rheumatoid arthritis which may have been triggered by her recent infection. I have made a referral to [facility] for treatment considerations. - Ambulatory referral to Rheumatology documented in this encoun ter Plan of Treatment +--------+---------+ + + + | Date | Type | Specialty | Care Team | Description | +--------+---------+ + + + | 04/10/ | Office | Rheumatology | Nir Mcmahon | | | 2019 | Visit | | MD Shanna [address] | | | | | | [address] | | | | | | [place] [address] | | | | | | [phone] | | | | | | | | +--------+---------+ + + + + + +--------+ + + | Name | Type | Priori | Associated Diagnoses | Order Schedule | | | | ty | | | + + +--------+ + + | Ambulatory referral | Outpatient | Routin | Rheumatoid | Ordered: 01/16/2020 | | to Rheumatology | Referral | e | arthritis involving | | | | | | right shoulder with | | | | | | positive rheumatoid | | | | | | factor (HCC) | | + + +--------+ + + documented as of this encounter Visit Diagnoses + + | Diagnosis | + + | Cellulitis of right lower extremity - Primary Cellulitis and abscess of leg, except | | foot | + + | Rheumatoid arthritis involving right shoulder with positive rheumatoid factor (HCC) | + + documented in this encounter"
--- OUTSIDE RECORDS SUMMARY | ~2020-03-20 | XMS | Clinical Summary ---
Demographics + + + | Address | [address] | | | [place] [address] | + + + | Home Phone | | + + + | Preferred Language | Unknown | + + + | Marital Status | Legally | + + + | Denominational Affiliation | 1077 | + + + | Race | White | + + + | Ethnic Group | Not or | + + + Author + + + | Author | [facility] | | | and [place] | + + + | Organization | [facility] | | | [...] Team Providers + +------+ + | Care Plate Grinder Name | Role | Phone | + +------+ + | No, Physician | PCP | Unavailable | + +------+ + Allergies + + + + + + | Active Allergy | Reactions | Severity | Noted | Comments | | | | | Date | | + + + + + + | Daptomycin | Other (See Comments) | Medium | 08/18/19 | vasculitis | | | | | 18 | | + + + + + + | Iodinated Diagnostic | Anaphylaxis | High | 08/11/19 | | | Agents | | | 18 | | + + + + + + | Povidone Iodine | Itching | | 12/28/19 | "Pt states feeling | | | | | 20 | light head and | | | | | | itching" | + + + + + + | Latex | Itching | | 12/24/19 | | | | | | 20 | | + + + + + + | Naproxen | Other (See Comments) | Medium | 08/11/19 | From Anaprox, | | | | | 18 | "really sick" | + + + + + + | Penicillins | Rash | Medium | 08/18/19 | Rash, Tolerates | | | | | 18 | cephalosporins | + + + + + + | Vancomycin | Other (See Comments) | Medium | 08/11/19 | vasculitis | | | | | 18 | | + + + + + + Medications + + + +---------+------+------+-------+ | Medication | Sig | Dispensed | Refills | Star | End | Statu | | | | | | t | Date | s | | | | | | Date | | | + + + +---------+------+------+-------+ | metFORMIN | Take 1 tablet by | 60 | 5 | 07/31 | | Activ | | (GLUCOPHAGE) 1000 MG | mouth 2 (two) times | tablet | | 3/20 | | e | | tablet | daily with meals. | | | 18 | | | + + + +---------+------+------+-------+ +---+ + | | Additional | | | InformationPatient | | | not taking. Reason: | | | Not Available, | | | Reported on | | | 12/24/2019 1:28 PM | +---+ + + + +--------+---+------+---+-------+ | | Take 1-2 tablets by | 30 | 0 | 07/3 | | Activ | | HYDROcodone-acetamin | mouth every 6 hours | tablet | | 0/20 | | e | | ophen (NORCO) 5-325 | as needed for Pain. | | | 20 | | | | mg per tablet | | | | | | | + + +--------+---+------+---+-------+ | glimepiride | Take 1 tablet by | 30 | 0 | 07/3 | | Activ | | (AMARYL) 2 MG tablet | mouth Daily. | tablet | | 0/20 | | e | | | | | | 20 | | | + + +--------+---+------+---+-------+ Active Problems + + + | Problem | Noted Date | + + + | Severe sepsis | 12/24/2019 | + + + | Morbidly obese | 12/24/2019 | + + + | Epigastric pain | 12/24/2019 | + + + | Nausea & vomiting | 12/24/2019 | + + + | Cellulitis of right lower extremity | 08/17/2017 | + + + | Type 2 diabetes mellitus | 08/17/2017 | + + + | RA (rheumatoid arthritis) | 08/17/2017 | + + + | Vasculitis | 08/17/2017 | + + + | Ulcerative colitis | 08/17/2017 | + + + Encounters +--------+ + + + + | Date | Type | Specialty | Care Team | Description | +--------+ + + + + | 01/26/ | Documentati | Infectious Diseases | Chance Valentin DO | Disability Form | | 2019 | on | | | ([employer] | | | | | | Form) | +--------+ + + + + | 01/25/ | Telephone | Infectious Diseases | Patel Becerril, | Care Coordination | | 2019 | | | Massage Coordinator | ([employer] form) | +--------+ + + + + | 01/15/ | Office | Infectious Diseases | Chance Valentin DO | Cellulitis of right | | 2019 | Visit | | | lower extremity | | | | | | (Primary Dx); | | | | | | Rheumatoid arthritis | | | | | | involving right | | | | | | shoulder with | | | | | | positive rheumatoid | | | | | | factor ([facility]) | +--------+ + + + + | 12/23/ | Hospital | Internal Medicine | Ramone Partida, | Cellulitis of right | | 2019 - | Encounter | | Bryant Thornton, | lower extremity | | | | | Lisa Ferrer, | (Primary Dx); Septic | | 12/28/ | | | MD Fernandez, | shock (HCC); Fever, | | 2019 | | | Chelle Jeronimo MD | unspecified fever | | | | | | cause; | | | | | | Non-intractable | | | | | | vomiting with | | | | | | nausea, unspecified | | | | | | vomiting type | +--------+ + + + + from Last 3 Months Social History + +-------+ +--------+------+ | Tobacco [...] on file | | + + + Last Filed Vital Signs + + + [...] | | + + + + + Plan of Treatment +--------+---------+ + + + | Date | Type | Specialty | Care Team | Description | +--------+---------+ + + + | 04/10/ | Office | Rheumatology | Nir Mcmahon | | | 2019 | Visit | | MD Shanna [address] | | | | | [address] | | | | | | [place] [address] | | | | | | [phone] | | | | | | | | +--------+---------+ + + + + + + + + | Health Maintenance | Due Date | Last | Comments | | | | Done | | + + + + + | Vaccine: | | | | | Pneumococcal 19- | 2 | | | | (1 of 1 - PPSV23) | | | | + + + + + | Diabetic Eye Exam | | | | | | 4 | | | + + + + + | Diabetic Foot Exam | | | | | | 4 | | | + + + + + | Vaccine: | | | | | Dtap/Tdap/Td (1 - | 5 | | | | Tdap) | | | | + + + + + | Cervical Cancer | | | | | Screening (Pap) | 6 | | | + + + + + | Microalbumin | | 08/20/19 | | | Screening | 0 | 18 | | + + + + + | Statin Therapy | | | | | (optimal intensity) | 0 | | | + + + + + | Vaccine: Influenza | | 08/17/19 | | | (#1) | 0 | 17, | | | | | 05/04/20 | | | | | 14 | | + + + + + | Hemoglobin A1c | | 12/28/19 | | | Screening | 0 | 20, | | | | | 08/19/19 | | | | | 18 | | + + + + + | Med Mgmt: HBA1C | | 12/28/19 | | | | 1 | 20, | | | | | 08/19/19 | | | | | 18 | | + + + + + | Medication | | 12/29/19 | | | Management | 1 | 20 | | + + + + + | Med Mgmt: Cr | | 12/29/19 | | | | 1 | 20, | | | | | 12/28/19 | | | | | 20, | | | | | 12/27/19 | | | | | 20, | | | | | Addition | | | | | al | | | | | history | | | | | exists | | + + + + + | Med Mgmt: eGFR | | 12/29/19 | | | | 1 | 20, | | | | | 12/28/19 | | | | | 20, | | | | | 12/27/19 | | | | | 20, | | | | | Addition | | | | | al | | | | | history | | | | | exists | | + + + + + | Hepatitis C | Completed | 12/26/19 | | | Screening | | 20 | | + + + + + Procedures + +--------+ + + + | [...] | | | FICATI | | | ON?07/ | | | / | | | 0 | | | 10:39? | | | CAMPBE | | | LL, | | | NONI | | | TRACEE?MRN | | | : | | | [id number] | | | [id number] | | | riteri | | | [...] | | | [id number] | | | [id number] | | | ab | | | [...] | +---+--------+ + +--------+ +---+ + | CK TOTAL | Add-On | 12/24/2019 | | Results for this | | | | 11:25 AM | | procedure are in the | | | | PDT | | results section. | + +--------+ +---+ + | PROCALCITONIN, SERUM [...] results section. | + +--------+ +---+ + from Last 3 Months Results POC Glucose (12/29/2019 11:12 AM PDT)Only the most recent of 21 results within the time per iod is included. + + + + + + | Component | Value | Ref Range | Performed | Pathologist | | | | | At | Signature | + + + + + + | Glucose, | 190 (H)Comment: Testing | 65 - 99 mg/dL | [facility] | | | POC | performed at [facility];[address] | | LABORATORY | | | | [address];[place], [place] | | | | | | [address] | | | | + + + + + + + + | Specimen | + + | | + + + + + + + | Performing | Address | City/State/Zipcode | Phone Number | | Organization | | | | + + + + + | [facility] | [address] | [place] [address] | [phone] | + + + + + CBC with Differential (12/29/2019 6:31 AM PDT)Only the most recent of 5 results within the time period is included. + + + + + + | [...] | | | Absolute | performed at [facility];[address] | [address] | LABORATORY | | | | [address];[place] | | | | | | [address] | | | | + + + + + + + + | Specimen | + + | Blood | + + + + + + + | Performing | Address | City/State/Zipcode | Phone Number | | Organization | | | | + + + + + | [facility] | [address] | [place] [address] | [phone] | + + + + + Phosphorus (12/29/2019 6:31 AM PDT)Only the most recent of 4 results within the time bravo perez is included. + + + + + + | Component | Value | Ref Range | Performed | Pathologist | | | | | At | Signature | + + + + + + | Phosphorus | 2.5Comment: Testing | 2.3 - 4.8 mg/dL | [facility] | | | | performed at [facility];[address] | | LABORATORY | | | | [address];[place], [place] | | | | | | [address] | | | | + + + + + + + + | Specimen | + + | Blood | + + + + + + + | Performing | Address | City/State/Zipcode | Phone Number | | Organization | | | | + + + + + | [facility] | [address] | [place] [address] | [phone] | + + + + + Magnesium (12/29/2019 6:31 AM PDT)Only the most recent of 4 results within the time period is included. + + + + + + | Component | Value | Ref Range | Performed | Pathologist | | | | | At | Signature | + + + + + + | Magnesium | 1.8Comment: Testing | 1.7 - 2.4 mg/dL | [facility] | | | | performed at [facility];[employer] | | LABORATORY | | | | [facility];[place], [place] | | | | | | [address] | | | | + + + + + + + + | Specimen | + + | Blood | + + + + + + + | Performing | Address | City/State/Zipcode | Phone Number | | Organization | | | | + + + + + | [facility] | [address] | [place] [address] | [phone] | + + + + + CK Total (12/29/2019 6:31 AM PDT)Only the most recent of 6 results within the time period is included. + + + + + + | Component | Value | Ref Range | Performed | Pathologist | | | | | At | Signature | + + + + + + | CK TOTAL | 32Comment: Testing | 30 - 240 U/L | [facility] | | | | performed at [facility];[address] | | LABORATORY | | | | [address];[place] | | | | | | [address] | | | | + + + + + + + + | Specimen | + + | Blood | + + + + + + + | Performing | Address | City/State/Zipcode | Phone Number | | Organization | | | | + + + + + | [facility] | [address] | [place] [address] | [phone] | + + + + + Basic Metabolic Panel (12/29/2019 6:31 AM PDT)Only the most recent of 4 results within the time period is included. + + + + + + | [...] 8.2 (L) | 8.5 - 10.5 | [facility] [...] | | | | | performed at [facility];[address] | | | | | | [facility];[place], [place] | | | | | | [address] | | | | + + + + + + + + | Specimen | + + | Blood | + + + + + + + | Performing | Address | City/State/Zipcode | Phone Number | | Organization | | | | + + + + + | [facility] | [address] | [place] [address] | [phone] | + + + + + Hemoglobin A1C (12/28/2019 11:43 AM PDT) + + + + + + | Component | Value | Ref Range | Performed | Pathologist | | | | | At | Signature | + + + + + + | Hemoglobin | 10.8 (H)Comment: | 4.8 - 5.6 % | [facility] | | | A1c | [...] [address], | | | | | | [place] [address], [facility] | | | | | | [address] | | | | + + + + + + + + | Specimen | + + | Blood | + + + + + + + | Performing | Address | City/State/Zipcode | Phone Number | | Organization | | | | + + + + + | [facility] | [address] | [place] [address] | [phone] | + + + + + C-Reactive Protein (12/28/2019 5:04 AM PDT)Only the most recent of 3 results within the ti hi period is included. + + + + + + | Component | Value | Ref Range | Performed | Pathologist | | | | | At | Signature | + + + + + + | CRP | 12.8 (H)Comment: Testing | <0.5 mg/dL | [facility] | | | | performed at [facility], [address] | | LABORATORY | | | | [address], | | | | | | [place] [address] | | | | + + + + + + + + | Specimen | + + | Blood | + + + + + + + | Performing | Address | City/State/Zipcode | Phone Number | | Organization | | | | + + + + + | [facility] | [address] | [place] [address] | [phone] | + + + + + Hepatitis [...] 0.5Comment: | 0.0 - 0.9 s/co | [facility] | | | | | ratio | [...] | | | | | | 0.9The [facility] recommends | | | | | | that a positive HCV | | | | | | antibody resultbe | | | | | | followed up with a HCV | | | | | | Nucleic Acid | | | | | | Amplificationtest | | | | | | ([id number]).Testing | | | | | | performed at [facility], | | | | | | [address], [address], | | | | | | [facility] [address] | | | | + + + + + + + + | Specimen | + + | Blood | + + + + + + + | Performing | Address | City/State/Zipcode | Phone Number | | Organization | | | | + + + + + | [facility] | [address] | [place] [address] | [phone] | + + + + + CT Abdomen Pelvis wo Contrast (12/26/2019 6:13 AM PDT)Only the most recent of 2 results wi thin the time period is included. + + | Specimen | + + [...] | | Final Report Signed by: Seng Branch Brian Sign Date/Time: | | | 12/26/2019 [...] Procedure Note | + + | Jeb, [id number] - 12/26/2019 7:00 AM PDT | | [...] | | Final Report Signed by: Seng Branch Brian | | Sign Date/Time: 12/26/2019 6:56 AM | + + + +---------+ + + | Performing | Address | City/State/Zipcode | Phone Number | | Organization | | | | + +---------+ + + | [facility] | | | | + +---------+ + + Antistreptolysin O, Quant (12/26/2019 5:10 AM PDT) + + + + + + | Component | Value | Ref Range | Performed | Pathologist | | | | | At | Signature | + + + + + + | Streptolysi | 702.0 (H)Comment: | 0.0 - 200.0 | [facility] | | | n O Ab | Testing performed at Lab | IU/mL | LABORATORY | | | | [place], [address] | | | | | | [address], [facility] [address] | | | | + + + + + + + + | Specimen | + + | Blood | + + + + + + + | Performing | Address | City/State/Zipcode | Phone Number | | Organization | | | | + + + + + | [facility] | [address] | [place] [address] | [phone] | + + + + + Streptococcal [...] | | | | | performed by [facility], | | | | | | [address] | | | | | | [facility] [address] | | | | + + + + + + + + | Specimen | + + | Blood | + + + + + + + | Performing | Address | City/State/Zipcode | Phone Number | | Organization | | | | + + + + + | [facility] | [address] | [place] [address] | [phone] | + + + + + Lactic Acid (12/25/2019 8:56 PM PDT)Only the most recent of 5 results within the time ashley od is included. + + + + + + | Component | Value | Ref Range | Performed | Pathologist | | | | | At | Signature | + + + + + + | Lactate, | 0.8Comment: Testing | 0.4 - 2.0 | [facility] | | | Serum | performed at [facility];[address] | mmol/L | LABORATORY | | | | [address];[place], [place] | | | | | | [address] | | | | + + + + + + + + | Specimen | + + | Blood | + + + + + + + | Performing | Address | City/State/Zipcode | Phone Number | | Organization | | | | + + + + + | [facility] | [address] | [place] [address] | [phone] | + + + + + ECHO [...] [facility] | | | | performed at [facility];[address] | | LABORATORY | | | | [address];[place] | | | | | | [address] | | | | + + + + + + + + | Specimen | + + | Blood | + + + + + + + | Performing | Address | City/State/Zipcode | Phone Number | | Organization | | | | + + + + + | [facility] | [address] [facility] | [place] [address] | [phone] | + + + + + CBC [...] LABORATORY | | | | performed at [facility], [address] | | | | | | [address] [facility] [address], | | | | | | [place] [address] | | | | + + + + + + + + | Specimen | + + | Blood | + + + + + + + | Performing | Address | City/State/Zipcode | Phone Number | | Organization | | | | + + + + + | [facility] | [address] | [place] [address] | [phone] | + + + + + Comprehensive Metabolic Panel (12/25/2019 5:54 AM PDT)Only the most recent of 2 results wi thin the time period is included. + + + + + + | Component | Value | Ref Range | Performed | Pathologist | | | | | At | Signature | + + + + + + | Na | 134 (L) | 135 - 145 | [facility] | | | | | mmol/L | [...] | | | | | | [facility] traceable | | | | | | equation.Testing | | | | | | performed at [facility], [address] | | | | | | [facility], | | | | | | [place] [address] | | | | + + + + + + + + | Specimen | + + | Blood | + + + + + + + | Performing | Address | City/State/Zipcode | Phone Number | | Organization | | | | + + + + + | [facility] | [address] | [place] [address] | [phone] | + + + + + Culture, MRSA (12/24/2019 8:39 PM PDT) + + + + + + | Component | Value | Ref Range | Performed | Pathologist | | | | | At | Signature | + + + + + + | RESULT | NO METHICILLIN RESISTANT | | [facility] | | | | STAPH AUREUS ISOLATED. | | LABORATORY | | + + + + + + | RESULT | Testing performed at | | [facility] | | | | [facility], [address] | | LABORATORY | | | | [place] | | | | | | [id number]: Testing | | | | | | performed at [facility], [address] | | | | | | [address], | | | | | | [place] [address] | | | | + + + + + + + + | Specimen | + + | Tissue - Both | | anterior nares (body | | structure) | + + + + + + + | Performing | Address | City/State/Zipcode | Phone Number | | Organization | | | | + + + + + | [facility] | [address] | [place] [address] | [phone] | + + + + + Culture, Blood (12/24/2019 2:51 PM PDT)Only the most recent of 2 results within the time efrain herrera is included. + + + + + + | Component | Value | Ref Range | Performed | Pathologist | | | | | At | Signature | + + + + + + | Special | L HAND | | [facility] | | | Requests | | | LABORATORY | | + + + + + + | Special | Testing performed at | | [facility] | | | Requests | [facility] | LABORATORY | | | | [address];[place] [address] | | | | + + + + + + | RESULT | NO GROWTH 6 DAYS | | [facility] | | | | | | LABORATORY | | + + + + + + | RESULT | Testing performed at | | [facility] | | | | [facility], [address] | LABORATORY | | | | [address], [place], [place] | | | | | | [id number]: Testing | | | | | | performed at [facility], [address] | | | | | | [address] [place], [place] | | | | | | [address] | | | | + + + + + + + + | Specimen | + + | Blood - Peripheral | | blood specimen | | (specimen) | + + + + + + + | Performing | Address | City/State/Zipcode | Phone Number | | Organization | | | | + + + + + | [facility] | [address] | [place] [address] | [phone] | + + + + + Urinalysis With Microscopic (12/24/2019 1:27 [...] - 1.030 | [facility] | | | [place], | | | LABORATORY | | | [...] | Mucus, | 1+Comment: Testing | | [facility] | | | Urine | performed at [facility];[address] | | LABORATORY | | | | [address];[place] | | | | | | [address] | | | | + + + [...] | + + + + + | [facility] | [address] | [place] [address] | [phone] | + + + + + XR [...] Procedure Note | + + | Jeb, [id number] - 12/24/2019 1:11 PM PDT | | [...] | | | Final Report Signed by: Sneg Graham Isaac | | Sign Date/Time: 12/24/2019 1:07 PM | + + + +---------+ + + | Performing | Address | City/State/Zipcode | Phone Number | | Organization | | | | + +---------+ + + | [facility] | | | | + +---------+ + + Procalcitonin (12/24/2019 11:25 AM PDT) [...] | | | | | | at [facility];[address] [place] [address] | | | | | | Blvd;[place] [address] | | | | + + + + + + + + | Specimen | + + | Blood | + + + + + + + | Performing | Address | City/State/Zipcode | Phone Number | | Organization | | | | + + + + + | [facility] | [address] | [place] [address] | [phone] | + + + + + Coronavirus (COVID-19) RAVI (12/24/2019 11:24 AM PDT) + + + + + + | Component | Value | Ref Range | Performed | Pathologist | | | | | At | Signature | + + + + + + | SARS-CoV-2, | NEGATIVEComment: This | NEG | [facility] | | | NAAT | [...] | | | | | performed at [facility];[employer] | | | | | | [address];[place], [place] | | | | | | [address] | | | | + + + + + + + + | Specimen | + + | Tissue - Entire | | nasopharynx (body | | structure) | + + + + + + + | Performing | Address | City/State/Zipcode | Phone Number | | Organization | | | | + + + + + | [facility] | [address] | [place] [address] | [phone] | + + + + + from Last 3 Months Insurance + +--------+ +--------+ +---------+--------+ | Payer | Benefi | Subscriber | Effect | Phone | Address | Type | | | t Plan | ID | brice | | | | | | / | | Dates | | | | | | Group | | | | | | + +--------+ +--------+ +---------+--------+ | [employer] | [employer] | [id number] | [phone] | | Indemn | | | WC | | 020-Pr | 5 | | ity | | | | | esent | | | | + +--------+ +--------+ +---------+--------+ + +--------+ +--------+ + + | Guarantor Name | Accoun | Relation to | Date | Phone | Billing Address | | | t Type | Patient | of | | | | | | | | | | + +--------+ +--------+ + + | Abhishek Astudillo | Worker | Self | [birth year] | [address] BLOOD BANK BOOKING CLERK | | | s Comp | | 1975 | [phone] | [place] [address] | | | | | | 8 (Home) | | + +--------+ +--------+ + + | Abhishek Astudillo | Person | Self | [birth year] | [address] BLOOD BANK BOOKING CLERK | | | al/Fam | | 1976 | [phone] | [place] [address] | | | hermelindo | | | 8 (Home) | | + +--------+ +--------+ + + Advance Directives + + + + + | Type | Date Recorded | Patient | Explanation | | | | Extractor Operator Helper | | + + + + + | Power of | | | | | Military Personnel Specialist | | | | + + + + + | Advance | 12/24/2019 1:59 | | | | Directive | PM | | | + + + + + + + + + + | Code Status | Date | Date | Comments | | | Activated | Inactivated | | + + + + + | Full Code | 12/24/2019 | 12/29/2019 | | | | 5:00 PM | 4:18 PM | | + + + + +
--- OUTSIDE RECORDS SUMMARY | ~2020-03-20 | XMS | Encounter Summary ---
Demographics + + + | Address | [address] | | | [place] [address] | + + + | Home Phone | | + + + | Preferred Language | Unknown | + + + | Marital Status | Legally | + + + | Adventism Affiliation | 1077 | + + + | Race | White | + + + | Ethnic Group | Not or | + + + Author + + + | Author | [facility] | | | and [place] | + + + | Organization | [facility] | | | and [...] Team Providers + +------+ + | Care Associate Professor Of Criminal Justice Name | Role | Phone | + +------+ + | No, Physician | PCP | Unavailable | + +------+ + Reason for Visit + +--------+ + | Reason | Onset | Comments | | | Date | | + +--------+ + | Care Coordination | 01/25/ | [employer] form | | | 2020 | | + +--------+ + Encounter Details +--------+ + + + + | Date | Type | Department | Care Team | Description | +--------+ + + + + | 01/25/ | Telephone | [facility] | Patel Becerril, | Care Coordination | | 2020 | | INFECTIOUS DISEASE | Biodiesel Engineering Manager | ([employer] form) | | | | [address] | | | | | | [place], [place] | | | | | | [address] | | | | | | [phone] | | | +--------+ + + + [...] + + documented as of this encounter Miscellaneous Notes Telephone Encounter - Patel Becerril Biodiesel Engineering Manager - 02/21/2020 9:26 AM PDTCopy andra watt to patient this morning. TG, supervisor dimension warehouse. elephone Encounter - Patel Becerril Medical Assistant - 01/31/2020 3:02 PM PDTThis form was completed as patient requested and faxed back on Thursday01/27/2020. Sent to scan. 3: 03 PM PDTTelephone Encounter - Patel Becerril Biodiesel Engineering Manager - 01/26/2020 4:01 PM PD TPt presented to clinic with concerns about her [employer] form. The following was relayed to patient by FOKarmen for me as I was in clinic: She stated that [employer] has reached out to her and mentioned that they have not received comp leted disability form. I let her know that I have faxed this to them and actually have the fax confirmation still. A copy of form and fax confirmation was given to patient upon her request. Patient reached out to [employer] while she was present. The patient then let us know that some information on the form was wrong. She stated that the actual date of her injury was 12/23/2019 at 9:30 PM. She was admitted to the hospital on 12/24/2019 in the AM. She stated that Dr. Valentin also told her that she was released for "light duty, around 2 hour s per day" [employer] community engagement representative let the patient know that this needed to be written on form. Instructed FOA to let patient know that Dr. Valentin is out for the day and I do not feel comfo rtable making this decision/change to form on behalf of the provider therefore she will have to wait until provider returns to clinic for adjustments. She expressed some frustration bu t ultimately agreed. She requested that a copy of form be mailed to her once completed. [email or web address]. docu mented in this encounter Plan of Treatment +--------+---------+ + + + | Date | Type | Specialty | Care Team | Description | +--------+---------+ + + + | 04/10/ | Office | Rheumatology | Nir Mcmahon | | 2019 | Visit | | MD Shanna [address] | | | | | [address] | | | | | | [place] [address] | | | | | | [phone] | | | | | | | | +--------+---------+ + + + documented as of this encounter Visit Diagnoses Not on filedocumented in this encounter
--- OUTSIDE RECORDS SUMMARY | ~2020-03-20 | XMS | Clinical Summary ---
Demographics + + + | Address | [address] | | | [place] [address] | + + + | Home Phone | | + + + | Preferred Language | Unknown | + + + | Marital Status | Single | + + + | Mormonism Affiliation | Unknown | + + + | Race | White | + + + | Ethnic Group | Not or | + + + Author + + + | Author | [facility] | + + + | Organization | [facility] | + + + | Address | Unknown | + + + | Phone | Unavailable | + + + Support + + +---------+ + | Name | Relationship | Address | Phone | + + +---------+ + | Daron Bhatt | ECON | Unknown | | + + +---------+ + Care Team Providers + +------+ + | Care Almond Blancher Operator Name | Role | Phone | + +------+ + PCP | Unavailable | + +------+ + Source Comments KEHINDE is fully live on both [facility] Amb[facility] and [facility] InPatient.[facility] Allergies Not on File Medications Not on file Active Problems Not [...] + + + Last Filed Vital Signs Not on file Plan of Treatment + + +-------+ + | Health Maintenance | Due Date | Last | Comments | | | | Done | | + + +-------+ + | Influenza (Flu) | | | | | vaccination (#1) | 0 | | | + + +-------+ + | Pneumococcal | Aged Out | | No longer eligible based on patient's age | | vaccination | | | to complete this topic | + + +-------+ + Results Not on filefrom Last 3 Months"
--- OUTSIDE RECORDS SUMMARY | ~2020-03-20 | XMS | Encounter Summary ---
Demographics + + + | Address | [address] | | | [place] [address] | + + + | Home Phone | | + + + | Preferred Language | Unknown | + + + | Marital Status | Legally | + + + | Zoroastrianism Affiliation | 1077 | + + + | Race | White | + + + | Ethnic Group | Not or | + + + Author + + + | Author | [facility] | | | and [place] | + + + | Organization | [facility] | | | and [...] Team Providers + +------+ + | Care Manager Performance Improvement Name | Role | Phone | + +------+ + PCP | Unavailable | + +------+ + Encounter Details +--------+ + + + + | Date | Type | Department | Care Team | Description | +--------+ + + + + | 09/04/ | Orders Only | [facility] | Chance Valentin DO | | | 2018 | | [address] | [address] | | | | | [place], [place] | [place] [address] | | | | | [address] | [phone] | | | | | [phone] | | | +--------+ + + + [...] 2019 | Visit | | MD Shanna [address] | | | | | [address] | | | | | | [place] [address] | | | | | | [phone] | | | | | | | | +--------+---------+ + + + documented as of this encounter Procedures + +--------+ + + + | Procedure Name | Priori | Date/Time | Associated Diagnosis | Comments | | | ty | | | | + +--------+ + + + | EXTERNAL LAB: [facility] | Routin | 09/04/2017 | | Results for this | | | e | 1:34 PM | | procedure are in the | | | | PDT | | results section. | + +--------+ + + + documented in this encounter Results External Lab: CBC (09/04/2017 1:34 PM PDT) + + + + + + | Component | Value | Ref Range | Performed | Pathologist | | | | | At | Signature | + + + + + + | WBC | 9.26 | 3.80 - 11.00 | EXTERNAL | | | | | 10*3/uL | LAB | | + + + + + + | Non- | 4.38 | 3.70 - 5.10 | EXTERNAL | | | Red Blood | | 10*6/uL | LAB | | | Cells | | | | | | Counted | | | | | + + + + + + | Hemoglobin | 12.1 | 11.3 - 15.5 | EXTERNAL | | | | | g/dL | LAB | | + + + + + + | Hematocrit, | 37.1 | 34.0 - 46.0 % | EXTERNAL | | | POC | | | LAB | | + + + + + + | MCV | 84.6 | 80.0 - 100.0 fL | EXTERNAL | | | | | | LAB | | + + + + + + | MCH | 27.7 | 27.0 - 34.0 pg | EXTERNAL | | | | | | LAB | | + + + + + + | MCHC | 32.7 | 32.0 - 35.5 | EXTERNAL | | | | | g/dL | LAB | | + + + + + + | RDW-CV | 42.4 | 37 - 53 fL | EXTERNAL | | | | | | LAB | | + + + + + + | Platelet | 420 (H) | 150 - 400 | EXTERNAL | | | Count | | 10*3/uL | LAB | | | Plasma | | | | | + + + + + + | MPV | 7.8 | fL | EXTERNAL | | | | | | LAB | | + + + + + + | Differentia | AUTOMATED | | EXTERNAL | | | l Type | | | LAB | | + + + + + + | % Segmented | 60.02 | % | EXTERNAL | | | | | | LAB | | | Neutrophils | | | | | + + + + + + | % | 25.17 | % | EXTERNAL | | | Lymphocytes | | | LAB | | + + + + + + | % Monocytes | 7.23 | % | EXTERNAL | | | | | | LAB | | + + + + + + | % | 6.14 | % | EXTERNAL | | | Eosinophils | | | LAB | | + + + + + + | % Basophils | 1.44 | % | EXTERNAL | | | | | | LAB | | + + + + + + | Absolute | 5.56 | 1.90 - 7.40 | EXTERNAL | | | Segmented | | 10*3/uL | LAB | | | Neutrophils | | | | | + + + + + + | Absolute | 2.33 | 1.00 - 3.90 | EXTERNAL | | | Lymphocytes | | 10*3/uL | LAB | | + + + + + + | Absolute | 0.67 | 0.00 - 0.80 | EXTERNAL | | | Monocytes | | 10*3/uL | LAB | | + + + + + + | Absolute | 0.57 (H) | 0.00 - 0.50 | EXTERNAL | | | Eosinophils | | 10*3/uL | LAB | | + + + + + + | Absolute | 0.13 (H) | 0.00 - 0.10 | EXTERNAL | | | Basophils | | 10*3/uL | LAB | | + + + [...]
--- OUTSIDE RECORDS SUMMARY | ~2020-03-20 | XMS | Encounter Summary ---
Demographics + + + | Address | [address] | | | [place] [address] | + + + | Home Phone | | + + + | Preferred Language | Unknown | + + + | Marital Status | Legally | + + + | Quaker Affiliation | 1077 | + + + | Race | White | + + + | Ethnic Group | Not or | + + + Author + + + | Author | [facility] | | | and [place] | + + + | Organization | [facility] | | [...] Team Providers + +------+ + | Care Hydraulic Miner Name | Role | Phone | + +------+ + | No, Physician | PCP | Unavailable | + +------+ + Reason for Visit + + + | Reason | Comments | + + + | Disability Form | [employer] Disability Form | + + + Encounter Details +--------+ + + + + | Date | Type | Department | Care Team | Description | +--------+ + + + + | 01/26/ | Documentati | [facility] | Chance Valentin DO | Disability Form | | 2020 | on | INFECTIOUS DISEASE | [address] | ([employer] | | | | [address] | [place] [address] | Form) | | | | [place], [place] | [phone] | | | | | [address] | | | | | | [phone] | | | +--------+ + + + [...] documented as of this encounter Progress Notes Patel Becerril, Quick Print Operator - 01/27/2020 1:53 PM PDTAflac Disability Form Received 01/19/20 Completed by provider and faxed on 01/24/20 Confirmation attached. Documented and sent to scan. JACOBY cma. documented in this encounter Plan of Treatment +--------+---------+ + + + | Date | Type | Specialty | Care Team | Description | +--------+---------+ + + + | 04/10/ | Office | Rheumatology | Nir Mcmahon | | 2019 | Visit | | MD Shanna [address] | | | | | [address] | | | | | | [place] [address] | | | | | | [phone] | | | | | | | | +--------+---------+ + + + documented as of this encounter Visit Diagnoses Not on filedocumented in this encounter"
--- OUTSIDE RECORDS SUMMARY | ~2020-03-20 | XMS | Encounter Summary ---
Demographics + + + | Address | [address] | | | [place] [address] | + + + | Home Phone | | + + + | Preferred Language | Unknown | + + + | Marital Status | Single | + + + | Methodist Affiliation | Unknown | + + + | Race | White | + + + | Ethnic Group | Not or | + + + Author + + + | Author | [facility] | + + + | Organization | [facility] | + + + | Address | Unknown | + + + | Phone | Unavailable | + + + Support + + +---------+ + | Name | Relationship | Address | Phone | + + +---------+ + | Daron Bhatt | ECON | Unknown | | + + +---------+ + Care Team Providers + +------+ + | Care Music Cataloguer Name | Role | Phone | + +------+ + | Kyree Mcintyre MD | PCP | Unavailable | + +------+ + Encounter Details +--------+ + + + + | Date | Type | Department | Care Team | Description | +--------+ + + + + | 07/27/ | Ancillary | Registration [id number] | | | | 2007 | Registratio | [facility] | | | | | [address] | [address] Mailcode: [id number] | | | | | | [place], [place] | | | | | | [address] | | | | | | [phone] | | | +--------+ + + + [...] Not on filedocumented as of this encounter Visit Diagnoses Not on filedocumented in this encounter"
[~2020-03-20 22:16] MED LIST changes: +CALCIUM CARBON600 MG PO; +CEFPODOXIME PR200 MG PO; +DOXYCYCLINE HY100 MG PO; +GLUCOTROL XL5 MG PO; +METFORMIN HCL500 MG PO; +NICORETTE4 M2 BUCCAL; +PROMETHAZINE12.5 M1 PO; +VITAMIN D1000 UNI1 PO
[2020-03-20] MEDS ORDERED: EPIN0.3P IM (23:32)
== END 2020-03-20 23:52 | disposition home or self-care (01) ==
LOC: ED 22:16
DX: T78.1XXA Other adverse food reactions, not elsewhere classified, initial encounter (principal); R11.2 Nausea with vomiting, unspecified; R19.7 Diarrhea, unspecified; F17.200 Nicotine dependence, unspecified, uncomplicated; Z88.0 Allergy status to penicillin; Z88.8 Allergy status to other drugs, medicaments and biological substances; Z88.1 Allergy status to other antibiotic agents; Z79.84 Long term (current) use of oral hypoglycemic drugs; Z79.899 Other long term (current) drug therapy
CPT/HCPCS: 99283

== ENCOUNTER 2020-06-05 22:33 | Inpatient (IN) | payer OTHER ==
[~2020-06-05] VITALS: Ht 170.2 cm; Wt 148.0 kg
[~2020-06-05 22:33] MED LIST changes: +EPIN0.3P IM
--- NOTE | 2020-06-06 00:23 | EKG ---
[facility] [address] [facility] [place], [place] [address] Signed Sinus tachycardia Left axis deviation Abnormal ECG No previous ECGs available Confirmed by IVY BAI MD ([id number]) on 06/06/2020 12:23:21 AM Electronically Signed By: IVY BAI MD 06/06/20 002 PATIENT NAME: NONI RUFFINTRACEE SHAW Electrocardiogram DATE OF : 75 PHYSICIAN: IVY BAI MD REPORT #: [id number] REPORT IS CONFIDENTIAL AND NOT TO BE RELEASED WITHOUT AUTHORIZATION
--- NOTE | 2020-06-06 03:33 | NUR ---
ADMIT PT TO CCU PER STRETCHER FROM ED. PT IS AWAKE, RESTLESS, C/O PAIN LOWER LEGS. PT ABLE TO MOVE SELF FROM STRETCHER TO BED. SPEECH IS SCATTERED AND POOR HISTORIAN. WHEN ASKED WHAT SHE TOOK FOR HER TYPE 2 DIABETES PT STATED SHE ATE FOOD AND THAT SHE HAD LOW BLOOD SUGARS EXCEPT WHEN SHE WAS SICK. STATED SHE HAD ONLY TAKEN HER ORAL MEDICATION ONCE. IS WEARING COMPRESSION STOCKINGS THAT ARE CUTTING IN JUST BELOW THE KNEE.STOCKINGS REMOVED AND R LOWER LEG IS SWOLLEN AND RED WITH FLAKING SKIN. L LOWER LEG HAS SMALL AMT EDEMA AND SMALL AMT DISCOLORATION FRO VENOUS STASIS. WHEN TRIED TO EDUCATE PT ON PROPER FIT OF STOCKINGS SHE REPEATED THEY WERE SUPPOSED TO BE THAT WAY. C/O PAIN AND ITCHING LOWER LEGS, ACACIA THE R LEG. REQUESTING PAIN MED. GIVEND 1MG ATIVAN FOR ANXIETY AND COMFORT. PT DID FALL ASLEEP AND HAD INTERMMITANT DECREASES IN SAT. 02 2 L NC APPLIED.
--- NOTE | 2020-06-06 03:45 | NUR ---
SATS DEC UPPER 80'S WHEN PT FELL ASLEEP. 02 2L NC APPLIED.
--- NOTE | 2020-06-06 04:41 | NUR ---
SLEEPING. SATS 95%. HR REMAINS 115.
--- NOTE | 2020-06-06 06:30 | NUR ---
AWAKENS EASILY BUT FALLS BACK TO SLEEP QUICKLY. ASSISTED TO BSC TO VOID. DID HAVE INC PAIN LEGS/FEET WITH ACTIVIY. STATES TOES FEEL TIGHT. R LOWER LEG LESS RED. VOIDED 850 CONCENTRATED URINE. NOTED A SWOLLEN AREA L JAW LINE SMALL WALNUT SIZE. PT STATE HAS HAD IT A LONG TIME AND IT IS SUPPOSED TO BE BIOPSIED. TAKING WATER WELL.
--- NOTE | 2020-06-06 07:20 | NUR ---
this rn received report from ruchi nieto. pt appears to be resting and respirations noted on monitor at this time.
--- NOTE | 2020-06-06 07:47 | NUR ---
this rn in pts room to do pts blood sugar this am. pt appears to be resting comfortably at this time. as this rn educated pt on what she was about to do pt stated "don't tell me what you are doing" this rn then stated "okay 1..2..3.. poke" pt then gasped and stated to this rn very drowsily "don't tell me what you are doing, it scares me" pts blood sugar this am is 326.
--- NOTE | 2020-06-06 07:50 | NUR ---
Met with pt for CM assessment. Pt states she is living in family/friends [facility]. She does not use any DME. Has recent history of uterine ca and is planning on establishing care with Dr. Molina at [facility] so she can be referred to cancer clinic in [facility]. Discussed I don't think she will be discharged tomorrow. She does agree to appt change, but insist on seeing Dr. Molina. She is awaiting mom to visit. Plans on dc to home when cleared medically. Statesfamily will assist. Also states she has had sepsi and cellulitis several times.
[2020-06-06] MEDS ORDERED: VITAMIN D21250 MCG PO (08:11)
[2020-06-06] MEDS ORDERED: VENTOLIN HFA18 GM INH (08:11)
--- NOTE | 2020-06-06 08:23 | NUR ---
THIS RN IN PTS ROOM DOING VITALS, MEDS AND MORNING ASSESSMENT. PT STATES THAT SHE IS HAVING GENERALIZED PAIN EVERYWHERE, PT HAS PAIN WHEN TOUCHED, ESPECIALLY AROUND HER IV SITES. THIS RN NOTICED THAT PT HAS A SWOLLEN AREA ON HER LEFT JAW LINE, PT STATES THAT THIS HAPPENED AFTER SHE HAD GONE THROUGH CANCER, PT STATES THAT SHE WAS GOINF TO FOLLOW UP WITH HER PCP THIS WEEK ABOUT SO THAT SHE COULD GET A REFERAL TO AN OCOLOGIST
--- NOTE | 2020-06-06 08:25 | NUR ---
THIS RN IN PTS ROOM TO DO MORNING ASSESSMENT, GIVE MEDS AND DO VITALS. PT REPORTING PAIN "EVERYWHERE". PTS ARMS AND LEFT LEG ARE THE MOST PAINFUL BUT PT IS DROWSY- SLURRING WORDS SHE DRIFTS BACK OFF TO SLEEP. THIS RN DISCUSSED WITH PT THAT SHE IS ALREADY GETTING TYLENOL AND THIS RN WILL TALK TO MD ABOUT PTS PAIN. PT STATES THAT DILAUDID WOKS THE BEST FOR HER PAIN. PT STATING THAT SHE WANTS ATIVAN TO TRY AND SLEEP. THIS RN DISCUSSED WITH PT THAT IF PT CAN'T GET TO SLEEP IN THE NEXT 15MINS THAT THIS RN WILL BRING IN ATIVAN FOR PT.
--- NOTE | 2020-06-06 08:39 | NUR ---
THIS RN IN TO CHECK ON PT. PT APPEARS TO BE RESTING AT THIS TIME. RESPIRATIONS NOTED. PT ON 1L NC, O2 SAT 100%. THIS RN NOT TO GIVE ATIVAN DUE TO PT RESTING AND PER DISCUSSION WITH PT.
--- NOTE | 2020-06-06 09:08 | NUR ---
RN IN TO CHECK ON PT. PT STATES THAT SHE IS COLD. ORAL TEMP DONE. THIS RN COVERED PT BACK UP . PT ASKING FOR MORE PAIN MEDS. IN UNIT AT THIS TIME. RN DISCUSSED WITH MD ABOUT PTS PAIN. DUE TO PTS DROWSY STATE PT TO STAY ON TYLENOL FOR PAIN UNTIL PT BECOMES MORE ALERT PER MD.
--- NOTE | 2020-06-06 09:30 | NUR ---
RN IN PTS ROOM ATTEMPTING NEW IV DUE TO PTS RIGHT WRIST IV GOING BAD. THIS RN ATTEMPTED IN PTS RIGHT FOREARM, UNSUCCESSFUL. PT STATED THAT SHE NEEDED TO USE THE RESTROOM. THIS RN ASSISSTED PT TO BEDSIDE COMMODE. WHEN PT SAT UP TO EDGE OF BED PT BECAME TACHYPNIC STATING SHE WAS FEELING DIZZY AND THAT HER "TUMMY HURT" PT STATED THAT SHE FELT LIKE SHE WAS GOING TO BE NAUSEOUS, THIS RN GAVE PT AN EMESIS BAG. PT ABLE TO TRANSFER OVER TO COMMODE STEADY ON HER FEET. THIS RN CALLED TO UPDATE HER ON PTS REQUIRING SOMETHING FOR NAUSEA. MD GAVE THIS RN VERBAL ORDER FOR A ONE TIME 4MG ZOFAN. PT ABLE VOID QUANITY SUFFIENT AND HAD A LARGE BM. PT BACK TO BED. THIS RN ABLE TO GET A NEW 20G IN PTS BACK OF RIGHT FOREARM.
--- NOTE | 2020-06-06 10:24 | NUR ---
THIS RN IN PTS ROOM TO GIVE PT ANOTHER CUP OF WATER. PT RESPORTING PAIN IN BILATERAL LEGS. PT REPORTS THAT THIS PAIN FEELS LIKE IT IS SHOOTING. THIS RN ASKED PT IF SHE GETS THESE AT HOME, PT STATES THAT THEY COME AND GO FROM TIME TO TIME. PT ROLLED INTO A COMFY POSITION AND IS BACK TO SLEEP.
--- NOTE | 2020-06-06 13:21 | NUR ---
this rn in pts room to do pts blood sugar, assessment and give pt meds. pt states that she is cold. this rn to take pts temp= 100.5. this rn to give pt tylenol due to pts pain being increased and fever. this rn stepped out of pts room and called per call parameters and got a new order to get another set of blood cultures. this rn called lab to come draw pt.
--- NOTE | 2020-06-06 14:12 | NUR ---
CHANCE GUERRERO REQUESTED I NOT DISTURB PT AT THIS TIME-PT TRYING TO SLEEP. WILL CONTINUE TO FOLLOW
--- NOTE | 2020-06-06 14:24 | NUR ---
THIS RN IN TO CHECK ON PT. PT RESTING IN BED WITH COVERS OFF AT THIS TIME. PT ASKING IF THE REST OF HER MEAL CAN BE PUT IN THE FRIDGE THIS RN DISCUSSED WITH PT THAT WE GENERALLY DON'T KEEP PTS FOOD. PT BACK TO RESTING THIS RN EXITED PTS ROOM
--- NOTE | 2020-06-06 14:41 | NUR ---
PT DONE EATING LUNCH. PT STATING THAT SHE IS GETTING A HEADACHE, THIS RN DISCUSSED WITH HER THAT SHE HAS TYLENOL ON BOARD. THIS RN TURNED DOWN PTS LIGHTS AND CLOSED THE SHADE. THIS RN ALSO ASSISTED PT TO REPOSITION. PT TOLERATED WELL AND APPEARS/ STATES THAT SHE IS MORE COMFORTABLE
--- NOTE | 2020-06-06 16:02 | NUR ---
THIS RN IN PTS ROOM TO START PTS NEXT DOSE OF CEFEPIME. PT STATES THAT SHE NEEDS TO USE THE RESTROOM. THIS RN ASSISSTED PT TO THE RESTROOM. PT TOLERATED WELL, PT VOCAL WHILE MOVING - PT HAS MANY PAINS TO REPORT STATING "I'M A WUSSY ABOUT PAIN" PT ABLE TO VOID AND HAVE A BOWEL MOVEMENT. PT BACK TO BED AND RIGHT LEG ELEVATED WITH A PILLOW- RIGHT LEG APPEARS RED AND IS HOT TO TOUCH, CMS INTACT OTHERWISE
--- NOTE | 2020-06-06 16:30 | NUR ---
THIS RN EDUCATING PT ON CHECKING HER BLOOD SUGARS AT HOME. PT STATES SHE THINKS THE LAST TIME HER SUGARS WERE CHECKED WAS WHEN SHE WAS SICK LAST. THIS RN DISCUSSED WITH PT THAT WHEN SHE SEES HER PCP NEXT SHE WILL NEED TO START CHECKING HER SUGARS MORE OFTEN BECAUSE THAT COULD BE CONTRIBUTING TO THE NEUROPATHIC PAINS THAT SHE SEEMS TO BE EXPERIENCING TODAY AND THAT HER SUGARS ARE NOT HELPING THE HEALING PROCESS OF THE CELLULITIS
--- NOTE | 2020-06-06 17:40 | NUR ---
THIS RN NOTIFIED OF PTS ORAL TEMP OF 103.1. THIS RN TO GIVE PT 650MG OF TYLENOL A TAD EARLY. NO NEW ORDERS
--- NOTE | 2020-06-06 18:41 | NUR ---
THIS RN IN PTS ROOM DUE TO O2 DESATTING. THIS RN PLACED PT ON 2L NC. PT STATING THAT SHE WOULD LIKE TO TALK TO HER MOM. THIS RN REORIENTED PT TO THAT SHE HAD ALREADY TALKED TO HER THIS EVENING AT DINNER TIME. PT ALSO STATING THAT WANTS TO LEAVE, PT NOT KEEPING HER EYES OPEN AND APPEARS TO BE ALTERED IN HER MENTATION AT THIS TIME. PT ABLE TO SAY WHO SHE IS AND WHERE SHE IS. PTS LIGHTS TURNED DOWN IN HER ROOM TO ALLOW PT TO GET SOME REST
--- NOTE | 2020-06-06 20:00 | NUR ---
PATIENT APPEARS TO BE SLEEPING SOUNDLY. WAKES BREIFLY TO VOICE. DENIED ANY NEEDS. IV ABX STARTED, SITE WNL. CALL LIGHT IN REACH.
--- NOTE | 2020-06-06 21:00 | NUR ---
EVENING MEDS PROVIDED. PATIENT IS ANXIOUS WHEN AWAKE AND REPORTS GENERAL PAIN AND PAIN IN HER LEFT LEG. PATIENT IS ORIENTED BUT DROWSY. IV ABX AND FLUIDS PER ORDER, SITE WNL. LUNGS ARE CLEAR. PATIENT REQUIRING 2L NC WHILE ASLEEP. APPEARS TO HAVE SOME SLEEP APNEA. LEFT LEGS IS SIGNIFICANTLY MORE SWOLLEN THAN RIGHT AND RED. HOT TO TOUCH. SKIN INTACT BUT DRY/SCALING. TENDER TO TOUCH. BOTH LEGS ELEVATED ON PILLOW. PATIENT'S ORAL TEMP SLIGHTLY BETTER. PATIENT FEELS CHILLED. DENIED NEED TO VOID. VS STABLE.
--- NOTE | 2020-06-06 21:30 | NUR ---
DISCUSSED PATIENT'S PAIN AND FEVER WITH . TO WRITE ORDERS FOR MOTRIN.
--- NOTE | 2020-06-06 22:00 | NUR ---
MEDICAL RECORDS MANAGER SL PATIENT AFTER ABX FINISHED. PATIENT REPORTED PAIN WITH FLUSHING WRIST IV SITE. HOUSE SUP DC'S IV. PATIENT WAS UPSET ABOUT HER DINNER TRAY BEING REMOVED BECAUSE SHE HAD NOT EATTEN IT BUT DENIED A SNACK BOX. WHEN THIS RN CHECKED ON PATIENT A FEW MINS LATER PATIENT APPEARED TO BE SLEEPING AGAIN. ALLOWED PATIENT TO REST.
--- NOTE | 2020-06-07 00:39 | NUR ---
PATIENT WOKE EASILY TO VOICE. ASSISTED PATIENT TO BSC. REPORTS FEELING UNSTEADY BUT TRANSFERED WITHOUT ASSISTANCE. PATIENT IS VERY COLD. ORAL TEMP 102.1 F. WARM BLANKET PROVIDED. PRN TYLENOL AND MOTRIN PROVIDED. PATIENT IS ORIENTED BUT ANXIOUS. HR 120 WITH ACTIVITY. ASSISTED PATIENT TO POSITION COMFORTABLY IN BED. LEGS ELEVATED. NO CHANGE NOTED IN APPEARANCE OF LEFT LEG. PROVIDED PATIENT WITH CALL LIGHT AND ENCOURAGED HER TO REST.
--- NOTE | 2020-06-07 02:00 | NUR ---
PATIENT HAD SANDWICH BOX AND FRESH WATER. COOL WASH CLOTH APPLIED TO FOREHEAD. ORAL TEMP 100.7 F. PATIENT RESTING IN BED. DENIED FURTHER NEEDS AT THIS TIME.
--- NOTE | 2020-06-07 03:45 | NUR ---
PATIENT SLEEPING SOUNDLY. WOKE TO VOICE AND TOUCH. ORAL TEMP WNL. HR IMPROVED TO 80'S. PATIENT APPEARS COMFORTABLE, QUICKLY FALLS BACK TO SLEEP. CALL LIGHT IN REACH.
--- NOTE | 2020-06-07 04:39 | NUR ---
IN TO HANG NEW BAG OF IVF. PT WOKE UP COMPLAINING OF 10/10 HEADACHE PAIN. PRN TYLENOL AND MOTRIN NOT YET AVAILABLE, PRN OXYCODONE GIVEN AT THIS TIME.
--- NOTE | 2020-06-07 06:35 | NUR ---
PATIENT'S ORAL TEMP WNL. PATIENT REQUESTING A SHOWER, ASSURED HER THAT DAYSHIFT WOULD BE ABLE TO DO A BEDBATH OR POSSIBLE A SHOWER AT SOME POINT TODAY. PATIENT DOES NOT WANT TO DO A BED BATH AT THIS TIME. VS STABLE. HR 70'S. IV FLUIDS PER ORDER, SITE WNL.
--- NOTE | 2020-06-07 07:30 | NUR ---
PATIENT SHIFT REPORT RECIEVED FROM BILLING COORDINATOR RN. PATIENT RESTING IN BED AT THIS TIME. PATIENT CALLS APPROPRIATELY. WILL CONTINUE TO CLOSELY MONITOR.
--- NOTE | 2020-06-07 07:45 | NUR ---
Update from RN. Pt receiving patient care. Per report, pt had a good night.
--- NOTE | 2020-06-07 09:00 | NUR ---
THIS RN IN TO SEE PATIENT THIS AM. AGRICULTURAL PRODUCE WASHER ASSISTING PATIENT UP TO THE CAMMODE AT THIS TIME. BED LINEN CHANGED. PATIENT HAVING EPISODES OF HOT/COLD/SWEATING AT TIMES. PATIENT TOLERATING WELL. PATIENTS BREATH SOUNDS CLEAR AND DIMINISHED. PATIENT ON 2L OXYGEN WITH SLEEP D/T DECREASED SPO2 WITH SNORING WHILE SLEEPING. PATIENTS BOWEL TONES ACTIVE. BREAKFAST ORDERED. PATIENT COMPLAINGING OF A HEADACHE. PRN TYLENOL ADMINISTERED. PATIENTS LEG IS RED AND WARM TO THE TOUCH. PATIENT MOVES SLOWLY D/T GENERALIZED WEAKNESS AND TENDERNESS. CALL LIGHT IN REACH. PATIENT IN BED RESTING AT THIS TIME. WILL CONTINUE TO CLOSELY MONITOR.
--- NOTE | 2020-06-07 09:38 | NUR ---
PATIENT AM DONE. PATIENT LINENS CHANGED AND VITAL SIGNS DOCUMENTED. CALL LIGHT WITHIN REACH NO FUTHER NEEDS AT THIS TIME.
--- NOTE | 2020-06-07 10:00 | NUR ---
PATIENT SITTING UP EATING BREAKFAST. PATIENT TOLERATING WELL. NO OTHER NEEDS AT THIS TIME. WILL CONTINUE TO CLOSELY MONITOR.
--- NOTE | 2020-06-07 11:15 | NUR ---
PATIENT UP TO THE CAMMODE AND HAD A LARGE BM. NO OTHER NEEDS AT THIS TIME. PATIENT IS STEADY ON HER FEET, BUT DOES FEEL A LITTLE WEAK. WILL CONTINUE TO CLOSELY MONITOR.
--- NOTE | 2020-06-07 11:39 | NUR ---
MD ANN IN TO SEE PATIENT WITH THIS RN AT THE BEDSIDE. PATIENT SITTING AT THE EDGE OF THE BED. ALL QUESTIONS ANSWERED. PATIENT WANTED TO KNOW WHEN SHE WOULD GO HOME, UPDATED THAT IT WOULD BE A DAY BY DAY PROCESS AND WILL TAKE TIME TO GET BETTER. PATIENT AGREEABLE TO PLAN OF CARE. OUTLINED THE REDDNESS ON HER LEG. NO OTHER NEEDS AT THIS TIME. PATIENT LAID BACK DOWN AND RESTING AT THIS TIME.
--- NOTE | 2020-06-07 13:00 | NUR ---
PATIENT UP TO THE SIDE OF THE BED. VISITED WITH PATIENT ABOUT MEDICAL CONDITIONS. PATIENT BECAME TEARFUL. REASSURED PATIENT AND SAT WITH PATIENT AND VISITED. PATIENT BETTER NOW. PATIENT IS JUST FRUSTRATED ABOUT HER MEDICAL CONDITIONS AND CONSTANTLY BEING SICK AND IN THE HOSPITAL. PATIENT DENIED WABTING TO SPEAK WITH THE MATERIAL MOVERS. LUNCH PROVIDED. PATIENT DENIES ANY OTHER NEEDS AT THIS TIME.
--- NOTE | 2020-06-07 14:04 | NUR ---
PATIENT IS ON ZYVOX. BROUGHT HER A HANDOUT EXPLAINING FOR HER TO AVOID TYRAMINE-RICH FOODS WHILE TAKING THIS MEDICATION. SHE LIKES SAUERKRAUT AND CERTAIN CHEESE, SO I EXPLAINED THAT WHILE TAKING THIS MEDICATION SHE SHOULD AVOID THEM - THEY ARE ON THE HANDOUT. SHE DOES NOT DRINK BEER OR WINE. ALSO EXPLAINED FOR HER TO AVOID AGED MEATS. SHE APPRECIATED THE INFO.
--- NOTE | 2020-06-07 14:15 | NUR ---
KRISTA RN HERE IN THE CCU. KRISTA RESUMING CARE OF PATIENT AT THIS TIME AND WILL TRANSFER PATIENT TO THE MEDICAL UNIT. REPORT GIVEN TO KRISTA. ALL QUESTIONS ANSWERED. NO OTHER NEEDS AT THIS TIME.
--- NOTE | 2020-06-07 14:30 | NUR ---
Taking over care of this pt from Leola FLETCHER. Pt being transfered to the medical-surgical floor. Report taken from Leola at this time.
--- NOTE | 2020-06-07 14:45 | NUR ---
Pt transfered to med-surg unit by this RN and BREASTFEEDING PEER COUNSELOR. Pt assessment completed, VSS, pt alert and oriented and still minimally groggy. Pt IV ABX hung and infusing as ordered. Pt given PRN pain meds as ordered for 8/10 intolerable pain, pt denies nausea at this time. Pt denies further needs, and requests that we "let her nap some". Pt in bed, table and call light within reach.
[2020-06-07] MEDS ORDERED: HYDROCODON-ACE1 EA10 PO (15:39)
--- NOTE | 2020-06-07 15:40 | NUR ---
MED REC COMPLETE
--- NOTE | 2020-06-07 16:12 | NUR ---
Tried to return pts mothers phone call. No answer, no voicemail left to protect pt information. Will try again later in this shift.
--- NOTE | 2020-06-07 18:07 | NUR ---
Pt admitted for Sepsis/Cellulitis of R Leg. 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 This visit is due to the Right leg causing fever, confusion, and elevated labs. Pt transfered to [facility] from the CCU around 1430. Pt has been alert and oriented through the shift today, and afebrile (note pt is getting tylenol). Pts legs are both pink and edematous, but right leg is significantly more swollen and darker pink. In report they mentioned that pt is awaiting future doctor appointments to diagnose a potential bone cancer-? It was reported that pt had some anxiety about this earlier this morning. Pt also reporting pain in her neck at times. Pt tolerating a 60gCCarb diet at this time.
--- NOTE | 2020-06-07 19:16 | NUR ---
RECEIVED REPORT FROM CHANCE VELASCO. pt RESTING IN BED ON PHONE. NO REQUESTS AT THIS TIME. REPORTED 8/10 PAIN IN LEG/SHOULDERS. pt RESUMED PHONE CONVERSATION. WHITEBOARD UPDATED. CALL LIGHT WITHIN REACH.
--- NOTE | 2020-06-07 21:27 | NUR ---
pt RESTING IN BED WITH EYES CLOSED, WOKE TO VOICE. pt REPORTED 8/10 PAIN. PRN GIVEN WITH SCHEDULED SEE JUL. DISCUSSED PAIN MANAGEMENT AND AGREED ON A PLAN. ASSESSMENT DONE. pt UP 1PA TO BSC. VERY PAINFUL WITH MOVEMENT. LEFT ARM IV DID NOT FLUSH, PULLED PER PROTOCOL. PRESSURE DRESSING. IV ABX INFUSING PER ORDERS. pt RESTING IN BED. NO FURTHER REQUESTS AT THIS TIME. CALL LIGHT WITHIN REACH.
--- NOTE | 2020-06-07 22:35 | NUR ---
IN ROOM TO ADMINISTER OXYCODONE FOR PRIMARY RN VANDANA. PT RATES HER PAIN AT 9/10, ADMINISTERED 5MG OXYCODONE. PT STATES THE ROOM IS TOO WARM, REMOVED BLANKETS AND PROVIDED FRESH SHEET AND COOL WASH CLOTH. PT DENIES FURTHER NEEDS, CALL LIGHT IS CLOSE.
--- NOTE | 2020-06-07 23:55 | NUR ---
ROUNDED ON pt. RESTING IN BED WITH EYES CLOSED, RESPIRATIONS REGULAR AND UNLABORED. CALL LIGHT WITHIN REACH.
--- NOTE | 2020-06-08 02:33 | NUR ---
IN TO GIVE MEDICATION. pt REPORTED 4/10 PAIN, PRN GIVEN (SEE MAR). pt SWEATY, PROVIDED BED BATH AND FRESH LINENS. pt UP TO BSC AND BACK TO BED SBA. NO FURTHER REQUESTS AT THIS TIME. RIGHT LEG ELEVATED. CALL LIGHT WITHIN REACH.
--- NOTE | 2020-06-08 05:22 | NUR ---
IN TO GIVE PAIN MEDS. pt LAYING IN BED AWAKE. DENIED NEEDING TO URINATE AT THIS TIME. VITALS AND I&O RECORDED. PRN PAIN MED FOR 12/08 PAIN. pt REPORTED HER RIGHT LEG "FEELS LESS TIGHT THEN IT DID EARLIER" CALL LIGHT WITHIN REACH.
--- NOTE | 2020-06-08 07:05 | NUR ---
Shift report from Ora FLETCHER included: Pt needed some PRN pain meds last night, and was up to the commode several times, should hold miralax. Pt had an otherwise uneventful evening. Pt currently in bed, eyes closed, breathing even and unlabored. Table and call light within her reach.
--- NOTE | 2020-06-08 08:30 | NUR ---
Med pass and assessment. Assessment complete, VSS, pt alert and oriented x4, pt reports pain of 8/10 PRN pain meds given. Pt able to take all meds without difficulty. Pt up to commode and able to void and have medium brown semi-formed BM. Pt denies dizziness when standing. Pt ashley care done, pt back in bed, positioned to comfort, right leg elevated onto pillows. Pt denies further needs at this time. Table and call light within reach.
--- NOTE | 2020-06-08 09:00 | NUR ---
Pts IV started leaking. Infusion stopped and disconnected. Pt was upset due to all the former attempts to get IVs on her and requests a PICC line. I will discuss with . Pt in bed, table and call light within reach.
--- NOTE | 2020-06-08 09:39 | NUR ---
Rounding. pt in bed, sitting up, having breakfast. Pt denies pain and nausea at this time. Pt in bed, table and call light within reach.
--- NOTE | 2020-06-08 09:52 | NUR ---
Spoke in person to Kodi STEWART. Kodi STEWART approves the pts request for a PICC line. Mariajose FLETCHER verbally reports that she will put the order in immediately.
--- NOTE | 2020-06-08 10:01 | NUR ---
Rounding. Pt denies pain and nausea at this time. Pt watching something on her cell phone. Pt reports suddenly getting blurry vision and seeing "flashes". Pt CBG is 176, VSS. Pt sitting up in bed, table and call light within reach.
--- NOTE | 2020-06-08 12:00 | NUR ---
Pt bed bath. Pt unable to reach her own feet comfortably, and due to increased pain with movement, she request a full bed bath. Pt able to clean her own face and neck, the rest of her body cleaned by this RN. Pt dried and changed into new gown. Pt up to commode. Pt able to void and have another medium BM, brown semi formed. Pt linens changed. Pt back to bed and positioned to comfort. Pt requested that during the bath a sign to keep people out during bath was posted for her privacy. That was put on outside of door until after the bath. Sign removed and thrown away. Pt in bed, table and call light within reach.
--- NOTE | 2020-06-08 12:20 | NUR ---
CHANCE VELASCO REQUESTED I NOT DISTURB PT AT THIS TIME. WILL CHECK BACK
--- NOTE | 2020-06-08 13:05 | NUR ---
Rounding. Pt in bed, eyes closed, breathing even and unlabored. Table and call light within reach.
--- NOTE | 2020-06-08 14:00 | NUR ---
Rounding. Pt in bed, eyes closed, breathing even and unlabored, table and call light within reach.
--- NOTE | 2020-06-08 15:21 | NUR ---
Pt reports 8/10 pain. Gave pt her PRN medications, and pt was able to take them without difficulty. Pt is now going to miss her 3rd round of IV ABX due to not having a line in place. PICC line order placed this morning, but none placed yet. Pt agreed to allow me to try to place a line, IV placed in her left forearm. Draws and flushes. Pts IV ABX cefepime started as ordered. Pt in bed, table and call light within reach.
--- NOTE | 2020-06-08 17:13 | NUR ---
Spoke with Makenzie. She feels better, but not good. Issues with her IV. Denies needs.
--- NOTE | 2020-06-08 20:11 | NUR ---
CALLED TO SEE IF IV FLUID COULD BE LEFT ON TKO PATIET IS REQUESTING, SAID THIS WOULD BE FINE.
--- NOTE | 2020-06-08 23:18 | NUR ---
PT CALLED SAYING SHE IS FREEZING AND IS WORRIED THAT SHE IS GETTING A TEMP. CHECKED HER TEMP AND SHE IS AT 98.8. PROVIDED WARM BLANKET AND INCREASED ROOM TEMP FROM 67 TO 68 DEG. PT DENIES FURTHER NEEDS, CALL LIGHT IS CLOSE.
--- NOTE | 2020-06-08 23:45 | NUR ---
pt calling, states her temp feels like it coming back, and her leg pain more in the groin area is hurting, took temp, normal at 98.3, asked pt to rate pain, pt stating 03/10, rn has been informed
--- NOTE | 2020-06-09 00:03 | NUR ---
PATIENT SAYS SHE IS HAVING 10/10 LEFT GROIN PAIN. 1 OXYCODONE AND 1 400MG MOTRIN GIVEN AND A WARM PACK TO THE GROIN. PATIENT'S CALL LIGHT IN REACH, AND NOTHING NOTED ON ASSESSMENT OF THE RIGHT GROIN AREA.
--- NOTE | 2020-06-09 01:04 | NUR ---
PATIENT UP TO THE BEDSIDE COMMODE AND VOIDED 650 MLS AND THEN BACK TO BED. PATIENT STILL HAVING 8/10 LEFT GROIN PAIN AND 650MF TYLENOL PO GIVEN. PATIENT WAS ASLEEP 30 MINUTES AGO, CALL LIGHT IN REACH.
--- NOTE | 2020-06-09 03:15 | NUR ---
PATIENT RESTING SUPINE IN LOW FOWLERS POSITION, EYES CLOSED, RESPIRATIONS REGULAR AND EVEN, CALL LIGHT IN REACH.
--- NOTE | 2020-06-09 05:15 | NUR ---
PATIENT HAS NEEDED 1 OXYCODONE, 2 TYLENOL, AND 1 400MG MOTRIN FOR PAIN THROUGH THE NIGHT. RT LEG REMAINS SWOLLEN AND PINK IN THE LOWER HALF OF THE LEG WITH 3+ EDEMA AND 2+ IN THE LEFT LEG. IV TO STAY KVO, STILL AWAITING ON PICC LINE CONSULT. PATIENT STANDS TO THE BSC WITH 1PA. PATIENT CURRENTLY RESTING QUIETLY. CALL LIGHT IN REACH.
--- NOTE | 2020-06-09 07:20 | NUR ---
Shift report from Ishaan FLETCHER included: Pt had new pain last night with her Left groin, which the pt states "this left groin pain is the pain I get when there's a staff infection". Pt had her PRN pain meds last night and was then able to sleep. Pt is due to void again, but has been getting up to commode to void in the night. Pt is currently in bed, reports "feeling like shit" but that she is "alright for now". Pt denies nausea at this time. Pt in bed, table and call light within reach.
--- NOTE | 2020-06-09 08:22 | NUR ---
Med pass and assessment. Pt lungs clear, but somewhat diminished in bases. Pt given PRN pain meds as ordered, for 7/10 pain. Pt VSS. Pt able to take all meds without difficulty. Pt sitting up to table. Pt CBG was 153, 2 units given per sliding scale insulin, 12 units per standing order, 12 units humalog total. Pt able to get med without difficulty. Pt up to commode and able to void, dark yellow urine. Pt complains of stinging when she urinates. Pt up to chair. Pt positioned to comfort. Pt refuses reclining to elevate leg, wants to "sit up for just a while" and reports that she will recline and elevate her leg with the extra pillows beside her in a bit. Pt in chair, table and call light within reach.
--- NOTE | 2020-06-09 09:58 | NUR ---
v/s and I&Os done and recorded. no other needs at this time. call light with in reach.
--- NOTE | 2020-06-09 10:43 | NUR ---
ROUNDING. Pt lying in bed, on her left side, breathing even and unlabored. Table and call light within reach.
--- NOTE | 2020-06-09 11:33 | NUR ---
ROUNDING. Pt in bed, eyes closed, breathing even and unlabored, table and call light within reach.
--- NOTE | 2020-06-09 11:40 | NUR ---
PRN MED PASS. Pt reports 8/10 pain in her "body" which she explains is mostly her back and right leg. Pt denies nausea at this time. Pt is irritated to be continuously waken up, and explains that she is on a very different sleep and meal schedule at home. Pt given PRN pain med as ordered, and able to take it without difficulty. Pt in bed, table and call light within reach.
--- NOTE | 2020-06-09 13:10 | NUR ---
INSULIN ADMIN. Meals just arrived to the floor. Pt CBG was 150, 2 units given per sliding scale, and 12 units given per standing order, 14 units total. Pt reports wanting to "finish her nap" so I educated on insulin admin and hypoglycemia, and brought her some apple juice to drink now if she doesn't want to eat her lunch at this time. Pt verbalized understanding and had several gulps of apple juice. Pt in bed, lying down, breathing even and unlabored, table and call llight within reach.
--- NOTE | 2020-06-09 14:30 | NUR ---
ROUNDING. Pt in room visiting with friend. Pt denies needs at this time. Table and call light within reach.
--- NOTE | 2020-06-09 14:41 | NUR ---
V/S AND I&OS DONE AND RECORDED. NO OTHER NEEDS AT THIS TIME. CALL LIGHT WITH IN REACH
--- NOTE | 2020-06-09 15:33 | NUR ---
Pt. used call light to say she needed to use bathroom. Manager Heart Failure went and assisted pt. to bathroom. no other needs at this time.
--- NOTE | 2020-06-09 16:00 | NUR ---
PICC RNs ARRIVE TO PLACE PICC LINE. Tiffanie RN and Roxana RN here to place PICC line in pt. RNs discuss procedure with pt and answer all questions prior. Pt verbalized understanding, reporting that this "isn't her first rodeo with PICC lines". RNs in room with pt getting her ready. Call light within reach.
--- NOTE | 2020-06-09 16:53 | NUR ---
ROUNDING. PICC RNs still in room with pt. Sign posted to stop and not enter during sterile procedure.
--- NOTE | 2020-06-09 17:00 | NUR ---
PICC LINE INSERTION NOTE: ORDER REC'D FROM DR. ANN TO CONSULT PATIENT FOR POTENTIAL PICC LINE PLACEMENT. AFTER REVIEWING THE CHART AND INTERVIEWING THE PATIENT, NO ABSOLUTE CONTRAINDICATIONS WERE IDENTIFIED. PATIENT WAS ABLE TO SIGN THE CONSENT FORM. PT STATES THAT SHE HAS HAD MULTIPLE PICC LINES IN THE PAST, AND WAS EVEN REQUESTING A PICC LINE AT THIS TIME DUE TO HAVING MULTIPLE IV SITES GO BAD QUICKLY. PT IS IN NEED OF PETROLOGY TEACHER ANTIBIOTICS. PATIENT'S RIGHT ARM WAS EVALUATED FIRST USING THE SITE RITE 8 U/S. PATIENT'S CEPHALIC AND BASILIC VEINS WERE EASILY IDENTIFIED, EVEN WITHOUT A TOURNIQUET. HER CEPHALIC WAS ESTIMATED TO BE ABLE TO ACCOMODATE A 4 OR 5 FR PICC WITHOUT BEING MORE THAN 45% OF VEIN CIRCUMFEREMCE. AFTER FOLLOWING STERILE PREP AND PROCEDURE, THE CEPHALIC VEIN WAS ACCESSED UPON THE FIRST TRY. NO TOURNIQUET WAS USED DUE TO EXCELLENT VEIN SIZE AND PICTURE. DARK, BRISK, NON PULSATILE BLOOD WAS EASILY RETURNED. GUIDEWIRE THEN ADVANCED WITHOUT DIFFICULTY, FOLLOWED BY INTRODUCER, AND THEN PICC LINE. SHERLOCK TIP MAGNET WAS USED AND SHOWED PICC TO BE MOVING IN CORRECT POSITION CENTRALLY. STERILE PROCEDURE WAS FOLLOWED AND STERILE DRESSING APPLIED. CHEST XRAY TAKEN AND SHOWED PICC TO BE IN OPTIMAL PLACEMENT. 7 CM WERE LEFT EXPOSED. PATIENT TOLERATED PROCEDURE WELL. EDUCATION MATERIAL WAS LEFT IN PATIENT'S CHART AND PATIENT WAS ENCOURAGED TO ASK QUESTIONS ABOUT HER PICC. CHEST XRAY WAS APPROVED BY DR. PEARSON.
--- NOTE | 2020-06-09 20:00 | NUR ---
PATIENT SITTING ON SIDE OF BED EATING HER DINNER, PATIENT HAS NO NEEDS AT THIS TIME, CALL LIGHT IN REACH.
--- NOTE | 2020-06-09 21:48 | NUR ---
PATIENT HAVING 7/10 RT LEG AND LOWER BACK PAIN, 1 OXCODONE GIVEN, PATIENT'S PICC LINE DRAWS AND FLUSHES WELL, HEP-LOCKED AT THIS TIME, PATIENT GIVEN A GLASS OF WARM WATER PER HER REQUEST. PATIENT HAS NO OTHER NEEDS AT THIS TIME.
--- NOTE | 2020-06-09 22:25 | NUR ---
pts VS and I&Os complete. no needs at this time, pt in good spirits.
--- NOTE | 2020-06-09 23:54 | NUR ---
PT CALLED D/T BEEPING IV PUMP. TKO FLUIDS ARE NOW INFUSING FINE. PT DENIES NEEDS AT THIS TIME. CALL LIGHT IS CLOSE.
--- NOTE | 2020-06-10 02:00 | NUR ---
PATIENT RESTING QUIETLY, CALL LIGHT IN REACH, RESPIRATIONS REGULAR AND EVEN, EYES CLOSED, NO NEEDS AT THIS TIME.
--- NOTE | 2020-06-10 04:00 | NUR ---
PATIENT RESTING QUIETLY ON HER LEFT SIDE, EYES CLOSED, RESPIRATIONS REGULAR AND EVEN, CALL LIGHT IN REACH.
--- NOTE | 2020-06-10 04:56 | NUR ---
PATIENT CALLED HAVING 10/10 BACK/NECK/RT LEG/BOOKER PAIN. 1 OXYCODONE GIVEN AND 1 400MG MOTRIN GIVEN. NEW WATER GIVEN AND CALL LIGHT IN REACH.
--- NOTE | 2020-06-10 05:40 | NUR ---
PT CALLED FOR HELP BACK FROM BATHROOM. SHE DENIES FURTHER NEEDS, CALL LIGHT IS CLOSE.
--- NOTE | 2020-06-10 05:46 | NUR ---
PATIENT HAD 2 OXYCODONE FOR PAIN AT SEPERATE TIMES AND 1 400MG MOTRIN PO. PATIENT HAS SLEPT FAIRLY WELL THROUGH THE NIGHT EXCEPT FOR WHEN SHE WAS HAVING PAIN. NEW PICC LINE WORKS WELL. REDNEES IN RT LEG CONTINUES TO DECREASE. PATIENT CURRENTLY RESTING QUIETLY, EYES CLOSED, RESPIRATIONS REGULAR AND EVEN, CALL LIGHT IN REACH.
--- NOTE | 2020-06-10 07:51 | NUR ---
PT APPEARS TO BE SLEEPING SOUNDLY AT SHIFT EXCHANGE. AWAKENS TO VOICE FOR CBG, LEFT RESTING EYES CLOSED
--- NOTE | 2020-06-10 09:30 | NUR ---
PT SITTING UP ON EDGE OF BED WITH MORING MEAL. DENIES DISCOMFORTS OR NEEDS
--- NOTE | 2020-06-10 10:59 | NUR ---
PT INQUIRES HOW TO PREVENT CELLULITIS VERBAL EDUCATON PROVIDED WELL HAND OUT WRITTEN MATERIAL. PT VERBALIZES UNDERSTANDING AGREES TO NOTIFY AQUACULTURIST OF ANY FURTHER QUESTIONS
--- NOTE | 2020-06-10 12:20 | NUR ---
PT C/O HEADACHE EARLIER TYLENOL AND IBUPROFEN ADMINISTERED PER REQUEST. PT RESTING EYES CLOSED, SHADES PULLED, CLOTH PROVIDED FOR EYES. REFUSES NOON MEAL 1 UNIT INSULIN ADMINISTERED ONLY, PER SS ORDERS. MEAL DOSE WASTED
--- NOTE | 2020-06-10 14:01 | NUR ---
PATIENT RESTING IN BED WITH EYES CLOSED, PATIENT REPORTS HEADACHE AND RN IS AWARE. VIALS AND I&OS CHARTED. LUNCH IS SITTING ON BEDSIDE TABLE. CALL LIGHT IN REACH, NO OTHER NEEDS AT THIS TIME
--- NOTE | 2020-06-10 14:05 | NUR ---
PT CONTINUES RESTING EYES CLOSED STATES MEDS WERE PARTIALLY EFFECTIVE. REFUSES UP FOR MEAL OR OTHER
--- NOTE | 2020-06-10 17:39 | NUR ---
PT TO SHOWER DENIES NEED OF ASSIST. HAND RAILS AND WET FLOOR POINTED OUT, PT CAUTIONED TO BE CAREFUL AND CALL FOR ANY NEEDED ASSIST. PERSONAL CARE ITEMS PORVIDED BED LINENS CHANGED
--- NOTE | 2020-06-10 19:06 | NUR ---
RECEIVED REPORT FROM CHANCE CLIFTON. pt SITTING ON SIDE OF BED, DOING PM CARES. NO REQUESTS AT THIS TIME. CALL LIGHT WTIHSwing by Swing REACH. WHITEBOARD UPDATED.
--- NOTE | 2020-06-10 20:10 | NUR ---
CALL LIGHT ANSWERED. CBG 133. DINNER TRAY IN REACH, CONDIMENTS PROVIDED FOR SANDWICH. HOT TEA REFRESHED. pt HAS CALL LIGHT IN REACH. NO ADDITIONAL REQUESTS.
--- NOTE | 2020-06-10 20:50 | NUR ---
IN TO DO ASSESSMENT. PICC WNL, BRISK BLOOD RETURN, IV ABX. SL PER PROTOCOL. pt SITTING ON SIDE OF BED. RIGHT LEG MUCH MORE SWOLLEN THEN LEFT LEG. MEDICATIONS GIVEN (SEE MAR). pt REPORTED 4/10 PAIN. WILL ELEVATE LEG SOON SHE IS FINISHED WITH DINNER. VITALS AND I&O. NO FURTHER REQUESTS AT THIS TIME. CALL LIGHT WITHIN REACH.
--- NOTE | 2020-06-10 23:46 | NUR ---
ROUNDED ON pt. LAYING IN BED WITH RIGHT LEG ELEVATED. EYES CLOSED, RESPIRATIONS REGULAR AND UNLABORED. CALL LIGHT WITHIN REACH.
--- NOTE | 2020-06-11 03:04 | NUR ---
IN TO GIVE ABX. pt RESTING IN BED AWAKE. PICC HAD BRISK BLOOD RETURN. NOTICED DRESSING SLIGHTLY PULLED UP. CHANGED DRESSING PER PROTOCOL. ABX GIVEN (SEE MAR). SL. pt REPORTED 4/10 PAIN PRN GIVEN (SEE MAR). ASSESSMENT DONE. NO CHANGES FROM PRIOR. pt STATED "I THINK I WILL GO FOR A WALK IN THE [place]." NO REQUESTS AT THIS TIME. CALL LIGHT WITHIN REACH.
--- NOTE | 2020-06-11 05:46 | NUR ---
pt COMPLAINED OF 8/10 PAIN, PRN GIVEN (SEE MAR). CALL LIGHT WITHIN REACH.
--- NOTE | 2020-06-11 07:45 | NUR ---
Woke patient up for glucose check. Provided washcloth for face and hands, asked patient if she was ready to get up and eat breakfast. Patient reluctant "I've been up all night" patient going to order breakfast and call if she needs assistance. call light in reach, no other needs
--- NOTE | 2020-06-11 07:58 | NUR ---
BEDSIDE REPORT RECEIVED. PT AWAKENS TO VOICE C/O NOT SLEEPING WELL LAST NIGHT. ENCOURAGED TO ORDER MORNING MEAL. DENIES NEEDS AT THIS TIME
--- NOTE | 2020-06-11 09:37 | NUR ---
PATIENT SITTING AT SIDE OF BED EATING BREAKFAST. VITALS AND I&OS CHARTED. CALL LIGHT AND PERSONAL ITEMS WITHIN REACH
--- NOTE | 2020-06-11 09:50 | NUR ---
PT REPORTS IMMEDIATE RELIEF FROM ANTIFUNGAL CREAM APPLIED EARLIER. SHE IS SITTING ON EDGE OF THE BED EATING MORNING MEAL. AGREES SHE FEELS, GOOD DENIES NEEDS
--- NOTE | 2020-06-11 10:10 | NUR ---
Spoke with Makenzie. She will not be going home today. She states he friends [place] she lives in, visited her. She states she is deaf, but is very supportive and helps her more than her mother. Pt plans to return home and states her friends Katie and Caden will assist her.
[2020-06-11] MEDS ORDERED: BASAGLAR K100 UNIT/1 SUB-Q (10:56)
[2020-06-11] MEDS ORDERED: HUMALOG100 UNIT/2 SUB-Q (10:57)
[2020-06-11] MEDS ORDERED: INSULIN PEN NE1 EACH MISC (10:57)
--- NOTE | 2020-06-11 11:01 | NUR ---
PT UP IN ROOM INDEPENDANTLY. ANXIOUS TO SEE DR ANN THIS SHIFT. DENIES NEEDS OR REQUESTS
--- NOTE | 2020-06-11 13:13 | NUR ---
PATIENT SITTING ON SIDE OF BED. LUNCH ON SIDE TABLE. VITALS AND I&OS CHARTED, NO OTHER NEEDS AT THIS TIME
--- NOTE | 2020-06-11 13:53 | NUR ---
DR ANN IN EARLIER, ORDERS DIETARY CONSULT FOR DM. PT IS RECEPTIVE TO FURTHER TEACHING. PT ATE LUNCH LATE RESTING IN BED NOW. STATES SHE WANTS TYLENOL AND IBUPROFEN WHEN IT IS AVAILABLE, C/O ONCOMING HEADACHE.
--- NOTE | 2020-06-11 15:56 | NUR ---
PT RESTING EYES CLOSED APPEARS COMFORTABLE
--- NOTE | 2020-06-11 19:20 | NUR ---
SHIFT REPORT FROM NURSE CLIFTON. PT ON CELL PHONE ON FACETIME IN BED. NO APPARENT NEEDS AT THIS TIME. CALL LIGHT WITHIN REACH
--- NOTE | 2020-06-11 20:21 | NUR ---
IN ROOM TO ADMINISTER SCHEDULED ANTIBIOTIC. PT SITTING AT BEDSIDE COLORING, IN GOOD SPIRITS AND TALKATIVE. URINE EMPTIED FROM URINE HAT, WATER REFILLED. NO FURTHER NEEDS AT THIS TIME.
--- NOTE | 2020-06-11 21:00 | NUR ---
IN ROOM FOR EVENING MEDS AND ASSESSMENT. LLE STILL EDEMATOUS, PINK, WARM TO TOUCH; MARKABLY LARGER THAN RT LEG. PRN TYLENOL AND MOTRIN ADMINISTERED REQUESTED BY PT TO "KEEP ON SCHEDULE". PT REPORTS 4/10 PAIN IN L LEG. PT TO ELEVATE LEG WHILE IN BED. PT REPORTS USING MICONAZOLE CREAM IN GLUTEAL CLEFT ON REDDENED AREA AFTER TOILETING. VSS. NO OTHER NEEDS AT THIS TIME. CALL LIGHT WITHIN REACH
--- NOTE | 2020-06-12 00:49 | NUR ---
CHECKED ON PT. PT APPEARS TO BE SLEEPING, EYES CLOSED, EVEN UNLABORED BREATHING. CALL LIGHT WITHIN REACH
--- NOTE | 2020-06-12 02:53 | NUR ---
0200 MEDS ADMINISTERED. PT ASLEEP ON BACK, MILD SNORING. PT DOES AWAKE TO VOICE. URINE HAT EMPTIED. NO FURTHER NEEDS AT THIS TIME. CALL LIGHT WITHIN REACH
--- NOTE | 2020-06-12 06:09 | NUR ---
IN ROOM FOR MORNING MEDS/ VS/ ASSESSMENT. PT WAS ASLEEP, AWAKES NURSES DO TASKS IN ROOM. VSS WITH SPO2 AT 99-100%. LUNG SOUNDS CLEAR. PT REPORTS FEELING THOUGH SHE CANT CATCH HER BREATH. STATES THAT IT FEELS LIKE "DIRT HAS BEEN THROWN IN HER FACE". NO PAIN IN CHEST. WITH FURTHER DISCUSSION, PT AGREED TO TRY PRN VISTARIL FOR ANXIETY. PT ALSO TOOK WALL AIR PER NC FOR COMFORT. PT SITTING UP IN BED; HAD GONE TO TOILET.
--- NOTE | 2020-06-12 07:21 | NUR ---
REPORT RECEIVED FROM CHANCE FLEMING. PT RESTING IN BED ON BACK WITH HEAD OF BED ELEVATED TO 35 DEGREES. RIGHT LEG ELEVATED ON THREE PILLOWS. PT REORPTS 4/10 PAIN THAT SHE STATES IS TOLERABLE AT THIS TIME. PT STATES SHE THINKS HER BLOOD SUGAR IS LOW, WILL CHECK BLOOD SUGAR SHORTLY. NO ADDITIONAL REQUESTS OR COMLAINTS. CALL LIGHT WITHIN REACH. BED RAILS UP.
--- NOTE | 2020-06-12 07:29 | NUR ---
CBG CHECK =86. IV ABX GIVE (SEE MAR). PT CONTINUES TO REPROT 4/10 PAIN IN BILATERAL LOWER LEGS. PT DENIES NEED FOR PAIN MEDICATION. PT TALKING ON PHONE LYING ON LEFT SIDE. HEAD OF BED ELEVATED TO 40 DEGREES. PT DENIES ADDITIONAL REQUESTS OR COMPLAINTS. CALL LIGHT WITH IN REACH.
--- NOTE | 2020-06-12 09:21 | NUR ---
MORNING ASSESSMENT AND MEDICATION DUE. MD AT BEDSIDE FOR ROUNDS. PT VERBZLIES UNDERSTANDING OF DISCHARGE INSTRUCTIONS STATED BY MD. PT STATES SHE ONLY HAS A "REALLY OLD" GLUCOMETER AT HOME. MD STATES RX FOR NEW GLUCOMETER WILL BE PROVIDED. PT VERBALIZES UNDERSTANDING OF NEW PRIMARY CARE PROVIDER AND FOLLOW UP FOR OUTPATIENT INFUSIONS. PT REPORTS PATTERNMAKER BENCH WAS AT BEDSIDE THIS MORNING. PT VERBALIZES UNDERSTANDING OF TEACHING. PT REPORTS 4/10 PAIN IN RIGTH LOWER LEG THAT IS "OK FOR NOW." PT CONCENED THAT SHE "CAN'T MAKE IT TILL NOON" FOR ADDITIONAL MEDICATION. PICC LINE ASSESSED, BRISK BLOOD RETURN NOTED. PICC LINE FLUSHED AND HEPARIN LOCKED PER PROTOCOL. RIGTH LOWER LEG CONTINUES TO BE MILDLY RED AND WARMER TO TOUCH THAN LEFT LEG. EDEMA CONTINUES, RIGHT LEG IS VERY PAINFUL TO TOUCH. PT CRIES OUT WHEN THIS RN TOUCHES LEG. PT REPORTS NORMAL SENSATION BUT FOR "SOME WEIRD NUMBNESS IN MY RIGHT LEG WITH ALL THIS BUT DR. ANN SAID IT WOULD GO AWAY." PT REPORTS HER LAST BOWEL MOVEMENT WAS "THIS MORNING" AND DECLINES MIRIALX. WHITENESS NOTED ON SIDES OF TONGUE. MD UPDATED. PT SITTING UP IN BED TO EAT BREAKFAST. PT REFUSES TIME UP TO CHAIR. NO ADDITIONAL REQUESTS OR COMPLAINTS. CALL LIGHT WIHTIN REACH. BED RAILS UP.
[2020-06-12] MEDS ORDERED: LANTUS100 UNITS/ SUB-Q (09:37)
[2020-06-12] MEDS ORDERED: FREESTYLE LITE1 EAC1 TD (09:38)
[2020-06-12] MEDS ORDERED: FREESTYLE FREE1 EAC1 MISC (09:39)
[2020-06-12] MEDS ORDERED: HYDROXYZINE PAM25 MG PO (09:40)
[2020-06-12] MEDS ORDERED: NYSTATIN100000 UN1 PO (09:56)
--- NOTE | 2020-06-12 10:22 | NUR ---
NEW MEDICATION DUE. PT FINISHED WITH BREAKFAST. COFFEE PROVIDED PER PT REQUEST. NYSTATIN GIVEN PRIOR TO PT DRINKING COFFEE. PT INDEPENDANT UP TO RESTROOM. PT STEADY ON FEET ALTHOUG SLOW WITH MOVING ABOUT. PT PLACING COMPRESSION STOCKING TO RIGHT LOWER LEG. PT DENIES ADDITIONAL REQUESTS OR COMPLAINTS. CALL LIGHT SLIM CADENA.
--- NOTE | 2020-06-12 10:24 | NUR ---
SPOKE WITH PATIENT AROUND 9 AM THIS MORNING TO REVIEW DIABETES DIET. SHE HAS HAD DIABETES FOR AWHILE BUT HAS NEVER BEEN ON INSULIN. SHE LIVES IN HER FRIEND'S GARAGE BUT DOES COOK HER OWN MEALS. SHE IS ABLE TO STATE 3 CARBOHYDRATE CONTAINING FOODS. I DID REVIEW SIGNS/SYMPTOMS OF LOW BLOOD SUGAR WITH HER AND GAVE HER A HANDOUT. SUGGESTED SHE PUT THE HANDOUT ON HER FRIDGE JUST IN CASE SHE NEEDS TO REFER TO IT. EXPLAINED WHAT TO DO IF BLOOD SUGAR GETS LOWER THAN 70. EXPLAINED THE IMPORTANCE OF CHECKING HER BLOOD SUGARS REGULARLY. SUGGESTED THAT A GOOD WAY TO CONTROL CARB INTAKE IS TO KEEP HER INTAKE CONSISTENT FOR EACH MEAL. FOR EXAMPLE, A GOAL OF 60 GM CARB PER MEAL IS A GOOD PLACE TO START. STATES SHE HAS COUNTED CARBS BEFORE. HER MAIN CONCERN IS SHE WOULD LIKE TO KNOW HOW MUCH INSULIN SHE NEEDS TO BE TAKING. LET HER NURSE, LEAH, KNOW PATIENT'S CONCERNS. SHE WILL BE IN ONCE D/C PAPERWORK IS FINALIZED.
[2020-06-12] MEDS ORDERED: CEFTRIAXONE2 G2 IM (11:02)
--- NOTE | 2020-06-12 11:03 | NUR ---
PT CALL LIGHT ON. PT REQUESTS ASSISTNCE APPLYING COMPRESSION STOCKING TO RIGHT LOWER EXTREMITY. LOTION APPLIED PER PT REQUEST. COMPRESSION STOCKING PLACE. PT PAINFUL WITH TOUCH AND APPLICATION OF COMPRESSION STOCKING. PT STATES "I JUST REALLY WANT IT ON BECAUSE I LIKE IT BETTER THAT WAY." NO ADDITIONAL REQUESTS OR COMPLAINTS. CALL LIGHT WITHIN REACH.
[2020-06-12] MEDS ORDERED: [UNRECOGNIZED DRUG - OTHER] MISC (12:05)
--- NOTE | 2020-06-12 12:16 | NUR ---
CBG = 120. PT UP IN ROOM INDEPENADNTLY. PT STEADY ON FEET. PT REPORTS PT REPORT 5/10 PAIN IN RIGHT LEG. PT REPORTS SHE SPOKE WITH THE PHARMACIST AND "FEEL MUCH BETTER ABOUT ALL MY MEDICATIONS." PT PACKING TO GO HOME. NO ADDITIONAL REQUESTS OR COMPLAINTS. CALL LIGHT WIHTIN REACH. LUNCH ORDER PLACED.
--- NOTE | 2020-06-12 12:37 | NUR ---
INSULIN GIVEN. PT UP IN ROOM PACKING BELONGINGS FOR DISCHARGE. MEDICATION GIVEN FOR 6/10 PAIN IN RIGHT LEG (SEE MAR). IV ABX GIVEN IN ANTICIPATIN OF DISCHARGE SOON. HEPARIN WITHDRAWN FROM PICC LINE, ABX GIVEN, LINE FLUSHED AND REHEPARIN LOCKED PER PRTOCOL. PT REQUESTS WORK NOTE. MD CONSULTED. PT DENIES ADDITIONAL REQUESTS OR COMPLAINTS. PT SITTING ON EDGE OF BED EATING "SNACKS." NO ADDITIONAL REQUESTS OR COMPLAINTS. CALL LIGHT CONORHTGIGI CADENA.
--- NOTE | 2020-06-12 13:44 | NUR ---
PT READY FOR DISCHARGE, FINISHED WITH LUNCH. PT HAS DRESSED SELF AND PACKED BELONGINGS. PT STEADY ON FEET WITH STAND BY ASSIST. PRN OXYCODONE GIVEN FOR 6/10 PAIN IN ANTICIPATION OF TRAVEL AND DISCHARGE ACTIVITY. DISCHARGE INSTRUCTIONS REVIEWED WITH PT. PT VERBALIZES UNDERSTANDING OF INSTRCTIONS, MEDICATIONS, FOLLOW UP, AND INFUSTION APPOINTMENT TOMORROW. PT TRANSFERES SELF TO WHEELCHAIR. NO ADDITIONAL REQUESTS OR CONCERNS. PT WHEELED FROM [employer] WIT [employer].
[2020-06-15] MEDS ORDERED: DOXYCYCLINE HY100 MG PO (15:31)
== END 2020-06-12 13:45 | disposition home or self-care (01) | DRG 872 ==
LOC: ED 22:33 → CCU 06-06 01:42 → MS 06-07 15:20
PROVIDERS: Internal Medicine; ADMIT Internal Medicine; ATTEND Internal Medicine
PROC: 02HV33Z Insertion of Infusion Device into Superior Vena Cava, Percutaneous Approach (ICD-10-PCS; principal; 2020-06-09 16:30)
DX: A40.9 Streptococcal sepsis, unspecified (principal); L03.115 Cellulitis of right lower limb; Z68.43 Body mass index [BMI] 50.0-59.9, adult; Z20.822 Contact with and (suspected) exposure to COVID-19; R65.20 Severe sepsis without septic shock; E66.01 Morbid (severe) obesity due to excess calories; F17.210 Nicotine dependence, cigarettes, uncomplicated; E11.65 Type 2 diabetes mellitus with hyperglycemia; E83.42 Hypomagnesemia; G43.909 Migraine, unspecified, not intractable, without status migrainosus; Z86.19 Personal history of other infectious and parasitic diseases; Z85.89 Personal history of malignant neoplasm of other organs and systems; Z79.899 Other long term (current) drug therapy; Z79.84 Long term (current) use of oral hypoglycemic drugs; Z88.0 Allergy status to penicillin; Z88.8 Allergy status to other drugs, medicaments and biological substances; Z88.1 Allergy status to other antibiotic agents; Z91.041 Radiographic dye allergy status
CPT/HCPCS: 36415; 36569; 71045; 80048; 80053; 81001; 83036; 83605; 83735; 83880; 84484; 84703; 85025; 85379; 86060; 87040; 93005; 93010; 96365; 96375; 99285-25; C1751; C9803; J0690; J0692; J1650; J1815; J2020; J2060; J2405; J3475; J7030; J7121; Q0177; U0003

== ENCOUNTER 2020-06-15 16:40 | Emergency (ER) | payer OTHER ==
[~2020-06-15] VITALS: Ht 170.2 cm; Wt 147.9 kg
[~2020-06-15 16:40] MED LIST changes: +BASAGLAR K100 UNIT/1 SUB-Q; +CEFTRIAXONE2 G2 IM; +FREESTYLE FREE1 EAC1 MISC; +FREESTYLE LITE1 EAC1 TD; +HUMALOG100 UNIT/2 SUB-Q; +HYDROCODON-ACE1 EA10 PO; +HYDROXYZINE PAM25 MG PO; +INSULIN PEN NE1 EACH MISC; +LANTUS100 UNITS/ SUB-Q; +NYSTATIN100000 UN1 PO; +VENTOLIN HFA18 GM INH; +VITAMIN D21250 MCG PO; +[UNRECOGNIZED DRUG - OTHER] MISC
--- OUTSIDE RECORDS SUMMARY | 2020-06-15 16:42 | XMS ---
PreManage Notification: RHONDA RUFFIN Security Vice President Quality Events No recent Security Events currently on file CRITERIA MET - History of Sepsis - [facility] - 2 Visits in 30 Days CARE PROVIDERS There are no care providers on record at this time. Mary has no Care Guidelines for this patient. Tatiana VISIT COUNT (12 MO.) 1 [facility] 3 [facility] TOTAL 4 NOTE: Visits indicate total known visits. ED/C VISIT TRACKING (12 MO.) 06/15/2020 16:41 [facility] [place] TYPE: Emergency COMPLAINT: - L SIDE NECK PAIN 06/05/2020 22:34 [facility] [place] TYPE: Emergency COMPLAINT: - MULTIPLE COMPLAINTS 03/20/2020 22:17 [facility] [place] TYPE: Emergency COMPLAINT: - POSS ALLERGIC REACTION DIAGNOSES: - Allergy, unspecified, initial encounter - Other adverse food reactions, not elsewhere classified, initial encounter - Nausea with vomiting, unspecified - Nicotine dependence, unspecified, uncomplicated - Allergy status to other antibiotic agents - Other termite inspector (current) drug therapy - Allergy status to other drugs, medicaments and biological substances - manager intermediate (current) use of oral hypoglycemic drugs - Allergy status to penicillin - Diarrhea, unspecified - Allergy status to other drugs, medicaments and biological substances - Allergy status to other antibiotic agents 12/24/2019 10:39 [facility] TYPE: Emergency DIAGNOSES: - Fever (9 Weeks To 74 Years) - Cellulitis of right lower limb - Emesis - Nausea - Severe sepsis with septic shock - Cellulitis - Fever, unspecified - Sepsis, unspecified organism INPATIENT VISIT TRACKING (12 MO.) 06/06/2020 01:[address] [facility] [place] TYPE: Medical Surgical COMPLAINT: - SEPSIS DIAGNOSES: - Allergy status to penicillin - Cellulitis of right lower limb - Sepsis, unspecified organism - Body mass index [BMI] 50.0-59.9, adult - Hypomagnesemia - Migraine, unspecified, not intractable, without status migrainosus - Personal history of other infectious and parasitic diseases - Hypomagnesemia - Personal history of malignant neoplasm of other organs and systems - Radiographic dye allergy status - Allergy status to other drugs, medicaments and biological substances - Morbid (severe) obesity due to excess calories - Personal history of malignant neoplasm of other organs and systems - Radiographic dye allergy status - Other termite inspector (current) drug therapy - Type 2 diabetes mellitus with hyperglycemia - Body mass index [BMI] 50.0-59.9, adult - Allergy status to other drugs, medicaments and biological substances - Nicotine dependence, cigarettes, uncomplicated - Cellulitis of right lower limb - Streptococcal sepsis, unspecified - Severe sepsis without septic shock - Streptococcal sepsis, unspecified - jail (current) use of oral hypoglycemic drugs - Nicotine dependence, cigarettes, uncomplicated - Allergy status to other antibiotic agents - Severe sepsis without septic shock - Morbid (severe) obesity due to excess calories - Allergy status to other antibiotic agents - jail (current) use of oral hypoglycemic drugs - Other fpc (current) drug therapy - Personal history of other infectious and parasitic diseases - Migraine, unspecified, not intractable, without status migrainosus - Allergy status to penicillin - Type 2 diabetes mellitus with hyperglycemia 12/24/2019 10:[address] [facility] TYPE: Internal Medicine DIAGNOSES: - Cellulitis of right lower limb - Nausea with vomiting, unspecified - Fever, unspecified - Sepsis, unspecified organism - Severe sepsis with septic shock [email or web address]
== END 2020-06-15 18:45 | disposition home or self-care (01) ==
LOC: ED 16:40
DX: M26.629 Arthralgia of temporomandibular joint, unspecified side (principal); F17.200 Nicotine dependence, unspecified, uncomplicated; Z88.8 Allergy status to other drugs, medicaments and biological substances; Z88.1 Allergy status to other antibiotic agents; Z91.041 Radiographic dye allergy status; Z79.4 Long term (current) use of insulin; Z79.899 Other long term (current) drug therapy
CPT/HCPCS: 71045; 99283-25

== ENCOUNTER 2020-08-20 17:43 | Emergency (ER) | payer OTHER ==
[~2020-08-20] VITALS: Ht 170.2 cm; Wt 143.3 kg
[~2020-08-20 17:43] MED LIST changes: +ACTOS15 MG PO; +BASAGLAR K100 UNIT/1 SQ; +GABAPENTIN100 MG PO; +METFORMIN HCL1000 M2 PO; +VICTOZA 2-0.6 MG/0.1 SUB-Q
--- OUTSIDE RECORDS SUMMARY | 2020-08-20 17:46 | XMS ---
PreManage Notification: RHONDA RUFFIN Security Wheel Press Clerk Events No recent Security Events currently on file CRITERIA MET - History of Sepsis CARE PROVIDERS [facility] 06/18/2020-Current PHONE: [phone] Mary has no Care Guidelines for this patient. Care History Medical/Surgical 06/18/2020 [facility] - PATIENT HAS OUTPATIENT- DAY SURGERY ORDERS E.D. VISIT COUNT (12 MO.) [address] TOTAL 5 NOTE: Visits indicate total known visits. ED/UCC VISIT TRACKING (12 MO.) 08/20/2020 17:44 [facility] TYPE: Emergency COMPLAINT: - BLOOD SUGAR PROBLEM 06/15/2020 16:41 [facility] TYPE: Emergency COMPLAINT: - NECK PAIN/ NO INJ DIAGNOSES: - Radiographic dye allergy status - Allergy status to other antibiotic agents - shelter (current) use of insulin - Other termite inspector (current) drug therapy - Arthralgia of temporomandibular joint, unspecified side - Nicotine dependence, unspecified, uncomplicated - Allergy status to other drugs, medicaments and biological substances 06/05/2020 22:34 [facility] TYPE: Emergency [...] other drugs, medicaments and biological substances - superintendent terminal (current) use of oral hypoglycemic drugs - Allergy status to penicillin - Diarrhea, unspecified - Allergy status to other drugs, medicaments and biological substances - Allergy status to other antibiotic agents 12/24/2019 10:39 [facility] TYPE: Emergency DIAGNOSES: - Fever (9 Weeks To 74 Years) - Cellulitis of right lower limb - Emesis - Nausea - Severe sepsis with septic shock - Cellulitis - Fever, unspecified - Sepsis, unspecified organism INPATIENT VISIT TRACKING (12 MO.) 06/06/2020 01:42 [facility] TYPE: Medical Surgical COMPLAINT: - SEPSIS [...] septic shock - Streptococcal sepsis, unspecified - superintendent terminal (current) use of oral hypoglycemic drugs - Nicotine dependence, cigarettes, uncomplicated - Allergy status to other antibiotic agents - Severe sepsis without septic shock - Morbid (severe) obesity due to excess calories - Allergy status to other antibiotic agents - superintendent terminal (current) use of oral hypoglycemic drugs - Other shelter (current) drug therapy - Personal history of other infectious and parasitic diseases - Migraine, unspecified, not intractable, without status migrainosus - Allergy status to penicillin - Type 2 diabetes mellitus with hyperglycemia [facility] TYPE: Internal Medicine DIAGNOSES: - Cellulitis of right lower limb - Nausea with vomiting, unspecified - Fever, unspecified - Sepsis, unspecified organism - Severe sepsis with septic shock [email or web address]
== END 2020-08-20 20:57 | disposition home or self-care (01) ==
LOC: ED 17:43
DX: E11.649 Type 2 diabetes mellitus with hypoglycemia without coma (principal); F17.200 Nicotine dependence, unspecified, uncomplicated; Z88.8 Allergy status to other drugs, medicaments and biological substances; Z88.1 Allergy status to other antibiotic agents; Z88.0 Allergy status to penicillin; Z88.6 Allergy status to analgesic agent; Z91.041 Radiographic dye allergy status; Z79.899 Other long term (current) drug therapy; Z79.84 Long term (current) use of oral hypoglycemic drugs
CPT/HCPCS: 80053; 81001; 82010; 85025; 99284

== ENCOUNTER 2021-07-10 14:22 | Inpatient (IN) | payer OTHER ==
[~2021-07-10] VITALS: Ht 170.2 cm; Wt 129.8 kg
[~2021-07-10 14:22] MED LIST changes: +DICLOFENAC SOD100 G1 TOP; +DICLOFENAC SOD100 MG PO; -GABAPENTIN100 MG PO; +TRULICITY1.5 MG/0.5
[2021-07-10] MEDS ORDERED: TRULICITY3 MG/0.5 M SQ (14:48)
[2021-07-10] MEDS ORDERED: TRULICITY0.75 MG/0. SQ (14:48)
--- OUTSIDE RECORDS SUMMARY | 2021-07-10 15:56 | XMS ---
PreManage Notification: RHONDA RUFFIN Security Bleach Range Operator Events No recent Security Events currently on file CRITERIA MET - OSMANI CARE PROVIDERS LISA [facility] Current PHONE: [phone] Mary has no Care Guidelines for this patient. Care History Medical/Surgical 06/18/2020 [facility] - PATIENT HAS OUTPATIENT- DAY SURGERY ORDERS E.D. VISIT COUNT (12 MO.) 3 [facility]. TOTAL 3 NOTE: Visits indicate total known visits. ED/UCC VISIT TRACKING (12 MO.) 07/10/2021 14:23 [facility] TYPE: Emergency COMPLAINT: - SHAKY, VOMITING, LOWER R LEG PAIN 04/29/2021 20:42 [facility] TYPE: Emergency COMPLAINT: - ABD AND BACK PAIN, CONSTIPATION DIAGNOSES: - Allergy status to analgesic agent - Radiographic dye allergy status - Other long wall mining machine tender (current) drug therapy - Nicotine dependence, unspecified, uncomplicated - Allergy status to other drugs, medicaments and biological substances - Allergy status to other antibiotic agents - Allergy status to penicillin - Constipation, unspecified 08/20/2020 17:44 [facility] TYPE: Emergency COMPLAINT: - BLOOD SUGAR PROBLEM DIAGNOSES: - Type 2 diabetes mellitus with hypoglycemia without coma - Allergy status to other antibiotic agents - Radiographic dye allergy status - Other long wall mining machine tender (current) drug therapy - Allergy status to other drugs, medicaments and biological substances - Nicotine dependence, unspecified, uncomplicated - Allergy status to penicillin - Allergy status to analgesic agent - [facility] (current) use of oral hypoglycemic drugs INPATIENT VISIT TRACKING (12 MO.) No inpatient visits to display in this time frame [email or web address]
--- NOTE | 2021-07-10 19:27 | NUR ---
pt ARRIVED TO FLOOR, FLOAT CHANCE PADILLA TO COMPLETE QUICK ADMIT. pt ORIENTED TO ROOM, ANXIOUS ON APPEARANCE. pt REASSURED WITH THERAPEUTIC COMMUNICATION, pt BEGINS TO DRY HEAVE, STATING, "I'M SO HUNGRY, I HAVEN'T ATE ANYTHING ALL DAY". pt UNABLE TO HAVE SF D/T ALLERGIES TO ARTIFICIAL SWEETNERS, REGULAR PUDDING AND SANDWHICH BOX PROVIDED. IV FLUIDS INFUSING DIECTED, IV SITES X2 WNL. NO FURTHER NEEDS, CALL LIGHT IN REACH.
--- NOTE | 2021-07-10 22:05 | NUR ---
ASSISTED PT. TO BATHROOM. ROOM TIDIED. PERSONAL ITEMS PUT AWAY. FRESH ICE WATER AND WARM BLANKET PROVIDED. CALL LIGHT LEFT WITHIN REACH. NO OTHER IMMEDIATE NEEDS AT THIS TIME.
--- NOTE | 2021-07-10 23:20 | NUR ---
ROUNDED ON pt, IV PUMP ALARMING, ISSUE RESOLVED. IV SITE WNL. pt HAS OWN SRINIVASAN HOSE/COMPRESSION SOCKS FROM HOME IN PLACE, ASSISTED pt WITH READJUSTING SRINIVASAN HOSE/COMPRESSION SOCKS. pt REFUSES TO TAKE THEM OFF AND STATES, "I'M AFRAID TO TAKE THEM OFF, MY LEG IS SICK AND WHEN IT'S SICK IT'LL SWELL UP". NO KINKS NOTED. BROTHER PRIMITIVO TO TAKE pt's HOME MEDS HOME FOR pt. NO FURTHER NEEDS, CALL LIGHT IN REACH.
--- NOTE | 2021-07-10 23:27 | NUR ---
pt GIVEN IV CLINDAMYCIN IN ED, 2200 DOSE RETIMED.
--- NOTE | 2021-07-11 01:52 | NUR ---
IN ROOM TO COLLECT VS AND I&O'S, SBP SOFT. pt DENEIS DIZZINESS OR LIGHTHEADEDNESS, RESTING IN BED. WILL MONITOR. IV FLUIDS INFUSING, SITE WNL. PANTS PRESSER TO MIX SCHEDULED 0200 IV ABX. pt REPORTS INTERMITTENT PAIN, 5-7. pt DENIES PRN TYLENOL. NO FURTHER NEEDS, pt DENIES NEED TO VOID. CALL LIGHT IN REACH.
--- NOTE | 2021-07-11 02:10 | NUR ---
scheduled iv abx infusing as directed. call light in reach.
--- NOTE | 2021-07-11 04:48 | NUR ---
pt RESTING IN BED WITH EYES CLOSED, RR EVEN AND UNLABORED. NO DISTRESS NOTED. IV FLUIDS CONTINUE TO INFUSE DIRECTED. CALL LIGHT IN REACH.
--- NOTE | 2021-07-11 06:22 | NUR ---
IN ROOM TO ROUND ON pt, pt AWAKE AND HYPERVENTILATING IN BED. LAB IN ROOM ATTEMPTING TO COLLECT BLOOD DRAW. pt REPEATEDLY MAKES STATEMENTS SUCH "OH I'M JUST TIRED OF BEING SICK". pt REASSURED AND ENCOURAGED. VS AND I&O'S COMPLETE, HR TACHY. ELEVATED TEMP NOTED, PRN TYLENOL GIVEN ALONG WITH NEW BAG IV FLUIDS AND PRN ZOFRAN. DR ANDRADE ALSO AT BEDSIDE, UPDATED pt ON POC. SMALL AMOUNT YELLOW EMESIS NOTED AND CHARTED, APPROX 125MLS. DR ANDRADE CONSULTING ON pt AND MADE AWARE OF BLOOD CULTURE RESULTS. pt NOW RESTING IN BED AND APPEARS MORE RELAXED, RR NOW WNL. WILL CONTINUE TO MONITOR. POC TO COMPLETE A PELVIC CT W/ CONTRAST, DR ANDRADE TO PLACE ORDERS PER PROTOCOL D/T IDODINE ALLERGY.
--- NOTE | 2021-07-11 09:48 | CONS ---
[facility] [address], [place] [address] Signed DATE OF CONSULTATION: 07/11/2021 CHIEF COMPLAINT: Right groin pain. HISTORY OF PRESENT ILLNESS: Rhonda is a 45-year-old obese diabetic female, who has had trouble with recurring right lower extremity cellulitis. She works with her Infectious Disease, in the [facility]. She had a PICC line previously. She has multiple drug allergies. Apparently, she has not had it incised and drained in her groin. She came in yesterday with fevers and chills. The white count was elevated. Lactic acid was 1.8. Blood cultures have already come back with gram-positive cocci in chains. Chest x-ray was unremarkable. Ultrasound of right lower extremity shows what might be a couple of cystic structures in the right groin measuring 1.6 x 3 x 4.4 cm and 1.3 x 2.8 x 4 cm. She has been admitted and started on IV clindamycin with the help of Dr. Valentin. I have been asked to see her as a general surgeon on-call. PAST MEDICAL HISTORY: Endometrial cancer, chronic right lower extremity cellulitis, edema, ulcerative colitis, rheumatoid arthritis, lupus and vasculitis. PAST SURGICAL HISTORY: Includes a hysterectomy, D and C, mouth surgery and a PICC line. SOCIAL HISTORY: She does smoke. She does not drink. Dr. Jorge Gonzalez is her primary care provider. Dr. Valentin is her Infectious Disease doctor. She prefers [facility]. She is a full code. Her brother is Kathleen Tellez at [phone]. FAMILY HISTORY: None. REVIEW OF SYSTEMS: She had 10 systems reviewed and there is nothing new to add. ALLERGIES: 1. Artificial sweeteners. 2. Iodine. 3. Penicillin. 4. Aspirin. 5. Naproxen. 6. Cipro. 7. Daptomycin. Electronically Signed By: MEGAN ANDRADE MD 07/11/21 0948 PATIENT NAME: RHONDA RUFFIN VALERIA CONSULTATION DATE OF : 75 REPORT #: [id number] PHYSICIAN: MEGAN ANDRADE MD PCP: JORGE GONZALEZ MD REPORT IS CONFIDENTIAL AND NOT TO BE RELEASED WITHOUT AUTHORIZATION [facility] [address] [place] [id number] Signed 8. Vancomycin. MEDICATIONS: Include: 1. EpiPen. 2. Ibuprofen. 3. Tylenol. 4. Vitamin D. 5. Albuterol. 6. Durand 5 mg. 7. Diclofenac. 8. Trulicity. PHYSICAL EXAMINATION: VITAL SIGNS: Her blood pressure is 95/62, heart rate is 94, respiratory rate 20, temperature is 98.3. She is 99% on room air. She is 5 feet 7 inches at 129 kg. GENERAL: Rhonda is a 45-year-old obese female, lying supine in her hospital bed. She does not appear systemically ill or toxic. LUNGS: Clear to auscultation bilaterally. HEART: Regular rate and rhythm without murmurs. ABDOMEN: Obese. EXTREMITIES: Her right leg actually looks fine visually. I could not feel any palpable lymph nodes in the upper inner thigh. She then was able to palpate a couple of areas next to the femoral artery and vein which I was then able to feel. To me it would feel most like swollen lymph nodes. LABORATORY DATA: Her white blood cell count is 21.7, hemoglobin 13, neutrophils 94, BUN 13, creatinine 0.7, glucose 211. Urinalysis negative. Lactic acid 1.8. Liver function tests are negative. Albumin is 3.5. Her blood cultures already show gram-positive cocci in chains. RADIOGRAPHIC STUDIES: Chest x-ray was unremarkable. The ultrasound of the right lower extremity shows what apparently are two cysts, one is a little confusing, it is listed as 1.6 x 3 x 4.4 mm rather than cm. Next to it is another one measuring 1.3 x 2.8 x 4 cm and what is described as upper inner thigh which would be around the femoral artery and vein. ASSESSMENT AND PLAN: Rhonda is a 45-year-old female, who has recurrent right lower extremity cellulitis and bacteremia apparently with gram-positive cocci in chains. She has been started on clindamycin. Really, no induration or overlying cellulitis. I think it would be lerma to gather some more information and check a CT scan of her pelvis and groin area. If there is nothing drainable of course she would stay on her clindamycin. I reviewed this Electronically Signed By: MEGAN ANDRADE MD 07/11/21 0948 PATIENT NAME: RHONDA RUFFIN [facility] CONSULTATION DATE OF : 75 REPORT #: [id number] PHYSICIAN: MEGAN ANDRADE MD PCP: JORGE GONZALEZ MD REPORT IS CONFIDENTIAL AND NOT TO BE RELEASED WITHOUT AUTHORIZATION [address] [address] Signed with Rhonda and she told me she would prefer to avoid surgery if possible. Our nurse was present in the room during this time. Megan Andrade MD ALB/MODL /[id number] cc: MD Chance Roe DO Andrew L Bower, MD Copies: JORGE GONZALEZ DMD, BRIAN J DO BOWER, ANDREW L MD ~ Electronically Signed By: MEGAN ANDRADE MD 07/11/21 0948 PATIENT NAME: RHONDA RUFFIN VALERIA CONSULTATION DATE OF : 75 REPORT #: [id number] PHYSICIAN: MEGAN ANDRADE MD PCP: JORGE GONZALEZ MD REPORT IS CONFIDENTIAL AND NOT TO BE RELEASED WITHOUT AUTHORIZATION
--- NOTE | 2021-07-11 10:11 | NUR ---
Patient in bed sleeping, respirations even and non labored. Patient has no distress. No current needs. Personal supplies and call light within reach.
--- NOTE | 2021-07-11 11:54 | NUR ---
Patient educated on plan of care. Patient aware of Dr. Munoz's plan to have a CT scan with contrast around 1330 today. Patient understands she is being pre medicated with benadryl and solu-Medrol per policy to help prevent an anaphylactic reaction as she is allergic to iodine. Patient states she is aware of provider's plan of care and agrees to medication administration.
--- NOTE | 2021-07-11 12:22 | NUR ---
Tylenol 650mg po admin for reports of generalized pain, 12/08.
--- NOTE | 2021-07-11 12:32 | NUR ---
Verbal order obtained from Dr. Munoz for Ativan 1-2mg IVP prn for anxiety.
--- NOTE | 2021-07-11 13:16 | NUR ---
CHANCE GUZMAN REQUESTED I NOT DISTURB PT AT THIS TIME. GOING TO CT SOON AND FELT IT BEST TO LET PT REST BEFORE. WILL FOLLOW
--- NOTE | 2021-07-11 15:24 | NUR ---
Patient resting in bed, no distress. Patient's brother at bedside. No current needs.
--- NOTE | 2021-07-11 16:00 | NUR ---
Spoke with Makenzie Stack. She states she lives in [place] in a house wit h 5 other people. She does not use any DME. States she has had cellulit is which returns for 20 years. States she has uses the food bank at times and also [employer] have helped her. I will call and ask if [employer] will complete and eval for need as pt states she has food insecurity. Her brother Jv called during our visit and is on his way to see her. Pt denies other needs. Asks if I can help her defer jury duty. She states she has to have a glucometer and food with her at all times and they will not allow this. She also states her brother is bringing the jury letter and will help her. Let her know if he needs help to tell CM and we can attempt to help. Pt plans on dc to home when cleared medically.
[2021-07-11] MEDS ORDERED: GABAPENTIN100 MG PO (16:08)
--- NOTE | 2021-07-11 18:22 | NUR ---
Tylenol 650mg po admin for reports of 5/10 generalized pain.
--- NOTE | 2021-07-11 18:37 | EKG ---
[facility] [address] [facility] [place], [place] [address] Signed Sinus tachycardia Otherwise normal ECG When compared with ECG of 05-JUN-2020 23:10, QRS axis shifted right Confirmed by HARDIK EMMANUEL DO ([id number]) on 07/11/2021 6:37:17 PM Electronically Signed By: HARDIK EMMANUEL DO 07/11/21 1837 PATIENT NAME: RHONDA RUFFIN VALERIA Electrocardiogram DATE OF : 75 PHYSICIAN: HARDIK EMMANUEL DO REPORT #: [id number] REPORT IS CONFIDENTIAL AND NOT TO BE RELEASED WITHOUT AUTHORIZATION
--- NOTE | 2021-07-11 18:58 | NUR ---
ASTER from Dr. West to start patient's Diclofenac pain medication per home order. Pharmacy does not carry this medication in ER form. Patient to have brother bring in medication from home.
--- NOTE | 2021-07-11 19:15 | NUR ---
SHIFT REPORT RECEIVED FROM DAYSHIFT CHANCE GUZMAN AT BEDSIDE. pt RESTING QUIETLY IN BED, EYES CLOSED. RR EVEN AND UNLABORED, CALL LIGHT IN REACH. IV FLUIDS INFUSING, SITE WNL. NO DISTRESS NOTED.
--- NOTE | 2021-07-11 21:40 | NUR ---
DR EMMANUEL MADE AWARE OF pt's MAG RESULT OF 1.4. TELEPHONE ORDERS READ BACK FOR 4GRAMS IV MAGNESIUM SULFATE ONCE.
--- NOTE | 2021-07-11 22:24 | NUR ---
ASSESSMENT COMPLETE, SCHEDULED MEDS GIVEN (SEE EMAR). pt REPORTS TENDERNESS TO RIGHT GROIN, BUT IMPROVED COMPARED TO PREVIOUS SHIFTS. NO REDDNESS NOTED, WILL CONTINUE TO MONITOR. HOME COMPRESSION SOCKS/SRINIAVSAN HOSE REMAINS IN PLACE, pt REFUSES TO TAKE THEM OFF, BUT ALLOWED THIS RN TO ROLL DOWN SOCKS TO ASSESS DOWN TO ANKLES. SOCKS BACK ON. IV SITES X2 WNL, CALL LIGHT IN REACH. pt REPORTS DESIRE FOR HOME PO AND GEL DICLOFENAC PER HOME ROUTINE. MEDS VERIFIED BY TELEPHARMACY BILL WITH HELP FROM HYDROCHLORIC MANUFACTURING SUPERVISOR ABIOLA. PER PREVIOUS NOTE FROM DAYSHIFT AND SHIFT REPORT, MD EMMANUEL GAVE OKAY FOR pt TO TAKE HOME ROUTINE DICLOFENAC.
--- NOTE | 2021-07-11 22:25 | NUR ---
PT UP TO THE TOILET, VS, I&Os, GLUC CHECK (SEE EMAR) DONE, FRESH WATER PROVIDED
--- NOTE | 2021-07-11 22:46 | NUR ---
ONE TIME MAG RIDER INFUSING DIRECTED, IV SITES X2 REMAINS WNL. NO FURTHER NEEDS, CALL LIGHT IN REACH.
--- NOTE | 2021-07-12 00:19 | NUR ---
pt's OWN PO DICLOFENAC GIVEN AT THIS TIME, SEE EMAR. pt STICKER NOT YET AVAILABLE, UNABLE TO SCAN. VERIFIED ALREADY BY CHUCKIE FROM TELEPHARMACY AND VERIFIED BY SECOND RN ABIOLA. NO FURTHER NEEDS, CALL LIGHT IN REACH.
--- NOTE | 2021-07-12 00:49 | NUR ---
pt RESTING IN BED, WITH EYES CLOSED. RR EVEN AND UNLABORED, CALL LIGHT IN REACH. IV SITE WNL, IV FLUIDS INFUSING DIRECTED.
--- NOTE | 2021-07-12 01:13 | NUR ---
NEW BAG IV FLUIDS HUNG AND INFUSING DIRECTED, IV SITE WNL. RR EVEN AND UNLABORED, RATE 20. CALL LIGHT IN REACH.
--- NOTE | 2021-07-12 02:35 | NUR ---
SCHEDULED IV ABX INFUSING DIRECTED, IV SITES X2 WNL. pt RESTING IN BED, MINIMAL AUDIBLE SNORING NOTED, pt AWOKE TO VOICE. DENIES NEEDS OR CONCERNS. HOME COMPRESSION SOCKS REMAIN IN PLACE, NO KINKS NOTED. CALL LIGGHT AND PERSONLA BELONGINGS REMAIN IN PLACE.
--- NOTE | 2021-07-12 05:43 | NUR ---
IV SITE WNL, FLUIDS INFUSING DIRECTED. LAB IN ROOM FOR AM LAB DRAW AND ORDERED BLOOD CULTURES.
--- NOTE | 2021-07-12 05:52 | NUR ---
IV SITE X2 WNL, FLUIDS INFUSING DIRECTED. VSS AND I&O'S COMPLETE.
--- NOTE | 2021-07-12 06:58 | NUR ---
MESSAGE SENT TO DR EMMANUEL ON pt's MORNING MAG LEVEL OF 2.5. CHIEF OPHTHALMIC TECHNICIANCHANCE CULVER ALSO MADE AWARE.
--- NOTE | 2021-07-12 07:31 | NUR ---
REPORT RECIEVED FROM CARBON COATING MACHINE OPERATOR RN, PT SLEEPING IN BED RR EVEN AND NON LAOBRED, CALL LIGHT WITHIN REACH
--- NOTE | 2021-07-12 09:19 | NUR ---
RN IN ROOM TO DO MORNING MEDS AND ASSESSMENT PT SITTING UP IN BED IND IN ROOM OFFERED TO GET UP TO THE RECLINER TO EAT BREAKFAST DENIED JUST SITTING ON THE EDGE OF THE BED, PRN TYLENOL PROVIDED FOR BACK PAIN, NEW BAG OF LR STARTED AT 125, NO OTHER NEEDS AT THE MOMENT
--- NOTE | 2021-07-12 09:49 | NUR ---
MED REC COMPLETE
--- NOTE | 2021-07-12 10:33 | NUR ---
RN IN ROOM TO HANG IV ABX, SITTING UP IN BED DENIES ANY NEEDS AT THE MOMENT
--- NOTE | 2021-07-12 11:44 | NUR ---
PT COMPLAINING FEELING LIKE BLOOD SUGAR IS "LOW" RN CHECKED BLOOD SUGAR PT IS 305. WILL ADMINISTER INSULIN WHEN LUNCH TRAY IS DELIVERED
--- NOTE | 2021-07-12 12:30 | NUR ---
RN IN ROOM TO ADMINISTER LUNCH TIME INSULIN BLOOD GLUCOSE 305 7 UNITS OF INSULIN ADMINISTERED
--- NOTE | 2021-07-12 13:27 | NUR ---
INTO SEE PATIENT TO HELP WITH JURY DUTY PAPERWORK AT HER REQUEST. PATIENT IN BED TALKING TO HER BROTHER LORI ON THE PHONE. PATIENT IS ABLE TO SIT UP AT THE BEDSIDE WITH MINIMAL ASSIST. ASSISTED PATIENT WITH MEDICAL STATEMENT FOR EXCUSAL OF JURY DUTY. PATIENT HAS ALSO OBTAINED A NOTE FROM HER PCP FOR EXCUSAL. NO FURTHER QUESTIONS OF CONCERNS FROM PATIENT, WILL CONTINUE TO FOLLOW UP DURING HER VISIT.
--- NOTE | 2021-07-12 14:00 | NUR ---
PT COMPLAINING OF CONSTIPATION NURSE INITIATED ORDERS FOR SENNA STARTED, IN ROOM ADMINISTERING AND SALINE LOCKED IV PER ORDER DENIES ANY OTHER NEEDS AT THE MOMENT
--- NOTE | 2021-07-12 15:00 | NUR ---
PT REQUESTING A SHOWER VIPUL SHIPMAN IN ROOM HELPING PT SET UP, SHE IS INDEPENDENT IN THE ROOM
--- NOTE | 2021-07-12 16:45 | NUR ---
PT GOT DONE WITH SHOWER TOOK COMPRESSION SOCKS OFF, PT NOTED HER R LEG IS RED, AND SWOLLEN WARM AND TENDER TO TOUCH, PT SIGNED CONSENT FOR PICTURES, PICTURES PLACED IN CHART. DR EMMANUEL NOTIFIED.
--- NOTE | 2021-07-12 18:12 | NUR ---
PATIENT SITTING AT SIDE OF BED, VITALS AND I&OS CHARTED. ROOM TIDIED, GARBAGE EMPTIED. CALL LIGHT AND PERSONAL ITEMS IN EASY REACH. NO OTHER NEEDS
--- NOTE | 2021-07-12 18:22 | NUR ---
RB IN ROOM TO CHANGE DRESSINGS ON IVS THEY HAVE BECOME LOOSE AFTER SHOWERING EARLIER TODAY DENIES ANY OTHER NEEDS PROVIDED WITH CRAYONS AND COLORING PAGES PER REQUEST
--- NOTE | 2021-07-12 19:10 | NUR ---
Received report from CHANCE Anguiano dayslaft. Pt awake, on phone. IN bed, no needs at this time.
--- NOTE | 2021-07-12 21:00 | NUR ---
in to get vs, pt up to the toilet, bs check, (see emar), fresh water provided to pt, no further needs
--- NOTE | 2021-07-12 21:25 | NUR ---
Assessment completed, pt RLE with reddness, pink, closer to knee, slightly red below. Not hot, area marked. Pt complains of pain when pulling down her suport socks, but once pulled up, pain went away. Pt states she feels much better compared to her admission. Went over POC with pt. Warm water per her choice. Pt refused her senna, stating that she has had a second BM after getting the first senna. Concerned she will have loose stools. Encouraged to consider in am when offered to decrease constipation, however, she said it was much "easier" the second BM vs the first. All personal supplies within reach, stomach unconfortable, most likely from the senna she received earlier, she agreed.
--- NOTE | 2021-07-12 23:35 | NUR ---
CHECKED ON PT, AWAKE, WATCHING TV, AND ON PHONE. NO NEEDS SHE SAID AT THIS TIME.
--- NOTE | 2021-07-13 01:13 | NUR ---
SITTING UP ON EDGE BED, FINISHING HER SNACK. DENIES NEEDS AT THIS TIME
--- NOTE | 2021-07-13 02:45 | NUR ---
ANTIBIOTIC INFUSING; PT STATES THAT SHE HAS SLEPT A LITTLE. DENIES PAIN, OR OTHER NEEDS. NO CHANGE IN HER RIGHT LEG PER PATIENT.
--- NOTE | 2021-07-13 05:57 | NUR ---
COMPLAINED 5/10 HEADACHE, MED WITH TYLENOL PER MAR
--- NOTE | 2021-07-13 07:20 | NUR ---
pt eyes closed, resp rate even, call light in reach. bedside report from dania.
--- NOTE | 2021-07-13 10:02 | NUR ---
Dr. dodge and Dr. sierra in for assessment.
--- NOTE | 2021-07-13 13:45 | NUR ---
iv r fore arm dc intact - infilterated. iv stopped.
--- NOTE | 2021-07-13 16:16 | NUR ---
PATIENT TOOK A SHOWER YESTERDAY AFTERNOON.
--- NOTE | 2021-07-13 19:36 | NUR ---
REPORT RECEIVED FROM DAY SHIFT RN. PT LYING IN BED ALERT AND ORIENTED. DENIES NEEDS AT THIS TIME. WHITE BOARD UPDATED. CALL LIGHT IN REACH.
--- NOTE | 2021-07-13 20:45 | NUR ---
EVENING ASSESSMENT COMPLETE. SCHEDULED MEDS ADMINISTERED PER EMAR. PT REPORTS RLE PAIN /10. PRN FOR PAIN ADMINISTERED PER EMAR. PT DENIES NAUSEA. REDNESS ON RLE WITHIN OUTLINE. EDEMA NOTED. PT WITH HERNNADO BADUL. FRESH WATER PROVIDED. PT DENIES QUESTIONS OR CONCERNS. CALL LIGHT IN REACH.
--- NOTE | 2021-07-13 21:02 | NUR ---
restarted IV, placed 22 g to left hand. IV to right forearm not flushing, removed, tip intact, placed guaze and coban to site.
--- NOTE | 2021-07-14 00:53 | NUR ---
PT RESTING IN BED WITH EYES CLOSED. RESPIRATIONS EVEN. CALL LIGHT IN REACH.
--- NOTE | 2021-07-14 02:33 | NUR ---
PT RESTING ON LEFT SIDE. AWAKENS EASILY. IV ABX INFUSING WNL. PT DENIES NEEDS. CALL LIGHT IN REACH.
--- NOTE | 2021-07-14 06:20 | NUR ---
VS AND I&O COMPLETE. PRN FOR PAIN ADMINISTERED PER EMAR. FRESH WATER PROVIDED. NO FURTHER NEEDS. CALL LIGHT IN REACH.
--- NOTE | 2021-07-14 07:20 | NUR ---
report from Ana RN, pt resting with call light in reach, eyes closed, resp even.
--- NOTE | 2021-07-14 09:13 | NUR ---
PT EATING MEAL - DISCUSSED RECENT TEETH REMOVAL FOR ANTICIPATION FOR DENTURES. NO DENTURES FITTED YET - NEED HELP GETTING APPT. WILL CALL TOMORROW FOR F/U APPT.
--- NOTE | 2021-07-14 10:42 | NUR ---
this rn called lab to check on blood cultures from 07/12 - preliminary is no growth and no results today.
[2021-07-14] MEDS ORDERED: CLINDAMYCIN HC300 MG PO (12:35)
== END 2021-07-14 14:30 | disposition home or self-care (01) | DRG 872 ==
LOC: ED 14:22 → MS 18:18
PROVIDERS: ADMIT Student in an Organized Health Care Education/Training Program; ATTEND Student in an Organized Health Care Education/Training Program
DX: A40.1 Sepsis due to streptococcus, group B (principal); L03.115 Cellulitis of right lower limb; L02.415 Cutaneous abscess of right lower limb; Z68.41 Body mass index [BMI] 40.0-44.9, adult; E66.01 Morbid (severe) obesity due to excess calories; E11.9 Type 2 diabetes mellitus without complications; M06.9 Rheumatoid arthritis, unspecified; M32.9 Systemic lupus erythematosus, unspecified; F17.210 Nicotine dependence, cigarettes, uncomplicated; Z88.6 Allergy status to analgesic agent; Z88.1 Allergy status to other antibiotic agents; Z88.0 Allergy status to penicillin; Z91.041 Radiographic dye allergy status; Z85.89 Personal history of malignant neoplasm of other organs and systems; Z90.710 Acquired absence of both cervix and uterus; Z98.890 Other specified postprocedural states; Z79.899 Other long term (current) drug therapy
CPT/HCPCS: 36415; 71045; 74177; 80048; 80053; 81001; 83605; 83735; 85025; 87040; 93971; 99285-25; A9270; C9803; J1200; J1650; J1815; J2060; J2405; J2930; J3475; J7030; J7121; Q9967